=== PATIENT | female | born 1955 | race American Indian/Alaskan Native ===

== ENCOUNTER 2016-09-28 07:38 | Outpatient (CLI) | payer BC ==
--- NOTE | 2016-09-29 09:18 | Ultrasound Report ---
Left breast ultrasound and left mammogram: The patient is post mastectomy with implant. She presents with a history of a chronic thickening in the axilla but currently feeling new pain in this region. The initial exam was performed with ultrasound. Imaging over the area of concern in the one clock location in the far posterior lateral breast or axilla demonstrates a somewhat well-defined irregular shaped hypoechoic region measuring 3.3 x 1.8 cm. This is located just posterior to the pectoralis/axillary muscles. The patient has a pacemaker and this is posterior to that. Attempts to identify this area with mammography were not successful and the area was obscured by the pacemaker in the lateral projection and could not be positioned at far posteriorly in the CC view. The visualized breast and implant are unremarkable. Impressions: The hypoechoic area apparently corresponds to an area of palpable thickness that has been present for many years since surgery. What this represents is unclear and it could be fibrosis if the patient had an axillary dissection. I have no other explanation for the pain. Recommendation: Clinical followup. Consideration of a ultrasound guided biopsy. BI-RADS CATEGORY: 4 = Suspicious ACR BI-RADS MAMMOGRAPHIC CODES: 0 = Needs additional imaging evaluation; 1 = Negative; 2 = Benign; 3 = Probably benign; 4 = Suspicious; 5 = Malignant; 6 = Known biopsy-proven malignancy COMMENT: 1. Dense breast tissue, i.e., adenosis, fibrocystic changes, etc., may obscure an underlying neoplasm. 2. Approximately 10% of cancers are not detected with mammography. 3. A negative mammography report should not delay biopsy if a clinically suspicious mass is present.
== END 2016-09-28 07:39 | disposition home or self-care (01) ==
LOC: US 07:38
PROVIDERS: ATTEND Internal Medicine Hematology & Oncology
DX: C50.212 Malignant neoplasm of upper-inner quadrant of left female breast (principal); Z90.12 Acquired absence of left breast and nipple; Z98.82 Breast implant status; Z95.0 Presence of cardiac pacemaker
CPT/HCPCS: 76642; G0206

== ENCOUNTER 2017-04-21 07:37 | Outpatient (CLI) | payer BC ==
--- NOTE | 2017-04-21 14:39 | Nuclear Medicine Report ---
Hepatobiliary scan: Following injection of radionuclide imaging of the anterior liver is unremarkable. There is prompt activity in the bile ducts and filling of the small bowel. The gallbladder is not identified through the 2 hour images. There is no significant residual activity in the liver and the study is terminated. Impression: Nonvisualized gallbladder. Considerations would include cystic duct obstruction and nonfunctioning gallbladder.
== END 2017-04-21 07:38 | disposition home or self-care (01) ==
LOC: NM 07:37
PROVIDERS: ATTEND Internal Medicine Gastroenterology
DX: R11.2 Nausea with vomiting, unspecified (principal)
CPT/HCPCS: 78226; A9537

== ENCOUNTER 2017-06-01 12:09 | Day surgery (SDC) | payer BC ==
[~2017-06-01 12:09] MED LIST: ANCEF/STERILE WATER 2 GM/20 ML IV NR
[2017-06-01] MEDS ORDERED: VERSED IV NR (14:22)
[2017-06-01] MEDS ORDERED: LACTATED RINGERS 1,000 ML IV SCH (14:22)
[2017-06-01] MEDS ORDERED: PEPCID PO NR (14:22)
--- NOTE | 2017-06-01 14:28 | Anesthesia Consultation ---
Anesthesia Consult and Med Hx Date of service: 06/01/17 - Pulmonary Exam CTA: Yes - Cardiac Exam Cardiac Exam: RRR - Pre-Operative Health Status ASA Pre-Surgery Classification: ASA4 Proposed Anesthetic Plan: General - Pulmonary Hx Smoking: Yes (SMOKED FOR 16y, STOP MAR 2016) Hx Asthma: Yes Hx Sleep Apnea: Yes (cpap) - Cardiovascular System Hx Hypertension: Yes (1999) Hx Heart Attack/AMI: Yes (, dilated cardiomyopathy) Hx Pacemaker: Yes (DEFIBRILLATOR) - Central Nervous System Hx Psychiatric Problems: No - Hematic Hx Anemia: No Hx Sickle Cell Disease: No - Other Systems Hx Alcohol Use: Yes (OCCASIONAL) Hx Substance Use: No Hx Cancer: Yes (breast) - Additional Comments Anesthesia Medical History Comments: Dilated cardiomyopathy, Last EF was 50%, LBBB,AICD
[2017-06-01] MEDS ORDERED: MARCAINE 0.25% INFILTRATI ONE ×2 (14:29→14:42)
--- NOTE | 2017-06-01 14:29 | Anesthesia Day of Surgery ---
Anesthesia Day of Surgery - Day of Surgery Patient Examined: Yes Patient H&P Reviewed: Yes Patient is NPO: Yes Cardiac Clearance: Yes
[2017-06-01] MEDS ORDERED: SUBLIMAZE ONE (14:32)
[2017-06-01] MEDS ORDERED: PERCOCET 5/325 PO PRN (14:34)
[2017-06-01] MEDS ORDERED: ZOFRAN IV PRN (14:34)
[2017-06-01] MEDS ORDERED: DILAUDID IV PRN (14:34)
[2017-06-01] MEDS ORDERED: XYLOCAINE MPF 2% ONE (14:35)
[2017-06-01] MEDS ORDERED: DIPRIVAN 10 MG/ML IV ONE (14:35)
[2017-06-01] MEDS ORDERED: ZEMURON IV ONE (14:35)
[2017-06-01] MEDS ORDERED: NACL 0.9% IR ONE ×2 (14:42)
[2017-06-01] MEDS ORDERED: AMIDATE IV ONE (14:56)
[2017-06-01] MEDS ORDERED: ROBINUL ONE (15:23)
[2017-06-01] MEDS ORDERED: NEOSTIGMINE ONE (15:23)
[2017-06-01] MEDS ORDERED: DILAUDID ONE (15:30)
--- NOTE | 2017-06-01 15:40 | Post Operative Note ---
Date of procedure: 06/01/17 Pre-op diagnosis: chronic choleycystitis Post-op diagnosis: same Findings: see path Procedure: laparoscopic choleycystectomy Surgeon: MAINOR PALMER Top Cutter: ASHA THORNTON Estimated blood loss: minimal Pathology: list (gallbladder) Specimen disposition: to lab Condition: stable Disposition: PACU
--- NOTE | 2017-06-01 15:45 | Discharge Summary ---
Short Stay Discharge Plan Activity: no restrictions Diet: regular Wound: open to air, other (may shower in 2 days) Follow up with: CHAD LARIOS MD [Primary Care Provider] - 7 Days MAINOR PALMER MD [Staff Physician] - 10 Days Prescriptions: oxyCODONE /ACETAMINOPHEN [Percocet 5/325] 1 - 2 tab PO Q6HR PRN #40 tablet PRN Reason: Pain Promethazine [Phenergan TAB] 25 mg PO Q6HR PRN #10 tab PRN Reason: Nausea
--- NOTE | 2017-06-01 17:04 | Post Anesthesia Evaluation ---
- Post Anesthesia Evaluation Patient Participated: Yes Airway Patent: Yes Stable Respiratory Function: Yes Nausea/Vomiting: No Temp > 96.8F: Yes Pain Manageable: Yes Adequeate Hydration: Yes Anesthesia Complications: No
--- NOTE | 2017-06-01 17:16 | Operative Report ---
PREOPERATIVE DIAGNOSIS: Chronic cholecystitis. POSTOPERATIVE DIAGNOSIS: Chronic cholecystitis. PROCEDURE: Laparoscopic cholecystectomy. TYPE OF ANESTHESIA: General. SURGEON: Fariba Yanez M.D. SPINE SUPERVISOR: Kirby Peng. ESTIMATED BLOOD LOSS: Less than 50 mL. FINDINGS: The patient was noted to have an intrahepatic gallbladder. DRAINS: None. INDICATIONS: This is a 61-year-old woman with complaints of epigastric and right upper quadrant pain with nausea, occasional vomiting, especially after eating. She had an ultrasonogram that did show gallstones; however, HIDA scan showed nonvisualization of the gallbladder consistent with chronic cholecystitis. DESCRIPTION OF PROCEDURE: The patient was brought to the operating room, laid supine on the table. After adequate general endotracheal anesthesia was obtained, her abdomen was prepped and draped in the usual fashion. Initially, 0.25% Marcaine was then infiltrated in the superior aspect of the umbilicus, small incision was made. A Veress needle was inserted and abdominal cavity was insufflated to an adequate pressure. Next, three subcostal ports were placed under direct visualization, two lateral 5 mm ports and an epigastric 11 mm port was placed. Attention was turned to the gallbladder. It was noted to be somewhat intrahepatic. It was retracted cephalad. Dissection was begun at the neck and the cystic duct and artery were identified as they were going to the gallbladder as well as at the triangle of Calot with the visualization of the liver behind the structures. Once this was done, the clips were applied and the cystic duct with the closely adherent cystic artery were divided. Next, attention was turned to taking the gallbladder off the liver bed. This was done using the hook cautery. There was some spillage of bile. Once the gallbladder was freed completely, it was retrieved using an specimen retrieval bag through the 11 mm port site. Hemostasis was ascertained in the liver bed and the right upper quadrant was then thoroughly irrigated. The three subcostal ports were removed under direct visualization and then the last port was removed and as much CO2 as possible was evacuated. All the port sites were reapproximated using 4-0 Monocryl in subcuticular fashion and the wounds were dressed with skin glue. The patient tolerated the procedure. There were no immediate complications. All counts reported as correct. JOB# [id number] SS/NTS
[2017-06-01 17:47] VITALS: BP 138/63
== END 2017-06-01 17:49 | disposition home health service (06) ==
LOC: OR 12:09
PROVIDERS: ATTEND Surgery
DX: K81.1 Chronic cholecystitis (principal); Q44.1 Other congenital malformations of gallbladder; I10 Essential (primary) hypertension; I25.2 Old myocardial infarction; I42.0 Dilated cardiomyopathy; J45.909 Unspecified asthma, uncomplicated; G47.33 Obstructive sleep apnea (adult) (pediatric); G40.909 Epilepsy, unspecified, not intractable, without status epilepticus; Z85.3 Personal history of malignant neoplasm of breast; Z87.891 Personal history of nicotine dependence; Z99.89 Dependence on other enabling machines and devices; Z90.10 Acquired absence of unspecified breast and nipple; Z95.810 Presence of automatic (implantable) cardiac defibrillator
CPT/HCPCS: 47562; 88304; A4217; J0690; J1170; J2250; J2405; J2704; J2710; J3010; J7120

== ENCOUNTER 2017-06-18 09:17 | Outpatient (CLI) | payer BC ==
[2017-06-18 09:36] LABS: Hemoglobin 13.5 gm/dl (10.1-14.3); Mean Corpuscular HGB Conc 31 % (30-34); Mean Corpuscular Hemoglobin 27 pg (28-32); Mean Corpuscular Volume 87 fl (79-97); Platelet Count 152 K/mm3 (140-440); Red Blood Count 4.96 M/mm3 (3.65-5.03); Red Cell Distribution Width 14.6 % (13.2-15.2); White Blood Count 4.6 K/mm3 (4.5-11.0)
[2017-06-18 10:00] LABS: Alanine Aminotransferase 9 units/L (7-56); Albumin/Globulin Ratio 1.3 %; Alkaline Phosphatase 122 units/L (35-129); Anion Gap 20 mmol/L; BUN/Creatinine Ratio 12; Blood Urea Nitrogen 12 mg/dL (7-17); Calcium 9.2 mg/dL (8.4-10.2); Carbon Dioxide 24 mmol/L (22-30); Chloride 103.9 mmol/L (98-107); Cholesterol 177 mg/dL (50-199); Glucose 104 mg/dL (65-100); HDL Cholesterol 48 mg/dL (40-59); LDL Cholesterol,Direct 108 mg/dL (50-130); Sodium 144 mmol/L (137-145); Total Protein 7.1 g/dL (6.3-8.2); Triglycerides 105 mg/dL (2-149)
[2017-06-21 21:44] LABS: Vitamin D, 25-OH, Total 17 ng/mL (30-100)
== END 2017-06-18 09:18 | disposition home or self-care (01) ==
LOC: LAB 09:17
PROVIDERS: ATTEND Internal Medicine
DX: Z00.01 Encounter for general adult medical examination with abnormal findings (principal); E55.9 Vitamin D deficiency, unspecified; I11.0 Hypertensive heart disease with heart failure; I50.9 Heart failure, unspecified; Z79.899 Other long term (current) drug therapy
CPT/HCPCS: 36415; 80053; 80061; 82306; 83036; 84443; 85027

== ENCOUNTER 2017-07-30 22:48 | Emergency (ER) | payer BC ==
[2017-07-30] MEDS ORDERED: PROVENTIL IH ONE (22:53)
[2017-07-30] MEDS ORDERED: DELTASONE PO ONE (22:54)
--- NOTE | 2017-07-30 23:31 | Emergency Department Report ---
ED Asthma HPI - General Chief Complaint: Adult Asthma Stated Complaint: COUGH/CHRISTIANO Time Seen by Provider: 07/30/17 22:53 Source: patient Mode of arrival: Ambulatory Limitations: No Limitations - History of Present Illness Initial Comments: Patient reports that she is having wheezing and cough with congestion and runny nose and she is not feeling well. Denies any chest pain. No [id number] medication taken. Patient has asthma and she is on nebulizer and inhaler for asthma. Pain is 0-10. MD Complaint: "asthma attack", shortness of breath, wheezing Onset/Timin -: days(s) Asthma History: history of prior ED visit Severity: moderate, similar to prior Context: recent URI Associated Symptoms: dry cough. denies: fever, chest pain, hemoptysis, leg edema, syncope Treatments Prior to Arrival: inhaled bronchodilator - Related Data Current Asthma Therapy: inhaled bronchodilator, inhaled steroid Home Medications Medication Instructions Recorded Confirmed Last Taken Aspirin [Aspirin Enteric Coated] 81 mg PO DAILY 11/20/13 11/20/13 1 Week Ago ~05/25/17 Carvedilol [Coreg] 25 mg PO BID 11/20/13 11/20/13 06/01/17 14:36 Cyclobenzaprine HCl [Flexeril] 10 mg PO QHS 11/20/13 11/20/13 1 Month Ago ~05/01/17 Fluticasone/Salmeterol [Advair 1 puff IH BID 11/20/13 11/20/13 1 Week Ago Diskus 500-50 mcg] ~05/25/17 Ropinirole HCl [Requip] 2 mg PO PRN 05/31/17 05/31/17 Unknown Valsartan/Hydrochlorothiazide 1 tab PO DAILY 05/31/17 05/31/17 Unknown [Valsartan-Hctz 160-12.5 mg Tab] Previous Rx's Medication Instructions Recorded Last Taken Type ALBUTEROL Inhaler [ProAir HFA 2 puff IH QID PRN #1 inha 09/16/15 1 Week Ago Rx Inhaler] ~05/25/17 Promethazine [Phenergan TAB] 25 mg PO Q6HR PRN #10 tab 06/01/17 Unknown Rx oxyCODONE /ACETAMINOPHEN [Percocet 1 - 2 tab PO Q6HR PRN #40 tablet 06/01/17 Unknown Rx 5/325] Amoxicillin/K Clav Tab [Augmentin 1 tab PO Q12HR 10 Days #20 tab 07/31/17 Unknown Rx 875 mg] Cetirizine HCl [ZyrTEC] 10 mg PO QAM 14 Days #14 capsule 07/31/17 Unknown Rx Fluticasone [Flonase] 1 spray NS QDAY 14 Days #1 bottle 07/31/17 Unknown Rx guaiFENesin/CODEINE [Robitussin AC] 5 ml PO Q6H PRN 5 Days #100 ml 07/31/17 Unknown Rx Allergies Allergy/AdvReac Type Severity Reaction Status Date / Time dopamine [Dopamine] Allergy Unknown Verified 07/31/17 01:59 erythromycin base Allergy Anaphylaxis Verified 05/31/17 17:24 [Erythromycin Base] heparin Allergy extreme Verified 05/31/17 17:24 burning beyond side effect levofloxacin [From Levaquin] Allergy Angioedema Verified 05/31/17 17:24 montelukast sodium Allergy Itching Verified 05/31/17 17:24 [From Singulair] ED Review of Systems ROS: Stated complaint: COUGH/CHRISTIANO Other details as noted in HPI Comment: All other systems reviewed and negative Constitutional: no symptoms reported Eyes: denies: eye pain, eye discharge ENT: congestion. denies: ear pain, throat pain Respiratory: cough, shortness of breath, SOB with exertion, wheezing. denies: orthopnea, SOB at rest, stridor Cardiovascular: denies: chest pain, palpitations, dyspnea on exertion, orthopnea , edema, syncope, paroxysmal nocturnal dyspnea Gastrointestinal: denies: abdominal pain, nausea, vomiting, diarrhea, constipation, hematemesis, melena, hematochezia Musculoskeletal: denies: back pain, joint swelling, arthralgia, myalgia Skin: denies: rash Neurological: denies: headache ED Past Medical Hx - Past Medical History Previous Medical History?: Yes Hx Hypertension: Yes (1999) Hx Heart Attack/AMI: Yes (, dilated cardiomyopathy) Hx Congestive Heart Failure: Yes Hx Deep Vein Thrombosis: Yes Hx GERD: Yes Hx Sickle Cell Disease: No Hx Asthma: Yes Hx HIV: No Additional medical history: diverticulitis restless leg - Surgical History Past Surgical History?: Yes Hx Pacemaker: Yes (DEFIBRILLATOR) Hx Breast Surgery: Yes (RECONSTUCTION) Additional Surgical History: defibrillator - Family History Family history: hypertension - Social History Smoking Status: Never Smoker Substance Use Type: None - Medications Home Medications: Home Medications Medication Instructions Recorded Confirmed Last Taken Type Aspirin [Aspirin Enteric Coated] 81 mg PO DAILY 11/20/13 11/20/13 1 Week Ago History ~05/25/17 Carvedilol [Coreg] 25 mg PO BID 11/20/13 11/20/13 06/01/17 14:36 History Cyclobenzaprine HCl [Flexeril] 10 mg PO QHS 11/20/13 11/20/13 1 Month Ago History ~05/01/17 Fluticasone/Salmeterol [Advair 1 puff IH BID 11/20/13 11/20/13 1 Week Ago History Diskus 500-50 mcg] ~05/25/17 ALBUTEROL Inhaler [ProAir HFA 2 puff IH QID PRN #1 inha 09/16/15 1 Week Ago Rx Inhaler] ~05/25/17 Ropinirole HCl [Requip] 2 mg PO PRN 05/31/17 05/31/17 Unknown History Valsartan/Hydrochlorothiazide 1 tab PO DAILY 05/31/17 05/31/17 Unknown History [Valsartan-Hctz 160-12.5 mg Tab] Promethazine [Phenergan TAB] 25 mg PO Q6HR PRN #10 tab 06/01/17 Unknown Rx oxyCODONE /ACETAMINOPHEN [Percocet 1 - 2 tab PO Q6HR PRN #40 tablet 06/01/17 Unknown Rx 5/325] Amoxicillin/K Clav Tab [Augmentin 1 tab PO Q12HR 10 Days #20 tab 07/31/17 Unknown Rx 875 mg] Cetirizine HCl [ZyrTEC] 10 mg PO QAM 14 Days #14 capsule 07/31/17 Unknown Rx Fluticasone [Flonase] 1 spray NS QDAY 14 Days #1 bottle 07/31/17 Unknown Rx guaiFENesin/CODEINE [Robitussin AC] 5 ml PO Q6H PRN 5 Days #100 ml 07/31/17 Unknown Rx ED Physical Exam - General Limitations: No Limitations General appearance: alert, other (mild distress) - Head Head exam: Present: atraumatic, normocephalic, normal inspection - Eye Eye exam: Present: normal appearance, PERRL, EOMI Pupils: Present: normal accommodation - ENT ENT exam: Present: normal orophraynx, mucous membranes moist, normal external ear exam, other (lateral nasal mucosa congested with clear drainage. No frontomaxillary sinus tenderness). Absent: normal exam, TM's normal bilaterally (bilateral TM congested without erythema) - Neck Neck exam: Present: normal inspection, full ROM, other (no C-spine tenderness). Absent: tenderness, meningismus, lymphadenopathy, thyromegaly - Respiratory Respiratory exam: Present: respiratory distress, wheezes, accessory muscle use ( mild respiratory distress), other (dry cough). Absent: rales, rhonchi, stridor , chest wall tenderness, decreased breath sounds - Cardiovascular Cardiovascular Exam: Present: normal rhythm, tachycardia, normal heart sounds. Absent: systolic murmur, diastolic murmur - GI/Abdominal GI/Abdominal exam: Present: soft, normal bowel sounds. Absent: distended, tenderness, guarding, rebound, rigid, organomegaly, mass, bruit, pulsatile mass , hernia - Extremities Exam Extremities exam: Present: normal inspection, full ROM, normal capillary refill , other (no clubbing, cyanosis or edema. Positive pulses all extremities and no neurovascular compromise). Absent: tenderness, pedal edema, joint swelling, calf tenderness - Back Exam Back exam: Present: normal inspection, full ROM. Absent: tenderness, CVA tenderness (R), CVA tenderness (L), muscle spasm, paraspinal tenderness, vertebral tenderness, rash noted - Neurological Exam Neurological exam: Present: alert, oriented X3, normal gait, reflexes normal. Absent: motor sensory deficit - Psychiatric Psychiatric exam: Present: normal affect, normal mood - Skin Skin exam: Present: warm, dry, intact, normal color. Absent: rash ED Course Vital Signs 07/30/17 07/31/17 07/31/17 23:10 00:07 00:35 Temperature Pulse Rate 108 H Pulse Rate [ 98 H 89 Posterior Bilateral] Respiratory 24 Rate Respiratory 18 18 Rate [Posterior Bilateral] Blood Pressure 142/95 [Right] O2 Sat by Pulse 96 Oximetry 07/31/17 07/31/17 01:30 02:00 Temperature 97.7 F 98.2 F Pulse Rate 85 Pulse Rate [ Posterior Bilateral] Respiratory 16 Rate Respiratory Rate [Posterior Bilateral] Blood Pressure 135/62 [Right] O2 Sat by Pulse 100 Oximetry - Reevaluation(s) Reevaluation #1: 07/31/17 01:10 Patient is stable. Influenza a and B is negative. Chest x-ray done and pending. Patient on her second round of nebulizer treatment and to IV magnesium infusing. She received prednisone 60 mg by mouth. Patient says she feels better. She still has some expiratory and inspiratory wheezes in the upper [place]. Reevaluation #2: 07/31/17 02:21 Patient lung sounds clear up and reevaluation. Vital signs are better. She says she feels a lot better. ED Medical Decision Making - Lab Data Influenza A and B is negative - Radiology Data Radiology results: report reviewed Chest x-ray reveals no acute cardiopulmonary findings. - Medical Decision Making ED course: Patient status post asthma exacerbation. Treated in emergency room with albuterol 10 mg nebulizer, Atrovent 0.5 mg 2 doses. She received prednisone 60 mg by mouth in emergency room. Patient also received magnesium sulfate 2 g IV. Upon reevaluation, lungs sounds are clear, patient says she is feeling a lot better. She denies any further shortness of breath. I discussed the patient her diagnosis and treatment plan. Patient discharged home a prescription for azithromycin which she said works for her. I placed her on azithromycin because she has multiple comorbidities and she said usually when she has asthma A usually turns into an infection. She also has upper respiratory infection, asthma exacerbation which is better, cough. X-ray negative for any cardiopulmonary findings and influenza A and B-. This was relayed to patient. Patient discharged from the emergency room with prescription for azithromycin, Zyrtec, Flonase and guaifenesin with codeine cough medicine. I discussed the patient denies needs to follow up with her primary care on Wednesday and she needs to take her albuterol nebulizer treatment at home every 4-6 hours over the next 48 hours and then as needed. Critical care attestation.: If time is entered above; I have spent that time in minutes in the direct care of this critically ill patient, excluding procedure time. ED Disposition Clinical Impression: Upper respiratory infection with cough and congestion Acute asthma exacerbation Qualifiers: Asthma severity: moderate Asthma persistence: unspecified Qualified Code(s): J45.901 - Unspecified asthma with (acute) exacerbation Disposition: DC-01 TO HOME OR SELFCARE Is pt being admited?: No Does the pt Need Aspirin: No Condition: Stable Instructions: Asthma (ED), Upper Respiratory Infection (ED), Acute Cough (ED) Additional Instructions: Please increase your fluid intake Rest for 72 hours Take antibiotic as prescribed Do not drive or operate heavy machinery while taking cough medicine as this medication causes drowsiness Follow up with your primary care physician on Wednesday If his symptoms recurs, please return to the emergency room [facility] Prescriptions: Amoxicillin/K Clav Tab [Augmentin 875 mg] 1 tab PO Q12HR 10 Days #20 tab Cetirizine HCl [ZyrTEC] 10 mg PO QAM 14 Days #14 capsule Fluticasone [Flonase] 1 spray NS QDAY 14 Days #1 bottle guaiFENesin/CODEINE [Robitussin AC] 5 ml PO Q6H PRN 5 Days #100 ml PRN Reason: Cough Referrals: your ,primary care physician [Other] - 08/02/17 Forms: Work/School Release Form(ED)
[2017-07-30] MEDS ORDERED: ATROVENT IH ONE (23:33)
[2017-07-30] MEDS ORDERED: MAGNESIUM SULFATE 2GM/50ML 2 GM/50 ML BAG IV ONE (23:34)
[2017-07-31] MEDS: ATROVENT IH ONE ×2 (00:07→00:08)
--- NOTE | 2017-07-31 01:20 | XRay Report ---
FINAL REPORT EXAM: XR CHEST ROUTINE 2V HISTORY: wheezing, cough TECHNIQUE: PA and lateral views of the chest were submitted. There are no previous examinations available for comparison. FINDINGS: Heart size and mediastinum appear normal. The lungs are clear. Pleural fluid is not seen. There is a pacemaker device overlying the left chest wall with the leads in the right atrium and right ventricle. There is a Port-A-Cath catheter along the right chest wall with the limb in the superior vena cava. The skeletal structures do not show any acute changes. IMPRESSION: No active chest disease.
[2017-07-31 02:12] VITALS: BP 135/62
== END 2017-07-31 03:19 | disposition home or self-care (01) ==
LOC: ED 22:48
DX: J45.901 Unspecified asthma with (acute) exacerbation (principal); J06.9 Acute upper respiratory infection, unspecified; I10 Essential (primary) hypertension; I50.9 Heart failure, unspecified; I82.409 Acute embolism and thrombosis of unspecified deep veins of unspecified lower extremity; Z88.8 Allergy status to other drugs, medicaments and biological substances; Z79.82 Long term (current) use of aspirin
CPT/HCPCS: 71046; 87400; 94640; 96365; 99284; J3475; J7512

== ENCOUNTER 2017-10-24 23:29 | Emergency (ER) | payer BC ==
[~2017-10-24 23:29] MED LIST changes: -ANCEF/STERILE WATER 2 GM/20 ML IV NR; +DUONEB *Not for PRN Use IH ONE
--- NOTE | 2017-10-25 00:39 | Emergency Department Report ---
ED Asthma HPI - General Chief Complaint: Adult Asthma Stated Complaint: ASTHMA Time Seen by Provider: 10/24/17 23:47 Source: patient, family Mode of arrival: Ambulatory Limitations: No Limitations - History of Present Illness MD Complaint: "asthma attack" -: Sudden, This afternoon Asthma History: history of frequent attac (seasonal), followed by specialist Severity: similar to prior Context: allergen exposure Associated Symptoms: productive cough Treatments Prior to Arrival: inhaled bronchodilator - Related Data Current Asthma Therapy: inhaled bronchodilator Home Medications Medication Instructions Recorded Confirmed Last Taken Aspirin [Aspirin Enteric Coated] 81 mg PO DAILY 11/20/13 11/20/13 1 Week Ago ~05/25/17 Carvedilol [Coreg] 25 mg PO BID 11/20/13 11/20/13 06/01/17 14:36 Cyclobenzaprine HCl [Flexeril] 10 mg PO QHS 11/20/13 11/20/13 1 Month Ago ~05/01/17 Fluticasone/Salmeterol [Advair 1 puff IH BID 11/20/13 11/20/13 1 Week Ago Diskus 500-50 mcg] ~05/25/17 Ropinirole HCl [Requip] 2 mg PO PRN 05/31/17 05/31/17 Unknown Valsartan/Hydrochlorothiazide 1 tab PO DAILY 05/31/17 05/31/17 Unknown [Valsartan-Hctz 160-12.5 mg Tab] Previous Rx's Medication Instructions Recorded Last Taken Type ALBUTEROL Inhaler [ProAir HFA 2 puff IH QID PRN #1 inha 09/16/15 1 Week Ago Rx Inhaler] ~05/25/17 Promethazine [Phenergan TAB] 25 mg PO Q6HR PRN #10 tab 06/01/17 Unknown Rx oxyCODONE /ACETAMINOPHEN [Percocet 1 - 2 tab PO Q6HR PRN #40 tablet 06/01/17 Unknown Rx 5/325] Amoxicillin/K Clav Tab [Augmentin 1 tab PO Q12HR 10 Days #20 tab 07/31/17 Unknown Rx 875 mg] Cetirizine HCl [ZyrTEC] 10 mg PO QAM 14 Days #14 capsule 07/31/17 Unknown Rx Fluticasone [Flonase] 1 spray NS QDAY 14 Days #1 bottle 07/31/17 Unknown Rx guaiFENesin/CODEINE [Robitussin AC] 5 ml PO Q6H PRN 5 Days #100 ml 07/31/17 Unknown Rx Prednisone 50 mg PO QDAY #7 tablet 10/25/17 Unknown Rx Allergies Allergy/AdvReac Type Severity Reaction Status Date / Time dopamine [Dopamine] Allergy Unknown Verified 07/31/17 01:59 erythromycin base Allergy Anaphylaxis Verified 05/31/17 17:24 [Erythromycin Base] heparin Allergy extreme Verified 05/31/17 17:24 burning beyond side effect levofloxacin [From Levaquin] Allergy Angioedema Verified 05/31/17 17:24 montelukast sodium Allergy Itching Verified 05/31/17 17:24 [From Singulair] ED Review of Systems ROS: Stated complaint: ASTHMA Other details as noted in HPI Constitutional: denies: chills, fever Eyes: denies: eye pain, eye discharge, vision change ENT: denies: ear pain, throat pain Respiratory: see HPI, cough, shortness of breath, wheezing Cardiovascular: denies: chest pain, palpitations Endocrine: no symptoms reported Gastrointestinal: denies: abdominal pain, nausea, diarrhea Genitourinary: denies: urgency, dysuria, discharge Musculoskeletal: denies: back pain, joint swelling, arthralgia Skin: denies: rash, lesions Neurological: denies: headache, weakness, paresthesias Psychiatric: denies: anxiety, depression Hematological/Lymphatic: denies: easy bleeding, easy bruising ED Past Medical Hx - Past Medical History Previous Medical History?: Yes Hx Hypertension: Yes (1999) Hx Heart Attack/AMI: Yes (, dilated cardiomyopathy) Hx Congestive Heart Failure: Yes Hx Deep Vein Thrombosis: Yes Hx GERD: Yes Hx Sickle Cell Disease: No Hx Asthma: Yes Hx HIV: No Additional medical history: diverticulitis restless leg - Surgical History Past Surgical History?: Yes Hx Pacemaker: Yes (DEFIBRILLATOR) Hx Breast Surgery: Yes (RECONSTRUCTION) Additional Surgical History: defibrillator - Social History Smoking Status: Never Smoker Substance Use Type: None - Medications Home Medications: Home Medications Medication Instructions Recorded Confirmed Last Taken Type Aspirin [Aspirin Enteric Coated] 81 mg PO DAILY 11/20/13 11/20/13 1 Week Ago History ~05/25/17 Carvedilol [Coreg] 25 mg PO BID 11/20/13 11/20/13 06/01/17 14:36 History Cyclobenzaprine HCl [Flexeril] 10 mg PO QHS 11/20/13 11/20/13 1 Month Ago History ~05/01/17 Fluticasone/Salmeterol [Advair 1 puff IH BID 11/20/13 11/20/13 1 Week Ago History Diskus 500-50 mcg] ~05/25/17 ALBUTEROL Inhaler [ProAir HFA 2 puff IH QID PRN #1 inha 09/16/15 1 Week Ago Rx Inhaler] ~05/25/17 Ropinirole HCl [Requip] 2 mg PO PRN 05/31/17 05/31/17 Unknown History Valsartan/Hydrochlorothiazide 1 tab PO DAILY 05/31/17 05/31/17 Unknown History [Valsartan-Hctz 160-12.5 mg Tab] Promethazine [Phenergan TAB] 25 mg PO Q6HR PRN #10 tab 06/01/17 Unknown Rx oxyCODONE /ACETAMINOPHEN [Percocet 1 - 2 tab PO Q6HR PRN #40 tablet 06/01/17 Unknown Rx 5/325] Amoxicillin/K Clav Tab [Augmentin 1 tab PO Q12HR 10 Days #20 tab 07/31/17 Unknown Rx 875 mg] Cetirizine HCl [ZyrTEC] 10 mg PO QAM 14 Days #14 capsule 07/31/17 Unknown Rx Fluticasone [Flonase] 1 spray NS QDAY 14 Days #1 bottle 07/31/17 Unknown Rx guaiFENesin/CODEINE [Robitussin AC] 5 ml PO Q6H PRN 5 Days #100 ml 07/31/17 Unknown Rx Prednisone 50 mg PO QDAY #7 tablet 10/25/17 Unknown Rx ED Physical Exam - General Limitations: No Limitations General appearance: alert, in no apparent distress - Head Head exam: Present: atraumatic, normocephalic - Eye Eye exam: Present: normal appearance - ENT ENT exam: Present: mucous membranes moist - Neck Neck exam: Present: normal inspection - Respiratory Respiratory exam: Present: respiratory distress, wheezes, accessory muscle use, prolonged expiratory. Absent: normal lung sounds bilaterally - Cardiovascular Cardiovascular Exam: Present: regular rate, normal rhythm. Absent: systolic murmur, diastolic murmur, rubs, gallop - GI/Abdominal GI/Abdominal exam: Present: soft, normal bowel sounds - Extremities Exam Extremities exam: Present: normal inspection - Back Exam Back exam: Present: normal inspection - Neurological Exam Neurological exam: Present: alert, oriented X3 - Psychiatric Psychiatric exam: Present: normal affect, normal mood - Skin Skin exam: Present: warm, dry, intact, normal color. Absent: rash ED Course Vital Signs 10/24/17 23:36 Temperature 98.4 F Pulse Rate 102 H Respiratory 26 H Rate Blood Pressure 210/113 O2 Sat by Pulse 96 Oximetry - Reevaluation(s) Reevaluation #1: 10/25/17 00:51 Back to baseline after 1 breathing treatment and Solu-Medrol Critical care attestation.: If time is entered above; I have spent that time in minutes in the direct care of this critically ill patient, excluding procedure time. ED Disposition Clinical Impression: Acute asthma exacerbation Qualifiers: Asthma severity: moderate Asthma persistence: unspecified Qualified Code(s): J45.901 - Unspecified asthma with (acute) exacerbation Disposition: DC-01 TO HOME OR SELFCARE Is pt being admited?: No Does the pt Need Aspirin: No Condition: Stable Instructions: Asthma (ED) Prescriptions: Prednisone 50 mg PO QDAY #7 tablet Forms: Work/School Release Form(ED) Time of Disposition: 00:54
--- NOTE | 2017-10-25 00:53 | XRay Report ---
FINAL REPORT EXAM: XR CHEST 1V AP HISTORY: SHOB COMPARISON: July 30, 2017. FINDINGS: Frontal view(s) of the chest obtained. Stable mild cardiac enlargement. Right Port-A-Cath and left-sided cardiac defibrillator remain in place. Lungs are grossly clear. IMPRESSION: No grossly acute findings.
[2017-10-25 01:15] VITALS: BP 126/68
[2017-10-25] MEDS ORDERED: DUONEB *Not for PRN Use IH ONE (01:52)
[2017-10-25] MEDS ORDERED: PROVENTIL IH ONE (01:52)
== END 2017-10-25 01:16 | disposition home or self-care (01) ==
LOC: ED 23:29
DX: J45.901 Unspecified asthma with (acute) exacerbation (principal); I11.0 Hypertensive heart disease with heart failure; K21.9 Gastro-esophageal reflux disease without esophagitis; Z79.82 Long term (current) use of aspirin; Z88.1 Allergy status to other antibiotic agents; Z88.8 Allergy status to other drugs, medicaments and biological substances; Z86.718 Personal history of other venous thrombosis and embolism; Z95.0 Presence of cardiac pacemaker
CPT/HCPCS: 71045; 96374; 99283; J2930

== ENCOUNTER 2017-11-05 11:05 | Outpatient (CLI) | payer BC ==
[2017-11-05 11:32] LABS: Hematocrit 42.1 % (30.3-42.9); Hemoglobin 13.9 gm/dl (10.1-14.3); Mean Corpuscular HGB Conc 33 % (30-34); Mean Corpuscular Hemoglobin 28 pg (28-32); Mean Corpuscular Volume 85 fl (79-97); Platelet Count 130 K/mm3 (140-440); Red Blood Count 4.93 M/mm3 (3.65-5.03); Red Cell Distribution Width 14.9 % (13.2-15.2)
[2017-11-05 11:58] LABS: Albumin 3.6 g/dL (3.9-5)
== END 2017-11-05 11:06 | disposition home or self-care (01) ==
LOC: LAB 11:05
PROVIDERS: ATTEND Internal Medicine Hematology & Oncology
DX: C50.212 Malignant neoplasm of upper-inner quadrant of left female breast (principal); I10 Essential (primary) hypertension; R73.01 Impaired fasting glucose
CPT/HCPCS: 36415; 80053; 83036; 85027; 86300

== ENCOUNTER 2017-11-23 02:50 | Inpatient (IN) | payer BC ==
[~2017-11-23 02:50] MED LIST changes: +DELTASONE ONE
[2017-11-23] MEDS ORDERED: MAGNESIUM SULFATE 2GM/50ML 2 GM/50 ML BAG IV ONE ×2 (02:54→03:19)
[2017-11-23] MEDS ORDERED: DIPRIVAN 10 MG/ML 1,000 MG/100 ML BOTTLE IV ONE (03:13)
[2017-11-23] MEDS: DIPRIVAN 10 MG/ML 1,000 MG/100 ML BOTTLE IV SCH ×5 (03:15→23:05)
[2017-11-23] MEDS ORDERED: ATROVENT IH ONE ×2 (03:19)
[2017-11-23] MEDS ORDERED: PROVENTIL IH ONE ×2 (03:19)
[2017-11-23] MEDS ORDERED: QUELICIN IV ONE (03:21)
[2017-11-23] MEDS ORDERED: AMIDATE IV ONE (03:21)
[2017-11-23] MEDS ORDERED: VASELINE LIP THERAPY TP PRN (03:22)
[2017-11-23] MEDS ORDERED: ARTIFICIAL TEARS OPHTH OINT OU PRN (03:22)
[2017-11-23] MEDS ORDERED: DIPRIVAN 10 MG/ML IV ONE (03:23)
--- NOTE | 2017-11-23 03:42 | XRay Report ---
FINAL REPORT EXAM: XR CHEST 1V AP HISTORY: ETT placement TECHNIQUE: A portable supine view the chest was obtained and compared to the study of 10/24/2017. FINDINGS: The patient is intubated with the tip of the ET tube 3 cm above the jasvir. The heart size is normal. There is a Port-A-Cath catheter along the right chest wall with the limb in the mid superior vena cava. There is a pacemaker overlying the left chest wall with leads in the right atrium right ventricle. The heart size is normal. The lungs are clear. There is no evidence of congestion or effusion. The skeletal structures otherwise well maintained. IMPRESSION: Satisfactory intubation with the tip of the ET tube 3 cm above the jasvir. No active chest disease otherwise.
[2017-11-23] MEDS ORDERED: NACL 0.9% 500 ML IV SCH (04:00)
--- NOTE | 2017-11-23 04:16 | Emergency Department Report ---
ED Shortness of Breath HPI - General Chief Complaint: Dyspnea/Respdistress Stated Complaint: CHRISTIANO Time Seen by Provider: 11/23/17 03:18 Source: family, RN/MD Mode of arrival: Stretcher Limitations: Altered Mental Status - History of Present Illness Initial Comments: 62 year old female with past medical history asthma, CHF, DVT, GERD, diabetic neuropathy, hypertension, breast cancer, and defibrillator placement presents to the hospital with respiratory failure secondary to acute asthma exacerbation. Patient works here in the hospital ED registration. While working she developed shortness of breath and a cough with wheezing. As per staff patient rapidly decompensated and became unresponsive with audible wheezing and respiratory distress. Upon my arrival to the room patient was unresponsive with initial oxygen on albuterol treatment with oxygen supplementation in the 40s. Initial heart rate in the 40s to 50s. Patient required [id number] ventilation which improved oxygenation to the 90s while being prepped for intubation. Heart rate also improved/increase with improved oxygenation. No further history of present illness available at this time due to patient condition. - Related Data Home Medications Medication Instructions Recorded Confirmed Last Taken Aspirin [Aspirin Enteric Coated] 81 mg PO DAILY 11/20/13 11/20/13 1 Week Ago ~05/25/17 Carvedilol [Coreg] 25 mg PO BID 11/20/13 11/20/13 06/01/17 14:36 Cyclobenzaprine HCl [Flexeril] 10 mg PO QHS 11/20/13 11/20/13 1 Month Ago ~05/01/17 Fluticasone/Salmeterol [Advair 1 puff IH BID 11/20/13 11/20/13 1 Week Ago Diskus 500-50 mcg] ~05/25/17 Ropinirole HCl [Requip] 2 mg PO PRN 05/31/17 05/31/17 Unknown Valsartan/Hydrochlorothiazide 1 tab PO DAILY 05/31/17 05/31/17 Unknown [Valsartan-Hctz 160-12.5 mg Tab] Previous Rx's Medication Instructions Recorded Last Taken Type ALBUTEROL Inhaler [ProAir HFA 2 puff IH QID PRN #1 inha 09/16/15 1 Week Ago Rx Inhaler] ~05/25/17 Promethazine [Phenergan TAB] 25 mg PO Q6HR PRN #10 tab 06/01/17 Unknown Rx oxyCODONE /ACETAMINOPHEN [Percocet 1 - 2 tab PO Q6HR PRN #40 tablet 06/01/17 Unknown Rx 5/325] Amoxicillin/K Clav Tab [Augmentin 1 tab PO Q12HR 10 Days #20 tab 07/31/17 Unknown Rx 875 mg] Cetirizine HCl [ZyrTEC] 10 mg PO QAM 14 Days #14 capsule 07/31/17 Unknown Rx Fluticasone [Flonase] 1 spray NS QDAY 14 Days #1 bottle 07/31/17 Unknown Rx guaiFENesin/CODEINE [Robitussin AC] 5 ml PO Q6H PRN 5 Days #100 ml 07/31/17 Unknown Rx Prednisone 50 mg PO QDAY #7 tablet 10/25/17 Unknown Rx Allergies Allergy/AdvReac Type Severity Reaction Status Date / Time dopamine [Dopamine] Allergy Unknown Verified 07/31/17 01:59 erythromycin base Allergy Anaphylaxis Verified 05/31/17 17:24 [Erythromycin Base] heparin Allergy extreme Verified 05/31/17 17:24 burning beyond side effect levofloxacin [From Levaquin] Allergy Angioedema Verified 05/31/17 17:24 montelukast sodium Allergy Itching Verified 05/31/17 17:24 [From Singulair] ED Review of Systems ROS: Stated complaint: CHRISTIANO Other details as noted in HPI Comment: Unobtainable due to pts medical conditions ED Past Medical Hx - Past Medical History Previous Medical History?: Yes Hx Hypertension: Yes (1999) Hx Heart Attack/AMI: Yes (, dilated cardiomyopathy) Hx Congestive Heart Failure: Yes Hx Deep Vein Thrombosis: Yes Hx GERD: Yes Hx of Cancer: Yes (breast) Hx Sickle Cell Disease: No Hx Asthma: Yes Hx HIV: No Additional medical history: diverticulitis restless leg - Surgical History Past Surgical History?: Yes Hx Pacemaker: Yes (DEFIBRILLATOR) Hx Breast Surgery: Yes (RECONSTRUCTION) Additional Surgical History: defibrillator - Social History Smoking Status: Current Every Day Smoker - Medications Home Medications: Home Medications Medication Instructions Recorded Confirmed Last Taken Type Aspirin [Aspirin Enteric Coated] 81 mg PO DAILY 11/20/13 11/20/13 1 Week Ago History ~05/25/17 Carvedilol [Coreg] 25 mg PO BID 11/20/13 11/20/13 06/01/17 14:36 History Cyclobenzaprine HCl [Flexeril] 10 mg PO QHS 11/20/13 11/20/13 1 Month Ago History ~05/01/17 Fluticasone/Salmeterol [Advair 1 puff IH BID 11/20/13 11/20/13 1 Week Ago History Diskus 500-50 mcg] ~05/25/17 ALBUTEROL Inhaler [ProAir HFA 2 puff IH QID PRN #1 inha 09/16/15 1 Week Ago Rx Inhaler] ~05/25/17 Ropinirole HCl [Requip] 2 mg PO PRN 05/31/17 05/31/17 Unknown History Valsartan/Hydrochlorothiazide 1 tab PO DAILY 05/31/17 05/31/17 Unknown History [Valsartan-Hctz 160-12.5 mg Tab] Promethazine [Phenergan TAB] 25 mg PO Q6HR PRN #10 tab 06/01/17 Unknown Rx oxyCODONE /ACETAMINOPHEN [Percocet 1 - 2 tab PO Q6HR PRN #40 tablet 06/01/17 Unknown Rx 5/325] Amoxicillin/K Clav Tab [Augmentin 1 tab PO Q12HR 10 Days #20 tab 07/31/17 Unknown Rx 875 mg] Cetirizine HCl [ZyrTEC] 10 mg PO QAM 14 Days #14 capsule 07/31/17 Unknown Rx Fluticasone [Flonase] 1 spray NS QDAY 14 Days #1 bottle 07/31/17 Unknown Rx guaiFENesin/CODEINE [Robitussin AC] 5 ml PO Q6H PRN 5 Days #100 ml 07/31/17 Unknown Rx Prednisone 50 mg PO QDAY #7 tablet 10/25/17 Unknown Rx ED Physical Exam - General Limitations: Altered Mental Status - Other Other exam information: General: Positive distress, unresponsive Head exam: Atraumatic, normocephalic Eyes exam: Normal appearance ENT: Moist mucous membrane Neck exam: Normal inspection Respiratory exam: Audible bilateral wheezing with poor air movement and accessory muscle use Cardiovascular: Bradycardic Abdomen: Soft, nondistended Extremity: No deformity Back: Normal Inspection Neurologic: Patient unresponsive with respiratory distress and not following commands Skin: Warm ED Course Vital Signs 11/23/17 11/23/17 11/23/17 02:50 03:32 03:46 Temperature 97.5 F L Pulse Rate 95 H 96 H 86 Respiratory 14 19 20 Rate Blood Pressure 111/77 111/77 128/76 O2 Sat by Pulse 100 98 96 Oximetry 11/23/17 11/23/17 11/23/17 03:52 04:00 04:16 Temperature Pulse Rate 85 89 83 Respiratory 20 20 Rate Blood Pressure 131/85 131/85 132/84 O2 Sat by Pulse 100 97 100 Oximetry 11/23/17 11/23/17 04:30 04:46 Temperature Pulse Rate 81 81 Respiratory 20 20 Rate Blood Pressure 142/85 145/84 O2 Sat by Pulse 97 100 Oximetry - Intubation Time Out Performed: Yes Sedative: Etomidate Mg Given: 20 Paralytic: Succinylcholine Mg Given: 100 Laryngoscope: Gayla Size: 4 ET Tube Size: 7.5 Tube Secured Depth (cm): 20 Tube Secured Location: lips Tube Placement Confirmation: visualized tube passing t, equal breath sounds bilat, no breath sounds over epi, confirmation by capnometr Patient Tolerated Procedure: well Intubation Complications: none ED Medical Decision Making - Lab Data Result diagrams: 11/23/17 04:11 11/23/17 04:11 Lab Results 11/23/17 11/23/17 Range/Units 04:11 04:11 WBC 7.8 (4.5-11.0) K/mm3 RBC 4.96 (3.65-5.03) M/mm3 Hgb 14.0 (10.1-14.3) gm/dl Hct 42.8 (30.3-42.9) % MCV 86 (79-97) fl MCH 28 (28-32) pg MCHC 33 (30-34) % RDW 15.6 H (13.2-15.2) % Plt Count 164 (140-440) K/mm3 Lymph % (Auto) 26.1 (13.4-35.0) % Mcleod % (Auto) 6.4 (0.0-7.3) % Eos % (Auto) 3.7 (0.0-4.3) % Baso % (Auto) 0.8 (0.0-1.8) % Lymph # 2.0 (1.2-5.4) K/mm3 Mcleod # 0.5 (0.0-0.8) K/mm3 Eos # 0.3 (0.0-0.4) K/mm3 Baso # 0.1 (0.0-0.1) K/mm3 Seg Neutrophils % 63.0 (40.0-70.0) % Seg Neutrophils # 4.9 (1.8-7.7) K/mm3 Sodium 138 (137-145) mmol/L Potassium 4.9 (3.6-5.0) mmol/L Chloride 100.5 (98-107) mmol/L Carbon Dioxide 22 (22-30) mmol/L Anion Gap 20 mmol/L BUN 14 (7-17) mg/dL Creatinine 1.1 (0.7-1.2) mg/dL Estimated GFR > 60 ml/min BUN/Creatinine Ratio 13 % Glucose 170 H (65-100) mg/dL Calcium 8.9 (8.4-10.2) mg/dL Total Creatine Kinase 122 (30-135) units/L CK-MB (CK-2) 2.4 (0.0-4.0) ng/mL CK-MB (CK-2) Rel Index 1.9 (0-4) Troponin T < 0.010 (0.00-0.029) ng/mL - EKG Data -: EKG Interpreted by Me (atrial sensed ventricular paced rhythm.) EKG shows normal: axis (QRS axis 259), QRS complexes (QRS duration 135), ST-T waves (no ST elevation or T inversion) - EKG Data When compared to previous EKG there are: no significant change - Radiology Data Radiology results: report reviewed Chest x-ray: Satisfactory intubation with the tip of the ET tube 3 cm above the jasvir. No active acute disease otherwise - Medical Decision Making Patient presents with symptoms of acute asthma exacerbation resulting in respiratory failure requiring emergent intubation. After intubation and improve oxygenation patient was moving and required additional sedation. Currently on propofol drip. Labs unremarkable. Patient further treated with IV Solu-Medrol, albuterol, Atrovent, and IV magnesium. Hospitalist informed for admission - Differential Diagnosis asthma exacerbation, pneumothorax, OH, arrhythmia, PE Critical Care Time: Yes Critical care time in (mins) excluding proc time.: 35 Critical care attestation.: If time is entered above; I have spent that time in minutes in the direct care of this critically ill patient, excluding procedure time. ED Disposition Clinical Impression: Respiratory failure, Acute asthma exacerbation, Pacemaker Disposition: DC- OP ADMIT IP TO THIS HOSP Is pt being admited?: Yes Condition: Stable Time of Disposition: 04:30 (Dr Chang/hosp)
[2017-11-23 04:32] LABS: Basophils # (Auto) 0.1 K/mm3 (0.0-0.1); Basophils % (Auto) 0.8 % (0.0-1.8); Eosinophils # (Auto) 0.3 K/mm3 (0.0-0.4); Eosinophils % (Auto) 3.7 % (0.0-4.3); Hematocrit 42.8 % (30.3-42.9); Lymphocytes % (Auto) 26.1 % (13.4-35.0); Mean Corpuscular HGB Conc 33 % (30-34); Mean Corpuscular Hemoglobin 28 pg (28-32); Mean Corpuscular Volume 86 fl (79-97); Monocytes # (Auto) 0.5 K/mm3 (0.0-0.8); Monocytes % (Auto) 6.4 % (0.0-7.3); Platelet Count 164 K/mm3 (140-440); Red Blood Count 4.96 M/mm3 (3.65-5.03); Red Cell Distribution Width 15.6 % (13.2-15.2)
[2017-11-23 04:45] LABS: BUN/Creatinine Ratio 13; Blood Urea Nitrogen 14 mg/dL (7-17); Calcium 8.9 mg/dL (8.4-10.2); Hemolysis Index 30
[2017-11-23 04:47] LABS: Creatine Kinase MB 2.4 ng/mL (0.0-4.0)
[2017-11-23] MEDS ORDERED: ZOFRAN IV PRN (05:26)
[2017-11-23] MEDS ORDERED: SODIUM CHLORIDE FLUSH SYRINGE 10 ML IV PRN (05:26)
[2017-11-23] MEDS ORDERED: TYLENOL PR PRN (05:26)
[2017-11-23] MEDS ORDERED: TYLENOL PO PRN (05:26)
--- NOTE | 2017-11-23 06:11 | History and Physical Report ---
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 The patient was taken to her room, she was unresponsive and was subsequently intubated. A review of system is unobtainable PAST MEDICAL HISTORY:hypertension, breast cancer, DVT, hypertension, CHF PAST SURGICAL HISTORY: AICD, bilateral mastectomy, breast reconstruction SOCIAL HISTORY: She smokes, no alcohol, drugs FAMILY HISTORY: Hypertension Medications and Allergies Allergies Allergy/AdvReac Type Severity Reaction Status Date / Time dopamine [Dopamine] Allergy Unknown Verified 07/31/17 01:59 erythromycin base Allergy Anaphylaxis Verified 05/31/17 17:24 [Erythromycin Base] heparin Allergy extreme Verified 05/31/17 17:24 burning beyond side effect levofloxacin [From Levaquin] Allergy Angioedema Verified 05/31/17 17:24 montelukast sodium Allergy Itching Verified 05/31/17 17:24 [From Singulair] Home Medications Medication Instructions Recorded Confirmed Last Taken Type Aspirin [Aspirin Enteric Coated] 81 mg PO DAILY 11/20/13 11/20/13 1 Week Ago History ~05/25/17 Carvedilol [Coreg] 25 mg PO BID 11/20/13 11/20/13 06/01/17 14:36 History Cyclobenzaprine HCl [Flexeril] 10 mg PO QHS 11/20/13 11/20/13 1 Month Ago History ~05/01/17 Fluticasone/Salmeterol [Advair 1 puff IH BID 11/20/13 11/20/13 1 Week Ago History Diskus 500-50 mcg] ~05/25/17 ALBUTEROL Inhaler [ProAir HFA 2 puff IH QID PRN #1 inha 09/16/15 1 Week Ago Rx Inhaler] ~05/25/17 Ropinirole HCl [Requip] 2 mg PO PRN 05/31/17 05/31/17 Unknown History Valsartan/Hydrochlorothiazide 1 tab PO DAILY 05/31/17 05/31/17 Unknown History [Valsartan-Hctz 160-12.5 mg Tab] Promethazine [Phenergan TAB] 25 mg PO Q6HR PRN #10 tab 06/01/17 Unknown Rx oxyCODONE /ACETAMINOPHEN [Percocet 1 - 2 tab PO Q6HR PRN #40 tablet 06/01/17 Unknown Rx 5/325] Amoxicillin/K Clav Tab [Augmentin 1 tab PO Q12HR 10 Days #20 tab 07/31/17 Unknown Rx 875 mg] Cetirizine HCl [ZyrTEC] 10 mg PO QAM 14 Days #14 capsule 07/31/17 Unknown Rx Fluticasone [Flonase] 1 spray NS QDAY 14 Days #1 bottle 07/31/17 Unknown Rx guaiFENesin/CODEINE [Robitussin AC] 5 ml PO Q6H PRN 5 Days #100 ml 07/31/17 Unknown Rx Prednisone 50 mg PO QDAY #7 tablet 10/25/17 Unknown Rx Active Meds: Active Medications Acetaminophen (Tylenol) 650 mg PO Q4H PRN PRN Reason: Pain MILD(1-3)/Fever >100.5/ABRAHAM Acetaminophen (Tylenol) 650 mg NH Q4H PRN PRN Reason: Pain MILD(1-3)/Fever >100.5/ABRAHAM Albuterol/Ipratropium (Duoneb *Not For Prn Use*) 1 ampul IH Q6HRT [facility] Hydrophilic Ointment (Vaseline Lip Therapy) 1 applic TP Q2HR PRN PRN Reason: Dry Lips Propofol (Diprivan 10 Mg/Ml) 1,000 mg in 100 mls @ 2.585 mls/hr IV TITR [facility]I; Protocol Last Titration: 11/23/17 05:32 Dose: 30 mcg/kg/min, 15.513 mls/hr Methylprednisolone Sodium Succinate (Solu-Medrol) 125 mg IV Q6H [facility]I Multi-Ingred Cream/Lotion/Oil/Oint (Artificial Tears Ophth Oint) 1 applic OU Q4HR PRN PRN Reason: Dry Eye(s) Ondansetron HCl (Zofran) 4 mg IV Q8H PRN PRN Reason: Nausea And Vomiting Sodium Chloride (Nacl 0.9% 500 Ml) 1 ml IV DIRECT [facility]I Sodium Chloride (Sodium Chloride Flush Syringe 10 Ml) 10 ml IV BID [facility] Sodium Chloride (Sodium Chloride Flush Syringe 10 Ml) 10 ml IV PRN PRN PRN Reason: LINE FLUSH Exam - Physical Exam Narrative exam: Gen. appearance: Patient lying in bed, no apparent distress, intubated, sedated HEENT: Normocephalic, atraumatic, pupils equally round and reactive to light, unable to do extraocular movement, and no sclericterus,. No JVD or thyromegaly or nodule,neck supple, no carotid bruit ,mucous membranes moist, ET tube in place Heart: S1, S2, regular rate and rhythm Lungs: Clear to auscultation bilaterally, breathing comfortable Abdomen: Positive bowel sounds, soft, nondistended, no organomegaly Extremity: No edema, cyanosis, clubbing Skin: No rash, nodules, warm, dry Neuro: Sedated - Constitutional Vitals: Temp Pulse Resp BP Pulse Ox 97.5 F L 81 20 145/84 100 11/23/17 02:50 11/23/17 04:46 11/23/17 04:46 11/23/17 04:46 11/23/17 04:46 Results - Labs CBC & Chem 7: 11/23/17 04:11 11/23/17 04:11 Labs: Abnormal lab results 11/23/17 11/23/17 11/23/17 Range/Units 04:11 04:11 05:44 RDW 15.6 H (13.2-15.2) % POC ABG pH 7.347 L (7.35-7.45) POC ABG pCO2 52.6 H (35-45) POC ABG pO2 594 H (80-105) Glucose 170 H (65-100) mg/dL - Imaging and Cardiology EKG: image reviewed Chest x-ray: image reviewed Assessment and Plan Assessment Acute respiratory Failure Asthma Exacerbation hypertension breast cancer, History of DVT CHF Plan Admit to medicine Start high-dose steroids, nebulizer treatments Check cardiac enzymes, d-dimer, consult critical care DVT prophylaxis
--- NOTE | 2017-11-23 06:49 | Consultation ---
History of Present Illness Consult date: 11/23/17 Requesting physician: JULIETTE WINSTON Reason for consult: other (acute hypoxic respiratory failure, acute encephalopathy) History of present illness: History is obtained from the medical records. Patient is orally intubated and unable to give me a history 62 year old female with past medical history asthma, CHF, DVT, GERD, diabetic neuropathy, hypertension, breast cancer, and defibrillator placement presents to the hospital with respiratory failure secondary to acute asthma exacerbation. Patient works here in the hospital ED registration. While working she developed shortness of breath and a cough with wheezing. As per staff patient rapidly decompensated and became unresponsive with audible wheezing and respiratory distress. Upon my arrival to the room patient was unresponsive with initial oxygen on albuterol treatment with oxygen supplementation in the 40s. Initial heart rate in the 40s to 50s. Patient required [id number] ventilation which improved oxygenation to the 90s while being prepped for intubation. Heart rate also improved/increase with improved oxygenation. PAST MEDICAL HISTORY:hypertension, breast cancer, DVT, hypertension, CHF PAST SURGICAL HISTORY: AICD, bilateral mastectomy, breast reconstruction SOCIAL HISTORY: She smokes, no alcohol, drugs FAMILY HISTORY: Hypertension Medications and Allergies Allergies Allergy/AdvReac Type Severity Reaction Status Date / Time dopamine [Dopamine] Allergy Unknown Verified 07/31/17 01:59 erythromycin base Allergy Anaphylaxis Verified 05/31/17 17:24 [Erythromycin Base] heparin Allergy extreme Verified 05/31/17 17:24 burning beyond side effect levofloxacin [From Levaquin] Allergy Angioedema Verified 05/31/17 17:24 montelukast sodium Allergy Itching Verified 05/31/17 17:24 [From Singulair] Home Medications Medication Instructions Recorded Confirmed Last Taken Type Aspirin [Aspirin Enteric Coated] 81 mg PO DAILY 11/20/13 11/20/13 1 Week Ago History ~05/25/17 Carvedilol [Coreg] 25 mg PO BID 11/20/13 11/20/13 06/01/17 14:36 History Cyclobenzaprine HCl [Flexeril] 10 mg PO QHS 11/20/13 11/20/13 1 Month Ago History ~05/01/17 Fluticasone/Salmeterol [Advair 1 puff IH BID 11/20/13 11/20/13 1 Week Ago History Diskus 500-50 mcg] ~05/25/17 ALBUTEROL Inhaler [ProAir HFA 2 puff IH QID PRN #1 inha 09/16/15 1 Week Ago Rx Inhaler] ~05/25/17 Ropinirole HCl [Requip] 2 mg PO PRN 05/31/17 05/31/17 Unknown History Valsartan/Hydrochlorothiazide 1 tab PO DAILY 05/31/17 05/31/17 Unknown History [Valsartan-Hctz 160-12.5 mg Tab] Promethazine [Phenergan TAB] 25 mg PO Q6HR PRN #10 tab 06/01/17 Unknown Rx oxyCODONE /ACETAMINOPHEN [Percocet 1 - 2 tab PO Q6HR PRN #40 tablet 06/01/17 Unknown Rx 5/325] Amoxicillin/K Clav Tab [Augmentin 1 tab PO Q12HR 10 Days #20 tab 07/31/17 Unknown Rx 875 mg] Cetirizine HCl [ZyrTEC] 10 mg PO QAM 14 Days #14 capsule 07/31/17 Unknown Rx Fluticasone [Flonase] 1 spray NS QDAY 14 Days #1 bottle 07/31/17 Unknown Rx guaiFENesin/CODEINE [Robitussin AC] 5 ml PO Q6H PRN 5 Days #100 ml 07/31/17 Unknown Rx Prednisone 50 mg PO QDAY #7 tablet 10/25/17 Unknown Rx Active Meds: Active Medications Acetaminophen (Tylenol) 650 mg PO Q4H PRN PRN Reason: Pain MILD(1-3)/Fever >100.5/ABRAHAM Acetaminophen (Tylenol) 650 mg GA Q4H PRN PRN Reason: Pain MILD(1-3)/Fever >100.5/ABRAHAM Albuterol/Ipratropium (Duoneb *Not For Prn Use*) 1 ampul IH Q6HRT [facility] Aspirin (Halfprin Ec) 81 mg PO DAILY [facility] Hydrophilic Ointment (Vaseline Lip Therapy) 1 applic TP Q2HR PRN PRN Reason: Dry Lips Propofol (Diprivan 10 Mg/Ml) 1,000 mg in 100 mls @ 2.585 mls/hr IV TITR [facility]; Protocol Last Titration: 11/23/17 05:32 Dose: 30 mcg/kg/min, 15.513 mls/hr Methylprednisolone Sodium Succinate (Solu-Medrol) 125 mg IV Q6H [facility] Multi-Ingred Cream/Lotion/Oil/Oint (Artificial Tears Ophth Oint) 1 applic OU Q4HR PRN PRN Reason: Dry Eye(s) Ondansetron HCl (Zofran) 4 mg IV Q8H PRN PRN Reason: Nausea And Vomiting Sodium Chloride (Nacl 0.9% 500 Ml) 1 ml IV DIRECT [facility] Sodium Chloride (Sodium Chloride Flush Syringe 10 Ml) 10 ml IV BID [facility] Sodium Chloride (Sodium Chloride Flush Syringe 10 Ml) 10 ml IV PRN PRN PRN Reason: LINE FLUSH Physical Examination Vital signs: Vital Signs Temp Pulse Resp BP Pulse Ox 97.5 F L 95 H 14 111/77 100 11/23/17 02:50 11/23/17 02:50 11/23/17 02:50 11/23/17 02:50 11/23/17 02:50 VITAL SIGNS: Reviewed. GENERAL: The patient appeared well nourished and normally developed. Orally intubated to [facility]. No dys-synchrony, Obese Vital signs as documented. HEAD: No signs of head trauma. EYES: Pupils are equal. . EARS: Unable to examine the patient intubated. MOUTH: ET tube in place. NECK: No adenopathy, no JVD. CHEST: Chest with clear breath sounds bilaterally. No wheezes, rales, or rhonchi. CARDIAC: Regular rate and rhythm. S1 and S2, without murmurs, gallops, or rubs. VASCULAR: No Edema. Peripheral pulses normal and equal in all extremities. ABDOMEN: Soft, without detectable tenderness. No sign of distention. No rebound or guarding, and no masses palpated. Bowel Sounds normal. MUSCULOSKELETAL: Extremities without clubbing, cyanosis or edema. NEUROLOGIC EXAM: Sedated and on full ventilatory support PSYCHIATRIC: Sedated SKIN: No rash or lesions. Results - Laboratory Findings CBC and BMP: 11/24/17 05:03 11/24/17 05:03 ABG POC ABG pH 7.347 (7.35-7.45) L 11/23/17 05:44 POC ABG pCO2 52.6 (35-45) H 11/23/17 05:44 POC ABG pO2 594 (80-105) H 11/23/17 05:44 POC ABG HCO3 28.8 11/23/17 05:44 POC ABG Total CO2 30 11/23/17 05:44 POC ABG O2 Sat 100 11/23/17 05:44 PT/INR, D-dimer D-Dimer 3413.48 ng/mlDDU (0-234) H 11/23/17 05:41 Abnormal lab findings: Abnormal Labs 11/23/17 11/23/17 11/23/17 04:11 04:11 05:41 RDW 15.6 H D-Dimer 3413.48 H POC ABG pH POC ABG pCO2 POC ABG pO2 Glucose 170 H 11/23/17 05:44 RDW D-Dimer POC ABG pH 7.347 L POC ABG pCO2 52.6 H POC ABG pO2 594 H Glucose Assessment and Plan Acute hypercapnic respiratory failure requiring mechanical ventilation Asthma Exacerbation Hypertension Breast cancer S/P Double Mastectomy with reconstruction History of DVT, with elevated d-dimer, CTA negative h/o CHF per medical records Tongue Ring h/o Tobacco abuse disorder -VAP bundle addressed -Supplemental oxygen to keep O2 sats 88-90% -VTE prophylaxis -Stress ulcer prophylaxis -Steroids, start taper in the morning -Accuchecks with glycemic control -Bronchodilators -Nutrition to be addressed within the next 72hours -Daily SAT and SBT in the morning - Lower extremity dopplers -Santiago catheter in this critically ill patietn requiring strict intake and output monitoring. Plan to discontinue santiago within the next 24 hours if no longer clinically indicated. -Will initiate tube feeding if not extubated in the next 48 hours -Empiric antibiotics, will de-escalate in the next 48 hours if no clear source of infection -All critical care bundles addressed -Nicotine withdrawal precautions, smoking cessation counselling once extubated. Extensive discussions with daughter at bedside, all questions answered. The high probability of a clinically significant, sudden or life threatening deterioration of the [pulmonary] system(s) required my full and direct attention , intervention and personal management. The aggregate critical care time was [65 ] minutes. This time is in addition to time spent performing reported procedures but includes the following: [x] Data Review and interpretation [x] Patient assessment and monitoring of vital signs [x] Documentation [x] Medication orders and management
[2017-11-23] MEDS: DUONEB *Not for PRN Use IH SCH ×3 (08:08→19:59)
[2017-11-23 08:43] LABS: Creatine Kinase MB 2.6 ng/mL (0.0-4.0)
[2017-11-23] MEDS ORDERED: NACL 0.9% 500 ML 500 ML IV ONE (09:00)
--- NOTE | 2017-11-23 10:03 | Progress Note ---
Assessment and Plan Assessment and plan: History from the emergency room physician's documentation of critical care documentation. Due to patient's clinical condition of intubation. 62 year old female with past medical history asthma, CHF, DVT, GERD, diabetic neuropathy, hypertension, breast cancer status post bilateral mastectomy, and defibrillator placement presents to the hospital with respiratory failure secondary to acute asthma exacerbation. Patient works here in the hospital ED registration. While working she developed shortness of breath and a cough with wheezing. As per staff patient rapidly decompensated and became unresponsive with audible wheezing and respiratory distress. Daughter who is at the bedside on my initial evaluation reports the patient has not had any sign of respiratory distress in the past few days prior to this episode. According to the critical care physician "Upon my arrival to the room patient was unresponsive with initial oxygen on albuterol treatment with oxygen supplementation in the 40s. Initial heart rate in the 40s to 50s. Patient required [id number] ventilation which improved oxygenation to the 90s while being prepped for intubation. Heart rate also improved/increase with improved oxygenation." Acute hypercapnic respiratory failure requiring mechanical ventilation * Continue full ventilatory support. ABG intermittently. Critical care input noted. * CTA today to rule out pulmonary embolism considered elevated d-dimer * Solu-Medrol taper. Nebulized treatments. Asthma Exacerbation * Continue management as noted above. Peak flow meter, nebulizer treatment just prior to discharge and asthma education hypertension * PRN hydralazin breast cancer, * S/P Double Mastectomy History of DVT * Elevated D.dimer, Will check CT chest and also lower ext doppler CHF * No data available, Will discuss details with family. If difficult extubation, or any sign of volume overload, may need further evaluation. Tongue Ring * Staff aware, to monitor during oral care. May need removal if prolonged period of intubation due to risk of infection DVT/GI prophy FEN: Dietary consult Extensive discussion with daughter at bedside, all questions answered. The high probability of a clinically significant, sudden or life threatening deterioration of the [pulmonary] system(s) required my full and direct attention , intervention and personal management. The aggregate critical care time was [45 ] minutes. This time is in addition to time spent performing reported procedures but includes the following: [x] Data Review and interpretation [x] Patient assessment and monitoring of vital signs [x] Documentation [x] Medication orders and management History Interval history: Patient is seen today for: Respiratory failure Seen and examined at bedside; 24hour events reviewed; nursing staff ; no adverse overnight events reported to me; continues on full mechanical ventilation support, no fever but mildly elevated blood pressure noted. Hospitalist Physical - Physical exam Narrative exam: VITAL SIGNS: Reviewed. GENERAL: The patient appeared well nourished and normally developed. Otherwise on full ventilatory support. Vital signs as documented. HEAD: No signs of head trauma. EYES: Pupils are equal. . EARS: Unable to examine the patient intubated. MOUTH: ET tube in place. NECK: No adenopathy, no JVD. CHEST: Chest with clear breath sounds bilaterally. No wheezes, rales, or rhonchi. CARDIAC: Regular rate and rhythm. S1 and S2, without murmurs, gallops, or rubs. VASCULAR: No Edema. Peripheral pulses normal and equal in all extremities. ABDOMEN: Soft, without detectable tenderness. No sign of distention. No rebound or guarding, and no masses palpated. Bowel Sounds normal. MUSCULOSKELETAL: Extremities without clubbing, cyanosis or edema. NEUROLOGIC EXAM: Sedated and on full ventilatory support PSYCHIATRIC: Sedated SKIN: No rash or lesions. - Constitutional Vitals: Temp Pulse Resp BP Pulse Ox 97.8 F 71 20 195/97 100 11/23/17 08:00 11/23/17 08:25 11/23/17 08:25 11/23/17 08:02 11/23/17 08:02 Results - Labs CBC & Chem 7: 11/24/17 05:03 11/24/17 05:03 Labs: Laboratory Last Values WBC 7.8 K/mm3 (4.5-11.0) 11/23/17 04:11 RBC 4.96 M/mm3 (3.65-5.03) 11/23/17 04:11 Hgb 14.0 gm/dl (10.1-14.3) 11/23/17 04:11 Hct 42.8 % (30.3-42.9) 11/23/17 04:11 MCV 86 fl (79-97) 11/23/17 04:11 MCH 28 pg (28-32) 11/23/17 04:11 MCHC 33 % (30-34) 11/23/17 04:11 RDW 15.6 % (13.2-15.2) H 11/23/17 04:11 Plt Count 164 K/mm3 (140-440) 11/23/17 04:11 Lymph % (Auto) 26.1 % (13.4-35.0) 11/23/17 04:11 [place] % (Auto) 6.4 % (0.0-7.3) 11/23/17 04:11 Eos % (Auto) 3.7 % (0.0-4.3) 11/23/17 04:11 Baso % (Auto) 0.8 % (0.0-1.8) 11/23/17 04:11 Lymph # 2.0 K/mm3 (1.2-5.4) 11/23/17 04:11 [place] # 0.5 K/mm3 (0.0-0.8) 11/23/17 04:11 Eos # 0.3 K/mm3 (0.0-0.4) 11/23/17 04:11 Baso # 0.1 K/mm3 (0.0-0.1) 11/23/17 04:11 Seg Neutrophils % 63.0 % (40.0-70.0) 11/23/17 04:11 Seg Neutrophils # 4.9 K/mm3 (1.8-7.7) 11/23/17 04:11 D-Dimer 3413.48 ng/mlDDU (0-234) H 11/23/17 05:41 POC ABG pH 7.347 (7.35-7.45) L 11/23/17 05:44 POC ABG pCO2 52.6 (35-45) H 11/23/17 05:44 POC ABG pO2 594 (80-105) H 11/23/17 05:44 POC ABG HCO3 28.8 11/23/17 05:44 POC ABG Total CO2 30 11/23/17 05:44 POC ABG O2 Sat 100 11/23/17 05:44 POC ABG Base Excess 3 11/23/17 05:44 FiO2 100 % 11/23/17 05:44 Sodium 138 mmol/L (137-145) 11/23/17 04:11 Potassium 4.9 mmol/L (3.6-5.0) 11/23/17 04:11 Chloride 100.5 mmol/L (98-107) 11/23/17 04:11 Carbon Dioxide 22 mmol/L (22-30) 11/23/17 04:11 Anion Gap 20 mmol/L 11/23/17 04:11 BUN 14 mg/dL (7-17) 11/23/17 04:11 Creatinine 1.1 mg/dL (0.7-1.2) 11/23/17 04:11 Estimated GFR > 60 ml/min 11/23/17 04:11 BUN/Creatinine Ratio 13 % 11/23/17 04:11 Glucose 170 mg/dL (65-100) H 11/23/17 04:11 Calcium 8.9 mg/dL (8.4-10.2) 11/23/17 04:11 Total Creatine Kinase 123 units/L (30-135) 11/23/17 07:31 CK-MB (CK-2) 2.6 ng/mL (0.0-4.0) 11/23/17 07:31 CK-MB (CK-2) Rel Index 2.1 (0-4) 11/23/17 07:31 Troponin T 0.013 ng/mL (0.00-0.029) 11/23/17 07:31 - Imaging and Cardiology Chest x-ray: image reviewed (ET tube noted) CT scan - chest: pending
[2017-11-23] MEDS: SODIUM CHLORIDE FLUSH SYRINGE 10 ML IV SCH ×2 (10:58→21:03)
[2017-11-23] MEDS: HALFPRIN EC PO SCH ×2 (10:58→11:02)
[2017-11-23] MEDS: PEPCID IV SCH ×2 (10:59→21:02)
[2017-11-23] MEDS ORDERED: SODIUM BICARBONATE FEEDTUBE PRN (12:49)
[2017-11-23] MEDS ORDERED: PANCREAZE DR 10,500 UNIT FEEDTUBE PRN (12:49)
[2017-11-23] MEDS ORDERED: SIMPLE SYRUP FEEDTUBE PRN ×2 (12:49)
[2017-11-23 13:29] LABS: Creatine Kinase MB 2.5 ng/mL (0.0-4.0)
--- NOTE | 2017-11-23 14:12 | Cat Scan Report ---
CTA CHEST: HISTORY: chest pain, shortness of breath. COMPARISON: 01/23/16 CT chest with contrast. TECHNIQUE: Helical CT in 1.25mm intervals following IV contrast. Pulmonary embolus protocol. Sagittal and coronal reformatted images. Rotational MIP images. FINDINGS: Contrast bolus is satisfactory. No pulmonary embolus is identified. Thyroid gland: Normal. Tracheobronchial tree: Normal. Esophagus: Normal. Heart: Normal size. 3-lead pacemaker device is in position. Pericardium: Normal. Mediastinum: Normal. Lung [place]: Adequately aerated. No evidence for pneumonia or mass. Pleural Spaces: Normal. Musculoskeletal: Normal. IMPRESSION: No evidence for pulmonary embolus. Unremarkable CT chest with contrast.
--- NOTE | 2017-11-23 16:45 | XRay Report ---
FINAL REPORT EXAM: XR ABDOMEN 1V AP HISTORY: Check tube placement TECHNIQUE: Portable examination of the abdomen PRIORS: Portable chest 11/23/2017 FINDINGS: Pneumoperitoneum: None visible. Abnormal fluid levels: None visible. Visceromegaly: None visible. Mass: None visible. Abnormal calcification: None. Intestinal distention: None. Intestinal obstructive pattern: None. Stool volume: Normal. Upper abdominal surgical clips may reflect prior cholecystectomy. IMPRESSION: Nonspecific bowel gas pattern without intestinal distention in the visualized abdomen Distal tip of new gastric tube is present in the right upper quadrant the abdomen, in the expected region of the distal stomach
[2017-11-23] MEDS ORDERED: APRESOLINE IV PRN (17:39)
[2017-11-24] MEDS ORDERED: AMIDATE IV ONE (00:24)
[2017-11-24] MEDS: DUONEB *Not for PRN Use IH SCH ×4 (01:43→19:59)
--- NOTE | 2017-11-24 02:55 | XRay Report ---
FINAL REPORT EXAM: XR CHEST 1V AP HISTORY: follow up respiratory failure TECHNIQUE: A portable semi-upright view the chest was submitted. Comparison made to the study of 11/23/2017. FINDINGS: The tip of the ET tube is 2.5 cm above the jasvir. There is an NG tube coursing into the stomach. There is a Port-A-Cath catheter along the right chest wall with the limb in good position in the superior vena cava. There is a pacemaker overlying the left chest wall with the leads in the right ventricle. The heart size is normal the lungs are not congested. There are no localized infiltrates. The skeletal structures otherwise well maintained. IMPRESSION: No acute infiltrates or congestion. Satisfactory position of tubes and lines.
[2017-11-24 05:33] LABS: Basophils % (Auto) 0.4 % (0.0-1.8); Hematocrit 42.6 % (30.3-42.9); Lymphocytes # (Auto) 1.1 K/mm3 (1.2-5.4); Lymphocytes % (Auto) 10.4 % (13.4-35.0); Mean Corpuscular HGB Conc 33 % (30-34); Mean Corpuscular Hemoglobin 28 pg (28-32); Mean Corpuscular Volume 84 fl (79-97); Monocytes # (Auto) 0.5 K/mm3 (0.0-0.8); Monocytes % (Auto) 4.2 % (0.0-7.3); Platelet Count 166 K/mm3 (140-440); Red Blood Count 5.07 M/mm3 (3.65-5.03); Red Cell Distribution Width 14.8 % (13.2-15.2)
[2017-11-24 05:44] LABS: BUN/Creatinine Ratio 15; Blood Urea Nitrogen 17 mg/dL (7-17); Calcium 8.9 mg/dL (8.4-10.2); Hemolysis Index 4
[2017-11-24] MEDS: DIPRIVAN 10 MG/ML 1,000 MG/100 ML BOTTLE IV SCH (05:48)
[2017-11-24] MEDS ORDERED: SUBLIMAZE ONE (07:53)
--- NOTE | 2017-11-24 09:07 | Progress Note ---
Assessment and Plan Acute hypercapnic respiratory failure requiring mechanical ventilation Asthma Exacerbation Hypertension Breast cancer S/P Double Mastectomy with reconstruction History of DVT, with elevated d-dimer, CTA negative h/o CHF per medical records Tongue Ring h/o Tobacco abuse disorder -VAP bundle addressed Tolerating SBT, plan to get NIF, RSBI and if acceptable, will liberate from mechanical ventilatory support. Once liberated, bedside swallow evaluation, discontinue santiago catheter and OOB to chair. -Supplemental oxygen to keep O2 sats 88-90% -VTE prophylaxis -Stress ulcer prophylaxis -Steroids, start taper today -Accuchecks with glycemic control -Bronchodilators - Lower extremity dopplers-negative -Empiric antibiotics, will de-escalate in the next 24 hours if no clear source of infection -All critical care bundles addressed -Nicotine withdrawal precautions, smoking cessation counselling once extubated. Extensive discussions with daughter at bedside, all questions answered. The high probability of a clinically significant, sudden or life threatening deterioration of the [pulmonary] system(s) required my full and direct attention , intervention and personal management. The aggregate critical care time was [35 ] minutes. This time is in addition to time spent performing reported procedures but includes the following: [x] Data Review and interpretation [x] Patient assessment and monitoring of vital signs [x] Documentation [x] Medication orders and management Subjective Date of service: 11/24/17 Principal diagnosis: Acute hypoxemic rsepiratory failure on MVS, asthma with acute exacerbation Interval history: Seen and examined. Vitals, labs, medications, chart reviewed. Doing well. No acute overnight events documented. Discussed in the ICU-IDT rounds. Tolerating PSV trials. Awake and alert. Objective - Exam Narrative Exam: VITAL SIGNS: Reviewed. GENERAL: The patient appeared well nourished and normally developed. Vital signs as documented. Orally intubated. On PSV 10/5, with tidal volumes of 350 HEAD: No signs of head trauma. EYES: Pupils are equally reactive to light, EOMI. MOUTH: ET tube in place. NECK: No adenopathy, no JVD. CHEST: Chest with clear breath sounds bilaterally. No wheezes, rales, or rhonchi. CARDIAC: Regular rate and rhythm. S1 and S2, without murmurs, gallops, or rubs. VASCULAR: No Edema. Peripheral pulses normal and equal in all extremities. ABDOMEN: Soft, without detectable tenderness. No sign of distention. No rebound or guarding, and no masses palpated. Bowel Sounds normal. MUSCULOSKELETAL: Extremities without clubbing, cyanosis or edema. NEUROLOGIC EXAM: Awake, alert, obeying commands, Non-focal SKIN: No rash or lesions. Vital Signs - 12hr 11/23/17 11/23/17 11/23/17 21:11 21:21 21:30 Temperature Pulse Rate 87 92 H 93 H Pulse Rate [ Anterior Bilateral Throughout] Pulse Rate [ From Monitor] Respiratory 20 20 19 Rate Respiratory Rate [Anterior Bilateral Throughout] Blood Pressure 140/79 140/79 147/84 O2 Sat by Pulse 97 98 98 Oximetry 11/23/17 11/23/17 11/23/17 21:41 21:51 22:00 Temperature Pulse Rate 95 H 88 86 Pulse Rate [ Anterior Bilateral Throughout] Pulse Rate [ From Monitor] Respiratory 12 20 20 Rate Respiratory Rate [Anterior Bilateral Throughout] Blood Pressure 147/84 147/84 155/89 O2 Sat by Pulse 98 98 98 Oximetry 11/23/17 11/23/17 11/23/17 22:11 22:21 22:30 Temperature Pulse Rate 86 86 85 Pulse Rate [ Anterior Bilateral Throughout] Pulse Rate [ From Monitor] Respiratory 20 20 20 Rate Respiratory Rate [Anterior Bilateral Throughout] Blood Pressure 155/89 155/89 140/78 O2 Sat by Pulse 98 98 98 Oximetry 11/23/17 11/23/17 11/23/17 22:41 22:51 23:00 Temperature Pulse Rate 86 86 83 Pulse Rate [ Anterior Bilateral Throughout] Pulse Rate [ From Monitor] Respiratory 20 20 20 Rate Respiratory Rate [Anterior Bilateral Throughout] Blood Pressure 140/78 140/78 162/89 O2 Sat by Pulse 98 98 98 Oximetry 11/23/17 11/23/17 11/23/17 23:11 23:21 23:31 Temperature Pulse Rate 94 H 92 H 90 Pulse Rate [ Anterior Bilateral Throughout] Pulse Rate [ From Monitor] Respiratory 20 20 20 Rate Respiratory Rate [Anterior Bilateral Throughout] Blood Pressure 154/87 154/87 123/76 O2 Sat by Pulse 98 98 98 Oximetry 11/23/17 11/23/17 11/23/17 23:41 23:51 23:52 Temperature Pulse Rate 89 87 88 Pulse Rate [ Anterior Bilateral Throughout] Pulse Rate [ From Monitor] Respiratory 20 20 Rate Respiratory Rate [Anterior Bilateral Throughout] Blood Pressure 123/76 123/76 123/76 O2 Sat by Pulse 98 98 98 Oximetry 11/23/17 11/24/17 11/24/17 23:59 00:00 00:09 Temperature 99.8 F H Pulse Rate 89 91 H Pulse Rate [ Anterior Bilateral Throughout] Pulse Rate [ 95 H From Monitor] Respiratory 20 20 Rate Respiratory Rate [Anterior Bilateral Throughout] Blood Pressure 111/74 111/74 O2 Sat by Pulse 98 98 Oximetry 11/24/17 11/24/17 11/24/17 00:11 00:21 00:30 Temperature Pulse Rate 91 H 90 89 Pulse Rate [ Anterior Bilateral Throughout] Pulse Rate [ From Monitor] Respiratory 20 20 20 Rate Respiratory Rate [Anterior Bilateral Throughout] Blood Pressure 111/74 111/74 114/68 O2 Sat by Pulse 98 98 98 Oximetry 11/24/17 11/24/17 11/24/17 00:41 00:51 01:00 Temperature Pulse Rate 89 88 90 Pulse Rate [ Anterior Bilateral Throughout] Pulse Rate [ From Monitor] Respiratory 20 20 20 Rate Respiratory Rate [Anterior Bilateral Throughout] Blood Pressure 114/68 114/68 139/83 O2 Sat by Pulse 98 98 99 Oximetry 11/24/17 11/24/17 11/24/17 01:11 01:21 01:30 Temperature Pulse Rate 91 H 91 H 89 Pulse Rate [ Anterior Bilateral Throughout] Pulse Rate [ From Monitor] Respiratory 20 20 20 Rate Respiratory Rate [Anterior Bilateral Throughout] Blood Pressure 139/83 139/83 115/74 O2 Sat by Pulse 99 99 99 Oximetry 11/24/17 11/24/17 11/24/17 01:41 01:43 01:51 Temperature Pulse Rate 90 91 H Pulse Rate [ 90 Anterior Bilateral Throughout] Pulse Rate [ From Monitor] Respiratory 20 20 Rate Respiratory 20 Rate [Anterior Bilateral Throughout] Blood Pressure 115/74 115/74 O2 Sat by Pulse 99 99 Oximetry 11/24/17 11/24/17 11/24/17 01:58 02:00 02:11 Temperature Pulse Rate 98 H 97 H Pulse Rate [ 92 H Anterior Bilateral Throughout] Pulse Rate [ From Monitor] Respiratory 11 L 16 Rate Respiratory 20 Rate [Anterior Bilateral Throughout] Blood Pressure 181/96 139/83 O2 Sat by Pulse 98 98 Oximetry 11/24/17 11/24/17 11/24/17 02:21 02:30 02:41 Temperature Pulse Rate 118 H 102 H 97 H Pulse Rate [ Anterior Bilateral Throughout] Pulse Rate [ From Monitor] Respiratory 13 20 20 Rate Respiratory Rate [Anterior Bilateral Throughout] Blood Pressure 139/83 133/83 133/83 O2 Sat by Pulse 98 97 98 Oximetry 11/24/17 11/24/17 11/24/17 02:51 03:00 03:11 Temperature Pulse Rate 96 H 95 H 94 H Pulse Rate [ Anterior Bilateral Throughout] Pulse Rate [ From Monitor] Respiratory 19 20 20 Rate Respiratory Rate [Anterior Bilateral Throughout] Blood Pressure 133/83 129/71 129/71 O2 Sat by Pulse 98 98 98 Oximetry 11/24/17 11/24/17 11/24/17 03:21 03:30 03:41 Temperature Pulse Rate 95 H 95 H 95 H Pulse Rate [ Anterior Bilateral Throughout] Pulse Rate [ From Monitor] Respiratory 20 20 20 Rate Respiratory Rate [Anterior Bilateral Throughout] Blood Pressure 129/71 133/73 133/73 O2 Sat by Pulse 98 98 98 Oximetry 11/24/17 11/24/17 11/24/17 03:51 04:00 04:01 Temperature 99.6 F Pulse Rate 94 H 101 H 99 H Pulse Rate [ Anterior Bilateral Throughout] Pulse Rate [ 95 H From Monitor] Respiratory 20 19 Rate Respiratory Rate [Anterior Bilateral Throughout] Blood Pressure 133/73 133/71 133/73 O2 Sat by Pulse 98 98 98 Oximetry 11/24/17 11/24/17 11/24/17 04:11 04:21 04:30 Temperature Pulse Rate 101 H 98 H 96 H Pulse Rate [ Anterior Bilateral Throughout] Pulse Rate [ From Monitor] Respiratory 20 20 20 Rate Respiratory Rate [Anterior Bilateral Throughout] Blood Pressure 133/71 133/71 126/71 O2 Sat by Pulse 96 96 96 Oximetry 11/24/17 11/24/17 11/24/17 04:41 04:51 05:01 Temperature Pulse Rate 96 H 96 H 100 H Pulse Rate [ Anterior Bilateral Throughout] Pulse Rate [ From Monitor] Respiratory 20 20 17 Rate Respiratory Rate [Anterior Bilateral Throughout] Blood Pressure 126/71 126/71 142/85 O2 Sat by Pulse 96 96 97 Oximetry 11/24/17 11/24/17 11/24/17 05:11 05:21 05:30 Temperature Pulse Rate 99 H 98 H 93 H Pulse Rate [ Anterior Bilateral Throughout] Pulse Rate [ From Monitor] Respiratory 16 20 20 Rate Respiratory Rate [Anterior Bilateral Throughout] Blood Pressure 126/71 126/71 133/77 O2 Sat by Pulse 97 97 97 Oximetry 11/24/17 11/24/17 11/24/17 05:41 05:51 06:00 Temperature Pulse Rate 93 H 94 H 93 H Pulse Rate [ Anterior Bilateral Throughout] Pulse Rate [ From Monitor] Respiratory 20 20 20 Rate Respiratory Rate [Anterior Bilateral Throughout] Blood Pressure 142/85 142/85 126/72 O2 Sat by Pulse 97 97 97 Oximetry 11/24/17 11/24/17 11/24/17 06:11 06:21 06:30 Temperature Pulse Rate 91 H 90 89 Pulse Rate [ Anterior Bilateral Throughout] Pulse Rate [ From Monitor] Respiratory 20 20 20 Rate Respiratory Rate [Anterior Bilateral Throughout] Blood Pressure 133/77 133/77 138/79 O2 Sat by Pulse 97 97 96 Oximetry 11/24/17 11/24/17 11/24/17 06:41 06:51 07:00 Temperature Pulse Rate 89 90 90 Pulse Rate [ Anterior Bilateral Throughout] Pulse Rate [ From Monitor] Respiratory 20 20 20 Rate Respiratory Rate [Anterior Bilateral Throughout] Blood Pressure 138/79 138/79 128/74 O2 Sat by Pulse 97 97 97 Oximetry 11/24/17 11/24/17 11/24/17 07:11 07:21 07:31 Temperature Pulse Rate 93 H 89 99 H Pulse Rate [ Anterior Bilateral Throughout] Pulse Rate [ From Monitor] Respiratory 11 L 17 14 Rate Respiratory Rate [Anterior Bilateral Throughout] Blood Pressure 128/74 128/74 176/96 O2 Sat by Pulse 93 95 96 Oximetry 11/24/17 11/24/17 11/24/17 07:37 07:41 07:51 Temperature Pulse Rate 99 H 99 H 106 H Pulse Rate [ 96 H Anterior Bilateral Throughout] Pulse Rate [ From Monitor] Respiratory 17 16 Rate Respiratory 9 L Rate [Anterior Bilateral Throughout] Blood Pressure 175/95 175/95 175/95 O2 Sat by Pulse 96 96 98 Oximetry 11/24/17 11/24/17 08:00 08:11 Temperature Pulse Rate 98 H 101 H Pulse Rate [ Anterior Bilateral Throughout] Pulse Rate [ 88 From Monitor] Respiratory 13 17 Rate Respiratory Rate [Anterior Bilateral Throughout] Blood Pressure 155/84 155/84 O2 Sat by Pulse 96 96 Oximetry CBC and BMP: 11/24/17 05:03 11/24/17 05:03 ABG, PT/INR, D-dimer: ABG POC ABG pH 7.554 (7.35-7.45) H 11/24/17 04:07 POC ABG pCO2 27.1 (35-45) L 11/24/17 04:07 POC ABG pO2 207 (80-105) H 11/24/17 04:07 POC ABG HCO3 24.0 11/24/17 04:07 POC ABG Total CO2 25 11/24/17 04:07 POC ABG O2 Sat 100 11/24/17 04:07 PT/INR, D-dimer D-Dimer 3413.48 ng/mlDDU (0-234) H 11/23/17 05:41 Abnormal lab findings: Abnormal Labs 11/23/17 11/23/17 11/23/17 04:11 04:11 05:41 RBC RDW 15.6 H Lymph % (Auto) Lymph # Seg Neutrophils % Seg Neutrophils # D-Dimer 3413.48 H POC ABG pH POC ABG pCO2 POC ABG pO2 Carbon Dioxide Glucose 170 H POC Glucose 11/23/17 11/24/17 11/24/17 05:44 04:07 05:03 RBC 5.07 H RDW Lymph % (Auto) 10.4 L Lymph # 1.1 L Seg Neutrophils % 85.0 H Seg Neutrophils # 9.4 H D-Dimer POC ABG pH 7.347 L 7.554 H POC ABG pCO2 52.6 H 27.1 L POC ABG pO2 594 H 207 H Carbon Dioxide Glucose POC Glucose 11/24/17 11/24/17 05:03 08:21 RBC RDW Lymph % (Auto) Lymph # Seg Neutrophils % Seg Neutrophils # D-Dimer POC ABG pH POC ABG pCO2 POC ABG pO2 Carbon Dioxide 20 L Glucose POC Glucose 150 H
[2017-11-24] MEDS ORDERED: SUBLIMAZE IV ONE (10:00)
[2017-11-24] MEDS: HALFPRIN EC PO SCH (11:23)
[2017-11-24] MEDS: SODIUM CHLORIDE FLUSH SYRINGE 10 ML IV SCH ×2 (11:23→21:41)
[2017-11-24] MEDS: PEPCID IV SCH ×2 (11:23→21:41)
--- NOTE | 2017-11-24 14:22 | Progress Note ---
Assessment and Plan Assessment and plan: History from the emergency room physician's documentation of critical care documentation. Due to patient's clinical condition of intubation. 62 year old female with past medical history asthma, CHF, DVT, GERD, diabetic neuropathy, hypertension, breast cancer status post bilateral mastectomy, and defibrillator placement presents to the hospital with respiratory failure secondary to acute asthma exacerbation. Patient works here in the hospital ED registration. While working she developed shortness of breath and a cough with wheezing. As per staff patient rapidly decompensated and became unresponsive with audible wheezing and respiratory distress. Daughter who is at the bedside on my initial evaluation reports the patient has not had any sign of respiratory distress in the past few days prior to this episode. According to the critical care physician "Upon my arrival to the room patient was unresponsive with initial oxygen on albuterol treatment with oxygen supplementation in the 40s. Initial heart rate in the 40s to 50s. Patient required [id number] ventilation which improved oxygenation to the 90s while being prepped for intubation. Heart rate also improved/increase with improved oxygenation." Acute hypercapnic respiratory failure requiring mechanical ventilation * Continue full ventilatory support. ABG intermittently. Critical care input noted * Retrospect extubation today. * CTA today to rule out pulmonary embolism considered elevated d-dimer * Solu-Medrol taper. Nebulized treatments. Asthma Exacerbation * Continue management as noted above. Peak flow meter, nebulizer treatment just prior to discharge and asthma education hypertension * PRN hydralazin breast cancer, * S/P Double Mastectomy History of DVT * Elevated D.dimer, Will check CT chest and also lower ext doppler CHF * No data available, Will discuss details with family. If difficult extubation, or any sign of volume overload, may need further evaluation. Tongue Ring * Staff aware, to monitor during oral care. May need removal if prolonged period of intubation due to risk of infection DVT/GI prophy FEN: Dietary consult Extensive discussion with daughter at bedside, all questions answered. The high probability of a clinically significant, sudden or life threatening deterioration of the [pulmonary] system(s) required my full and direct attention , intervention and personal management. The aggregate critical care time was [45 ] minutes. This time is in addition to time spent performing reported procedures but includes the following: [x] Data Review and interpretation [x] Patient assessment and monitoring of vital signs [x] Documentation [x] Medication orders and management History Interval history: Patient is seen today for: Respiratory failure Seen and examined at bedside; 24hour events reviewed; nursing staff ; no adverse overnight events reported to me; continues on full mechanical ventilation support, but on pressure support no fever. Number of sedation will to get the ET tube out Hospitalist Physical - Physical exam Narrative exam: VITAL SIGNS: Reviewed. GENERAL: The patient appeared well nourished and normally developed. Otherwise on full ventilatory support. Vital signs as documented. HEAD: No signs of head trauma. EYES: Pupils are equal. . EARS: Unable to examine the patient intubated. MOUTH: ET tube in place. NECK: No adenopathy, no JVD. CHEST: Chest with clear breath sounds bilaterally. No wheezes, rales, or rhonchi. CARDIAC: Regular rate and rhythm. S1 and S2, without murmurs, gallops, or rubs. VASCULAR: No Edema. Peripheral pulses normal and equal in all extremities. ABDOMEN: Soft, without detectable tenderness. No sign of distention. No rebound or guarding, and no masses palpated. Bowel Sounds normal. MUSCULOSKELETAL: Extremities without clubbing, cyanosis or edema. NEUROLOGIC EXAM: Awake alert oriented 3 most all extremities PSYCHIATRIC: Normal mood and affect SKIN: No rash or lesions. - Constitutional Vitals: Temp Pulse Resp BP Pulse Ox 99.3 F 101 H 17 155/84 96 11/24/17 08:00 11/24/17 08:11 11/24/17 08:11 11/24/17 08:11 11/24/17 08:11 Results - Labs CBC & Chem 7: 11/24/17 05:03 11/24/17 05:03 Labs: Laboratory Last Values WBC 11.0 K/mm3 (4.5-11.0) 11/24/17 05:03 RBC 5.07 M/mm3 (3.65-5.03) H 11/24/17 05:03 Hgb 14.0 gm/dl (10.1-14.3) 11/24/17 05:03 Hct 42.6 % (30.3-42.9) 11/24/17 05:03 MCV 84 fl (79-97) 11/24/17 05:03 MCH 28 pg (28-32) 11/24/17 05:03 MCHC 33 % (30-34) 11/24/17 05:03 RDW 14.8 % (13.2-15.2) 11/24/17 05:03 Plt Count 166 K/mm3 (140-440) 11/24/17 05:03 Lymph % (Auto) 10.4 % (13.4-35.0) L 11/24/17 05:03 [place] % (Auto) 4.2 % (0.0-7.3) 11/24/17 05:03 Eos % (Auto) 0.0 % (0.0-4.3) 11/24/17 05:03 Baso % (Auto) 0.4 % (0.0-1.8) 11/24/17 05:03 Lymph # 1.1 K/mm3 (1.2-5.4) L 11/24/17 05:03 [place] # 0.5 K/mm3 (0.0-0.8) 11/24/17 05:03 Eos # 0.0 K/mm3 (0.0-0.4) 11/24/17 05:03 Baso # 0.0 K/mm3 (0.0-0.1) 11/24/17 05:03 Seg Neutrophils % 85.0 % (40.0-70.0) H 11/24/17 05:03 Seg Neutrophils # 9.4 K/mm3 (1.8-7.7) H 11/24/17 05:03 D-Dimer 3413.48 ng/mlDDU (0-234) H 11/23/17 05:41 POC ABG pH 7.554 (7.35-7.45) H 11/24/17 04:07 POC ABG pCO2 27.1 (35-45) L 11/24/17 04:07 POC ABG pO2 207 (80-105) H 11/24/17 04:07 POC ABG HCO3 24.0 11/24/17 04:07 POC ABG Total CO2 25 11/24/17 04:07 POC ABG O2 Sat 100 11/24/17 04:07 POC ABG Base Excess 2 11/24/17 04:07 FiO2 50 % 11/24/17 04:07 Sodium 140 mmol/L (137-145) 11/24/17 05:03 Potassium 3.7 mmol/L (3.6-5.0) D 11/24/17 05:03 Chloride 101.8 mmol/L (98-107) 11/24/17 05:03 Carbon Dioxide 20 mmol/L (22-30) L 11/24/17 05:03 Anion Gap 22 mmol/L 11/24/17 05:03 BUN 17 mg/dL (7-17) 11/24/17 05:03 Creatinine 1.1 mg/dL (0.7-1.2) 11/24/17 05:03 Estimated GFR > 60 ml/min 11/24/17 05:03 BUN/Creatinine Ratio 15 % 11/24/17 05:03 Glucose 151 mg/dL (65-100) H 11/24/17 05:03 POC Glucose 150 (70-105) H 11/24/17 08:21 Calcium 8.9 mg/dL (8.4-10.2) 11/24/17 05:03 Total Creatine Kinase 110 units/L (30-135) 11/23/17 12:32 CK-MB (CK-2) 2.5 ng/mL (0.0-4.0) 11/23/17 12:32 CK-MB (CK-2) Rel Index 2.2 (0-4) 11/23/17 12:32 Troponin T < 0.010 ng/mL (0.00-0.029) 11/23/17 12:32
--- NOTE | 2017-11-24 15:27 | Vascular Lab Report ---
LOWER EXTREMITY VENOUS DUPLEX: REASON FOR EXAM: Deep venous thrombosis. COMMENTS ON THE RIGHT: All veins visualized are freely compressible without evidence of internal echogenicity. Flow is spontaneous and phasic throughout. COMMENTS ON THE LEFT: All veins visualized are freely compressible without evidence of internal echogenicity. Flow is spontaneous and phasic throughout. IMPRESSION: No evidence of acute or chronic deep venous thrombosis in either lower extremity.
[2017-11-24] MEDS ORDERED: IMODIUM PO PRN (23:22)
[2017-11-24] MEDS: PERCOCET 5/325 PO PRN (23:45)
[2017-11-25] MEDS: DUONEB *Not for PRN Use IH SCH ×4 (03:14→21:25)
[2017-11-25] MEDS: LOVENOX SUB-Q SCH (09:20)
[2017-11-25] MEDS: HALFPRIN EC PO SCH (09:20)
[2017-11-25] MEDS: PEPCID IV SCH (09:20)
[2017-11-25] MEDS: SODIUM CHLORIDE FLUSH SYRINGE 10 ML IV SCH ×2 (09:21→22:46)
[2017-11-25] MEDS: DELTASONE PO SCH (12:58)
--- NOTE | 2017-11-25 16:51 | Progress Note ---
Assessment and Plan Assessment and plan: History from the emergency room physician's documentation of critical care documentation. Due to patient's clinical condition of intubation. 62 year old female with past medical history asthma, CHF, DVT, GERD, diabetic neuropathy, hypertension, breast cancer status post bilateral mastectomy, and defibrillator placement presents to the hospital with respiratory failure secondary to acute asthma exacerbation. Patient works here in the hospital ED registration. While working she developed shortness of breath and a cough with wheezing. As per staff patient rapidly decompensated and became unresponsive with audible wheezing and respiratory distress. Daughter who is at the bedside on my initial evaluation reports the patient has not had any sign of respiratory distress in the past few days prior to this episode. According to the critical care physician "Upon my arrival to the room patient was unresponsive with initial oxygen on albuterol treatment with oxygen supplementation in the 40s. Initial heart rate in the 40s to 50s. Patient required [id number] ventilation which improved oxygenation to the 90s while being prepped for intubation. Heart rate also improved/increase with improved oxygenation." Acute hypercapnic respiratory failure requiring mechanical ventilation * CTA today to rule out pulmonary embolism considered elevated d-dimer * Solu-Medrol taper. Change to PO intake. Nebulized treatments. Asthma Exacerbation * Continue management as noted above. Peak flow meter, nebulizer treatment just prior to discharge and asthma education hypertension * PRN hydralazin breast cancer, * S/P Double Mastectomy History of DVT * Elevated D.dimer, Will check CT chest and also lower ext doppler CHF * No data available, Tobacco dependance * 15 Mins Counselling PROVIDED DVT/GI prophy FEN: Dietary consult Plan of care discuss with patient and family History Interval history: Patient is seen today for: Respiratory failure Seen and examined at bedside; 24hour events reviewed; nursing staff ; no adverse overnight events reported to me; Improving but with shortness of breath still. counselling on tobacco use provided Hospitalist Physical - Physical exam Narrative exam: VITAL SIGNS: Reviewed. GENERAL: The patient appeared well nourished and normally developed. Otherwise on full ventilatory support. Vital signs as documented. HEAD: No signs of head trauma. EYES: Pupils are equal. . EARS: intact MOUTH: no abnormality noted, tongue piercing in tact NECK: No adenopathy, no JVD. CHEST: Chest with diminished breath sounds bilaterally. No wheezes, rales, or rhonchi. CARDIAC: Regular rate and rhythm. S1 and S2, without murmurs, gallops, or rubs. VASCULAR: No Edema. Peripheral pulses normal and equal in all extremities. ABDOMEN: Soft, without detectable tenderness. No sign of distention. No rebound or guarding, and no masses palpated. Bowel Sounds normal. MUSCULOSKELETAL: Extremities without clubbing, cyanosis or edema. NEUROLOGIC EXAM: Awake alert oriented 3 most all extremities PSYCHIATRIC: Normal mood and affect SKIN: No rash or lesions. - Constitutional Vitals: Temp Pulse Resp BP Pulse Ox 97.3 F L 71 20 141/64 97 11/25/17 11:22 11/25/17 15:01 11/25/17 15:01 11/25/17 11:22 11/25/17 11:22 Results - Labs CBC & Chem 7: 11/24/17 05:03 11/24/17 05:03 Labs: Laboratory Last Values WBC 11.0 K/mm3 (4.5-11.0) 11/24/17 05:03 RBC 5.07 M/mm3 (3.65-5.03) H 11/24/17 05:03 Hgb 14.0 gm/dl (10.1-14.3) 11/24/17 05:03 Hct 42.6 % (30.3-42.9) 11/24/17 05:03 MCV 84 fl (79-97) 11/24/17 05:03 MCH 28 pg (28-32) 11/24/17 05:03 MCHC 33 % (30-34) 11/24/17 05:03 RDW 14.8 % (13.2-15.2) 11/24/17 05:03 Plt Count 166 K/mm3 (140-440) 11/24/17 05:03 Lymph % (Auto) 10.4 % (13.4-35.0) L 11/24/17 05:03 [place] % (Auto) 4.2 % (0.0-7.3) 11/24/17 05:03 Eos % (Auto) 0.0 % (0.0-4.3) 11/24/17 05:03 Baso % (Auto) 0.4 % (0.0-1.8) 11/24/17 05:03 Lymph # 1.1 K/mm3 (1.2-5.4) L 11/24/17 05:03 [place] # 0.5 K/mm3 (0.0-0.8) 11/24/17 05:03 Eos # 0.0 K/mm3 (0.0-0.4) 11/24/17 05:03 Baso # 0.0 K/mm3 (0.0-0.1) 11/24/17 05:03 Seg Neutrophils % 85.0 % (40.0-70.0) H 11/24/17 05:03 Seg Neutrophils # 9.4 K/mm3 (1.8-7.7) H 11/24/17 05:03 D-Dimer 3413.48 ng/mlDDU (0-234) H 11/23/17 05:41 POC ABG pH 7.554 (7.35-7.45) H 11/24/17 04:07 POC ABG pCO2 27.1 (35-45) L 11/24/17 04:07 POC ABG pO2 207 (80-105) H 11/24/17 04:07 POC ABG HCO3 24.0 11/24/17 04:07 POC ABG Total CO2 25 11/24/17 04:07 POC ABG O2 Sat 100 11/24/17 04:07 POC ABG Base Excess 2 11/24/17 04:07 FiO2 50 % 11/24/17 04:07 Sodium 140 mmol/L (137-145) 11/24/17 05:03 Potassium 3.7 mmol/L (3.6-5.0) D 11/24/17 05:03 Chloride 101.8 mmol/L (98-107) 11/24/17 05:03 Carbon Dioxide 20 mmol/L (22-30) L 11/24/17 05:03 Anion Gap 22 mmol/L 11/24/17 05:03 BUN 17 mg/dL (7-17) 11/24/17 05:03 Creatinine 1.1 mg/dL (0.7-1.2) 11/24/17 05:03 Estimated GFR > 60 ml/min 11/24/17 05:03 BUN/Creatinine Ratio 15 % 11/24/17 05:03 Glucose 151 mg/dL (65-100) H 11/24/17 05:03 POC Glucose 153 (70-105) H 11/24/17 21:57 Calcium 8.9 mg/dL (8.4-10.2) 11/24/17 05:03 Total Creatine Kinase 110 units/L (30-135) 11/23/17 12:32 CK-MB (CK-2) 2.5 ng/mL (0.0-4.0) 11/23/17 12:32 CK-MB (CK-2) Rel Index 2.2 (0-4) 11/23/17 12:32 Troponin T < 0.010 ng/mL (0.00-0.029) 11/23/17 12:32 - Imaging and Cardiology Chest x-ray: image reviewed (no acute pathology)
--- NOTE | 2017-11-25 18:56 | Progress Note ---
Assessment and Plan Patient alert, awake and resting on nasal canula 2 litres. O2 saturation 97%. Says breathing better. Still has mild wheezing. - Patient Problems (1) Acute asthma exacerbation Current Visit: Yes Status: Acute Plan to address problem: Patient has acute attack of asthma and went into respiratory failure, patient intubated and placed on mechanical ventilation and extubated. O2 2 litres via nasal canula. Albuterol/atrovent aerosol treatments q 6 hours. Continue Prednisone. Continue S/C Lovenox. Continue Famotadine. ABGs on room air. (2) Respiratory failure Current Visit: Yes Status: Acute Plan to address problem: Patient has acute attack of asthma and went into respiratory failure, patient intubated and placed on mechanical ventilation and successfully extubated. (3) Acute bronchitis Current Visit: No Status: Acute Qualifiers: Bronchitis organism: unspecified organism Qualified Code(s): J20.9 - Acute bronchitis, unspecified Plan to address problem: Patient says cough is getting better. Still recommend PO Zithromax. (4) Pacemaker Current Visit: Yes Status: Acute Plan to address problem: Management as per primary care and cardiology. Subjective Date of service: 11/25/17 Principal diagnosis: Acute hypoxemic rsepiratory failure on MVS, asthma with acute exacerbation Interval history: Patient alert, awake and resting on nasal canula 2 litres. O2 saturation 97%. Says breathing better. Still has mild wheezing. Objective Vital Signs - 12hr 11/25/17 11/25/17 11/25/17 07:43 08:45 08:55 Temperature 98.2 F Pulse Rate 73 Pulse Rate [ 87 88 Anterior Bilateral Throughout] Respiratory 20 Rate Respiratory 21 20 Rate [Anterior Bilateral Throughout] Blood Pressure 136/62 O2 Sat by Pulse 95 Oximetry 11/25/17 11/25/17 11/25/17 09:52 11:22 14:50 Temperature 97.3 F L Pulse Rate 71 77 Pulse Rate [ 69 Anterior Bilateral Throughout] Respiratory 20 Rate Respiratory 19 Rate [Anterior Bilateral Throughout] Blood Pressure 141/64 O2 Sat by Pulse 97 Oximetry 11/25/17 11/25/17 15:01 16:39 Temperature 98.4 F Pulse Rate 69 Pulse Rate [ 71 Anterior Bilateral Throughout] Respiratory 20 Rate Respiratory 20 Rate [Anterior Bilateral Throughout] Blood Pressure 143/54 O2 Sat by Pulse 100 Oximetry Constitutional: no acute distress, alert Eyes: non-icteric ENT: oropharynx moist Neck: supple, no lymphadenopathy Ascultation: Bilateral: wheezes Cardiovascular: regular rate and rhythm Gastrointestinal: normoactive bowel sounds, soft, non-tender Integumentary: normal Extremities: no cyanosis, no edema Neurologic: normal mental status, non-focal exam, pupils equal and round, CN II- XII normal Psychiatric: mood appropriate CBC and BMP: 11/24/17 05:03 11/24/17 05:03 ABG, PT/INR, D-dimer: ABG POC ABG pH 7.554 (7.35-7.45) H 11/24/17 04:07 POC ABG pCO2 27.1 (35-45) L 11/24/17 04:07 POC ABG pO2 207 (80-105) H 11/24/17 04:07 POC ABG HCO3 24.0 11/24/17 04:07 POC ABG Total CO2 25 11/24/17 04:07 POC ABG O2 Sat 100 11/24/17 04:07 PT/INR, D-dimer D-Dimer 3413.48 ng/mlDDU (0-234) H 11/23/17 05:41 Abnormal lab findings: Abnormal Labs 11/23/17 11/23/17 11/23/17 04:11 04:11 05:41 RBC RDW 15.6 H Lymph % (Auto) Lymph # Seg Neutrophils % Seg Neutrophils # D-Dimer 3413.48 H POC ABG pH POC ABG pCO2 POC ABG pO2 Carbon Dioxide Glucose 170 H POC Glucose 11/23/17 11/24/17 11/24/17 05:44 04:07 05:03 RBC 5.07 H RDW Lymph % (Auto) 10.4 L Lymph # 1.1 L Seg Neutrophils % 85.0 H Seg Neutrophils # 9.4 H D-Dimer POC ABG pH 7.347 L 7.554 H POC ABG pCO2 52.6 H 27.1 L POC ABG pO2 594 H 207 H Carbon Dioxide Glucose POC Glucose 11/24/17 11/24/17 11/24/17 05:03 08:21 17:24 RBC RDW Lymph % (Auto) Lymph # Seg Neutrophils % Seg Neutrophils # D-Dimer POC ABG pH POC ABG pCO2 POC ABG pO2 Carbon Dioxide 20 L Glucose 151 H POC Glucose 150 H 144 H 11/24/17 21:57 RBC RDW Lymph % (Auto) Lymph # Seg Neutrophils % Seg Neutrophils # D-Dimer POC ABG pH POC ABG pCO2 POC ABG pO2 Carbon Dioxide Glucose POC Glucose 153 H Chest x-ray: report reviewed (No acute infiltrates.Infusa port and Pacemaker present.), image reviewed CT scan - chest: report reviewed (No pulmonary embolism.), image reviewed Prior PFT's, U/S of legs: report reviewed (Venous doppler studies of legs reported no DVT or SVT.)
[2017-11-25] MEDS: PEPCID PO SCH (22:47)
[2017-11-25] MEDS: PERCOCET 5/325 PO PRN (22:50)
[2017-11-25] MEDS ORDERED: PROVENTIL IH PRN (23:53)
[2017-11-26 05:17] VITALS: BP 114/94
[2017-11-26] MEDS: LOVENOX SUB-Q SCH (09:02)
[2017-11-26] MEDS: HALFPRIN EC PO SCH (09:02)
[2017-11-26] MEDS: PEPCID PO SCH (09:02)
[2017-11-26] MEDS: DELTASONE PO SCH (09:02)
[2017-11-26] MEDS: DUONEB *Not for PRN Use IH SCH ×2 (09:03→14:37)
[2017-11-26] MEDS: SODIUM CHLORIDE FLUSH SYRINGE 10 ML IV SCH (09:19)
--- NOTE | 2017-11-26 09:48 | Progress Note ---
Assessment and Plan - Patient Problems (1) Acute asthma exacerbation Status: Acute Plan to address problem: . (2) Respiratory failure Status: Acute (3) Acute bronchitis Status: Acute Qualifiers: Bronchitis organism: unspecified organism Qualified Code(s): J20.9 - Acute bronchitis, unspecified (4) Pacemaker Status: Acute Subjective Date of service: 11/26/17 Principal diagnosis: Acute hypoxemic rsepiratory failure on MVS, asthma with acute exacerbation Interval history: Patient discharged before I see her today. Objective Vital Signs - 12hr 11/25/17 11/25/17 11/26/17 22:00 23:50 01:19 Temperature 97.3 F L Pulse Rate 87 Pulse Rate [ Anterior Bilateral Throughout] Pulse Rate [ 75 Right Radial] Respiratory 18 18 20 Rate Respiratory Rate [Anterior Bilateral Throughout] Blood Pressure 156/84 [Right] O2 Sat by Pulse 97 Oximetry 11/26/17 11/26/17 11/26/17 05:16 09:03 09:04 Temperature 97.9 F Pulse Rate 67 Pulse Rate [ 84 Anterior Bilateral Throughout] Pulse Rate [ Right Radial] Respiratory 18 Rate Respiratory 20 Rate [Anterior Bilateral Throughout] Blood Pressure 114/94 [Right] O2 Sat by Pulse 99 98 Oximetry 11/26/17 09:14 Temperature Pulse Rate Pulse Rate [ 92 H Anterior Bilateral Throughout] Pulse Rate [ Right Radial] Respiratory Rate Respiratory 20 Rate [Anterior Bilateral Throughout] Blood Pressure [Right] O2 Sat by Pulse Oximetry CBC and BMP: 11/24/17 05:03 11/24/17 05:03 ABG, PT/INR, D-dimer: ABG POC ABG pH 7.554 (7.35-7.45) H 11/24/17 04:07 POC ABG pCO2 27.1 (35-45) L 11/24/17 04:07 POC ABG pO2 207 (80-105) H 11/24/17 04:07 POC ABG HCO3 24.0 11/24/17 04:07 POC ABG Total CO2 25 11/24/17 04:07 POC ABG O2 Sat 100 11/24/17 04:07 PT/INR, D-dimer D-Dimer 3413.48 ng/mlDDU (0-234) H 11/23/17 05:41 Abnormal lab findings: Abnormal Labs 11/23/17 11/23/17 11/23/17 04:11 04:11 05:41 RBC RDW 15.6 H Lymph % (Auto) Lymph # Seg Neutrophils % Seg Neutrophils # D-Dimer 3413.48 H POC ABG pH POC ABG pCO2 POC ABG pO2 Carbon Dioxide Glucose 170 H POC Glucose 11/23/17 11/24/17 11/24/17 05:44 04:07 05:03 RBC 5.07 H RDW Lymph % (Auto) 10.4 L Lymph # 1.1 L Seg Neutrophils % 85.0 H Seg Neutrophils # 9.4 H D-Dimer POC ABG pH 7.347 L 7.554 H POC ABG pCO2 52.6 H 27.1 L POC ABG pO2 594 H 207 H Carbon Dioxide Glucose POC Glucose 11/24/17 11/24/17 11/24/17 05:03 08:21 17:24 RBC RDW Lymph % (Auto) Lymph # Seg Neutrophils % Seg Neutrophils # D-Dimer POC ABG pH POC ABG pCO2 POC ABG pO2 Carbon Dioxide 20 L Glucose 151 H POC Glucose 150 H 144 H 11/24/17 21:57 RBC RDW Lymph % (Auto) Lymph # Seg Neutrophils % Seg Neutrophils # D-Dimer POC ABG pH POC ABG pCO2 POC ABG pO2 Carbon Dioxide Glucose POC Glucose 153 H
[2017-11-26] MEDS ORDERED: VITAMIN B-12 IM ONE (10:00)
--- NOTE | 2017-11-26 11:17 | XRay Report ---
Chest 2 views: Compared to 11/24/17. History: Bronchial asthma. Findings: Normal cardiomediastinal silhouette. Trachea is midline. Stable support system. No consolidation, pneumothorax or pleural effusion. Impression: No definite acute cardiopulmonary findings.
--- NOTE | 2017-11-26 14:08 | Discharge Summary ---
Providers - Providers Date of Admission: 11/23/17 05:26 Attending physician: ROJELIO EBLL MD 11/23/17 03:22 Consult to Dietitian/Nutrition [CONS] Routine Physician Instructions: Reason For Exam: Reason for Consult: Write/Manage Tube Feeding 11/23/17 05:26 Consult to Physician [CONS] Routine Comment: Consulting Provider: ANA PAVON Physician Instructions: Reason For Exam: cc Primary care physician: [employer] Hospitalization Reason for admission: acute respiratory failure Condition: Stable Hospital course: 62 year old female with past medical history asthma, CHF, DVT, GERD, diabetic neuropathy, hypertension, breast cancer status post bilateral mastectomy, and defibrillator placement presents to the hospital with respiratory failure secondary to acute asthma exacerbation. Patient works here in the hospital ED registration. While working she developed shortness of breath and a cough with wheezing. As per staff patient rapidly decompensated and became unresponsive with audible wheezing and respiratory distress. Daughter who is at the bedside on my initial evaluation reports the patient has not had any sign of respiratory distress in the past few days prior to this episode. According to the critical care physician "Upon my arrival to the room patient was unresponsive with initial oxygen on albuterol treatment with oxygen supplementation in the 40s. Initial heart rate in the 40s to 50s. Patient required [id number]-naal ventilation which improved oxygenation to the 90s while being prepped for intubation. Heart rate also improved/increase with improved oxygenation." She'll subsequently extubated imaging studies did not confirm any pulmonary embolism. With respect to the patient extensively about tobacco cessation she verbalized understanding and also family did. Pulse ox on room air rest was 98% with heart rate of 90. The patient is of steroids was prescribed to follow-up with pulmonary physician outpatient patient verbalized understanding weight loss was also recommended. Discharge diagnosis Acute hypercapnic respiratory failure requiring mechanical ventilation Asthma Exacerbation hypertension breast cancer, Secondary apartment up with a history of DVT CHF Tobacco dependance Morbid obesity Disposition: TO HOME OR SELFCARE Time spent for discharge: 35 mins Core Measure Documentation - Palliative Care Palliative Care/ Comfort Measures: Not Applicable - Core Measures Any of the following diagnoses?: none - VTE Discharge Requirements Deep Vein Thrombosis/Pulmonary Embolism Present on Admission: No Exam - Physical Exam Narrative exam: VITAL SIGNS: Reviewed. GENERAL: The patient appeared well nourished and normally developed. Otherwise on full ventilatory support. Vital signs as documented. HEAD: No signs of head trauma. EYES: Pupils are equal. . EARS: intact MOUTH: no abnormality noted, tongue piercing in tact NECK: No adenopathy, no JVD. CHEST: Chest with diminished breath sounds bilaterally. No wheezes, rales, or rhonchi. CARDIAC: Regular rate and rhythm. S1 and S2, without murmurs, gallops, or rubs. VASCULAR: No Edema. Peripheral pulses normal and equal in all extremities. ABDOMEN: Soft, without detectable tenderness. No sign of distention. No rebound or guarding, and no masses palpated. Bowel Sounds normal. MUSCULOSKELETAL: Extremities without clubbing, cyanosis or edema. NEUROLOGIC EXAM: Awake alert oriented 3 most all extremities PSYCHIATRIC: Normal mood and affect SKIN: No rash or lesions. - Constitutional Vitals: Temp Pulse Resp BP Pulse Ox 97.9 F 92 H 20 114/94 98 11/26/17 05:16 11/26/17 09:14 11/26/17 09:14 11/26/17 05:16 11/26/17 09:04 Plan Activity: advance as tolerated, fall precautions Diet: low fat Special Instructions: smoking cessation Follow up with: PRIMARY CARE, [Primary Care Provider] - 7 Days Prescriptions: Fluticasone/Salmeterol [Advair Diskus 500-50 mcg] 1 puff IH BID #1 blst.w.dev Prednisone [predniSONE 10 mg (6-Day Pack, 21 Tabs)] 10 mg PO .TAPER #1 tab.ds.pk
== END 2017-11-26 15:45 | disposition home or self-care (01) | DRG 208 ==
LOC: ED 02:50 → CC1 05:26 → EEVIPCON 05:26 → CC1 06:19 → 4A 11-24 16:00
PROVIDERS: ADMIT Internal Medicine; ATTEND Internal Medicine
PROC: 5A1935Z Respiratory Ventilation, Less than 24 Consecutive Hours (ICD-10-PCS; principal; 2017-11-23)
PROC: 0BH17EZ Insertion of Endotracheal Airway into Trachea, Via Natural or Artificial Opening (ICD-10-PCS; 2017-11-23)
PROC: 4A033R1 Measurement of Arterial Saturation, Peripheral, Percutaneous Approach (ICD-10-PCS; 2017-11-24)
DX: J96.02 Acute respiratory failure with hypercapnia (principal); J45.901 Unspecified asthma with (acute) exacerbation; I42.0 Dilated cardiomyopathy; I11.0 Hypertensive heart disease with heart failure; I50.9 Heart failure, unspecified; K21.9 Gastro-esophageal reflux disease without esophagitis; G25.81 Restless legs syndrome; J20.9 Acute bronchitis, unspecified; E66.01 Morbid (severe) obesity due to excess calories; F17.210 Nicotine dependence, cigarettes, uncomplicated; E11.40 Type 2 diabetes mellitus with diabetic neuropathy, unspecified; J96.01 Acute respiratory failure with hypoxia; Z90.13 Acquired absence of bilateral breasts and nipples; Z82.49 Family history of ischemic heart disease and other diseases of the circulatory system; Z86.718 Personal history of other venous thrombosis and embolism; Z95.810 Presence of automatic (implantable) cardiac defibrillator; Z85.3 Personal history of malignant neoplasm of breast; Z79.82 Long term (current) use of aspirin; Z79.899 Other long term (current) drug therapy; Z88.1 Allergy status to other antibiotic agents; Z88.8 Allergy status to other drugs, medicaments and biological substances; I25.2 Old myocardial infarction; Z71.6 Tobacco abuse counseling; Z68.37 Body mass index [BMI] 37.0-37.9, adult
CPT/HCPCS: 36415; 36600; 71045; 71046; 71275; 74018; 80048; 82550; 82553; 82803; 82962; 84484; 85025; 85379; 87070; 87205; 93005; 93010; 93970; 94002; 94003; 94640; 94760; 96374; 99291; J0360; J1650; J2704; J2920; J2930; J3010; J3420; J3475; J7040; J7512; Q9967

== ENCOUNTER → 2018-02-23 | Outpatient (CLI) | payer BC | END | disposition home or self-care (01) | LOC: ECHO 07:45 | PROVIDERS: ATTEND Internal Medicine Cardiovascular Disease | DX: E78.5 Hyperlipidemia, unspecified (principal); I42.9 Cardiomyopathy, unspecified; I34.0 Nonrheumatic mitral (valve) insufficiency; I07.1 Rheumatic tricuspid insufficiency; I27.20 Pulmonary hypertension, unspecified; I51.7 Cardiomegaly; I10 Essential (primary) hypertension; J45.909 Unspecified asthma, uncomplicated; K21.9 Gastro-esophageal reflux disease without esophagitis; Z88.8 Allergy status to other drugs, medicaments and biological substances; Z88.1 Allergy status to other antibiotic agents; Z88.2 Allergy status to sulfonamides; Z87.891 Personal history of nicotine dependence; Z90.12 Acquired absence of left breast and nipple | CPT/HCPCS: 93306 ==

== ENCOUNTER 2018-07-20 19:13 | Emergency (ER) | payer BC ==
[2018-07-20 20:15] LABS: Basophils % (Auto) 0.5 % (0.0-1.8); Eosinophils # (Auto) 0.1 K/mm3 (0.0-0.4); Eosinophils % (Auto) 2.6 % (0.0-4.3); Hematocrit 43.3 % (30.3-42.9); Hemoglobin 14.1 gm/dl (10.1-14.3); Lymphocytes # (Auto) 0.6 K/mm3 (1.2-5.4); Lymphocytes % (Auto) 10.9 % (13.4-35.0); Mean Corpuscular HGB Conc 33 % (30-34); Mean Corpuscular Volume 87 fl (79-97); Monocytes # (Auto) 0.3 K/mm3 (0.0-0.8); Monocytes % (Auto) 6.4 % (0.0-7.3); Platelet Count 152 K/mm3 (140-440); Red Blood Count 4.98 M/mm3 (3.65-5.03); Red Cell Distribution Width 15.1 % (13.2-15.2)
[2018-07-20] MEDS ORDERED: ZOFRAN IV ONE (20:38)
[2018-07-20] MEDS ORDERED: NACL 0.9% 1000 ML 1,000 ML IV ONE (20:38)
[2018-07-20] MEDS ORDERED: MORPHINE IV ONE (20:38)
--- NOTE | 2018-07-20 20:39 | Emergency Department Report ---
ED General Adult HPI - General Chief complaint: Abdominal Pain Stated complaint: NAUSEA,VOMITING,ABD PAIN Time Seen by Provider: 07/20/18 20:25 Source: patient, RN notes reviewed, old records reviewed Mode of arrival: Ambulatory Limitations: No Limitations - History of Present Illness Initial comments: Primary care doctor: Dr Le Past medical history: Upper extremity DVT, breast cancer, not currently on anticoagulation, history of cholecystectomy, history of asthma, history of GERD, diabetic neuropathy, history of breast cancer This is a 63-year-old female, unknown to this provider previously in the clinical fashion, presenting to the ER with a complaint of epigastric and upper quadrant abdominal pain, accompanied by nausea, vomiting and diarrhea. Symptoms started at 3 to 4:00 this afternoon. They're constant. It did not radiate anywhere. Nausea, vomiting increase with attempting to eat or drink, decreased with rest. Pain increases with palpation, decreases with rest. Pain is described as aching, cramping, burning in nature. The patient believes that she took azithromycin within the past month, denies urinary tract symptoms, denies severe headache, neck pain, chest pain, shortness of breath. Of note, the patient was seen to be in her usual state of health in this emergency room last night by myself, as she works in the clerical staff, and appeared to be in no acute distress yesterday. -: Gradual Location: abdomen Radiation: non-radiation Quality: aching Consistency: other Improves with: other Worsens with: other Associated Symptoms: loss of appetite, malaise, nausea/vomiting, weakness. denies: confusion, chest pain, cough, diaphoresis, fever/chills, headaches, rash, seizure, shortness of breath, syncope - Related Data Home Medications Medication Instructions Recorded Confirmed Last Taken Aspirin [Aspirin Enteric Coated] 81 mg PO DAILY 11/20/13 11/25/17 1 Week Ago ~05/25/17 Carvedilol [Coreg] 25 mg PO BID 11/20/13 11/25/17 06/01/17 14:36 Cyclobenzaprine HCl [Flexeril] 10 mg PO QHS 11/20/13 11/25/17 1 Month Ago ~05/01/17 Ropinirole HCl [Requip] 2 mg PO PRN 05/31/17 11/25/17 Unknown Valsartan/Hydrochlorothiazide 1 tab PO DAILY 05/31/17 11/25/17 Unknown [Valsartan-Hctz 160-12.5 mg Tab] Previous Rx's Medication Instructions Recorded Last Taken Type ALBUTEROL Inhaler (OR & NICU) 2 puff IH QID PRN #1 inha 09/16/15 1 Week Ago Rx [ProAir HFA Inhaler] ~05/25/17 Cetirizine HCl [ZyrTEC] 10 mg PO QAM 14 Days #14 capsule 07/31/17 Unknown Rx Fluticasone/Salmeterol [Advair 1 puff IH BID #1 blst.w.dev 11/26/17 Unknown Rx Diskus 500-50 mcg] Prednisone [predniSONE 10 mg 10 mg PO .TAPER #1 tab.ds.pk 11/26/17 Unknown Rx (6-Day Pack, 21 Tabs)] Acetaminophen [Tylenol Arthritis] 650 mg PO Q6HR PRN #30 tablet.er 07/20/18 Unknown Rx Famotidine [Pepcid] 20 mg PO BID #10 tablet 07/20/18 Unknown Rx Ondansetron [Zofran Odt] 4 mg PO Q8HR PRN #20 tab.rapdis 07/20/18 Unknown Rx Allergies Allergy/AdvReac Type Severity Reaction Status Date / Time dopamine [Dopamine] Allergy Unknown Verified 07/31/17 01:59 erythromycin base Allergy Anaphylaxis Verified 05/31/17 17:24 [Erythromycin Base] heparin Allergy extreme Verified 05/31/17 17:24 burning beyond side effect levofloxacin [From Levaquin] Allergy Angioedema Verified 05/31/17 17:24 montelukast sodium Allergy Itching Verified 05/31/17 17:24 [From Singulair] ED Review of Systems ROS: Stated complaint: NAUSEA,VOMITING,ABD PAIN Other details as noted in HPI Constitutional: denies: fever Eyes: denies: eye discharge ENT: denies: epistaxis Respiratory: denies: cough Cardiovascular: denies: chest pain Gastrointestinal: abdominal pain, nausea, vomiting, diarrhea Genitourinary: denies: dysuria Musculoskeletal: denies: myalgia Skin: denies: lesions Neurological: weakness Psychiatric: anxiety ED Past Medical Hx - Past Medical History Previous Medical History?: Yes Hx Hypertension: Yes (1999) Hx Heart Attack/AMI: Yes (, dilated cardiomyopathy) Hx Congestive Heart Failure: Yes Hx Diabetes: Yes Hx Deep Vein Thrombosis: Yes Hx GERD: Yes Hx Sickle Cell Disease: No Hx Asthma: Yes Hx HIV: No Additional medical history: diverticulitis restless leg - Surgical History Past Surgical History?: Yes Hx Pacemaker: Yes (DEFIBRILLATOR) Hx Breast Surgery: Yes (RECONSTRUCTION) Additional Surgical History: defibrillator - Social History Smoking Status: Current Every Day Smoker - Medications Home Medications: Home Medications Medication Instructions Recorded Confirmed Last Taken Type Aspirin [Aspirin Enteric Coated] 81 mg PO DAILY 11/20/13 11/25/17 1 Week Ago History ~05/25/17 Carvedilol [Coreg] 25 mg PO BID 11/20/13 11/25/17 06/01/17 14:36 History Cyclobenzaprine HCl [Flexeril] 10 mg PO QHS 11/20/13 11/25/17 1 Month Ago History ~05/01/17 ALBUTEROL Inhaler (OR & NICU) 2 puff IH QID PRN #1 inha 09/16/15 11/25/17 1 Week Ago Rx [ProAir HFA Inhaler] ~05/25/17 Ropinirole HCl [Requip] 2 mg PO PRN 05/31/17 11/25/17 Unknown History Valsartan/Hydrochlorothiazide 1 tab PO DAILY 05/31/17 11/25/17 Unknown History [Valsartan-Hctz 160-12.5 mg Tab] Cetirizine HCl [ZyrTEC] 10 mg PO QAM 14 Days #14 capsule 07/31/17 11/25/17 Unknown Rx Fluticasone/Salmeterol [Advair 1 puff IH BID #1 blst.w.dev 11/26/17 Unknown Rx Diskus 500-50 mcg] Prednisone [predniSONE 10 mg 10 mg PO .TAPER #1 tab.ds.pk 11/26/17 Unknown Rx (6-Day Pack, 21 Tabs)] Acetaminophen [Tylenol Arthritis] 650 mg PO Q6HR PRN #30 tablet.er 07/20/18 Unknown Rx Famotidine [Pepcid] 20 mg PO BID #10 tablet 07/20/18 Unknown Rx Ondansetron [Zofran Odt] 4 mg PO Q8HR PRN #20 tab.rapdis 07/20/18 Unknown Rx ED Physical Exam - General Limitations: No Limitations General appearance: alert, in no apparent distress - Head Head exam: Present: atraumatic, normocephalic - Eye Eye exam: Present: normal appearance, EOMI. Absent: nystagmus - ENT ENT exam: Present: normal exam, normal orophraynx, mucous membranes moist, normal external ear exam - Neck Neck exam: Present: normal inspection, full ROM. Absent: tenderness, meningismus - Respiratory Respiratory exam: Present: normal lung sounds bilaterally. Absent: respiratory distress - Cardiovascular Cardiovascular Exam: Present: regular rate, normal rhythm, normal heart sounds. Absent: bradycardia, tachycardia, irregular rhythm, systolic murmur, diastolic murmur, rubs, gallop - GI/Abdominal GI/Abdominal exam: Present: soft, tenderness. Absent: distended, guarding, rebound, rigid, pulsatile mass - Extremities Exam Extremities exam: Present: normal inspection, full ROM, pedal edema, other (2+ pulses noted in the bilateral upper, lower extremities. Compartments soft. No long bony tenderness. The pelvis is stable.). Absent: calf tenderness - Back Exam Back exam: Present: normal inspection, full ROM. Absent: tenderness, CVA tenderness (R), paraspinal tenderness, vertebral tenderness - Neurological Exam Neurological exam: Present: alert, oriented X3, other (Extraocular movements intact. Tongue midline. No facial droop. Facial sensation intact to light touch in the V1, V2, V3 distribution bilaterally. 5 and 5 strength in 4 extremities.. Sensation is intact to light touch in 4 extremities.). Absent: motor sensory deficit - Psychiatric Psychiatric exam: Present: anxious - Skin Skin exam: Present: warm, dry, intact, normal color. Absent: rash ED Course Vital Signs 07/20/18 19:22 Temperature 98.2 F Pulse Rate 96 H Respiratory 18 Rate Blood Pressure 178/78 O2 Sat by Pulse 95 Oximetry - Reevaluation(s) Reevaluation #1: 07/20/18 21:33 Differential diagnosis, including but not limited to: GERD, gastritis, hiatal hernia, pancreatitis, enteritis, colitis, pancreatitis, Assessment and plan: 63-year-old female with upper abdominal pain, history of nausea, vomiting, diarrhea. Patient afebrile with reassuring vital signs, initially appeared uncomfortable, with the exception of elevated blood pressure. CT scan of the abdomen and pelvis is performed, screening laboratory studies pending, EKG appears to be morphologically unchanged from prior, we will reassess after initial data points. Reevaluation #2: 07/20/18 23:49 CT scan of the abdomen and pelvis is negative for acute disease. Patient reassessed multiple times after initial interventions, and reports dramatic improvement in her symptoms. Her abdomen is soft and benign, currently with no rebound, guarding or peritoneal signs, she is able to tolerate liquid feeds. There is no additional vomiting. Blood pressure in the 160s, heart rate in the 70s, and upon final reassessment, the patient is taking a nap, and reports readiness for discharge. She reports that she is reliable to follow-up with her outpatient primary care doctor. ED Medical Decision Making - Lab Data Result diagrams: 07/20/18 20:02 07/20/18 20:02 Vital Signs 07/20/18 19:22 Temperature 98.2 F Pulse Rate 96 H Respiratory 18 Rate Blood Pressure 178/78 O2 Sat by Pulse 95 Oximetry Lab Results 07/20/18 07/20/18 Range/Units 20:02 20:02 WBC 5.4 (4.5-11.0) K/mm3 RBC 4.98 (3.65-5.03) M/mm3 Hgb 14.1 (10.1-14.3) gm/dl Hct 43.3 H (30.3-42.9) % MCV 87 (79-97) fl MCH 28 (28-32) pg MCHC 33 (30-34) % RDW 15.1 (13.2-15.2) % Plt Count 152 (140-440) K/mm3 Lymph % (Auto) 10.9 L (13.4-35.0) % Sherman % (Auto) 6.4 (0.0-7.3) % Eos % (Auto) 2.6 (0.0-4.3) % Baso % (Auto) 0.5 (0.0-1.8) % Lymph # 0.6 L (1.2-5.4) K/mm3 Sherman # 0.3 (0.0-0.8) K/mm3 Eos # 0.1 (0.0-0.4) K/mm3 Baso # 0.0 (0.0-0.1) K/mm3 Seg Neutrophils % 79.6 H (40.0-70.0) % Seg Neutrophils # 4.3 (1.8-7.7) K/mm3 Sodium 142 (137-145) mmol/L Potassium 4.5 (3.6-5.0) mmol/L Chloride 103.9 (98-107) mmol/L Carbon Dioxide 28 (22-30) mmol/L Anion Gap 15 mmol/L BUN 13 (7-17) mg/dL Creatinine 1.0 (0.7-1.2) mg/dL Estimated GFR > 60 ml/min BUN/Creatinine Ratio 13 % Glucose 107 H (65-100) mg/dL Calcium 9.1 (8.4-10.2) mg/dL Total Bilirubin 1.10 (0.1-1.2) mg/dL AST 22 (5-40) units/L ALT 18 (7-56) units/L Alkaline Phosphatase 110 (35-129) units/L Total Protein 7.0 (6.3-8.2) g/dL Albumin 4.0 (3.9-5) g/dL Albumin/Globulin Ratio 1.3 % - EKG Data -: EKG Interpreted by Or - EKG Data 07/20/18 21:34 This is an atrial paced rhythm, good capture, extreme rightward axis deviation, prolonged intervals, motion artifact, not consistent with ST elevation myocardial infarction, appears unchanged from prior. - Radiology Data Radiology results: pending, report reviewed, image reviewed cc: CONCHIS OH MD FINAL REPORT PROCEDURE: CT abdomen and pelvis with contrast. TECHNIQUE: Computerized axial tomography of the abdomen and pelvis was performed after the IV injection of iodinated nonionic contrast. HISTORY: Abdominal pain, nausea, vomiting and diarrhea. COMPARISON: No prior studies are available for comparison. FINDINGS: The lung bases are clear. There are no pleural effusions. The heart size is normal. There are bilateral breast prostheses. The liver, pancreas and spleen appear normal. Cholecystectomy clips are present. There is no biliary dilatation. The adrenal glands are not enlarged. Both kidneys appear normal in size and configuration. The abdominal aorta has a normal caliber. There is no retroperitoneal adenopathy. The unopacified gastrointestinal tract is unremarkable. There are small diverticula in the descending colon and sigmoid colon. There are no signs of acute diverticulitis. A normal appendix is visible. The bladder, uterus and adnexal regions appear normal. The regional skeleton appears intact. There is probably a cavernous hemangioma present in the T11 vertebral body. IMPRESSION: Moderate colonic diverticulosis. Previous cholecystectomy. No evidence of acute disease in the abdomen or pelvis. Transcribed By: MRM Dictated By: CONCHIS RODRIGES MD Electronically Authenticated By: CONCHIS RODRIGES MD Signed Date/Time: 07/20/18 6149 Critical care attestation.: If time is entered above; I have spent that time in minutes in the direct care of this critically ill patient, excluding procedure time. ED Disposition Clinical Impression: History of nausea and vomiting, Abdominal pain Disposition: - TO HOME OR SELFCARE Is pt being admited?: No Does the pt Need Aspirin: No Condition: Stable Instructions: Abdominal Pain (ED) Additional Instructions: Drink fluids as tolerated, advance diet as tolerated, avoid consumption of Motrin, ibuprofen, Naprosyn, heavy, spicy foods. Do not take metformin, if patient takes his medication, for the next 2 days. Wash hands thoroughly before and after handling food, before and after using the restroom, and follow up with her primary care doctor or return to the emergency room for repeat evaluation in the next 3-5 days. Please return to the ER right away with lethargy, irritability, projectile vomiting, change in mental status, confusion, inability to speak, inability to breathe, recurrent symptoms, worsening symptoms, new symptoms. Referrals: CHAD LARIOS MD [Staff Physician] - 3-5 Days
[2018-07-20 20:43] LABS: Alanine Aminotransferase 18 units/L (7-56); BUN/Creatinine Ratio 13; Blood Urea Nitrogen 13 mg/dL (7-17); Calcium 9.1 mg/dL (8.4-10.2); Hemolysis Index 8
--- NOTE | 2018-07-20 21:57 | Cat Scan Report ---
FINAL REPORT PROCEDURE: CT abdomen and pelvis with contrast. TECHNIQUE: Computerized axial tomography of the abdomen and pelvis was performed after the IV inject ion of iodinated nonionic contrast. HISTORY: Abdominal pain, nausea, vomiting and diarrhea. COMPARISON: No prior studies are available for comparison. FINDINGS: The lung bases are clear. There are no pleural effusions. The heart size is normal. There are bilater al breast prostheses. The liver, pancreas and spleen appear normal. Cholecystectomy clips are present . There is no biliary dilatation. The adrenal glands are not enlarged. Both kidneys appear normal in size and configuration. The abdominal aorta has a normal caliber. There is no retroperitoneal adenopa thy. The unopacified gastrointestinal tract is unremarkable. There are small diverticula in the desce nding colon and sigmoid colon. There are no signs of acute diverticulitis. A normal appendix is visib le. The bladder, uterus and adnexal regions appear normal. The regional skeleton appears intact. Ther e is probably a cavernous hemangioma present in the T11 vertebral body. IMPRESSION: Moderate colonic diverticulosis. Previous cholecystectomy. No evidence of acute disease in the abdome n or pelvis.
[2018-07-20 23:11] LABS: Bilirubin,Urine NEG (Negative); Blood,Urine NEG (Negative); Color,Urine Yellow (Yellow); Mucus,Urine FEW /HPF; Protein,Urine <15 mg/dL mg/dL (Negative); Urobilinogen,Urine < 2.0 mg/dL (<2.0)
[2018-07-21] VITALS: BP 169/67
== END 2018-07-21 00:09 | disposition home or self-care (01) ==
LOC: ED 19:13
DX: R10.13 Epigastric pain (principal); R19.7 Diarrhea, unspecified; R11.2 Nausea with vomiting, unspecified; I11.0 Hypertensive heart disease with heart failure; I50.9 Heart failure, unspecified; K21.9 Gastro-esophageal reflux disease without esophagitis; J45.909 Unspecified asthma, uncomplicated; E11.9 Type 2 diabetes mellitus without complications; F17.200 Nicotine dependence, unspecified, uncomplicated; I25.2 Old myocardial infarction; Z79.899 Other long term (current) drug therapy; Z95.818 Presence of other cardiac implants and grafts; Z88.1 Allergy status to other antibiotic agents; Z88.8 Allergy status to other drugs, medicaments and biological substances; Z88.6 Allergy status to analgesic agent
CPT/HCPCS: 36415; 74177; 80053; 81001; 83690; 85025; 93005; 93010; 96361; 96374; 96375; 99284; J2270; J2405; J7030; Q9967

== ENCOUNTER 2018-10-07 19:26 | Emergency (ER) | payer BC ==
[2018-10-07 20:04] LABS: Basophils % (Auto) 0.8 % (0.0-1.8); Eosinophils # (Auto) 0.1 K/mm3 (0.0-0.4); Eosinophils % (Auto) 1.1 % (0.0-4.3); Hematocrit 40.4 % (30.3-42.9); Hemoglobin 13.3 gm/dl (10.1-14.3); Lymphocytes # (Auto) 1.3 K/mm3 (1.2-5.4); Lymphocytes % (Auto) 22.7 % (13.4-35.0); Mean Corpuscular HGB Conc 33 % (30-34); Mean Corpuscular Hemoglobin 29 pg (28-32); Mean Corpuscular Volume 87 fl (79-97); Monocytes # (Auto) 0.5 K/mm3 (0.0-0.8); Monocytes % (Auto) 7.9 % (0.0-7.3); Platelet Count 141 K/mm3 (140-440); Red Blood Count 4.64 M/mm3 (3.65-5.03)
[2018-10-07 20:19] LABS: BUN/Creatinine Ratio 18; Blood Urea Nitrogen 20 mg/dL (7-17); Calcium 9.6 mg/dL (8.4-10.2); Hemolysis Index 8
[2018-10-07 21:46] LABS: Bacteria,Urine 1+ /HPF (Negative); Bilirubin,Urine NEG (Negative); Blood,Urine MOD (Negative); Color,Urine Yellow (Yellow); Mucus,Urine 1+ /HPF; Protein,Urine <15 mg/dL mg/dL (Negative); Urobilinogen,Urine < 2.0 mg/dL (<2.0)
--- NOTE | 2018-10-07 22:58 | Emergency Department Report ---
ED Abdominal Pain HPI - General Chief Complaint: Abdominal Pain Stated Complaint: RT FLANK PAIN Time Seen by Provider: 10/07/18 20:24 Source: patient Mode of arrival: Ambulatory Limitations: No Limitations - History of Present Illness Initial Comments: 63-year-old -[place] female comes to the emergency room stating she has abdominal pain that started about 4:30 PM. Patient admits to nausea no vomiting she does admit to reflux clear fluid that has a taste like metal. Patient denies any vaginal discharge vaginal bleeding no hematuria. Patient doesn't material urgency but no dysuria. Patient does have a significant past medical history of asthma and congestive heart failure diabetes GERD she had a acute AR in with dilated cardiomyopathy. She does have a defibrillator pacemaker. MD Complaint: abdominal pain Location: RLQ, R flank Radiation: RLQ Migration to: no migration Severity scale (0 -10): 10 Quality: stabbing, sharp Consistency: constant Improves With: nothing Worsens With: nothing Associated Symptoms: nausea - Related Data Home Medications Medication Instructions Recorded Confirmed Last Taken Aspirin [Aspirin Enteric Coated] 81 mg PO DAILY 11/20/13 11/25/17 1 Week Ago ~05/25/17 Carvedilol [Coreg] 25 mg PO BID 11/20/13 11/25/17 06/01/17 14:36 Cyclobenzaprine HCl [Flexeril] 10 mg PO QHS 11/20/13 11/25/17 1 Month Ago ~05/01/17 Ropinirole HCl [Requip] 2 mg PO PRN 05/31/17 11/25/17 Unknown Valsartan/Hydrochlorothiazide 1 tab PO DAILY 05/31/17 11/25/17 Unknown [Valsartan-Hctz 160-12.5 mg Tab] Previous Rx's Medication Instructions Recorded Last Taken Type ALBUTEROL Inhaler (OR & NICU) 2 puff IH QID PRN #1 inha 09/16/15 1 Week Ago Rx [ProAir HFA Inhaler] ~05/25/17 Cetirizine HCl [ZyrTEC] 10 mg PO QAM 14 Days #14 capsule 07/31/17 Unknown Rx Fluticasone/Salmeterol [Advair 1 puff IH BID #1 blst.w.dev 11/26/17 Unknown Rx Diskus 500-50 mcg] Prednisone [predniSONE 10 mg 10 mg PO .TAPER #1 tab.ds.pk 11/26/17 Unknown Rx (6-Day Pack, 21 Tabs)] Acetaminophen [Tylenol Arthritis] 650 mg PO Q6HR PRN #30 tablet.er 07/20/18 Unknown Rx Famotidine [Pepcid] 20 mg PO BID #10 tablet 07/20/18 Unknown Rx Ondansetron [Zofran Odt] 4 mg PO Q8HR PRN #20 tab.rapdis 07/20/18 Unknown Rx Ibuprofen [Motrin 600 MG tab] 600 mg PO Q8H PRN #15 tablet 10/08/18 Unknown Rx Tamsulosin HCl [Flomax] 0.4 mg PO QDAY #5 cap.er.24h 10/08/18 Unknown Rx oxyCODONE /ACETAMINOPHEN [Percocet 1 tab PO Q4HR #12 tab 10/08/18 Unknown Rx 5/325] Allergies Allergy/AdvReac Type Severity Reaction Status Date / Time dopamine [Dopamine] Allergy Unknown Verified 07/31/17 01:59 erythromycin base Allergy Anaphylaxis Verified 05/31/17 17:24 [Erythromycin Base] heparin Allergy extreme Verified 05/31/17 17:24 burning beyond side effect levofloxacin [From Levaquin] Allergy Angioedema Verified 05/31/17 17:24 montelukast sodium Allergy Itching Verified 05/31/17 17:24 [From Singulair] ED Review of Systems ROS: Stated complaint: RT FLANK PAIN Other details as noted in HPI Comment: All other systems reviewed and negative Constitutional: denies: chills, fever Eyes: denies: eye pain, eye discharge, vision change ENT: denies: ear pain, throat pain Respiratory: denies: cough, shortness of breath, wheezing Cardiovascular: denies: chest pain, palpitations Gastrointestinal: abdominal pain, nausea Musculoskeletal: back pain ED Past Medical Hx - Past Medical History Hx Hypertension: Yes (1999) Hx Heart Attack/AMI: Yes (, dilated cardiomyopathy) Hx Congestive Heart Failure: Yes Hx Diabetes: Yes Hx Deep Vein Thrombosis: Yes Hx GERD: Yes Hx Sickle Cell Disease: No Hx Asthma: Yes Hx HIV: No Additional medical history: diverticulitis restless leg - Surgical History Hx Pacemaker: Yes (DEFIBRILLATOR) Hx Cholecystectomy: Yes Hx Breast Surgery: Yes (RECONSTRUCTION) Additional Surgical History: defibrillator - Social History Smoking Status: Current Every Day Smoker Substance Use Type: None - Medications Home Medications: Home Medications Medication Instructions Recorded Confirmed Last Taken Type Aspirin [Aspirin Enteric Coated] 81 mg PO DAILY 11/20/13 11/25/17 1 Week Ago History ~05/25/17 Carvedilol [Coreg] 25 mg PO BID 11/20/13 11/25/17 06/01/17 14:36 History Cyclobenzaprine HCl [Flexeril] 10 mg PO QHS 11/20/13 11/25/17 1 Month Ago History ~05/01/17 ALBUTEROL Inhaler (OR & NICU) 2 puff IH QID PRN #1 inha 09/16/15 11/25/17 1 Week Ago Rx [ProAir HFA Inhaler] ~05/25/17 Ropinirole HCl [Requip] 2 mg PO PRN 05/31/17 11/25/17 Unknown History Valsartan/Hydrochlorothiazide 1 tab PO DAILY 05/31/17 11/25/17 Unknown History [Valsartan-Hctz 160-12.5 mg Tab] Cetirizine HCl [ZyrTEC] 10 mg PO QAM 14 Days #14 capsule 07/31/17 11/25/17 Unknown Rx Fluticasone/Salmeterol [Advair 1 puff IH BID #1 blst.w.dev 11/26/17 Unknown Rx Diskus 500-50 mcg] Prednisone [predniSONE 10 mg 10 mg PO .TAPER #1 tab.ds.pk 11/26/17 Unknown Rx (6-Day Pack, 21 Tabs)] Acetaminophen [Tylenol Arthritis] 650 mg PO Q6HR PRN #30 tablet.er 07/20/18 Unknown Rx Famotidine [Pepcid] 20 mg PO BID #10 tablet 07/20/18 Unknown Rx Ondansetron [Zofran Odt] 4 mg PO Q8HR PRN #20 tab.rapdis 07/20/18 Unknown Rx Ibuprofen [Motrin 600 MG tab] 600 mg PO Q8H PRN #15 tablet 10/08/18 Unknown Rx Tamsulosin HCl [Flomax] 0.4 mg PO QDAY #5 cap.er.24h 10/08/18 Unknown Rx oxyCODONE /ACETAMINOPHEN [Percocet 1 tab PO Q4HR #12 tab 10/08/18 Unknown Rx 5/325] ED Physical Exam - General Limitations: No Limitations General appearance: alert, in no apparent distress - Head Head exam: Present: atraumatic, normocephalic - Eye Eye exam: Present: EOMI - ENT ENT exam: Present: mucous membranes moist - Neck Neck exam: Present: normal inspection - Respiratory Respiratory exam: Present: normal lung sounds bilaterally. Absent: respiratory distress - Cardiovascular Cardiovascular Exam: Present: regular rate, normal rhythm. Absent: systolic murmur, diastolic murmur, rubs, gallop - GI/Abdominal GI/Abdominal exam: Present: soft, tenderness (lower quadrant), normal bowel sounds. Absent: distended - Neurological Exam Neurological exam: Present: alert, oriented X3 - Psychiatric Psychiatric exam: Present: normal affect, normal mood - Skin Skin exam: Present: warm, dry, intact, normal color. Absent: rash ED Course Vital Signs 10/07/18 19:42 Temperature 98 F Pulse Rate 98 H Respiratory 20 Rate Blood Pressure 203/97 O2 Sat by Pulse 97 Oximetry ED Medical Decision Making - Lab Data Result diagrams: 10/07/18 19:55 10/07/18 19:55 - Radiology Data Radiology results: report reviewed Patient: CHAS BUTLER MR#: [id number] : 1955 Acct:[id number] Age/Sex: 63 / F ADM Date: 10/07/18 Loc: ED Attending Dr: Ordering Physician: ELLIOT BEARDEN Date of Service: 10/07/18 Procedure(s): CT abdomen pelvis w con Accession Number(s): [id number] cc: ELLIOT BEARDEN PROCEDURE: CT ABDOMEN PELVIS W CON TECHNIQUE: Axial images were performed from the lung bases to the pubic symphysis. Multiplanar reformats were performed on the acquisition scanner. HISTORY: right lower quadrant abdominal pain COMPARISONS: 01/23/2016 FINDINGS: Bilateral breast implants. Pacer/AICD. Clear lung bases. Mildly diffusely fatty infiltrated liver. Normal enhancement appearance of the liver, spleen, atrophic pancreas, bilateral adrenal glands and left kidney. Right kidney enhances but shows slight loss of the corticomedullary differentiation with mild right hydroureteronephrosis. There is periureteral mild edema with ureteral mucosal hyperenhancement proximal to a 5 mm proximal ureteral stone. Distal right ureter is difficult to trace but is not significantly dilated. Normal appendix right lower quadrant. Stomach is decompressed. Mild antral wall thickening may be artifactual. Surgically absent gallbladder. Normal enhancement of the mesenteric vessels. Nonobstructive small bowel pattern. Mild diffuse fecal retention. Left colon and rectosigmoid diverticulosis. No CT evidence of diverticulitis. Normal anteverted uterus. T11 and T7 vertebral body hemangiomata without compression fracture. Periumbilical hernia contains fat, nonobstructed. No free fluid or free air. Delayed images show delayed contrast excretion from the right kidney. Lower lumbar facet osteoarthritis. IMPRESSION: Mild right hydroureteronephrosis and delayed contrast excretion due to proximal 5 mm ureteral stone. No forniceal rupture. Normal appendix. Rectosigmoid and descending colon diverticulosis without diverticulitis. Fatty liver. . This document is electronically signed by Aide Newman MD., October 07 2018 10:58:08 PM ET Transcribed By: MP Dictated By: AIDE NEWMAN Electronically Authenticated By: AIDE NEWMAN Signed Date/Time: 10/07/182299 DD/ 07 TD/TT: 10/07/182207 - Medical Decision Making Patient has been evaluated by this provider in fast track. Normal saline 500 mg, Rocephin 1 g IV, Toradol 15 mg IV Zofran [address] shows been right hydronephrosis Critical care attestation.: If time is entered above; I have spent that time in minutes in the direct care of this critically ill patient, excluding procedure time. ED Disposition Clinical Impression: Kidney stone on right side, Hydronephrosis, Elevated BUN Disposition: DC-01 TO HOME OR SELFCARE Is pt being admited?: No Does the pt Need Aspirin: No Condition: Stable Instructions: Abdominal Pain (ED) Additional Instructions: Please complete medications as prescribed. Pain medication as needed. Follow up with the urologist I have listed one below for your convenience Prescriptions: Tamsulosin HCl [Flomax] 0.4 mg PO QDAY #5 cap.er.24h Ibuprofen [Motrin 600 MG tab] 600 mg PO Q8H PRN #15 tablet PRN Reason: Pain oxyCODONE /ACETAMINOPHEN [Percocet 5/325] 1 tab PO Q4HR #12 tab Referrals: CHAD LARIOS MD [Primary Care Provider] - 3-5 Days DARCIE FARAH MD [Staff Physician] - 3-5 Days Forms: Work/School Release Form(ED)
[2018-10-07] MEDS ORDERED: ZOFRAN IV ONE (23:01)
[2018-10-07] MEDS ORDERED: MORPHINE IV ONE (23:01)
[2018-10-07] MEDS ORDERED: ROCEPHIN/NS 1 GM/50 ML 1 GM/50 ML BAG IV ONE (23:06)
[2018-10-07] MEDS ORDERED: NACL 0.9% 500 ML IV ONE (23:08)
[2018-10-07] MEDS ORDERED: TORADOL IV ONE (23:08)
[2018-10-07] MEDS ORDERED: ROCEPHIN IM ONE (23:15)
[2018-10-08 01:17] VITALS: BP 115/73
== END 2018-10-08 01:22 | disposition home or self-care (01) ==
LOC: ED 19:26
DX: N20.0 Calculus of kidney (principal); N13.30 Unspecified hydronephrosis; R79.89 Other specified abnormal findings of blood chemistry; I11.0 Hypertensive heart disease with heart failure; I50.9 Heart failure, unspecified; I25.2 Old myocardial infarction; E11.9 Type 2 diabetes mellitus without complications; K21.9 Gastro-esophageal reflux disease without esophagitis; F17.200 Nicotine dependence, unspecified, uncomplicated; Z90.49 Acquired absence of other specified parts of digestive tract; Z88.8 Allergy status to other drugs, medicaments and biological substances; Z88.1 Allergy status to other antibiotic agents
CPT/HCPCS: 36415; 74177; 80048; 81001; 85025; 96365; 96375; 99284; J0696; J1885; J2270; J2405; J7040; Q9967

== ENCOUNTER 2018-10-24 04:50 | Inpatient (IN) | payer BC ==
[2018-10-24] MEDS ORDERED: PROVENTIL IH ONE ×2 (05:03→12:26)
[2018-10-24] MEDS ORDERED: ATROVENT IH ONE (05:03)
[2018-10-24] MEDS ORDERED: SOLU-Medrol ONE ×2 (05:04→12:04)
[2018-10-24] MEDS ORDERED: MAGNESIUM SULFATE 2GM/50ML 2 GM/50 ML BAG IV ONE ×2 (05:04→05:19)
[2018-10-24] MEDS ORDERED: SOLU-Medrol IV ONE (05:20)
[2018-10-24 05:38] LABS: Basophils % (Auto) 0.4 % (0.0-1.8); Eosinophils # (Auto) 0.3 K/mm3 (0.0-0.4); Eosinophils % (Auto) 5.4 % (0.0-4.3); Hematocrit 40.6 % (30.3-42.9); Hemoglobin 13.1 gm/dl (10.1-14.3); Lymphocytes # (Auto) 2.1 K/mm3 (1.2-5.4); Lymphocytes % (Auto) 33.1 % (13.4-35.0); Mean Corpuscular HGB Conc 32 % (30-34); Mean Corpuscular Volume 88 fl (79-97); Monocytes # (Auto) 0.5 K/mm3 (0.0-0.8); Monocytes % (Auto) 8.2 % (0.0-7.3); Platelet Count 138 K/mm3 (140-440); Red Blood Count 4.61 M/mm3 (3.65-5.03); Red Cell Distribution Width 15.5 % (13.2-15.2)
--- NOTE | 2018-10-24 05:49 | XRay Report ---
PROCEDURE: XR CHEST 1V AP TECHNIQUE: A portable upright view of the chest was obtained. HISTORY: Dyspnea COMPARISONS: 11/26/2017 FINDINGS: The heart size and vascularity appear normal. There are no acute infiltrates or effusions. There is s table chronic airspace disease in the middle third of the left lung. There is a Port-A-Cath catheter along the right chest wall with the limb in the SVC. There is a pacemaker overlying the left chest wa ll with the leads in the right atrium and right ankle. The skeletal structures do not show any acute changes. IMPRESSION: No acute cardiopulmonary process. Stable nonspecific airspace disease in the middle third of the left lung unchanged from the previous study.. This document is electronically signed by Morales Arrieta MD., October 24 2018 05:48:06 AM ET
[2018-10-24 05:55] LABS: BUN/Creatinine Ratio 17; Blood Urea Nitrogen 17 mg/dL (7-17); Calcium 9.2 mg/dL (8.4-10.2); Hemolysis Index 6
--- NOTE | 2018-10-24 06:25 | Emergency Department Report ---
HPI - General Chief Complaint: Dyspnea/Respdistress Time Seen by Provider: 10/24/18 05:11 - HPI HPI: 63 -year-old -[place] Female, who is an employee here, presents to the emergency department with a complaint of shortness of breath, wheezing, coughing since yesterday. She has been using her nebulizer and inhaler at home multiple times without any relief. The patient has a history of asthma, CHF, right upper extremity DVT, diabetes, GERD, coronary artery disease with previous IA, dilated cardiomyopathy, hypertension and a pacemaker defibrillator in place. She is not oxygen dependent at home. The last time the patient was here for similar symptoms she required intubation. Her tobacco cloth reclaimer is Dr. Karimi. No recent travel or sick contacts at home. ED Past Medical Hx - Past Medical History Previous Medical History?: Yes Hx Hypertension: Yes (1999) Hx Heart Attack/AMI: Yes (, dilated cardiomyopathy) Hx Congestive Heart Failure: Yes Hx Diabetes: Yes Hx Deep Vein Thrombosis: Yes Hx GERD: Yes Hx Sickle Cell Disease: No Hx Asthma: Yes Hx HIV: No Additional medical history: diverticulitis restless leg - Surgical History Past Surgical History?: Yes Hx Pacemaker: Yes (DEFIBRILLATOR) Hx Cholecystectomy: Yes Hx Breast Surgery: Yes (RECONSTRUCTION) Additional Surgical History: defibrillator - Social History Smoking Status: Unknown if ever smoked Substance Use Type: None - Medications Home Medications: Home Medications Medication Instructions Recorded Confirmed Last Taken Type Aspirin [Aspirin Enteric Coated] 81 mg PO DAILY 11/20/13 10/24/18 10/23/18 History Carvedilol [Coreg] 25 mg PO BID 11/20/13 10/24/18 10/23/18 History Ropinirole HCl [Requip] 2 mg PO HS 05/31/17 10/24/18 Unknown History Alendronate Sodium 35 mg PO QWEEK 10/24/18 10/24/18 Unknown History Calcium Carbonate/Vitamin D3 1 each PO DAILY 10/24/18 10/24/18 10/23/18 History [Os-Kane 500+D3 Caplet] Furosemide [Lasix TAB] 40 mg PO QDAY 10/24/18 10/24/18 10/23/18 History Hydrocortisone 2.5% [Proctosol-Hc] 1 applic TP BID 10/24/18 10/24/18 Unknown History Potassium Chloride [Klor-Con] 20 meq PO QDAY 10/24/18 10/24/18 10/23/18 History Umeclidinium Brm/Vilanterol Tr 1 each IH QDAY 10/24/18 10/24/18 10/23/18 History [Anoro Ellipta 62.5-25 Mcg INH] Valsartan/Hydrochlorothiazide 1 tab PO QDAY 10/24/18 10/24/18 10/23/18 History [Diovan Hct 320-25 mg] ED Review of Systems ROS: Stated complaint: CHRISTIANO Other details as noted in HPI Comment: All other systems reviewed and negative Constitutional: diaphoresis. denies: chills, fever Eyes: denies: eye pain, vision change ENT: denies: ear pain, throat pain Respiratory: cough, shortness of breath, wheezing Cardiovascular: denies: chest pain, edema Gastrointestinal: denies: nausea, vomiting Genitourinary: denies: dysuria, discharge Musculoskeletal: denies: back pain, arthralgia Skin: denies: rash, lesions Neurological: denies: headache, weakness Physical Exam - Physical Exam Vital Signs: Vital Signs 10/24/18 10/24/18 10/24/18 00:56 01:00 01:16 Pulse Rate 121 H 121 H 118 H Pulse Rate [ Anterior Bilateral Throughout] Respiratory 16 39 H 19 Rate Respiratory Rate [Anterior Bilateral Throughout] Blood Pressure 138/81 131/73 Blood Pressure [Left] O2 Sat by Pulse 95 91 94 Oximetry 10/24/18 10/24/18 10/24/18 01:30 01:46 02:00 Pulse Rate 117 H 114 H 115 H Pulse Rate [ Anterior Bilateral Throughout] Respiratory 20 21 25 H Rate Respiratory Rate [Anterior Bilateral Throughout] Blood Pressure 138/80 129/77 123/71 Blood Pressure [Left] O2 Sat by Pulse 93 92 94 Oximetry 10/24/18 10/24/18 10/24/18 02:16 02:30 02:46 Pulse Rate 109 H 106 H 103 H Pulse Rate [ Anterior Bilateral Throughout] Respiratory 30 H 28 H 18 Rate Respiratory Rate [Anterior Bilateral Throughout] Blood Pressure 126/66 123/66 124/66 Blood Pressure [Left] O2 Sat by Pulse 88 98 98 Oximetry 10/24/18 10/24/18 10/24/18 03:00 03:16 03:30 Pulse Rate 104 H 105 H 106 H Pulse Rate [ Anterior Bilateral Throughout] Respiratory 27 H 29 H 21 Rate Respiratory Rate [Anterior Bilateral Throughout] Blood Pressure 120/68 128/74 139/81 Blood Pressure [Left] O2 Sat by Pulse 99 99 99 Oximetry 10/24/18 10/24/18 10/24/18 03:46 04:00 04:54 Pulse Rate 109 H 104 H Pulse Rate [ Anterior Bilateral Throughout] Respiratory 30 H 30 H Rate Respiratory Rate [Anterior Bilateral Throughout] Blood Pressure 125/71 145/76 145/76 Blood Pressure [Left] O2 Sat by Pulse 99 99 100 Oximetry 10/24/18 10/24/18 10/24/18 05:00 05:06 05:11 Pulse Rate 116 H 96 H Pulse Rate [ 116 H Anterior Bilateral Throughout] Respiratory 24 39 H Rate Respiratory 24 Rate [Anterior Bilateral Throughout] Blood Pressure 211/106 211/106 Blood Pressure 167/73 [Left] O2 Sat by Pulse 100 100 99 Oximetry 10/24/18 06:08 Pulse Rate Pulse Rate [ 96 H Anterior Bilateral Throughout] Respiratory Rate Respiratory 21 Rate [Anterior Bilateral Throughout] Blood Pressure Blood Pressure [Left] O2 Sat by Pulse Oximetry Physical Exam: GENERAL: The patient is well-developed well-nourished. HEENT: Normocephalic. Atraumatic. Patient has moist mucous membranes. EYES: Extraocular motions are intact. Pupils are equal and reactive to light bilaterally. NECK: Supple. Trachea is midline. CHEST/LUNGS: Moderate severe wheezing throughout the chest. There is tachypnea and accessory muscle use. There is conversational dyspnea. There is respiratory distress noted. HEART/CARDIOVASCULAR: Regular. There is mild to moderate tachycardia. There is no obvious murmur. ABDOMEN: Abdomen is soft, nontender. Patient has normal bowel sounds. There is no abdominal distention. SKIN: Patient is diaphoretic. NEURO: The patient is awake, alert, and oriented. The patient is cooperative. The patient has no focal neurologic deficits. MUSCULOSKELETAL: There is no tenderness or deformity. There is no evidence of acute injury. ED Course Vital Signs 10/24/18 10/24/18 10/24/18 00:56 01:00 01:16 Pulse Rate 121 H 121 H 118 H Pulse Rate [ Anterior Bilateral Throughout] Respiratory 16 39 H 19 Rate Respiratory Rate [Anterior Bilateral Throughout] Blood Pressure 138/81 131/73 Blood Pressure [Left] O2 Sat by Pulse 95 91 94 Oximetry 10/24/18 10/24/18 10/24/18 01:30 01:46 02:00 Pulse Rate 117 H 114 H 115 H Pulse Rate [ Anterior Bilateral Throughout] Respiratory 20 21 25 H Rate Respiratory Rate [Anterior Bilateral Throughout] Blood Pressure 138/80 129/77 123/71 Blood Pressure [Left] O2 Sat by Pulse 93 92 94 Oximetry 10/24/18 10/24/18 10/24/18 02:16 02:30 02:46 Pulse Rate 109 H 106 H 103 H Pulse Rate [ Anterior Bilateral Throughout] Respiratory 30 H 28 H 18 Rate Respiratory Rate [Anterior Bilateral Throughout] Blood Pressure 126/66 123/66 124/66 Blood Pressure [Left] O2 Sat by Pulse 88 98 98 Oximetry 10/24/18 10/24/18 10/24/18 03:00 03:16 03:30 Pulse Rate 104 H 105 H 106 H Pulse Rate [ Anterior Bilateral Throughout] Respiratory 27 H 29 H 21 Rate Respiratory Rate [Anterior Bilateral Throughout] Blood Pressure 120/68 128/74 139/81 Blood Pressure [Left] O2 Sat by Pulse 99 99 99 Oximetry 10/24/18 10/24/18 10/24/18 03:46 04:00 04:54 Pulse Rate 109 H 104 H Pulse Rate [ Anterior Bilateral Throughout] Respiratory 30 H 30 H Rate Respiratory Rate [Anterior Bilateral Throughout] Blood Pressure 125/71 145/76 145/76 Blood Pressure [Left] O2 Sat by Pulse 99 99 100 Oximetry 10/24/18 10/24/18 10/24/18 05:00 05:06 05:11 Pulse Rate 116 H 96 H Pulse Rate [ 116 H Anterior Bilateral Throughout] Respiratory 24 39 H Rate Respiratory 24 Rate [Anterior Bilateral Throughout] Blood Pressure 211/106 211/106 Blood Pressure 167/73 [Left] O2 Sat by Pulse 100 100 99 Oximetry 10/24/18 06:08 Pulse Rate Pulse Rate [ 96 H Anterior Bilateral Throughout] Respiratory Rate Respiratory 21 Rate [Anterior Bilateral Throughout] Blood Pressure Blood Pressure [Left] O2 Sat by Pulse Oximetry - ABG Interpretation Ph: [phone] PCO2: 40 PO2: 98 Bicarbonate: 22 Interpretation: normal ED Medical Decision Making - Lab Data Result diagrams: 10/24/18 05:17 10/24/18 05:17 - EKG Data -: EKG Interpreted by Mn - EKG Data When compared to previous EKG there are: no significant change Interpretation: unchanged when compared t (07/20/18), other (atrial sensed ventricular paced rhythm, rate of 92, left axis deviation) - Radiology Data Radiology results: report reviewed, image reviewed interpreted by me: Chest x-ray does not show any pneumothorax, pleural effusion, pneumonia or obvious focal consolidation. PROCEDURE: CT ANGIO CHEST TECHNIQUE: CT angiography of the chest was performed. IV contrast was administ ered. Axial images and coronal and sagittal reformatted images were obtained. Fan MIP reformatted i mages were obtained. HISTORY: SOB, elevated dimer COMPARISON: None FINDINGS: There are no abnormal pulmonary arterial filling defects seen to indicate acute pulmonary emboli. There is no pleural effusion seen. There is no pneumothorax seen. The lungs are clear. There is no aortic dissection seen. There is no abnormal mediastinal or hilar mass seen. IMPRESSION: There is no aortic dissection or pulmonary embolism seen. There is no acute abnormality identified. This document is electronically signed by Ludmila Bogres MD., October 24 2018 11:37:26 AM ET Transcribed By: BENJAMIN Dictated By: LUDMILA BORGES MD Electronically Authenticated By: LUDMILA BORGES MD Signed Date/Time: 10/24/18 1140 - Medical Decision Making This asthmatic patient presents with shortness of breath, wheezing and some respiratory distress. She was immediately placed on the BiPAP and given a continuous breathing treatment. She was given Solu-Medrol, magnesium. EKG did not show any signs of ST elevation IA. Chest x-ray did not show any focal consolidation, pneumothorax, pneumonia, pleural effusions, or any other acute process. Labs were grossly unremarkable except for an elevated and equivocal d- dimer. CT angiography of the chest was done that did not show any dissection, pulmonary embolism, or any other acute process. Once on the BiPAP, the patient had decreased work of breathing and became more stable but didn't appear to require the BiPAP upon admission. She was accepted for admission by the hospitalist service. - Differential Diagnosis asthma, bronchitis, pneumonia, PE Critical Care Time: Yes Critical care time in (mins) excluding proc time.: 35 Critical care attestation.: If time is entered above; I have spent that time in minutes in the direct care of this critically ill patient, excluding procedure time. Critical care time w as spent on this patient during her initial evaluation, multiple re-evaluations, ordering and interpretation of labs and imaging. Critical Care Time: 35 minutes ED Disposition Clinical Impression: Acute asthma exacerbation Qualifiers: Asthma severity: unspecified severity Asthma persistence: unspecified Qualified Code(s): J45.901 - Unspecified asthma with (acute) exacerbation Respiratory failure Qualifiers: Chronicity: acute Respiratory failure complication: unspecified whether with hypoxia or hypercapnia Qualified Code(s): J96.00 - Acute respiratory failure, unspecified whether with hypoxia or hypercapnia Hypertension Qualifiers: Hypertension type: essential hypertension Qualified Code(s): I10 - Essential (primary) hypertension Disposition: DC-09 OP ADMIT IP TO THIS HOSP Is pt being admited?: Yes Condition: Serious
[2018-10-24] MEDS ORDERED: SODIUM CHLORIDE FLUSH SYRINGE 10 ML IV PRN (08:16)
--- NOTE | 2018-10-24 08:34 | History and Physical Report ---
History of Present Illness Date of examination: 10/24/18 Date of admission: 10/24/18 06:25 Chief complaint: SOB History of present illness: Patient is a 63-year-old female with a past medical history of hypertension, congestive heart failure, coronary artery disease with previous DC, diabetes asthma. Patient presents with a 4 day history of shortness of breath and wheezing that has progressively become worse and has been refractory to home nebulizer treatments. Patient denies any fever denies any productive cough. Only occasional dry cough. No obvious trigger besides pollen. Patient states she feels somewhat more relieved at this time. We'll fever or chills no nausea vomiting no chest pain no orthopnea no PND. Patient does complain of bilateral lower extremity edema and feels a little puffy. Denies any abdominal pain. Patient does have minimal flank pain states she has a stone on the right side. She also gives a history of being intubated before. Past History Past Medical History: acute DC, diabetes, hypertension. denies: hypothyroidism, liver disease, pulmonary embolism, renal failure, seizures, stroke Past Surgical History: Other (breast) Social history: , lives with family, smoking, full code. denies: alcohol abuse, prescription drug abuse Family history: no significant family history Medications and Allergies Allergies Allergy/AdvReac Type Severity Reaction Status Date / Time dopamine [Dopamine] Allergy Unknown Verified 07/31/17 01:59 erythromycin base Allergy Anaphylaxis Verified 05/31/17 17:24 [Erythromycin Base] heparin Allergy extreme Verified 05/31/17 17:24 burning beyond side effect levofloxacin [From Levaquin] Allergy Angioedema Verified 05/31/17 17:24 montelukast sodium Allergy Itching Verified 05/31/17 17:24 [From Singulair] Home Medications Medication Instructions Recorded Confirmed Last Taken Type Aspirin [Aspirin Enteric Coated] 81 mg PO DAILY 11/20/13 11/25/17 1 Week Ago History ~05/25/17 Carvedilol [Coreg] 25 mg PO BID 11/20/13 11/25/17 06/01/17 14:36 History Cyclobenzaprine HCl [Flexeril] 10 mg PO QHS 11/20/13 11/25/17 1 Month Ago History ~05/01/17 ALBUTEROL Inhaler (OR & NICU) 2 puff IH QID PRN #1 inha 09/16/15 11/25/17 1 Week Ago Rx [ProAir HFA Inhaler] ~05/25/17 Ropinirole HCl [Requip] 2 mg PO PRN 05/31/17 11/25/17 Unknown History Valsartan/Hydrochlorothiazide 1 tab PO DAILY 05/31/17 11/25/17 Unknown History [Valsartan-Hctz 160-12.5 mg Tab] Cetirizine HCl [ZyrTEC] 10 mg PO QAM 14 Days #14 capsule 07/31/17 11/25/17 Unknown Rx Fluticasone/Salmeterol [Advair 1 puff IH BID #1 blst.w.dev 11/26/17 Unknown Rx Diskus 500-50 mcg] Prednisone [predniSONE 10 mg 10 mg PO .TAPER #1 tab.ds.pk 11/26/17 Unknown Rx (6-Day Pack, 21 Tabs)] Acetaminophen [Tylenol Arthritis] 650 mg PO Q6HR PRN #30 tablet.er 07/20/18 Unknown Rx Famotidine [Pepcid] 20 mg PO BID #10 tablet 07/20/18 Unknown Rx Ondansetron [Zofran Odt] 4 mg PO Q8HR PRN #20 tab.rapdis 07/20/18 Unknown Rx Ibuprofen [Motrin 600 MG tab] 600 mg PO Q8H PRN #15 tablet 10/08/18 Unknown Rx Tamsulosin HCl [Flomax] 0.4 mg PO QDAY #5 cap.er.24h 10/08/18 Unknown Rx oxyCODONE /ACETAMINOPHEN [Percocet 1 tab PO Q4HR #12 tab 10/08/18 Unknown Rx 5/325] Active Meds: Active Medications Acetaminophen (Tylenol) 650 mg PO Q4H PRN PRN Reason: Pain MILD(1-3)/Fever >100.5/ABRAHAM Albuterol/Ipratropium (Duoneb *Not For Prn Use*) 1 ampul IH Q6HRT [facility] Aspirin (Halfprin Ec) 81 mg PO DAILY [facility] Carvedilol (Coreg) 25 mg PO BID [facility] Cyclobenzaprine HCl (Flexeril) 10 mg PO QHS [facility] Enoxaparin Sodium (Lovenox) 30 mg SUB-Q QDAY [facility] Famotidine (Pepcid) 20 mg IV BID [facility] Furosemide (Lasix) 20 mg IV QDAY [facility] Azithromycin 500 mg/ Sodium (Chloride) 250 mls @ 250 mls/hr IV Q24HR [facility] Methylprednisolone Sodium Succinate (Solu-Medrol) 40 mg IV Q6HR [facility] Miscellaneous Medication (Cetirizine Hcl [Zyrtec]) 10 mg PO QAM [facility] Miscellaneous Medication (Valsartan/Hydrochlorothiazide [Valsartan-Hctz 160-12.5 Mg Tab]) 1 tab PO DAILY [facility] Ondansetron HCl (Zofran) 4 mg IV Q8H PRN PRN Reason: Nausea And Vomiting Oxycodone/Acetaminophen (Percocet 5/325) 1 tab PO Q6H PRN PRN Reason: Pain, Moderate (4-6) Oxycodone/Acetaminophen (Percocet 5/325) 1 tab PO Q4HR [facility] Potassium Chloride (K-Dur) 10 meq PO QDAY [facility] Sodium Chloride (Sodium Chloride Flush Syringe 10 Ml) 10 ml IV BID [facility] Sodium Chloride (Sodium Chloride Flush Syringe 10 Ml) 10 ml IV PRN PRN PRN Reason: LINE FLUSH Tamsulosin HCl (Flomax) 0.4 mg PO QDAY [facility] Review of Systems Constitutional: malaise, no weight loss, no weight gain, no fever, no chills, no sweats, no night sweats, no anorexia, no fatigue, no weakness, no lethargy, no chronic headaches, no poor appetite, no daytime sleepiness, no chronic pain Ears, nose, mouth and throat: nasal congestion, no ear pain, no ear discharge, no decreased hearing, no nose pain, no nasal discharge, no sinus pressure, no sinus pain, no bleeding gums, no dental pain, no mouth pain, no dysphagia, no swelling in mouth, no swelling in throat, no post-nasal drip, no vertigo, no pain front of neck Breasts: deferred Cardiovascular: leg edema, no chest pain, no orthopnea, no palpitations, no rapid/irregular heart beat, no edema, no syncope, no dyspnea on exertion, no paroxysmal nocturnal dyspnea, no claudication, no high blood pressure, no decreased exercise tolerance Respiratory: cough, shortness of breath, wheezing, no cough with sputum, no excessive sputum, no hemoptysis, no congestion, no pleurisy, no pain, no pain on inspiration, no snoring, no sleep apnea, no respiratory infections, no home oxygen Gastrointestinal: no abdominal pain, no nausea, no constipation, no hematochezia, no loss of appetite, no heartburn, no jaundice, no dyspepsia/bloating, no lactose intolerance Genitourinary Female: no dysmenorrhea, no pelvic pain, no dysuria, no urinary frequency, no urge incontinence Musculoskeletal: low back pain, no neck stiffness, no neck pain, no shooting arm pain, no arm numbness/tingling, no shooting leg pain, no leg numbness/tingling, no muscle cramps, no myalgias, no atrophy, no frequent falls, no fractures, no loss of height, no prior amputations, no arthritis Integumentary: no unusual bruising Neurological: no head injury, no paralysis, no parathesias, no numbness, no tingling, no syncope, no migraines, no convulsions, no change in speech, no balance difficulties, no motor disturbance, no loss of vision, no burning pain Psychiatric: no memory loss, no sleep disturbances, no hypersomnia, no hallucinations, no depression, no sadness/tearfullness, no mood swings Endocrine: no cold intolerance, no heat intolerance, no excessive thirst, no polydipsia, no polyuria, no nocturia, no excessive sweating, no weight change, no increase in ring/shoe/hat size, no proptosis, no high blood sugars, no low blood sugars, no recent glucocorticoid use, no fatigue Hematologic/Lymphatic: no easy bruising, no easy bleeding, no lymphedema Allergic/Immunologic: no allergic rhinitis, no wheezing, no persistent infec tions, no gluten intolerance Exam - Constitutional Vitals: Temp Pulse Resp BP Pulse Ox 89 18 161/82 100 10/24/18 08:16 10/24/18 08:16 10/24/18 08:16 10/24/18 08:16 General appearance: Present: no acute distress, well-nourished - EENT Eyes: Present: PERRL ENT: hearing intact, clear oral mucosa - Neck Neck: Present: supple, normal ROM - Respiratory Respiratory effort: normal Respiratory: bilateral: wheezing (wheezing) - Cardiovascular Heart Sounds: Present: S1 & S2. Absent: rub, click - Extremities Extremities: pulses symmetrical, No edema Extremity abnormal: other (plus 3 pitting edema) Peripheral Pulses: within normal limits - Abdominal General gastrointestinal: Present: soft, non-tender, non-distended, normal bowel sounds Female genitourinary: Present: normal - Integumentary Integumentary: Present: clear, warm, dry - Musculoskeletal Musculoskeletal: gait normal, strength equal bilaterally - Psychiatric Psychiatric: appropriate mood/affect, intact judgment & insight - Neurologic Neurologic: CNII-XII intact, moves all extremities Results - Labs CBC & Chem 7: 10/24/18 05:17 10/24/18 05:17 Labs: Laboratory Last Values WBC 6.3 K/mm3 (4.5-11.0) 10/24/18 05:17 RBC 4.61 M/mm3 (3.65-5.03) 10/24/18 05:17 Hgb 13.1 gm/dl (10.1-14.3) 10/24/18 05:17 Hct 40.6 % (30.3-42.9) 10/24/18 05:17 MCV 88 fl (79-97) 10/24/18 05:17 MCH 28 pg (28-32) 10/24/18 05:17 MCHC 32 % (30-34) 10/24/18 05:17 RDW 15.5 % (13.2-15.2) H 10/24/18 05:17 Plt Count 138 K/mm3 (140-440) L 10/24/18 05:17 Lymph % (Auto) 33.1 % (13.4-35.0) 10/24/18 05:17 Kleberg % (Auto) 8.2 % (0.0-7.3) H 10/24/18 05:17 Eos % (Auto) 5.4 % (0.0-4.3) H 10/24/18 05:17 Baso % (Auto) 0.4 % (0.0-1.8) 10/24/18 05:17 Lymph # 2.1 K/mm3 (1.2-5.4) 10/24/18 05:17 Kleberg # 0.5 K/mm3 (0.0-0.8) 10/24/18 05:17 Eos # 0.3 K/mm3 (0.0-0.4) 10/24/18 05:17 Baso # 0.0 K/mm3 (0.0-0.1) 10/24/18 05:17 Seg Neutrophils % 52.9 % (40.0-70.0) 10/24/18 05:17 Seg Neutrophils # 3.3 K/mm3 (1.8-7.7) 10/24/18 05:17 D-Dimer 1094.56 ng/mlDDU (0-234) H 10/24/18 05:17 POC ABG pH 7.359 (7.35-7.45) 10/24/18 05:49 POC ABG pCO2 40.0 (35-45) 10/24/18 05:49 POC ABG pO2 98 (80-105) 10/24/18 05:49 POC ABG HCO3 22.6 (22-26 mml/L) 10/24/18 05:49 POC ABG Total CO2 24 (23-27mmol/L) 10/24/18 05:49 POC ABG O2 Sat 97 10/24/18 05:49 POC ABG Base Excess -3 ((-2) - (+3)mmol/L) 10/24/18 05:49 FiO2 30 % 10/24/18 05:49 Sodium 144 mmol/L (137-145) 10/24/18 05:17 Potassium 4.5 mmol/L (3.6-5.0) 10/24/18 05:17 Chloride 107.2 mmol/L (98-107) H 10/24/18 05:17 Carbon Dioxide 24 mmol/L (22-30) 10/24/18 05:17 Anion Gap 17 mmol/L 10/24/18 05:17 BUN 17 mg/dL (7-17) 10/24/18 05:17 Creatinine 1.0 mg/dL (0.7-1.2) 10/24/18 05:17 Estimated GFR > 60 ml/min 10/24/18 05:17 BUN/Creatinine Ratio 17 % 10/24/18 05:17 Glucose 122 mg/dL (65-100) H 10/24/18 05:17 Calcium 9.2 mg/dL (8.4-10.2) 10/24/18 05:17 Troponin T < 0.010 ng/mL (0.00-0.029) 04/15/19 05:17 NT-Pro-B Natriuret Pep 99.22 pg/mL (0-900) 10/24/18 05:17 - Imaging and Cardiology Chest x-ray: image reviewed CT scan - chest: report reviewed Assessment and Plan Advance Directives: Yes VTE prophylaxis?: Chemical Plan of care discussed with patient/family: Yes - Patient Problems (1) Acute asthma exacerbation Current Visit: Yes Status: Acute Qualifiers: Asthma severity: unspecified severity Asthma persistence: unspecified Qualified Code(s): J45.901 - Unspecified asthma with (acute) exacerbation Plan to address problem: Acute asthma exacerbation most likely trigger seasonal pollen. No evidence of infection at this particular time. No thick productive cough no fever. Patient has generalized malaise expiratory and inspiratory wheezing. We'll admit him. Antibiotic, Solu-Medrol, oxygen asthma education. Compliance education smoking cessation and education. Should be able to turnaround in 1-2 days. (2) Hypertension Current Visit: Yes Status: Acute Qualifiers: Hypertension type: essential hypertension Qualified Code(s): I10 - Essential (primary) hypertension Plan to address problem: At present there but suboptimal control. Will continue present antihypertensives including Coreg and ARB (3) Respiratory failure Current Visit: Yes Status: Acute Qualifiers: Chronicity: acute Respiratory failure complication: unspecified whether with hypoxia or hypercapnia Qualified Code(s): J96.00 - Acute respiratory failure, unspecified whether with hypoxia or hypercapnia Plan to address problem: Acute respiratory failure secondary to asthma exacerbation. We'll observe closely secondary to history of intubation. Treat underlying etiology now.
[2018-10-24] MEDS ORDERED: TYLENOL PO PRN (09:30)
[2018-10-24] MEDS ORDERED: ZOFRAN IV PRN (09:30)
[2018-10-24] MEDS ORDERED: LASIX IV SCH (10:00)
[2018-10-24] MEDS ORDERED: LOVENOX SUB-Q SCH (10:00)
[2018-10-24] MEDS ORDERED: NON-FORMULARY (Valsartan/Hydrochlorothiazide [Valsartan-Hctz 160-12.5 Mg Tab] 1 TAB) PO SCH (10:00)
[2018-10-24] MEDS ORDERED: ZITHROMAX 500 MG in NACL 0.9% 250ML 250 ML IV SCH (10:00)
[2018-10-24] MEDS ORDERED: NON-FORMULARY (Cetirizine Hcl [Zyrtec] 10 MG) PO SCH (10:00)
[2018-10-24] MEDS: SODIUM CHLORIDE FLUSH SYRINGE 10 ML IV SCH ×2 (10:05→21:12)
[2018-10-24] MEDS ORDERED: COREG ONE (10:19)
[2018-10-24] MEDS: COREG PO SCH ×2 (10:21→21:12)
[2018-10-24] MEDS ORDERED: LASIX ONE (10:32)
[2018-10-24] MEDS ORDERED: K-DUR PO ONE (10:32)
[2018-10-24] MEDS: K-DUR PO SCH (10:36)
[2018-10-24] MEDS: DUONEB *Not for PRN Use IH SCH ×3 (10:54→19:12)
[2018-10-24] MEDS ORDERED: PROVENTIL IH PRN (11:15)
[2018-10-24] MEDS: HALFPRIN EC PO SCH (11:22)
[2018-10-24] MEDS: ROCEPHIN/NS 1 GM/50 ML 1 GM/50 ML BAG IV SCH (11:22)
[2018-10-24] MEDS ORDERED: PERCOCET 5/325 PO PRN (11:30)
--- NOTE | 2018-10-24 11:40 | Cat Scan Report ---
PROCEDURE: CT ANGIO CHEST TECHNIQUE: CT angiography of the chest was performed. IV contrast was administered. Axial images and coronal and sagittal reformatted images were obtained. Fan MIP reformatted images were obtained. HISTORY: SOB, elevated dimer COMPARISON: None FINDINGS: There are no abnormal pulmonary arterial filling defects seen to indicate acute pulmonary emboli. There is no pleural effusion seen. There is no pneumothorax seen. The lungs are clear. There is no aortic dissection seen. There is no abnormal mediastinal or hilar mass seen. IMPRESSION: There is no aortic dissection or pulmonary embolism seen. There is no acute abnormality identified. This document is electronically signed by Ludmila Downs MD., October 24 2018 11:37:26 AM ET
[2018-10-24] MEDS ORDERED: HCTZ PO SCH (12:00)
[2018-10-24] MEDS: PEPCID IV SCH ×2 (12:00→21:12)
[2018-10-24] MEDS ORDERED: DIOVAN ONE (12:05)
[2018-10-24] MEDS: DIOVAN PO SCH (12:05)
[2018-10-24] MEDS ORDERED: HCTZ ONE (12:05)
[2018-10-24] MEDS: SOLU-Medrol IV SCH ×3 (12:05→23:45)
[2018-10-24] MEDS: FLOMAX PO SCH (12:20)
[2018-10-24] MEDS: CLARITIN PO SCH (12:20)
[2018-10-24] MEDS ORDERED: DUONEB *Not for PRN Use IH ONE ×2 (12:36→14:00)
[2018-10-24] MEDS ORDERED: PROVENTIL IH STA (12:36)
[2018-10-24] MEDS: PERCOCET 5/325 PO SCH ×2 (18:09→21:13)
[2018-10-24] MEDS: FLEXERIL PO SCH (21:13)
[2018-10-25] MEDS: DUONEB *Not for PRN Use IH SCH ×4 (01:51→20:31)
[2018-10-25] MEDS: PERCOCET 5/325 PO SCH ×5 (02:31→22:00)
[2018-10-25] MEDS: SOLU-Medrol IV SCH ×3 (05:59→22:50)
[2018-10-25] MEDS ORDERED: D50W (25GM) Syringe IV PRN (09:32)
[2018-10-25] MEDS: DIOVAN PO SCH (10:06)
[2018-10-25] MEDS: CLARITIN PO SCH (10:06)
[2018-10-25] MEDS: FLOMAX PO SCH (10:06)
[2018-10-25] MEDS: HALFPRIN EC PO SCH (10:07)
[2018-10-25] MEDS: LOVENOX SUB-Q SCH (10:09)
[2018-10-25] MEDS: PEPCID IV SCH (10:09)
[2018-10-25] MEDS: SODIUM CHLORIDE FLUSH SYRINGE 10 ML IV SCH ×2 (10:10→22:52)
[2018-10-25] MEDS: K-DUR PO SCH (10:11)
[2018-10-25] MEDS: ROCEPHIN/NS 1 GM/50 ML 1 GM/50 ML BAG IV SCH (11:16)
[2018-10-25] MEDS: LASIX PO SCH (11:16)
[2018-10-25] MEDS ORDERED: HumaLOG SUB-Q SCH (11:30)
--- NOTE | 2018-10-25 14:52 | Progress Note ---
Assessment and Plan Assessment and plan: Acute asthma/possible COPD exacerbation, improving -Continue IV steroid, neb tx and antibiotic Acute hypoxemic respiratory failure -Likely secondary to above -Improved, continue oxygen supplementation as needed and neb tx Hypertension -Controlled on current antihypertensives -Coreg dose reduced due to bradycardia Hyperglycemia -Pt stated that she's being followed by her primary care physician and that she does not have diabetes. Chronic systolic HF -EF unknown -s/p AICD placement CAD -Stable Morbid obesity with BMI of 41.6 -Lifestyle modification recommended Disp: Plan was to discharge patient today however, after she ambulated, she became severely short of breath with associated wheezing. We'll monitor her for another 24 hours and plan for discharge tomorrow if clinically stable History Interval history: She reports feeling better today. Her shortness of breath has improved. Hospitalist Physical - Constitutional Vitals: Temp Pulse Resp BP Pulse Ox 98.1 F 85 20 146/62 93 10/25/18 11:16 10/25/18 13:12 10/25/18 13:12 10/25/18 11:16 10/25/18 11:16 General appearance: Present: no acute distress, obese - EENT Eyes: Present: PERRL, EOM intact ENT: hearing intact, clear oral mucosa - Neck Neck: Present: supple - Respiratory Respiratory effort: normal Respiratory: bilateral: CTA - Cardiovascular Rhythm: regular Heart Sounds: Present: S1 & S2 - Extremities Extremities: No edema - Abdominal General gastrointestinal: soft, non-tender, non-distended, normal bowel sounds - Integumentary Integumentary: Present: clear, warm, dry - Neurologic Neurologic: CNII-XII intact Results - Labs CBC & Chem 7: 10/24/18 05:17 10/24/18 05:17 Labs: Laboratory Last Values WBC 6.3 K/mm3 (4.5-11.0) 10/24/18 05:17 RBC 4.61 M/mm3 (3.65-5.03) 10/24/18 05:17 Hgb 13.1 gm/dl (10.1-14.3) 10/24/18 05:17 Hct 40.6 % (30.3-42.9) 10/24/18 05:17 MCV 88 fl (79-97) 10/24/18 05:17 MCH 28 pg (28-32) 10/24/18 05:17 MCHC 32 % (30-34) 10/24/18 05:17 RDW 15.5 % (13.2-15.2) H 10/24/18 05:17 Plt Count 138 K/mm3 (140-440) L 10/24/18 05:17 Lymph % (Auto) 33.1 % (13.4-35.0) 10/24/18 05:17 [place] % (Auto) 8.2 % (0.0-7.3) H 10/24/18 05:17 Eos % (Auto) 5.4 % (0.0-4.3) H 10/24/18 05:17 Baso % (Auto) 0.4 % (0.0-1.8) 10/24/18 05:17 Lymph # 2.1 K/mm3 (1.2-5.4) 10/24/18 05:17 [place] # 0.5 K/mm3 (0.0-0.8) 10/24/18 05:17 Eos # 0.3 K/mm3 (0.0-0.4) 10/24/18 05:17 Baso # 0.0 K/mm3 (0.0-0.1) 10/24/18 05:17 Seg Neutrophils % 52.9 % (40.0-70.0) 10/24/18 05:17 Seg Neutrophils # 3.3 K/mm3 (1.8-7.7) 10/24/18 05:17 D-Dimer 1094.56 ng/mlDDU (0-234) H 10/24/18 05:17 POC ABG pH 7.359 (7.35-7.45) 10/24/18 05:49 POC ABG pCO2 40.0 (35-45) 10/24/18 05:49 POC ABG pO2 98 (80-105) 10/24/18 05:49 POC ABG HCO3 22.6 (22-26 mml/L) 10/24/18 05:49 POC ABG Total CO2 24 (23-27mmol/L) 10/24/18 05:49 POC ABG O2 Sat 97 10/24/18 05:49 POC ABG Base Excess -3 ((-2) - (+3)mmol/L) 10/24/18 05:49 FiO2 30 % 04/15/19 05:49 Sodium 144 mmol/L (137-145) 10/24/18 05:17 Potassium 4.5 mmol/L (3.6-5.0) 10/24/18 05:17 Chloride 107.2 mmol/L (98-107) H 10/24/18 05:17 Carbon Dioxide 24 mmol/L (22-30) 10/24/18 05:17 Anion Gap 17 mmol/L 10/24/18 05:17 BUN 17 mg/dL (7-17) 10/24/18 05:17 Creatinine 1.0 mg/dL (0.7-1.2) 10/24/18 05:17 Estimated GFR > 60 ml/min 10/24/18 05:17 BUN/Creatinine Ratio 17 % 10/24/18 05:17 Glucose 122 mg/dL (65-100) H 10/24/18 05:17 Calcium 9.2 mg/dL (8.4-10.2) 10/24/18 05:17 Troponin T < 0.010 ng/mL (0.00-0.029) 10/24/18 05:17 NT-Pro-B Natriuret Pep 99.22 pg/mL (0-900) 10/24/18 05:17 Active Medications - Current Medications Current Medications: Generic Name Dose Route Start Last Admin Trade Name Freq PRN Reason Stop Dose Admin Acetaminophen 650 mg 10/24/18 09:30 Tylenol PO Q4H PRN Pain MILD(1-3)/Fever >100.5/ABRAHAM Albuterol 2.5 mg 10/24/18 11:15 Proventil IH Q3HRT PRN Shortness Of Breath Albuterol/Ipratropium 1 ampul 10/24/18 08:30 10/25/18 13:02 Duoneb *Not For Prn Use* IH 1 ampul Q6HRT CAMI Administration Aspirin 81 mg 10/24/18 10:00 10/25/18 10:07 Halfprin Ec PO 81 mg DAILY CAMI Administration Carvedilol 12.5 mg 10/25/18 22:00 Coreg PO BID CAMI Cyclobenzaprine HCl 10 mg 10/24/18 22:00 10/24/18 21:13 Flexeril PO 10 mg QHS CAMI Administration Enoxaparin Sodium 40 mg 10/25/18 10:00 10/25/18 10:09 Lovenox SUB-Q 40 mg QDAY@1000 CAMI Administration Furosemide 40 mg 10/25/18 11:00 10/25/18 11:16 Lasix PO 40 mg QDAY CAMI Administration Loratadine 10 mg 10/24/18 12:00 10/25/18 10:06 Claritin PO 10 mg DAILY CAMI Administration Methylprednisolone Sodium Succinate 40 mg 10/25/18 14:00 Solu-Medrol IV Q8HR CAMI Ondansetron HCl 4 mg 10/24/18 09:30 Zofran IV Q8H PRN Nausea And Vomiting Oxycodone/Acetaminophen 1 tab 10/24/18 11:30 Percocet 5/325 PO Q6H PRN Pain, Moderate (4-6) Oxycodone/Acetaminophen 1 tab 10/24/18 14:00 10/25/18 10:10 Percocet 5/325 PO 1 tab Q4HR CAMI Administration Pantoprazole Sodium 40 mg 10/26/18 10:00 Protonix PO QDAY CAMI Potassium Chloride 10 meq 10/24/18 10:00 10/25/18 10:11 K-Dur PO 10 meq QDAY CAMI Administration Sodium Chloride 10 ml 10/24/18 10:00 10/25/18 10:10 Sodium Chloride Flush Syringe 10 Ml IV 10 ml BID CAMI Administration Sodium Chloride 10 ml 10/24/18 08:16 Sodium Chloride Flush Syringe 10 Ml IV PRN PRN LINE FLUSH Tamsulosin HCl 0.4 mg 10/24/18 12:00 10/25/18 10:06 Flomax PO 0.4 mg QDAY CAMI Administration Valsartan 160 mg 10/24/18 12:00 10/25/18 10:06 Diovan PO 160 mg QDAY CAMI Administration Nutrition/Malnutrition Assess - Dietary Evaluation Nutrition/Malnutrition Findings: Nutrition Notes Start: 10/25/18 10:58 Freq: Status: Active Protocol: Document 10/25/18 10:58 TW (Rec: 10/25/18 11:05 TW [id number]) Co-Sign 10/25/18 10:58 LP Nutrition Notes Need for Assessment generated from: support clerk,MST Initial or Follow up Brief Note Current Diagnosis Coronary Artery Disease, Diabetes,Hypertension,Heart Failure,Respiratory Failure Current Diet Cardiac Labs/Tests reviewed Pertinent Medications reviewed Height 5 ft 1 in Weight 99.8 kg [place] Body Weight (kg) 47.72 BMI 41.5 Intake Prior to Admission Good Weight Status Morbidly Obese Subjective/Other Information RN screen for Jacek score/ MST risk. Per ADL, Jacek score=21. Pt reports having good appetite and eating 100% of meals. Noted breakfast tray with 100% consumed at bedside . Pt denies unintentional wt loss, N/V/D, and chewing/ swallowing difficulty. Pt reports allergy to tomatoes and does not eat pork. No noted physical signs of wasting. Percent of energy/protein needs met: 100%/100% Burn Absent Trauma Absent GI Symptoms None Food Allergy Yes Current % PO Good (75-100%) Minimum of two criteria No #1 Nutrition Diagnosis No nutrition diagnosis at this time Is patient on ventilator? No Is Patient Ambulatory and/or Out of Bed Yes REE-([facility]-ambulatory/OOB) [ 1930.994 NUTR.[id number]] Kcal/Kg value to use for calculation 15 Approximate Energy Requirements Using 1497 kcal/Kg Calculation Used for Recommendations Kcal/kg Additional Notes AdjBW: 73.8k pro: 59-74g/day (0.8-1g/kg AdjBW) fluid: 1mL/kcal or per MD Nutrition Intervention Change Diet Order: Continue Cardiac Revisit per MD consult or patient Sign Off request:
[2018-10-25] MEDS ORDERED: LANTUS SUB-Q SCH (22:00)
[2018-10-25] MEDS: COREG PO SCH (22:51)
[2018-10-25] MEDS: FLEXERIL PO SCH (22:51)
[2018-10-25] MEDS: VIBRAMYCIN PO SCH (22:52)
[2018-10-26] MEDS: DUONEB *Not for PRN Use IH SCH ×3 (02:09→15:00)
[2018-10-26] MEDS: PERCOCET 5/325 PO SCH ×3 (04:58→05:38)
[2018-10-26] MEDS: SOLU-Medrol IV SCH ×2 (05:39→15:26)
[2018-10-26 05:54] LABS: BUN/Creatinine Ratio 26; Blood Urea Nitrogen 26 mg/dL (7-17); Calcium 8.7 mg/dL (8.4-10.2); Hemolysis Index 3
[2018-10-26] MEDS ORDERED: PROTONIX PO SCH (10:00)
[2018-10-26] MEDS: LOVENOX SUB-Q SCH (10:23)
[2018-10-26] MEDS: FLOMAX PO SCH (10:24)
[2018-10-26] MEDS: K-DUR PO SCH (10:24)
[2018-10-26] MEDS: CLARITIN PO SCH (10:24)
[2018-10-26] MEDS: DIOVAN PO SCH (10:25)
[2018-10-26] MEDS: SODIUM CHLORIDE FLUSH SYRINGE 10 ML IV SCH (10:25)
[2018-10-26] MEDS: LASIX PO SCH (10:25)
[2018-10-26] MEDS: VIBRAMYCIN PO SCH (10:25)
[2018-10-26] MEDS: HALFPRIN EC PO SCH (10:25)
[2018-10-26] MEDS ORDERED: COREG PO SCH (12:00)
[2018-10-26] MEDS ORDERED: HCTZ PO SCH (12:00)
--- NOTE | 2018-10-26 13:57 | Consultation ---
History of Present Illness Consult date: 10/26/18 Reason for consult: dyspnea, COPD History of present illness: pulmonary and critical care consultation. dr. manuel thank you for asking us to participate in the care of this patient. Patient is a 63-year-old female with a past medical history of hypertension, congestive heart failure, coronary artery disease with previous [place], diabetes asthma. Patient presents with a 4 day history of shortness of breath and wheezing that has progressively become worse and has been refractory to home nebulizer treatments. Patient denies any fever denies any productive cough. Only occasional dry cough. No obvious trigger besides pollen. Patient states she feels somewhat more relieved at this time. Denies fever or chills, no nausea vomiting, no chest pain no orthopnea no PND. Patient does complain of bilateral lower extremity edema and feels a little puffy. Denies any abdominal pain. Patient does have minimal flank pain states she has a stone on the right side. She also gives a history of being intubated before. Patient alert and awake, breathing better. Patient is on room air. O2 saturation 95%. Patient has a history of smoking and has been counselled to stop smoking. Patient denies alcohol or drug abuse. Patient allergic to dopamin, erthromycin base, heparin, levofloxacin, montelukast sodium. CXR on 10/24/18: IMPRESSION: No acute cardiopulmonary process. Stable nonspecific airspace disease in the middle third of the left lung unchanged from the previous study.. CT chest on 10/24/18: IMPRESSION: There is no aortic dissection or pulmonary embolism seen. There is no acute abnormality identified. Past History Past Medical History: acute [place], diabetes, hypertension. denies: hypothyroidism, liver disease, pulmonary embolism, renal failure, seizures, stroke Past Surgical History: Other (breast) Social history: , lives with family, smoking, full code. denies: alcohol abuse, prescription drug abuse Family history: no significant family history Medications and Allergies Allergies Allergy/AdvReac Type Severity Reaction Status Date / Time dopamine [Dopamine] Allergy Unknown Verified 07/31/17 01:59 erythromycin base Allergy Anaphylaxis Verified 05/31/17 17:24 [Erythromycin Base] heparin Allergy extreme Verified 05/31/17 17:24 burning beyond side effect levofloxacin [From Levaquin] Allergy Angioedema Verified 05/31/17 17:24 montelukast sodium Allergy Itching Verified 05/31/17 17:24 [From [facility]] Home Medications Medication Instructions Recorded Confirmed Last Taken Type Aspirin [Aspirin Enteric Coated] 81 mg PO DAILY 11/20/13 10/24/18 10/23/18 History Ropinirole HCl [Requip] 2 mg PO HS 05/31/17 10/24/18 Unknown History Alendronate Sodium 35 mg PO QWEEK 10/24/18 10/24/18 Unknown History Calcium Carbonate/Vitamin D3 1 each PO DAILY 10/24/18 10/24/18 10/23/18 History [[place] 500-Vit D3 200 Caplet] Furosemide [Lasix TAB] 40 mg PO QDAY 10/24/18 10/24/18 10/23/18 History Hydrocortisone 2.5% [Proctosol-Hc] 1 applic TP BID 10/24/18 10/24/18 Unknown History Potassium Chloride 20 meq PO QDAY 10/24/18 10/24/18 10/23/18 History Umeclidinium Brm/Vilanterol Tr 1 each IH QDAY 10/24/18 10/24/18 10/23/18 History [Anoro Ellipta 62.5-25 Mcg INH] Valsartan/Hydrochlorothiazide 1 tab PO QDAY 10/24/18 10/24/18 10/23/18 History [Diovan Hct 320-25 mg] Carvedilol [Coreg] 12.5 mg PO BID #30 tablet 10/26/18 Unknown Rx amLODIPine [Norvasc] 10 mg PO DAILY #30 tab 10/26/18 Unknown Rx predniSONE [Deltasone] 20 mg PO BID #10 tablet 10/26/18 Unknown Rx Active Meds: Active Medications Acetaminophen (Tylenol) 650 mg PO Q4H PRN PRN Reason: Pain MILD(1-3)/Fever >100.5/ABRAHAM Albuterol (Proventil) 2.5 mg IH Q3HRT PRN PRN Reason: Shortness Of Breath Albuterol/Ipratropium (Duoneb *Not For Prn Use*) 1 ampul IH Q6HRT COUNTS INCLUDE 234 BEDS AT THE [facility] Last Admin: 10/26/18 09:01 Dose: 1 ampul Documented by: Aspirin (Halfprin Ec) 81 mg PO DAILY COUNTS INCLUDE 234 BEDS AT THE [facility] Last Admin: 10/26/18 10:25 Dose: 81 mg Documented by: Carvedilol (Coreg) 25 mg PO BID COUNTS INCLUDE 234 BEDS AT THE [facility] Cyclobenzaprine HCl (Flexeril) 10 mg PO QHS COUNTS INCLUDE 234 BEDS AT THE [facility] Last Admin: 10/25/18 22:51 Dose: 10 mg Documented by: Doxycycline Hyclate (Vibramycin) 100 mg PO BID COUNTS INCLUDE 234 BEDS AT THE [facility] Last Admin: 10/26/18 10:25 Dose: 100 mg Documented by: Enoxaparin Sodium (Lovenox) 40 mg SUB-Q QDAY@1000 COUNTS INCLUDE 234 BEDS AT THE [facility] Last Admin: 10/26/18 10:23 Dose: 40 mg Documented by: Furosemide (Lasix) 40 mg PO QDAY COUNTS INCLUDE 234 BEDS AT THE [facility] Last Admin: 10/26/18 10:25 Dose: 40 mg Documented by: Hydrochlorothiazide (Hctz) 25 mg PO QDAY COUNTS INCLUDE 234 BEDS AT THE [facility] Loratadine (Claritin) 10 mg PO DAILY COUNTS INCLUDE 234 BEDS AT THE [facility] Last Admin: 10/26/18 10:24 Dose: 10 mg Documented by: Methylprednisolone Sodium Succinate (Solu-Medrol) 40 mg IV Q8HR COUNTS INCLUDE 234 BEDS AT THE [facility] Last Admin: 10/26/18 05:39 Dose: 40 mg Documented by: Ondansetron HCl (Zofran) 4 mg IV Q8H PRN PRN Reason: Nausea And Vomiting Oxycodone/Acetaminophen (Percocet 5/325) 1 tab PO Q6H PRN PRN Reason: Pain, Moderate (4-6) Pantoprazole Sodium (Protonix) 40 mg PO QDAY COUNTS INCLUDE 234 BEDS AT [facility] Last Admin: 10/26/18 10:24 Dose: 40 mg Documented by: Potassium Chloride (K-Dur) 10 meq PO QDAY COUNTS INCLUDE 234 BEDS AT THE [facility] Last Admin: 10/26/18 10:24 Dose: 10 meq Documented by: Sodium Chloride (Sodium Chloride Flush Syringe 10 Ml) 10 ml IV BID COUNTS INCLUDE 234 BEDS AT THE [facility] Last Admin: 10/26/18 10:25 Dose: 10 ml Documented by: Sodium Chloride (Sodium Chloride Flush Syringe 10 Ml) 10 ml IV PRN PRN PRN Reason: LINE FLUSH Tamsulosin HCl (Flomax) 0.4 mg PO QDAY COUNTS INCLUDE 234 BEDS AT THE [facility] Last Admin: 10/26/18 10:24 Dose: 0.4 mg Documented by: Valsartan (Diovan) 160 mg PO QDAY COUNTS INCLUDE 234 BEDS AT [facility] Last Admin: 10/26/18 10:25 Dose: 160 mg Documented by: Review of Systems All systems: negative Physical Examination Vital signs: Vital Signs Pulse Resp Pulse Ox 121 H 16 95 10/24/18 00:56 10/24/18 00:56 10/24/18 00:56 General appearance: no acute distress, alert Eyes: non-icteric ENT: oropharynx moist Neck: supple, no JVD Ascultation: Bilateral: other (prolonged expiratory phase) Cardiovascular: regular rate and rhythm Gastrointestinal: normoactive bowel sounds, soft, non-tender Integumentary: normal Extremities: no cyanosis, no edema Musculoskeletal: no deformities Gait: normal gait normal mental status, non-focal exam, pupils equal and round, CN II-XII normal mood appropriate Results - Laboratory Findings CBC and BMP: 10/24/18 05:17 10/26/18 04:47 ABG POC ABG pH 7.359 (7.35-7.45) 10/24/18 05:49 POC ABG pCO2 40.0 (35-45) 10/24/18 05:49 POC ABG pO2 98 (80-105) 10/24/18 05:49 POC ABG HCO3 22.6 (22-26 mml/L) 10/24/18 05:49 POC ABG Total CO2 24 (23-27mmol/L) 10/24/18 05:49 POC ABG O2 Sat 97 10/24/18 05:49 PT/INR, D-dimer D-Dimer 1094.56 ng/mlDDU (0-234) H 10/24/18 05:17 Abnormal lab findings: Abnormal Labs 10/24/18 10/24/18 10/24/18 05:17 05:17 05:17 RDW 15.5 H Plt Count 138 L [place] % (Auto) 8.2 H Eos % (Auto) 5.4 H D-Dimer 1094.56 H Chloride 107.2 H BUN Glucose 122 H 10/26/18 04:47 RDW Plt Count [place] % (Auto) Eos % (Auto) D-Dimer Chloride BUN 26 H Glucose 136 H - Diagnostic Findings Chest x-ray: report reviewed (No acute cardiopulmonary disease.Reported stable Left mid lung air space disease.), image reviewed CT scan - chest: report reviewed (Reported No PE.), image reviewed Assessment and Plan Patient is a 63-year-old female with a past medical history of hypertension, congestive heart failure, coronary artery disease with previous [place], diabetes asthma. Patient presents with a 4 day history of shortness of breath and wheezing that has progressively become worse and has been refractory to home nebulizer treatments. Patient denies any fever denies any productive cough. Only occasional dry cough. No obvious trigger besides pollen. Patient states she feels somewhat more relieved at this time. Denies fever or chills, no nausea vomiting, no chest pain no orthopnea no PND. Patient does complain of bilateral lower extremity edema and feels a little puffy. Denies any abdominal pain. Patient does have minimal flank pain states she has a stone on the right side. She also gives a history of being intubated before. Patient alert and awake, breathing better. Patient is on room air. O2 saturation 95%. Patient has a history of smoking and has been counselled to stop smoking. Patient denies alcohol or drug abuse. Patient allergic to dopamin, erthromycin base, heparin, levofloxacin, montelukast sodium. CXR on 10/24/18: IMPRESSION: No acute cardiopulmonary process. Stable nonspecific airspace disease in the middle third of the left lung unchanged from the previous study.. CT chest on 10/24/18: IMPRESSION: There is no aortic dissection or pulmonary embolism seen. There is no acute abnormality identified. - Patient Problems (1) Hypertension Current Visit: Yes Status: Acute Qualifiers: Hypertension type: essential hypertension Qualified Code(s): I10 - Essential (primary) hypertension Plan to address problem: Per primary care (2) Respiratory failure Current Visit: Yes Status: Acute Qualifiers: Chronicity: acute Respiratory failure complication: unspecified whether with hypoxia or hypercapnia Qualified Code(s): J96.00 - Acute respiratory failure, unspecified whether with hypoxia or hypercapnia Plan to address problem: O2 2L per nasal cannula. Albuterol/Atrovent aerosol treatment q6hrs Continue IV solumedrol Continue S/C lovenox Continue Protonix Patient currently on doxycycline (3) Acute bronchitis Current Visit: No Status: Acute Qualifiers: Bronchitis organism: unspecified organism Qualified Code(s): J20.9 - Acute bronchitis, unspecified Plan to address problem: Patient currently on doxycycline (4) Pacemaker Current Visit: No Status: Acute Plan to address problem: management as per cardiology (5) COPD (chronic obstructive pulmonary disease) Current Visit: Yes Status: Acute Plan to address problem: O2 2L per nasal cannula. 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
[2018-10-26 14:23] VITALS: BP 187/78
--- NOTE | 2018-10-26 14:43 | Discharge Summary ---
Providers - Providers Date of Admission: 10/24/18 06:25 Date of discharge: 10/26/18 Attending physician: MADHU MARTIN 10/24/18 08:16 Consult to Physician [CONS] Routine Comment: Consulting Provider: ANUJA FRANCOIS Physician Instructions: Reason For Exam: copd Primary care physician: CHAD LARIOS Hospitalization Reason for admission: Acute asthma/possible COPD exacerbation, hypoxia Condition: Stable Pertinent studies: Chest CTA Procedures: None Hospital course: Final discharge diagnosis: -Acute asthma/possible COPD exacerbation, improved -Acute hypoxemic respiratory failure -Hypertension -Hyperglycemia, probably steroid induced -Chronic systolic HF s/p AICD placement -CAD -Morbid obesity with BMI of 41.6 Hospital course: In the ED, patient was placed on BiPAP. Thereafter, she was continued on IV steroid, antibiotic and nebulizer breathing treatments. Subsequently, her respiratory status improved and she was transitioned to [place]. For her other comorbidities, she was continued on her home medications. Thereafter, she improved clinically and she was then deemed stable for discharge Disposition: DC-01 TO HOME OR SELFCARE Time spent for discharge: 35 minutes Core Measure Documentation - Palliative Care Palliative Care/ Comfort Measures: Not Applicable - Core Measures Any of the following diagnoses?: none Exam - Constitutional Vitals: Temp Pulse Resp BP Pulse Ox 98.2 F 65 16 187/78 95 10/26/18 13:57 10/26/18 13:57 10/26/18 13:57 10/26/18 13:57 10/26/18 13:57 General appearance: Present: no acute distress, obese - EENT Eyes: Present: PERRL, EOM intact ENT: hearing intact, clear oral mucosa - Neck Neck: Present: supple, normal ROM - Respiratory Respiratory effort: normal Respiratory: bilateral: CTA - Cardiovascular Rhythm: regular Heart Sounds: Present: S1 & S2. Absent: rub, click - Extremities Extremities: No edema Peripheral Pulses: within normal limits - Abdominal General gastrointestinal: Present: soft, non-tender, non-distended, normal bowel sounds Female genitourinary: Present: deferred - Integumentary Integumentary: Present: clear, warm, dry - Musculoskeletal Musculoskeletal: gait normal, strength equal bilaterally - Psychiatric Psychiatric: appropriate mood/affect, intact judgment & insight - Neurologic Neurologic: CNII-XII intact, moves all extremities Plan [facility] MD RADHA [Referring] - 3-5 Days Prescriptions: Carvedilol [Coreg] 12.5 mg PO BID #30 tablet predniSONE [Deltasone] 20 mg PO BID #10 tablet amLODIPine [Norvasc] 10 mg PO DAILY #30 tab
[2018-10-26] MEDS: COREG PO SCH (15:27)
== END 2018-10-26 19:00 | disposition home or self-care (01) | DRG 189 ==
LOC: ED 04:50 → 4A 06:25
PROVIDERS: ADMIT Internal Medicine; ATTEND Internal Medicine
PROC: 4A033R1 Measurement of Arterial Saturation, Peripheral, Percutaneous Approach (ICD-10-PCS; principal; 2018-10-24)
PROC: 5A09357 Assistance with Respiratory Ventilation, Less than 24 Consecutive Hours, Continuous Positive Airway Pressure (ICD-10-PCS; 2018-10-24)
DX: J96.01 Acute respiratory failure with hypoxia (principal); J45.901 Unspecified asthma with (acute) exacerbation; J44.0 Chronic obstructive pulmonary disease with (acute) lower respiratory infection; I50.22 Chronic systolic (congestive) heart failure; Z68.41 Body mass index [BMI] 40.0-44.9, adult; I42.0 Dilated cardiomyopathy; I11.0 Hypertensive heart disease with heart failure; I25.10 Atherosclerotic heart disease of native coronary artery without angina pectoris; J20.9 Acute bronchitis, unspecified; K21.9 Gastro-esophageal reflux disease without esophagitis; E66.01 Morbid (severe) obesity due to excess calories; E11.65 Type 2 diabetes mellitus with hyperglycemia; I25.2 Old myocardial infarction; Z88.1 Allergy status to other antibiotic agents; Z79.82 Long term (current) use of aspirin; Z79.899 Other long term (current) drug therapy; Z95.810 Presence of automatic (implantable) cardiac defibrillator; Z90.49 Acquired absence of other specified parts of digestive tract
CPT/HCPCS: 36415; 71045; 71275; 80048; 82803; 83880; 84484; 85025; 85379; 93005; 93010; 94640; 94760; 96374; 99291; 99406; G0378; J0696; J1650; J1940; J2920; J2930; J3475; Q9967

== ENCOUNTER 2018-11-21 22:48 | Emergency (ER) | payer BC ==
[2018-11-21] MEDS ORDERED: SOLU-Medrol IV ONE (22:55)
[2018-11-21] MEDS ORDERED: ATROVENT IH ONE ×2 (22:55→22:58)
[2018-11-21] MEDS ORDERED: MAGNESIUM SULFATE 2GM/50ML 2 GM/50 ML BAG IV ONE (22:55)
[2018-11-21] MEDS ORDERED: PROVENTIL IH ONE ×2 (22:55→22:58)
--- NOTE | 2018-11-22 00:14 | Emergency Department Report ---
ED Shortness of Breath HPI - General Chief Complaint: Dyspnea/Respdistress Stated Complaint: CHRISTIANO Time Seen by Provider: 11/21/18 22:54 Source: patient, old records reviewed Mode of arrival: Ambulatory Limitations: No Limitations - History of Present Illness Initial Comments: 63-year-old female with a past medical history of asthma with previous intubati ons, breast cancer, CHF, DVT, GERD, NC, hypertension, and AICD placement presents to the hospital with complaints of shortness of breath and wheezing worsening tonight despite inhaler use. Patient is an employee here and became more short of breath at work tonight. She has been experiencing intermittent wheezing and shortness of breath episode since discharged from the hospital after 2 day admission on 10/26/2018. At that time patient was admitted for asthma exacerbation with hypoxia and respiratory failure requiring BiPAP support. She had a CTA chest 10/24 that was neg for Pulm Embolism. Patient complains of intermittent nonproductive cough but denies fever. No pain reported. [employer], Dr. Smith - Related Data Home Medications Medication Instructions Recorded Confirmed Last Taken Aspirin [Aspirin Enteric Coated] 81 mg PO DAILY 11/20/13 11/30/18 10/23/18 Ropinirole HCl [Requip] 2 mg PO HS 05/31/17 11/30/18 Unknown Alendronate Sodium 35 mg PO QWEEK 10/24/18 11/30/18 Unknown Calcium Carbonate/Vitamin D3 1 each PO DAILY 10/24/18 11/30/18 10/23/18 [Os-Kaen 500-Vit D3 200 Caplet] Furosemide [Lasix TAB] 40 mg PO QDAY 10/24/18 11/30/18 10/23/18 Potassium Chloride 20 meq PO QDAY 10/24/18 11/30/18 10/23/18 Umeclidinium Brm/Vilanterol Tr 1 each IH QDAY 10/24/18 11/30/18 10/23/18 [Anoro Ellipta 62.5-25 Mcg INH] Valsartan/Hydrochlorothiazide 1 tab PO QDAY 10/24/18 11/30/18 10/23/18 [Diovan Hct 320-25 mg] Previous Rx's Medication Instructions Recorded Last Taken Type Carvedilol [Coreg] 12.5 mg PO BID #30 tablet 10/26/18 Unknown Rx predniSONE [Deltasone] 20 mg PO BID #10 tablet 10/26/18 Unknown Rx Budesonide/Formoterol Fumarate 2 gm IH BID #1 hfa.aer.ad 11/22/18 Unknown Rx [Symbicort 160-4.5 Mcg Inhaler] Allergies Allergy/AdvReac Type Severity Reaction Status Date / Time erythromycin base Allergy Anaphylaxis Verified 05/31/17 17:24 [Erythromycin Base] heparin Allergy extreme Verified 05/31/17 17:24 burning beyond side effect levofloxacin [From Levaquin] Allergy Swelling Verified 11/30/18 15:20 montelukast sodium Allergy Itching Verified 05/31/17 17:24 [From Singulair] ED Review of Systems ROS: Stated complaint: CHRISTIANO Other details as noted in HPI Comment: All other systems reviewed and negative ED Past Medical Hx - Past Medical History Previous Medical History?: Yes Hx Hypertension: Yes (1999) Hx Heart Attack/AMI: Yes (, dilated cardiomyopathy) Hx Congestive Heart Failure: Yes Hx Diabetes: Yes Hx Deep Vein Thrombosis: Yes Hx GERD: Yes Hx of Cancer: Yes (breast ca) Hx Sickle Cell Disease: No Hx Seizures: Yes (as a baby) Hx Asthma: Yes Hx HIV: No Additional medical history: diverticulitis restless leg - Surgical History Past Surgical History?: Yes Hx Pacemaker: Yes (DEFIBRILLATOR) Hx Internal Defibrillator: Yes Hx Cholecystectomy: Yes Hx Breast Surgery: Yes (RECONSTRUCTION and mastectomy) Additional Surgical History: defibrillator. blood clot removal - Social History Smoking Status: Never Smoker - Medications Home Medications: Home Medications Medication Instructions Recorded Confirmed Last Taken Type Aspirin [Aspirin Enteric Coated] 81 mg PO DAILY 11/20/13 11/30/18 10/23/18 History Ropinirole HCl [Requip] 2 mg PO HS 05/31/17 11/30/18 Unknown History Alendronate Sodium 35 mg PO QWEEK 10/24/18 11/30/18 Unknown History Calcium Carbonate/Vitamin D3 1 each PO DAILY 10/24/18 11/30/18 10/23/18 History [Os-Kane 500-Vit D3 200 Caplet] Furosemide [Lasix TAB] 40 mg PO QDAY 10/24/18 11/30/18 10/23/18 History Potassium Chloride 20 meq PO QDAY 10/24/18 11/30/18 10/23/18 History Umeclidinium Brm/Vilanterol Tr 1 each IH QDAY 10/24/18 11/30/18 10/23/18 History [Anoro Ellipta 62.5-25 Mcg INH] Valsartan/Hydrochlorothiazide 1 tab PO QDAY 10/24/18 11/30/18 10/23/18 History [Diovan Hct 320-25 mg] Carvedilol [Coreg] 12.5 mg PO BID #30 tablet 10/26/18 11/30/18 Unknown Rx predniSONE [Deltasone] 20 mg PO BID #10 tablet 10/26/18 11/30/18 Unknown Rx Budesonide/Formoterol Fumarate 2 gm IH BID #1 hfa.aer.ad 11/22/18 11/30/18 Unknown Rx [Symbicort 160-4.5 Mcg Inhaler] ED Physical Exam - General Limitations: No Limitations - Other Other exam information: General: No limitations, patient is alert in no acute distress Head exam: Atraumatic, normocephalic Eyes exam: Normal appearance ENT: Moist mucous membrane Neck exam: Normal inspection, full range of motion, no meningismus nontender Respiratory exam: Bilateral wheezing without accessory muscle use Cardiovascular: Normal rate and rhythm Abdomen: Soft, nondistended, and nontender, with normal bowel sounds, no rebound, or guarding Extremity: Full range of motion normal inspection no deformity, mild edema without calf tenderness Back: Normal Inspection, full range of motion, no tenderness Neurologic: Alert, oriented x3, cranial nerves intact, no motor or sensory deficit Psychiatric: normal affect, normal mood Skin: Warm, dry, intact ED Course Vital Signs 11/21/18 11/21/18 11/21/18 22:51 23:12 23:13 Temperature 97.4 F L 98.3 F Pulse Rate 80 71 Pulse Rate [ 110 H Anterior] Respiratory 20 16 Rate Respiratory 25 H Rate [Anterior] Blood Pressure 142/80 Blood Pressure 137/61 [Left] O2 Sat by Pulse 96 100 Oximetry 11/21/18 11/22/18 11/22/18 23:55 01:05 01:19 Temperature Pulse Rate 68 Pulse Rate [ 110 H 105 H Anterior] Respiratory 16 Rate Respiratory 26 H 22 Rate [Anterior] Blood Pressure Blood Pressure 125/71 [Left] O2 Sat by Pulse 98 Oximetry 11/22/18 06:32 Temperature Pulse Rate 70 Pulse Rate [ Anterior] Respiratory 16 Rate Respiratory Rate [Anterior] Blood Pressure Blood Pressure 118/78 [Left] O2 Sat by Pulse 98 Oximetry - Reevaluation(s) Reevaluation #1: 11/22/18 00:49 pt feeling better after albuterol 10mg, atrovent 1 mg, mag 2 g and solumedrol. O2 sat 93% while sleeping and incr to 96% while awake. mild wheezing persists. 11/22/18 00:59 pt ambulated in the ed and and return of significant wheezing. Pt does not desire admission at this time. Repeat Albuterol 10 mg ordered. Pt will be reassessed. Reevaluation #2: 11/22/18 01:55 pt wheeze free after second round of continuous nebs pt will be obs and walk test pending pt s/o to DR Agosto prepped for d/c with scripts if pt has recurrent bronchospasm that she would need labs, x-ray, and admission. pt informed and understands plan ED Medical Decision Making - Medical Decision Making asthma exacerbation improved in ed pt ran out of symbicort today, requesting a refill will be d/c'ed with steroid taper she plans to go back to work tonight and will return if symptoms worsen. IF bronchospasm reoccurs she will be admitted - Differential Diagnosis asthma, chf, pneumonia, bronchitis Critical Care Time: No Critical care attestation.: If time is entered above; I have spent that time in minutes in the direct care of this critically ill patient, excluding procedure time. ED Disposition Clinical Impression: Acute asthma exacerbation Disposition: TO HOME OR SELFCARE Is pt being admited?: No Condition: Stable Instructions: Asthma (ED) Additional Instructions: Take the medication as prescribed. Follow up with your doctor or the clinic/doctor provided. Return if symptoms worsen as indicated by your discharge instructions Prescriptions: Budesonide/Formoterol Fumarate [Symbicort 160-4.5 Mcg Inhaler] 2 gm IH BID #1 hfa.aer.ad Referrals: PRIMARY CARE, [Primary Care Provider] - 3-5 Days ANUJA FRANCOIS MD [Staff Physician] - 3-5 Days Forms: Work/School Release Form(ED) Time of Disposition: 02:00 (s/o Dr agosto)
[2018-11-22] MEDS ORDERED: PROVENTIL IH ONE ×2 (00:58→01:01)
[2018-11-22] MEDS ORDERED: ATROVENT IH ONE (01:01)
[2018-11-22 06:33] VITALS: BP 118/78
== END 2018-11-22 06:37 | disposition home or self-care (01) ==
LOC: ED 22:48
DX: J45.901 Unspecified asthma with (acute) exacerbation (principal); I11.0 Hypertensive heart disease with heart failure; I50.9 Heart failure, unspecified; I25.2 Old myocardial infarction; E11.9 Type 2 diabetes mellitus without complications; K21.9 Gastro-esophageal reflux disease without esophagitis; Z86.718 Personal history of other venous thrombosis and embolism; Z90.49 Acquired absence of other specified parts of digestive tract; Z98.890 Other specified postprocedural states; Z95.0 Presence of cardiac pacemaker; Z88.1 Allergy status to other antibiotic agents; Z91.041 Radiographic dye allergy status; Z88.8 Allergy status to other drugs, medicaments and biological substances
CPT/HCPCS: 94640; 94644; 96365; 96375; 99283; J2930; J3475

== ENCOUNTER 2018-12-07 11:01 | Day surgery (SDC) | payer BC ==
[~2018-12-07 11:01] MED LIST changes: +ANCEF/STERILE WATER 2 GM/20 ML IV NR; -DELTASONE ONE; -DUONEB *Not for PRN Use IH ONE
[2018-12-07] MEDS ORDERED: LACTATED RINGERS 1,000 ML ONE (12:34)
[2018-12-07 13:02] LABS: Basophils % (Auto) 0.2 % (0.0-1.8); Eosinophils # (Auto) 0.1 K/mm3 (0.0-0.4); Eosinophils % (Auto) 1.2 % (0.0-4.3); Hematocrit 38.9 % (30.3-42.9); Lymphocytes # (Auto) 2.3 K/mm3 (1.2-5.4); Lymphocytes % (Auto) 35.1 % (13.4-35.0); Mean Corpuscular HGB Conc 33 % (30-34); Mean Corpuscular Volume 88 fl (79-97); Monocytes # (Auto) 0.6 K/mm3 (0.0-0.8); Monocytes % (Auto) 8.4 % (0.0-7.3); Platelet Count 150 K/mm3 (140-440); Red Blood Count 4.42 M/mm3 (3.65-5.03); Red Cell Distribution Width 15.6 % (13.2-15.2)
--- NOTE | 2018-12-07 13:03 | Anesthesia Consultation ---
Anesthesia Consult and Med Hx Date of service: 12/07/18 - Airway Anesthetic Teeth Evaluation: Dentures (upper) ROM Head & Neck: Adequate Mental/Hyoid Distance: Adequate Mallampati Class: Class II Intubation Access Assessment: Probably Good - Pulmonary Exam CTA: Yes - Cardiac Exam Cardiac Exam: RRR - Pre-Operative Health Status ASA Pre-Surgery Classification: ASA3 Proposed Anesthetic Plan: General - Pulmonary Hx Smoking: Yes (1 PACK PER WEEK) Hx Asthma: Yes (inhaled steroids) Hx Respiratory Symptoms: Yes (recent URI treated with abx. Now resolved.) COPD: Yes (will use home inhalers in preop) Hx Sleep Apnea: Yes (noncompliant with CPAP) - Cardiovascular System Hx Hypertension: Yes Hx Coronary Artery Disease: Yes Hx Heart Attack/AMI: Yes () Hx Cardia Arrhythmia: No Hx Pacemaker: Yes (last interrogated 1 month ago, per patient) Hx Internal Defibrillator: Yes (placed 2/2 cardiomyopathy wtih low EF in 2008; EF improved) - Central Nervous System CVA: No Hx Psychiatric Problems: No - Gastrointestinal Hx Gastroesophageal Reflux Disease: No - Endocrine Hx Renal Disease: No Hx Liver Disease: No Hx Insulin Dependent Diabetes: No Hx Non-Insulin Dependent Diabetes: No Hx Thyroid Disease: No - Hematic Hx Anemia: Yes - Other Systems Hx Alcohol Use: Yes (OCCASIONAL) Hx Substance Use: No Hx Cancer: Yes (breast 2008) Hx Obesity: Yes - Additional Comments Anesthesia Medical History Comments: No hx anesthetic complications. Medical and pulmonary clearance on chart. Most recent TTE 2018 shows EF 40-45%. Mild obstructive disease on recent PFTs. Will give home dose coreg and inhalers in preop.
[2018-12-07] MEDS ORDERED: SUBLIMAZE IV PRN (13:04)
--- NOTE | 2018-12-07 13:04 | Anesthesia Day of Surgery ---
Anesthesia Day of Surgery - Day of Surgery Patient Examined: Yes Patient H&P Reviewed: Yes Patient is NPO: Yes Beta Blockers: Yes (will give home coreg in preop) Cardiac Clearance: Yes Pulmonary Clearance: Yes
[2018-12-07 13:14] LABS: BUN/Creatinine Ratio 19; Blood Urea Nitrogen 21 mg/dL (7-17); Hemolysis Index 9
[2018-12-07] MEDS ORDERED: SUBLIMAZE ONE (13:25)
[2018-12-07] MEDS ORDERED: DIPRIVAN 10 MG/ML IV ONE (13:25)
[2018-12-07] MEDS ORDERED: LACTATED RINGERS 1,000 ML IV SCH (14:00)
[2018-12-07] MEDS ORDERED: WATER FOR IRRIG STERILE IR ONE ×2 (14:25)
--- NOTE | 2018-12-07 14:39 | Short Stay Summary ---
Short Stay Documentation Date of service: 12/07/18 - History H&P: obtained from office - Allergies and Medications Current Medications: Allergies erythromycin base [Erythromycin Base] Allergy (Verified 05/31/17 17:24) Anaphylaxis heparin Allergy (Verified 05/31/17 17:24) extreme burning beyond side effect levofloxacin [From Levaquin] Allergy (Verified 11/30/18 15:20) Swelling montelukast sodium [From Singulair] Allergy (Verified 05/31/17 17:24) Itching Home Medications Medication Instructions Recorded Confirmed Last Taken Type Aspirin [Aspirin Enteric Coated] 81 mg PO DAILY 11/20/13 12/07/18 11/30/18 09:00 History Ropinirole HCl [Requip] 2 mg PO HS 05/31/17 11/30/18 12/06/18 13:00 History Alendronate Sodium 35 mg PO QWEEK 10/24/18 12/07/18 12/06/18 18:00 History Calcium Carbonate/Vitamin D3 1 each PO DAILY 10/24/18 11/30/18 12/06/18 13:00 History [Os-Kane 500-Vit D3 200 Caplet] Furosemide [Lasix TAB] 40 mg PO QDAY 10/24/18 11/30/18 12/06/18 13:00 History Potassium Chloride 20 meq PO QDAY 10/24/18 11/30/18 12/06/18 13:00 History Umeclidinium Brm/Vilanterol Tr 1 each IH QDAY 10/24/18 11/30/18 12/06/18 13:00 History [Anoro Ellipta 62.5-25 Mcg INH] Valsartan/Hydrochlorothiazide 1 tab PO QDAY 10/24/18 11/30/18 12/06/18 13:00 History [Diovan Hct 320-25 mg] Carvedilol [Coreg] 12.5 mg PO BID #30 tablet 10/26/18 11/30/18 12/06/18 13:00 Rx predniSONE [Deltasone] 20 mg PO BID #10 tablet 10/26/18 11/30/18 12/06/18 13:00 Rx Budesonide/Formoterol Fumarate 2 gm IH BID #1 hfa.aer.ad 11/22/18 11/30/18 12/06/18 13:00 Rx [Symbicort 160-4.5 Mcg Inhaler] Active Medications Cefazolin Sodium (Ancef/Sterile Water 2 Gm/20 Ml) 2 gm IV PREOP NR Stop: 12/07/18 23:02 Fentanyl (Sublimaze) 50 mcg IV Q5MIN PRN PRN Reason: Pain , Severe (7-10) Lactated Ringer's (Lactated Ringers) 1,000 mls @ 42 mls/hr IV DIRECT CAMI Last Admin: 12/07/18 12:45 Dose: 42 mls/hr Documented by: - Brief post op/procedure progress note Date of procedure: 12/07/18 Pre-op diagnosis: rt ureteral stone Post-op diagnosis: other (passed stone, ureteral stricture - mild) Procedure: cysto, rpg, rt ureteroscopy, stent with external string (6x22cm) Anesthesia: AYAAN Surgeon: DARCIE FARAH Estimated blood loss: none Condition: stable - Hospital course Hospital course: macrobid, ultram, norco on chart - Disposition Condition at discharge: Stable Disposition: DC-01 TO HOME OR SELFCARE Short Stay Discharge Plan Follow up with: CHAD LARIOS MD [Primary Care Provider] - 7 Days
--- NOTE | 2018-12-07 14:53 | Post Anesthesia Evaluation ---
- Post Anesthesia Evaluation Patient Participated: Yes Airway Patent: Yes Stable Respiratory Function: Yes Nausea/Vomiting: No Temp > 96.8F: Yes Pain Manageable: Yes Adequeate Hydration: Yes Anesthesia Complications: No Block Receding Appropriately: Not Applicable Patient on Ventilator: No
--- NOTE | 2018-12-07 15:38 | Fluoroscopy Report ---
FLUOROSCOPY RETROGRADE UROGRAPHY: HISTORY: Right ureteral stone. FINDINGS: Fluoroscopy was provided by radiology during retrograde urography by the urologist. 8 fluoroscopic images were captured. The images demonstrate placement of a right ureteral stent with good drainage of the right collecting system the final image. The left retrograde pyelogram is unremarkable. Please correlate with the procedural report if needed. IMPRESSION: Right ureteral stent placement.
[2018-12-07 17:15] VITALS: BP 130/58
--- NOTE | 2018-12-07 19:00 | Operative Report ---
PREOPERATIVE DIAGNOSIS: Right ureteral stone. POSTOPERATIVE DIAGNOSES: Right ureteral stone, passed stone, mild ureteral stricture. PROCEDURE: Cystoscopy, bilateral retrograde pyelograms, right ureteroscopy, double-J stent (6-[place] 22 cm with an external string). SURGEON: Redd Whitley MD ANESTHESIA: General. ESTIMATED BLOOD LOSS: Minimal. FLUIDS: Crystalloid. COMPLICATIONS: No complications. INDICATIONS: This patient is a 63-year-old female presented to the office with flank pain. CT of abdomen and pelvis revealed a 5 mm right ureteral stone. Discussed options. The patient agreed to proceed with surgical intervention. She was cleared medically by Dr. Pierce Marina. Her daughter was present in the preop area. DESCRIPTION OF PROCEDURE: The patient was taken to the operative suite, placed in a supine position. After adequate general anesthesia, placed in a dorsal lithotomy position, prepped and draped in a sterile fashion. Pancystourethroscopy was performed with 22-[place] Storz cystoscope. No bladder pathology. No tumors or stones were noted. Both ureteral orifices in normal position. Bilateral retrograde pyelograms were obtained with an 8-[place] Kashif catheter and 8 mL of contrast. No filling defects or obstruction on the right or left; however, the patient continued to have right-sided pain prompting further evaluation. Two 0.035 Glidewires were placed. Rigid ureteroscopy up to the renal pelvis could be appreciated. Mid ureter there was some mild stenosis and edema; however, no stone could be appreciated. A 6-[place] 22 cm double-J stent with external string was placed under fluoroscopic guidance. The patient tolerated the procedure well. She was extubated and taken to recovery room. She will go home on [email or web address] and [employer]. JOB# [id number] [facility]
== END 2018-12-07 16:20 | disposition home or self-care (01) ==
LOC: OR 11:01
PROVIDERS: ATTEND Urology
DX: N13.5 Crossing vessel and stricture of ureter without hydronephrosis (principal); N20.1 Calculus of ureter; J44.9 Chronic obstructive pulmonary disease, unspecified; G40.909 Epilepsy, unspecified, not intractable, without status epilepticus; I11.0 Hypertensive heart disease with heart failure; I50.9 Heart failure, unspecified; I25.10 Atherosclerotic heart disease of native coronary artery without angina pectoris; G47.30 Sleep apnea, unspecified; E66.9 Obesity, unspecified; K21.9 Gastro-esophageal reflux disease without esophagitis; F17.210 Nicotine dependence, cigarettes, uncomplicated; Z85.3 Personal history of malignant neoplasm of breast; Z90.13 Acquired absence of bilateral breasts and nipples; Z79.899 Other long term (current) drug therapy; Z79.82 Long term (current) use of aspirin; Z95.0 Presence of cardiac pacemaker; Z86.718 Personal history of other venous thrombosis and embolism; Z90.49 Acquired absence of other specified parts of digestive tract; Z68.41 Body mass index [BMI] 40.0-44.9, adult; Z87.442 Personal history of urinary calculi; Z87.440 Personal history of urinary (tract) infections; Z98.890 Other specified postprocedural states; Z88.8 Allergy status to other drugs, medicaments and biological substances; Z86.2 Personal history of diseases of the blood and blood-forming organs and certain disorders involving the immune mechanism
CPT/HCPCS: 36415; 52332; 52351; 74420; 80048; 85025; A4217; C1758; C1769; C2617; J0690; J2704; J3010; J7120; Q9967

== ENCOUNTER 2019-02-01 13:11 | Day surgery (SDC) | payer BC ==
[2019-02-01 13:57] LABS: Hematocrit 43.3 % (30.3-42.9); Mean Corpuscular HGB Conc 32 % (30-34); Mean Corpuscular Volume 88 fl (79-97); Platelet Count 141 K/mm3 (140-440); Red Blood Count 4.93 M/mm3 (3.65-5.03); Red Cell Distribution Width 14.5 % (13.2-15.2)
[2019-02-01 13:58] LABS: Basophils % (Auto) 0.2 % (0.0-1.8); Eosinophils # (Auto) 0.3 K/mm3 (0.0-0.4); Eosinophils % (Auto) 5.4 % (0.0-4.3); INR 0.95 (0.87-1.13); Lymphocytes # (Auto) 2.2 K/mm3 (1.2-5.4); Lymphocytes % (Auto) 39.9 % (13.4-35.0); Monocytes # (Auto) 0.5 K/mm3 (0.0-0.8); Monocytes % (Auto) 9.6 % (0.0-7.3)
[2019-02-01 13:59] LABS: Partial Thromboplastin Time 24.3 Sec. (24.2-36.6)
[2019-02-01] MEDS ORDERED: HEPARIN/NS 5000 UNIT/500ML(CATH LAB) 0 ML IR ONE (14:08)
--- NOTE | 2019-02-01 14:23 | Anesthesia Day of Surgery ---
Anesthesia Day of Surgery - Day of Surgery Patient Examined: Yes Patient H&P Reviewed: Yes Patient is NPO: Yes
--- NOTE | 2019-02-01 14:23 | Anesthesia Consultation ---
Anesthesia Consult and Med Hx Date of service: 02/01/19 - Airway Anesthetic Teeth Evaluation: Dentures ROM Head & Neck: Adequate Mental/Hyoid Distance: Adequate Mallampati Class: Class II Intubation Access Assessment: Good - Pulmonary Exam CTA: Yes - Cardiac Exam Cardiac Exam: RRR - Pre-Operative Health Status ASA Pre-Surgery Classification: ASA3 Proposed Anesthetic Plan: MAC - Pulmonary Hx Smoking: Yes (1 PACK PER WEEK) Hx Asthma: Yes (inhaled steroids) Hx Respiratory Symptoms: Yes (recent URI treated with abx. Now resolved.) SOB: Yes (WAS IN ER 11/21/18 WITH ASTHMA) COPD: Yes (will use home inhalers in preop) Hx Sleep Apnea: Yes (noncompliant with CPAP) - Cardiovascular System Hx Hypertension: Yes Hx Coronary Artery Disease: Yes Hx Heart Attack/AMI: Yes () Hx Cardia Arrhythmia: No Hx Pacemaker: Yes (last interrogated 1 month ago, per patient) Hx Internal Defibrillator: Yes (placed 2/2 cardiomyopathy wtih low EF in 2008; EF improved) - Central Nervous System Hx Seizures: Yes ( CHILD ONLY) CVA: No Hx Psychiatric Problems: No - Gastrointestinal Hx Gastroesophageal Reflux Disease: No - Endocrine Hx Renal Disease: No Hx Liver Disease: No Hx Insulin Dependent Diabetes: No Hx Non-Insulin Dependent Diabetes: No Hx Thyroid Disease: No - Hematic Hx Anemia: Yes Hx Sickle Cell Disease: No - Other Systems Hx Alcohol Use: Yes (OCCASIONAL) Hx Substance Use: No Hx Cancer: Yes (breast 2008) Hx Obesity: Yes
[2019-02-01 14:46] LABS: BUN/Creatinine Ratio 14; Blood Urea Nitrogen 15 mg/dL (7-17); Calcium 9.6 mg/dL (8.4-10.2); Hemolysis Index 19
[2019-02-01] MEDS ORDERED: NACL 0.9% 0 ML ONE (14:48)
[2019-02-01] MEDS ORDERED: ANGIOMAX IV ONE (14:48)
[2019-02-01] MEDS ORDERED: NACL 0.9% 500 ML 0 ML ONE (14:48)
[2019-02-01] MEDS ORDERED: NACL 0.9% 250ML 250 ML ONE (15:14)
--- NOTE | 2019-02-01 15:22 | Short Stay Summary ---
Short Stay Documentation Date of service: 02/01/19 Narrative H&P: Patient has right chest port. Here for removal for non-function. Previous evaluation demonstrated the catheter is adjacent to the pacemaker leads - History Principal diagnosis: Non-functioning chest port H&P: obtained from office - Allergies and Medications Current Medications: Allergies erythromycin base [Erythromycin Base] Allergy (Verified 05/31/17 17:24) Anaphylaxis heparin Allergy (Verified 05/31/17 17:24) extreme burning beyond side effect levofloxacin [From Levaquin] Allergy (Verified 11/30/18 15:20) Swelling montelukast sodium [From Singulair] Allergy (Verified 05/31/17 17:24) Itching Home Medications Medication Instructions Recorded Confirmed Last Taken Type Aspirin [Aspirin Enteric Coated] 81 mg PO DAILY 11/20/13 02/01/19 01/30/19 History Ropinirole HCl [Requip] 2 mg PO HS 05/31/17 02/01/19 01/30/19 History Alendronate Sodium 35 mg PO QWEEK 10/24/18 02/01/19 01/30/19 History Calcium Carbonate/Vitamin D3 1 each PO DAILY 10/24/18 02/01/19 01/30/19 History [Os-Kane 500-Vit D3 200 Caplet] Furosemide [Lasix TAB] 40 mg PO QDAY 10/24/18 02/01/19 01/31/19 History Potassium Chloride 20 meq PO QDAY 10/24/18 02/01/19 01/30/19 History Umeclidinium Brm/Vilanterol Tr 1 each IH QDAY 10/24/18 02/01/19 01/30/19 History [Anoro Ellipta 62.5-25 Mcg INH] Valsartan/Hydrochlorothiazide 1 tab PO QDAY 10/24/18 02/01/19 01/30/19 History [Diovan Hct 320-25 mg] Carvedilol [Coreg] 12.5 mg PO BID #30 tablet 10/26/18 02/01/19 01/30/19 Rx Budesonide/Formoterol Fumarate 2 gm IH BID #1 hfa.aer.ad 11/22/18 02/01/19 01/30/19 Rx [Symbicort 160-4.5 Mcg Inhaler] Pantoprazole [Protonix] 40 mg PO QDAY 02/01/19 02/01/19 01/30/19 History - Physical exam General appearance: no acute distress HEENT: PERRLA Lungs: Clear to auscultation Breasts: deferred Heart: Regular rate Gastrointestinal: normal Female Genitourinary: deferred Rectal Exam: deferred Extremities: no ischemia, Full ROM Neurological: Normal gait, Normal speech - Brief post op/procedure progress note Date of procedure: 02/01/19 Pre-op diagnosis: Non-functioning right chest port Post-op diagnosis: same Procedure: Right chest port removal Anesthesia: regional Findings: Successful removal without complications Surgeon: TEOFILO VINCENT Estimated blood loss: minimal Pathology: none Specimen disposition: discarded Condition: stable - Disposition Condition at discharge: Good Disposition: DC-01 TO HOME OR SELFCARE Short Stay Discharge Plan Follow up with: CHAD LARIOS MD [Primary Care Provider] - 7 Days
[2019-02-01] MEDS ORDERED: NACL 0.9% 500 ML IR ONE (15:30)
[2019-02-01] MEDS: XYLOCAINE 2% INFILTRATI ONE ×2 (15:36→15:38)
[2019-02-01] MEDS: VERSED ONE ×2 (15:37→15:38)
[2019-02-01] MEDS: SUBLIMAZE ONE ×2 (15:37→15:38)
[2019-02-01 16:10] VITALS: BP 150/79
--- NOTE | 2019-02-07 10:20 | Operative Report ---
Operative Report Operative Report: Procedure: Right chest port removal Indication: Non-functioning port Physician: Ankit Anesthesia: Moderate IV sedation [employer]: Following informed and written consent, the patient was placed on the angiographic table and the right chest was prepped and draped in the usual sterile fashion an lidocaine was used for local anesthetic. An incision was made along the previous placement and with careful blunt and sharp dissection the port septum was freed and then the catheter and port were removed together while using fluroscopic guidance. The incision site was then closed using a 5-0 vicryl interrupted and running sutures. Dermabond was used across the incision site and a sterile dressing applied. The patient was discharged following adequate recoery time without complications. Findings: Successful removal without complications of intact catheter and port.
== END 2019-02-01 17:09 | disposition home or self-care (01) ==
LOC: CATHLABREC 13:11
PROVIDERS: ATTEND Radiology Vascular & Interventional Radiology
DX: C50.212 Malignant neoplasm of upper-inner quadrant of left female breast (principal); D51.8 Other vitamin B12 deficiency anemias; J38.3 Other diseases of vocal cords; G40.909 Epilepsy, unspecified, not intractable, without status epilepticus; J44.9 Chronic obstructive pulmonary disease, unspecified; I11.0 Hypertensive heart disease with heart failure; I50.9 Heart failure, unspecified; G47.30 Sleep apnea, unspecified; F17.210 Nicotine dependence, cigarettes, uncomplicated; E66.9 Obesity, unspecified; T82.898A Other specified complication of vascular prosthetic devices, implants and grafts, initial encounter; Z90.49 Acquired absence of other specified parts of digestive tract; Z68.39 Body mass index [BMI] 39.0-39.9, adult; Z90.13 Acquired absence of bilateral breasts and nipples; Z87.440 Personal history of urinary (tract) infections; Z87.442 Personal history of urinary calculi; Z72.89 Other problems related to lifestyle; Z95.0 Presence of cardiac pacemaker; Z98.890 Other specified postprocedural states; Z79.899 Other long term (current) drug therapy; Z79.82 Long term (current) use of aspirin; Z88.8 Allergy status to other drugs, medicaments and biological substances; Y83.8 Other surgical procedures as the cause of abnormal reaction of the patient, or of later complication, without mention of misadventure at the time of the procedure; Y92.89 Other specified places as the place of occurrence of the external cause
CPT/HCPCS: 36415; 36590; 80048; 85025; 85610; 85730; 99156; J2250; J3010; J7050; J0583; J1644; J7040

== ENCOUNTER 2019-07-05 03:02 | Inpatient (IN) | payer BC ==
[2019-07-05] MEDS ORDERED: methylPREDNISolone Sod Succinate 125 MG/2 ML INJ IV ONE (03:21)
[2019-07-05] MEDS ORDERED: ALBUTEROL 2.5 MG/3 ML NEBU IH ONE ×2 (03:21→03:23)
[2019-07-05] MEDS ORDERED: IPRATROPIUM 0.02% NEBU 2.5 ML IH ONE ×2 (03:21→03:24)
[2019-07-05 04:03] LABS: Basophils # (Auto) 0.1 K/mm3 (0.0-0.1); Basophils % (Auto) 1.1 % (0.0-1.8); Eosinophils # (Auto) 0.2 K/mm3 (0.0-0.4); Eosinophils % (Auto) 3.7 % (0.0-4.3); Hematocrit 41.2 % (30.3-42.9); Hemoglobin 13.4 gm/dl (10.1-14.3); Lymphocytes # (Auto) 1.7 K/mm3 (1.2-5.4); Lymphocytes % (Auto) 25.8 % (13.4-35.0); Mean Corpuscular HGB Conc 32 % (30-34); Mean Corpuscular Volume 87 fl (79-97); Monocytes # (Auto) 0.7 K/mm3 (0.0-0.8); Monocytes % (Auto) 11.4 % (0.0-7.3); Platelet Count 104 K/mm3 (140-440); Red Blood Count 4.75 M/mm3 (3.65-5.03); Red Cell Distribution Width 15.3 % (13.2-15.2)
[2019-07-05 04:13] LABS: INR 1.08 (0.87-1.13); Partial Thromboplastin Time 29.5 Sec. (24.2-36.6)
--- NOTE | 2019-07-05 04:21 | XRay Report ---
CHEST 2 VIEWS INDICATION: MAIN: respiratory distress..pt sd SOB w/HX of asthma tdy..JTs. COMPARISON: 10/14/2018 FINDINGS: Support devices: Pacing device located left hemithorax electrode tips right atrium and right ventricl e Heart: Within normal limits. Lungs: No acute air space or interstitial disease. Pleura: No significant pleural effusion. No pneumothorax. Additional findings: None. IMPRESSION: 1. No acute findings. Signer Name: Elmo Bal MD Signed: 07/05/2019 4:16 AM Workstation Name: [email or web address]
[2019-07-05 04:26] LABS: Calcium 9.5 mg/dL (8.4-10.2)
--- NOTE | 2019-07-05 05:31 | Emergency Department Report ---
ED General Adult HPI - General Chief complaint: Dyspnea/Respdistress Stated complaint: SOB,WHEEZING Time Seen by Provider: 07/05/19 03:19 Source: patient Mode of arrival: Ambulatory Limitations: No Limitations - History of Present Illness Initial comments: Patient is a 63-year-old [place] female with a past history of COPD as well as a remote history of DVT and breast cancer who is here with a complaint of shortness of breath. Patient has a history of hypertension and congestive heart failure and status post AICD placement Patient has had cough and wheezing for the past 3 days. Patient is not oxygen dependent. Patient is been taking neb treatments without relief. Patient denies fevers chills. Cough is dry. Patient has discomfort in the chest with coughing. Patient states she has had some discomfort in the left lower extremity behind the left knee for the past 3 days as well. Patient does have some worry about DVT and pulmonary embolus. - Related Data Home Medications Medication Instructions Recorded Confirmed Last Taken Aspirin [Aspirin Enteric Coated] 81 mg PO DAILY 11/20/13 07/05/19 01/30/19 Ropinirole HCl [Requip] 2 mg PO HS 05/31/17 07/05/19 01/30/19 Alendronate Sodium 35 mg PO QWEEK 10/24/18 07/05/19 01/30/19 Calcium Carbonate/Vitamin D3 1 each PO DAILY 10/24/18 07/05/19 01/30/19 [Os-[place]ane 500-Vit D3 200 Caplet] Furosemide [Lasix TAB] 40 mg PO QDAY 10/24/18 07/05/19 01/31/19 Potassium Chloride 20 meq PO QDAY 10/24/18 07/05/19 01/30/19 Umeclidinium Brm/Vilanterol Tr 1 each IH QDAY 10/24/18 07/05/19 01/30/19 [Anoro Ellipta 62.5-25 Mcg INH] Valsartan/Hydrochlorothiazide 1 tab PO QDAY 10/24/18 07/05/19 01/30/19 [Diovan Hct 320-25 mg] Pantoprazole [Protonix] 40 mg PO QDAY 02/01/19 07/05/19 01/30/19 Aspirin BABY CHEW TAB 81 mg PO QDAY 07/05/19 07/05/19 Unknown AtorvaSTATin [Lipitor] 10 mg PO QHS 07/05/19 07/05/19 Unknown Isosorbide Dinitrate [Isordil 20 mg PO TID 07/05/19 07/05/19 Unknown Titradose] Melatonin 3 mg PO 07/05/19 Unknown carvediloL [Coreg] 6.25 mg PO BID 07/05/19 Unknown hydrALAZINE [Apresoline] 12.5 mg PO TID 07/05/19 07/05/19 Unknown Previous Rx's Medication Instructions Recorded Last Taken Type Budesonide/Formoterol Fumarate 2 gm IH BID #1 hfa.aer.ad 11/22/18 01/30/19 Rx [Symbicort 160-4.5 Mcg Inhaler] Allergies Allergy/AdvReac Type Severity Reaction Status Date / Time erythromycin base Allergy Anaphylaxis Verified 05/31/17 17:24 [Erythromycin Base] heparin Allergy extreme Verified 05/31/17 17:24 burning beyond side effect levofloxacin [From Levaquin] Allergy Swelling Verified 11/30/18 15:20 montelukast sodium Allergy Itching Verified 05/31/17 17:24 [From Singulair] ED Review of Systems ROS: Stated complaint: SOB,WHEEZING Other details as noted in HPI Comment: All other systems reviewed and negative ED Past Medical Hx - Past Medical History Previous Medical History?: Yes Hx Hypertension: Yes Hx Heart Attack/AMI: Yes () Hx Congestive Heart Failure: Yes (5 YRS AGO) Hx Diabetes: No Hx Deep Vein Thrombosis: Yes Hx GERD: Yes Hx Liver Disease: No Hx Renal Disease: No Hx Sickle Cell Disease: No Hx Seizures: Yes ( CHILD ONLY) Hx Kidney Stones: Yes Hx Asthma: Yes (inhaled steroids) Hx COPD: Yes (will use home inhalers in preop) Hx HIV: No Additional medical history: diverticulitis restless leg - Surgical History Past Surgical History?: Yes Hx Coronary Stent: No Hx Pacemaker: Yes (last interrogated 1 month ago, per patient) Hx Internal Defibrillator: Yes (placed 2/2 cardiomyopathy wtih low EF in 2008; EF improved) Hx Cholecystectomy: Yes Hx Breast Surgery: Yes (SARAI BREAST RECONSTRUCTION) Additional Surgical History: defibrillator. blood clot removal - Social History Smoking Status: Current Every Day Smoker Substance Use Type: None - Medications Home Medications: Home Medications Medication Instructions Recorded Confirmed Last Taken Type Aspirin [Aspirin Enteric Coated] 81 mg PO DAILY 11/20/13 07/05/19 01/30/19 History Ropinirole HCl [Requip] 2 mg PO HS 05/31/17 07/05/19 01/30/19 History Alendronate Sodium 35 mg PO QWEEK 10/24/18 07/05/19 01/30/19 History Calcium Carbonate/Vitamin D3 1 each PO DAILY 10/24/18 07/05/19 01/30/19 History [Os-Kane 500-Vit D3 200 Caplet] Furosemide [Lasix TAB] 40 mg PO QDAY 10/24/18 07/05/19 01/31/19 History Potassium Chloride 20 meq PO QDAY 10/24/18 07/05/19 01/30/19 History Umeclidinium Brm/Vilanterol Tr 1 each IH QDAY 10/24/18 07/05/19 01/30/19 History [Anoro Ellipta 62.5-25 Mcg INH] Valsartan/Hydrochlorothiazide 1 tab PO QDAY 10/24/18 07/05/19 01/30/19 History [Diovan Hct 320-25 mg] Budesonide/Formoterol Fumarate 2 gm IH BID #1 hfa.aer.ad 11/22/18 07/05/19 01/30/19 Rx [Symbicort 160-4.5 Mcg Inhaler] Pantoprazole [Protonix] 40 mg PO QDAY 02/01/19 07/05/19 01/30/19 History Aspirin BABY CHEW TAB 81 mg PO QDAY 07/05/19 07/05/19 Unknown History AtorvaSTATin [Lipitor] 10 mg PO QHS 07/05/19 07/05/19 Unknown History Isosorbide Dinitrate [Isordil 20 mg PO TID 07/05/19 07/05/19 Unknown History Titradose] Melatonin 3 mg PO 07/05/19 Unknown History carvediloL [Coreg] 6.25 mg PO BID 07/05/19 Unknown History hydrALAZINE [Apresoline] 12.5 mg PO TID 07/05/19 07/05/19 Unknown History ED Physical Exam - General Limitations: No Limitations General appearance: alert, in no apparent distress - Head Head exam: Present: atraumatic, normocephalic - Eye Eye exam: Present: normal appearance, PERRL, EOMI - ENT ENT exam: Present: mucous membranes moist - Neck Neck exam: Present: normal inspection - Respiratory Respiratory exam: Present: respiratory distress, wheezes, rhonchi, decreased breath sounds. Absent: normal lung sounds bilaterally - Cardiovascular Cardiovascular Exam: Present: normal rhythm, tachycardia. Absent: systolic murmur, diastolic murmur, rubs, gallop - GI/Abdominal GI/Abdominal exam: Present: soft, normal bowel sounds. Absent: distended, tenderness, guarding, rebound, rigid - Extremities Exam Extremities exam: Present: normal inspection - Back Exam Back exam: Present: normal inspection - Neurological Exam Neurological exam: Present: alert, oriented X3 - Psychiatric Psychiatric exam: Present: normal affect, normal mood - Skin Skin exam: Present: warm, dry, intact, normal color. Absent: rash ED Course Vital Signs 07/05/19 07/05/19 07/05/19 03:05 03:10 03:29 Temperature 97.3 F L Pulse Rate 119 H Pulse Rate [ 105 H Bilateral Throughout] Respiratory 22 Rate Respiratory 24 Rate [Bilateral Throughout] Blood Pressure 171/94 O2 Sat by Pulse 96 Oximetry ED Medical Decision Making - Lab Data Result diagrams: 07/05/19 03:37 07/05/19 03:37 Lab Results 07/05/19 07/05/19 07/05/19 Range/Units 03:37 03:37 03:37 WBC 6.5 (4.5-11.0) K/mm3 RBC 4.75 (3.65-5.03) M/mm3 Hgb 13.4 (10.1-14.3) gm/dl Hct 41.2 (30.3-42.9) % MCV 87 (79-97) fl MCH 28 (28-32) pg MCHC 32 (30-34) % RDW 15.3 H (13.2-15.2) % Plt Count 104 L (140-440) K/mm3 Lymph % (Auto) 25.8 (13.4-35.0) % [place] % (Auto) 11.4 H (0.0-7.3) % Eos % (Auto) 3.7 (0.0-4.3) % Baso % (Auto) 1.1 (0.0-1.8) % Lymph # 1.7 (1.2-5.4) K/mm3 [place] # 0.7 (0.0-0.8) K/mm3 Eos # 0.2 (0.0-0.4) K/mm3 Baso # 0.1 (0.0-0.1) K/mm3 Seg Neutrophils % 58.0 (40.0-70.0) % Seg Neutrophils # 3.8 (1.8-7.7) K/mm3 PT 14.1 (12.2-14.9) Sec. INR 1.08 (0.87-1.13) APTT 29.5 (24.2-36.6) Sec. D-Dimer > 17391 H (0-234) ng/mlDDU Sodium 141 (137-145) mmol/L Potassium 3.9 (3.6-5.0) mmol/L Chloride 103.6 (98-107) mmol/L Carbon Dioxide 23 (22-30) mmol/L Anion Gap 18 mmol/L BUN 14 (7-17) mg/dL Creatinine 1.3 H (0.7-1.2) mg/dL Estimated GFR 50 ml/min BUN/Creatinine Ratio 11 % Glucose 123 H (65-100) mg/dL Calcium 9.5 (8.4-10.2) mg/dL Troponin T 0.012 (0.00-0.029) ng/mL NT-Pro-B Natriuret Pep 1846 H (0-900) pg/mL - Radiology Data CHEST 2 VIEWS INDICATION: MAIN: respiratory distress..pt sd SOB w/HX of asthma tdy..JTs. COMPARISON: 10/14/2018 FINDINGS: Support devices: Pacing device located left hemithorax electrode tips right atrium and right ventricle Heart: Within normal limits. Lungs: No acute air space or interstitial disease. Pleura: No significant pleural effusion. No pneumothorax. Additional findings: None. IMPRESSION: 1. No acute findings. Signer Name: Elmo Bal MD Signed: 07/05/2019 4:16 AM Workstation Name: [id number] Critical care attestation.: If time is entered above; I have spent that time in minutes in the direct care of this critically ill patient, excluding procedure time. ED Disposition Condition: Stable
[2019-07-05] MEDS ORDERED: HEPARIN 10,000 UNITS/10 ML VIAL IV ONE (06:31)
--- NOTE | 2019-07-05 06:57 | Cat Scan Report ---
CTA CHEST WITH IV CONTRAST INDICATION / CLINICAL INFORMATION: dyspnea, elevated ddimer. TECHNIQUE: Axial CT images were obtained through the chest after injection of 60 cc Omnipaque 350 mg percent IV contrast. 3 plane MIP and/or 3D reconstructions were produced. All CT scans at this location are perf ormed using CT dose reduction for ALARA by means of automated exposure control. COMPARISON: None available. FINDINGS: Electrodes from patient's pacing device obscures fine detail PULMONARY ARTERIES: Multiple pulmonary emboli present with a "saddle" component extending across the origins of the right and left pulmonary measuring 0.5 cm in diameter. THORACIC AORTA: No significant abnormality. HEART: Slight increase in the RV-LV data ratio measuring 1.2 CORONARY ARTERIES: No significant calcification. PLEURA: No pleural effusion. No pneumothorax.. LYMPH NODES: No significant adenopathy. LUNGS: No acute air space or interstitial disease. ADDITIONAL FINDINGS: None. UPPER ABDOMEN: No acute findings. SKELETAL STRUCTURES: No significant osseous abnormality. IMPRESSION: 1. Pulmonary embolic disease as noted 2. Slight increase right ventricle-left ventricle ratio as noted consistent with mild right heart str ain CRITICAL RESULT: Time of Discovery: 0517 hours Time of Communication: 0530 hours Licensed Practitioner Receiving Report: Dr Shah was notified of these findings personally by Dr. Suresh sanders. Read Back Performed: Yes. Signer Name: Elmo Bal MD Signed: 07/05/2019 6:52 AM Workstation Name: [id number]
[2019-07-05] MEDS ORDERED: HEPARIN/ 0.45% NACL DRIP 25,000 UNIT/500 ML BAG IV SCH (07:00)
--- NOTE | 2019-07-05 07:08 | Vascular Lab Report ---
DUPLEX DOPPLER LOWER EXTREMITY VEINS, LEFT INDICATION: pain behind knee x3d elevated ddimer. TECHNIQUE: Duplex doppler imaging was performed through the veins of the left lower extremity using venous compr ession and other maneuvers. COMPARISON: None available. FINDINGS: Common Femoral vein: Negative. Superficial Femoral vein: Echogenic material is present in the deep venous system predominantly in th e superficial femoral vein extending into the popliteal vein. Popliteal vein: Echogenic material is present with lack of compressibility. Calf veins: Negative. Additional findings: None. IMPRESSION: 1. Extensive deep venous thrombosis left lower extremity Dr Shah was is aware of the above findings. Signer Name: Elmo Bal MD Signed: 07/05/2019 7:04 AM Workstation Name: [id number]
--- NOTE | 2019-07-05 08:21 | Emergency Department Report ---
Blank Doc - Documentation Documentation: This is a 63-year-old female that was seen last night by Dr. Soto. She descr ibes to me URI symptoms for the last 3 days. She denies chest pain. She's had posterior leg pain particularly behind her knee. At the time of my encounter her pulse oximetry is 96% on 2 L. Her work of breathing is adequate. The patient just come back from CTA. I was called by the radiologist showing thereafter to inform me that the test was positive. The patient has "large clot burden". Radiologist stated that most of the clot is distal. I looked at the scan. Does appear that she does have some large vessel clot to me. Her BNP is elevated. Her troponin is negative. I was present during the ultrasound. The patient had no peripheral compressible clot to the mid thigh. Spoke to Dr. Rock shortly thereafter. He stated that vascular would calm see and evaluate the patient. He was consulted. I seen the patient a couple of times since. She remains clinically stable. She has mild tachycardia but pulse oximetry is in the mid 90s. Her work of breathing is essentially normal. Diagnostic impression Bilateral pulmonary embolism DVT left leg Plan Patient has been heparinized. I spoke with Dr. Amaya. The patient will be admitted to Dr. Bloom to the IMCU.
--- NOTE | 2019-07-05 12:02 | History and Physical Report ---
History of Present Illness Date of examination: 07/05/19 Date of admission: 07/05/19 08:26 Chief complaint: SOB History of present illness: Patient is a 63-year-old Filipino female with a past history of COPD, a remote history of DVT and breast cancer s/p b/l mastectomy follows up with Dr. Camarena, congestive heart failure and status post AICD placement who is here with a complaint of shortness of breath with cough and wheezing for the past 3 days. Patient is not oxygen dependent. Patient is been taking neb treatments without relief. Patient denies fevers chills. Patient states she has had some discomfort in the left lower extremity behind the left knee for the past 3 days as well. in the ER CT scan demonstrates significant pulmonary embolism load with saddle pulmonary embolism and bilateral main pulmonary emboli. LE doppler also showed extensive DVT on left leg, she has placed on heparin drip, consulted vascular in the ER. She is being admitted for further evaluation and management. - Past Medical History COPD, not on home oxygen, history of prior DVT, history of breast cancer on remission, history of CHF status post ICD placement, morbid obesity Diverticulitis, restless leg syndrome. - Surgical History Hx Internal Defibrillator: Yes (placed 2/2 cardiomyopathy wtih low EF in 2008; EF improved) Hx Cholecystectomy: Yes Hx Breast Surgery: Yes (SARAI BREAST RECONSTRUCTION) Additional Surgical History: defibrillator. blood clot removal - Social History Smoking Status: Current Every Day Smoker Substance Use Type: None Family history - Significant for cancer in mother's sister and aunt Review of System: Constitutional: no fever, no chills, no weight loss Ears, eyes, nose, mouth and throat: no nasal congestion, no nasal discharge, no sinus pressure, no vision change, no red eye. Neck: No neck pain or rigidity. Cardiovascular: No chest pain, no orthopnea, no palpitations, + left leg swelling Respiratory: + shortness of breath, + cough, + congestion, + wheezing Gastrointestinal: no abdominal pain, no nausea, no vomiting Genitourinary : no dysuria, no hematuria Musculoskeletal: no joint swelling or muscle ache Integumentary: no rash, no pruritis Neurological: no parathesias, no numbness, no tingling Endocrine: no cold or heat intolerance, no polyuria or polydipsia Hematologic/Lymphatic: no easy bruising, no easy bleeding, no gland swelling Allergic/Immunologic: no urticaria, no angioedema. Medications and Allergies Allergies Allergy/AdvReac Type Severity Reaction Status Date / Time erythromycin base Allergy Anaphylaxis Verified 05/31/17 17:24 [Erythromycin Base] levofloxacin [From Levaquin] Allergy Swelling Verified 11/30/18 15:20 montelukast sodium Allergy Itching Verified 05/31/17 17:24 [From Singulair] Home Medications Medication Instructions Recorded Confirmed Last Taken Type Aspirin [Aspirin Enteric Coated] 81 mg PO DAILY 11/20/13 07/05/19 01/30/19 History Ropinirole HCl [Requip] 2 mg PO HS 05/31/17 07/05/19 01/30/19 History Alendronate Sodium 35 mg PO QWEEK 10/24/18 07/05/19 01/30/19 History Calcium Carbonate/Vitamin D3 1 each PO DAILY 10/24/18 07/05/19 01/30/19 History [Os-Kane 500-Vit D3 200 Caplet] Furosemide [Lasix TAB] 40 mg PO QDAY 10/24/18 07/05/19 01/31/19 History Potassium Chloride 20 meq PO QDAY 10/24/18 07/05/19 01/30/19 History Umeclidinium Brm/Vilanterol Tr 1 each IH QDAY 10/24/18 07/05/19 01/30/19 History [Anoro Ellipta 62.5-25 Mcg INH] Valsartan/Hydrochlorothiazide 1 tab PO QDAY 10/24/18 07/05/19 01/30/19 History [Diovan Hct 320-25 mg] Budesonide/Formoterol Fumarate 2 gm IH BID #1 hfa.aer.ad 11/22/18 07/05/19 01/30/19 Rx [Symbicort 160-4.5 Mcg Inhaler] Pantoprazole [Protonix] 40 mg PO QDAY 02/01/19 07/05/19 01/30/19 History Aspirin BABY CHEW TAB 81 mg PO QDAY 07/05/19 07/05/19 Unknown History AtorvaSTATin [Lipitor] 10 mg PO QHS 07/05/19 07/05/19 Unknown History Isosorbide Dinitrate [Isordil 20 mg PO TID 07/05/19 07/05/19 Unknown History Titradose] carvediloL [Coreg] 25 mg PO BID 07/05/19 07/06/19 Unknown History hydrALAZINE [Apresoline] 12.5 mg PO TID 07/05/19 07/05/19 Unknown History Ropinirole HCl [Requip] 2 mg PO ONCE 07/06/19 07/06/19 Unknown History Active Meds: Active Medications Heparin Sodium/Sodium Chloride (Heparin/ 0.45% Nacl-25,000 Unit/500 Ml) 25,000 unit in 500 mls @ 30 mls/hr IV TITR CAMI; Protocol Last Admin: 07/05/19 07:33 Dose: 1,500 units/hr, 30 mls/hr Documented by: Exam - Physical Exam Narrative exam: GENERAL: well-developed morbidly obese -Filipino female lying on bed appeared to be in no discomfort. HEENT: Normocephalic. Atraumatic. No conjunctival congestion or icterus. Patient has moist mucous membranes. NECK: Supple. Trachea midline. CHEST/LUNGS: Positive rails auscultated bilaterally, breathing nonlabored. + wheezes, no crackles HEART/CARDIOVASCULAR: Regular in rate and rhythm. S1 and S2 positive. ABDOMEN: Abdomen is soft, nontender. Patient has normal bowel sounds. SKIN: There is no rash. Warm and dry. NEURO: No focal motor deficit. Follows command. MUSCULOSKELETAL: No joint effusion or tenderness. EXTRIMITY: no cyanosis or clubbing. + Left leg calf tenderness PSYCH: Cooperative. - Constitutional Vitals: Temp Pulse Resp BP Pulse Ox 97.9 F 92 H 18 141/92 98 07/05/19 08:00 07/05/19 10:00 07/05/19 10:00 07/05/19 10:00 07/05/19 10:00 Results - Labs CBC & Chem 7: 07/07/19 05:37 07/07/19 05:37 Labs: Abnormal lab results 07/05/19 07/05/19 07/05/19 Range/Units 03:37 03:37 03:37 RDW 15.3 H (13.2-15.2) % Plt Count 104 L (140-440) K/mm3 [place] % (Auto) 11.4 H (0.0-7.3) % D-Dimer > 71981 H (0-234) ng/mlDDU Creatinine 1.3 H (0.7-1.2) mg/dL Glucose 123 H (65-100) mg/dL NT-Pro-B Natriuret Pep 1846 H (0-900) pg/mL - Imaging and Cardiology CT scan - chest: report reviewed Assessment and Plan Bilateral pulmonary embolism DVT left leg - cont heparin drip, vascular consulted, will follow recommendation History of CHF status post ICD - Appears compensated - resume home meds History of breast cancer status post bilateral mastectomy - Has outpatient follow-up with Dr. Camarena Morbid obesity, weight reduction diet when clinically more stable DVT prophylaxis, on heparin drip CXR: 1. No acute findings. CTA chest; 1. Pulmonary embolic disease as noted 2. Slight increase right ventricle-left ventricle ratio as noted consistent with mild right heart strain
[2019-07-05] MEDS ORDERED: MORPHINE 2 MG/1 ML INJ IV PRN (12:43)
[2019-07-05] MEDS ORDERED: HYDROmorphone 1 MG/1 ML INJ IV PRN (12:43)
[2019-07-05] MEDS ORDERED: SODIUM CHLORIDE 0.9% 1000 ML 1,000 ML EKOSCLUMEN SCH ×2 (12:45)
[2019-07-05] MEDS ORDERED: SODIUM CHLORIDE 0.9% 1000 ML 1,000 ML IV SCH (12:45)
[2019-07-05] MEDS ORDERED: SODIUM CHLORIDE 0.9% 1000 ML 1,000 ML SHEATH SCH ×2 (12:45)
[2019-07-05] MEDS ORDERED: ONDANSETRON 4 MG/2 ML INJ IV PRN (13:00)
[2019-07-05] MEDS ORDERED: ALTEPLASE 10 MG in SODIUM CHLORIDE 0.9% 250ML 250 ML EKOSDLUMEN SCH (13:00)
[2019-07-05] MEDS ORDERED: HEPARIN/ 0.45% NACL DRIP 25,000 UNIT/500 ML BAG SHEATH SCH ×2 (13:00)
[2019-07-05] MEDS ORDERED: ALTEPLASE 10 MG in SODIUM CHLORIDE 0.9% 250ML 250 ML IV SCH (13:00)
[2019-07-05] MEDS ORDERED: HEPARIN/ 0.45% NACL DRIP 0 UNIT/0 ML BAG ONE (13:35)
[2019-07-05] MEDS ORDERED: SODIUM CHLORIDE 0.9% 1000 ML 2,000 ML ONE (13:36)
[2019-07-05] MEDS ORDERED: SODIUM CHLORIDE 0.9% 500 ML 0 ML ONE (13:40)
[2019-07-05] MEDS ORDERED: SODIUM CHLORIDE 0.9% 500 ML 500 ML ONE (13:40)
[2019-07-05] MEDS ORDERED: BIVALIRUDIN 250 MG INJ IV ONE (13:42)
[2019-07-05] MEDS ORDERED: WATER FOR INJ Sterile (PF) 10 ML ONE (13:42)
--- NOTE | 2019-07-05 13:47 | Consultation ---
History of Present Illness - Reason for Consult Consult date: 07/05/19 PE - History of Present Illness 63-year-old [place] female with a past history of COPD as well as a remote history of DVT and breast cancer who is here with a complaint of shortness of breath. Patient has a history of hypertension and congestive heart failure and status post AICD placement Patient has had cough and wheezing for the past 3 days. Patient is not oxygen dependent. Patient is been taking neb treatments w ithout relief. Patient denies fevers chills. Cough is dry. Patient has discomfort in the chest with coughing. Patient states she has had some discomfort in the left lower extremity behind the left knee for the past 3 days as well. Patient does have some worry about DVT and pulmonary embolus. Patient reports that she has severe shortness of breath. She has increased work of breathing. She is on supplementary oxygen and cannot walk more than a few steps before she becomes severely hypoxic. CT scan demonstrates significant pulmonary embolism load with saddle pulmonary embolism and bilateral main pulmonary emboli. She has right-sided heart strain on CT. Her BNP is elevated. She has severe COPD/asthma at baseline. She did have a prior GI bleed, but this was 2 years ago and no etiology was found other than diverticulosis. - Past Medical History Previous Medical History?: Yes Hx Hypertension: Yes Hx Heart Attack/AMI: Yes () Hx Congestive Heart Failure: Yes (5 YRS AGO) Hx Diabetes: No Hx Deep Vein Thrombosis: Yes Hx GERD: Yes Hx Liver Disease: No Hx Renal Disease: No Hx Sickle Cell Disease: No Hx Seizures: Yes ( CHILD ONLY) Hx Kidney Stones: Yes Hx Asthma: Yes (inhaled steroids) Hx COPD: Yes (will use home inhalers in preop) Hx HIV: No Additional medical history: diverticulitis restless leg - Surgical History Past Surgical History?: Yes Hx Coronary Stent: No Hx Pacemaker: Yes (last interrogated 1 month ago, per patient) Hx Internal Defibrillator: Yes (placed 2/2 cardiomyopathy wt low EF in 2008; EF improved) Hx Cholecystectomy: Yes Hx Breast Surgery: Yes ([facility] BREAST RECONSTRUCTION) Additional Surgical History: defibrillator. blood clot removal - Social History Smoking Status: Current Every Day Smoker Substance Use Type: None Medications and Allergies Allergies Allergy/AdvReac Type Severity Reaction Status Date / Time erythromycin base Allergy Anaphylaxis Verified 05/31/17 17:24 [Erythromycin Base] levofloxacin [From [facility]] Allergy Swelling Verified 11/30/18 15:20 montelukast sodium Allergy Itching Verified 05/31/17 17:24 [From [facility]] Home Medications Medication Instructions Recorded Confirmed Last Taken Type Aspirin [Aspirin Enteric Coated] 81 mg PO DAILY 11/20/13 07/05/19 01/30/19 History Ropinirole HCl [Requip] 2 mg PO HS 05/31/17 07/05/19 01/30/19 History Alendronate Sodium 35 mg PO QWEEK 10/24/18 07/05/19 01/30/19 History Calcium Carbonate/Vitamin D3 1 each PO DAILY 10/24/18 07/05/19 01/30/19 History [Os-Kane 500-Vit D3 200 Caplet] Furosemide [Lasix TAB] 40 mg PO QDAY 10/24/18 07/05/19 01/31/19 History Potassium Chloride 20 meq PO QDAY 10/24/18 07/05/19 01/30/19 History Umeclidinium Brm/Vilanterol Tr 1 each IH QDAY 10/24/18 07/05/19 01/30/19 History [Anoro Ellipta 62.5-25 Mcg INH] Valsartan/Hydrochlorothiazide 1 tab PO QDAY 10/24/18 07/05/19 01/30/19 History [Diovan Hct 320-25 mg] Budesonide/Formoterol Fumarate 2 gm IH BID #1 hfa.aer.ad 11/22/18 07/05/19 01/30/19 Rx [Symbicort 160-4.5 Mcg Inhaler] Pantoprazole [Protonix] 40 mg PO QDAY 02/01/19 07/05/19 01/30/19 History Aspirin BABY CHEW TAB 81 mg PO QDAY 07/05/19 07/05/19 Unknown History AtorvaSTATin [Lipitor] 10 mg PO QHS 07/05/19 07/05/19 Unknown History Isosorbide Dinitrate [Isordil 20 mg PO TID 07/05/19 07/05/19 Unknown History Titradose] Melatonin 3 mg PO 07/05/19 Unknown History carvediloL [Coreg] 6.25 mg PO BID 07/05/19 Unknown History hydrALAZINE [Apresoline] 12.5 mg PO TID 07/05/19 07/05/19 Unknown History Active Meds: Active Medications Acetaminophen/Hydrocodone Bitart ([place]br[place] 5/325) 2 each PO Q6H PRN PRN Reason: Pain, Moderate (4-6) Aspirin (Halfprin Ec) 81 mg PO DAILY [facility] Atorvastatin Calcium (Atorvastatin) 10 mg PO QHS [facility] Calcium/Vitamin D (Oysco D 500 Mg-200 Unit) 1 each PO DAILY [facility] Hydromorphone HCl (Dilaudid) 0.5 mg IV Q3H PRN PRN Reason: Pain , Severe (7-10) Sodium Chloride (Nacl 0.9% 1000 Ml) 1,000 mls @ 30 mls/hr IV DIRECT [facility]I Alteplase, Recombinant 10 mg/ (Sodium Chloride) 250 mls @ 10 mls/hr EKOSDLUMEN DIRECT [facility]I Alteplase, Recombinant 10 mg/ (Sodium Chloride) 250 mls @ 10 mls/hr IV DIRECT [facility]I Sodium Chloride (Nacl 0.9% 1000 Ml) 1,000 mls @ 30 mls/hr SHEATH DIRECT [facility]I Sodium Chloride (Nacl 0.9% 1000 Ml) 1,000 mls @ 35 mls/hr EKOSCLUMEN DIRECT [facility]I Sodium Chloride (Nacl 0.9% 1000 Ml) 1,000 mls @ 30 mls/hr SHEATH DIRECT [facility]I Sodium Chloride (Nacl 0.9% 1000 Ml) 1,000 mls @ 35 mls/hr EKOSCLUMEN DIRECT [facility] Heparin Sodium/Sodium Chloride (Heparin/ 0.45% Nacl-25,000 Unit/500 Ml) 25,000 unit in 500 mls @ 10 mls/hr SHEATH DIRECT [facility]I; Protocol Heparin Sodium/Sodium Chloride (Heparin/ 0.45% Nacl-25,000 Unit/500 Ml) 25,000 unit in 500 mls @ 10 mls/hr SHEATH DIRECT [facility]; Protocol Isosorbide Dinitrate (Isordil Titradose) 20 mg PO TID [facility] Miscellaneous Medication (Alendronate Sodium [Alendronate Sodium]) 35 mg PO QWEEK [facility] Miscellaneous Medication (Budesonide/Formoterol Fumarate [Symbicort 160-4.5 Mcg Inhaler]) 2 gm IH BID [facility]I Morphine Sulfate (Morphine) 2 mg IV Q4H PRN PRN Reason: Pain, Moderate (4-6) Ondansetron HCl (Zofran) 4 mg IV Q4H PRN PRN Reason: Nausea Pantoprazole Sodium (Protonix) 40 mg PO QDAY [facility] Ropinirole HCl (Requip) 2 mg PO QHS [facility] Review of Systems All systems: negative (see HPI) Exam - Constitutional Vitals: Temp Pulse Resp BP Pulse Ox 98.4 F 92 H 18 141/92 98 07/05/19 12:00 07/05/19 10:00 07/05/19 10:00 07/05/19 10:00 07/05/19 10:00 General appearance: Present: mild distress (respiratory distress) - EENT Eyes: Present: EOM intact ENT: hearing intact - Respiratory Respiratory effort: labored - Extremities Extremities: normal temperature, normal color, abnormal (left leg pain) - Psychiatric Psychiatric: appropriate mood/affect, cooperative Results - Labs CBC & Chem 7: 07/05/19 03:37 07/05/19 03:37 Labs: Abnormal lab results 07/05/19 07/05/19 07/05/19 Range/Units 03:37 03:37 03:37 RDW 15.3 H (13.2-15.2) % Plt Count 104 L (140-440) K/mm3 [facility] % (Auto) 11.4 H (0.0-7.3) % D-Dimer > 95845 H (0-234) ng/mlDDU Creatinine 1.3 H (0.7-1.2) mg/dL Glucose 123 H (65-100) mg/dL NT-Pro-B Natriuret Pep 1846 H (0-900) pg/mL - Imaging and Cardiology Venous US: report reviewed, image reviewed Assessment and Plan 63-year-old female with history of smoking who has COPD/asthma which is quite severe with cardiac issues who presents with significant thromboembolic burden with right heart strain, and elevated biomarkers on supplementary oxygen who has minimal ability to ambulate. Patient has significant distress, has elevated biomarkers, large thrombotic clot burden, and is on supplementary oxygen. She is stratified as intermediate-high risk for submassive pulmonary embolism. Due to AICD, I would prefer to avoid mechanical thrombectomy as this would require a large bore sheath to be passed around her AICD and the right heart would have to first be navigated with a pigtail catheter which could entangle an AICD lead. There is a history of GI bleed, but this was 2 years ago, and she has not had an episode since then. We discussed risks, benefits, and alternatives of thrombolytic therapy. Patient agrees with catheter directed thrombolysis. Plan to remove catheters tomorrow morning.
[2019-07-05] MEDS ORDERED: HEPARIN/NS 5000 UNIT/500ML 1,000 ML IR ONE (14:17)
[2019-07-05] MEDS ORDERED: ceFAZolin/Water 2 GM/20 ML 2 GM/20 ML SYRINGE IV ONE (14:17)
[2019-07-05] MEDS ORDERED: LIDOCAINE (2%) 20 MG/1 ML VIAL 20 ML MDV INFILTRATI ONE (14:17)
[2019-07-05] MEDS ORDERED: HEPARIN/ 0.45% NACL DRIP 25,000 UNIT/500 ML BAG ONE (14:17)
[2019-07-05] MEDS: fentaNYL 100 MCG/2 ML INJ ONE (14:31)
[2019-07-05] MEDS: MIDAZOLAM 2 MG/2 ML INJ ONE (14:31)
[2019-07-05] MEDS: HEPARIN 10,000 UNITS/10 ML VIAL ONE ×3 (14:40→14:56)
[2019-07-05] MEDS: ALTEPLASE 2 MG INJ ONE ×2 (14:47→14:56)
[2019-07-05 15:17] LABS: INR 1.06 (0.87-1.13)
[2019-07-05 15:39] LABS: Partial Thromboplastin Time 72.3 Sec. (24.2-36.6)
--- NOTE | 2019-07-05 16:09 | Operative Report ---
Operative Report Operative Report: EXAM: 1. Ultrasound guided access of the right common femoral vein 2. Ultrasound guided access of the right common femoral vein 3. Selection of the right atrium, right ventricle, main pulmonary artery, left main pulmonary artery, and left lobar pulmonary artery 4. Selection and angiography of a segmental branch of the left lower lobar pulmonary artery 5. Fluoroscopic guided placement of a 106 cm x 12 cm infusion length EKOS thrombolytic catheter in the left lower lobar segmental pulmonary artery 6. Selection of the right atrium, right ventricle, main pulmonary artery, and right main pulmonary artery 7. Selection and angiography of a segmental branch of the right lower lobar pulmonary artery 8. Fluoroscopic guided placement of a 106 cm x 12 cm infusion length EKOS thrombolytic catheter in the right lower lobar segmental pulmonary artery DATE: 07/05/19 OPTICAL DISPENSER: REEMA LESTER MD INDICATION: Submassive pulmonary embolism with right heart strain on CT with shortness of breath and BNP elevation. MEDICATIONS: Continuous cardiopulmonary monitoring was performed during this procedure. Please see nursing report for full details. DEVICES: 12 cm x 106 cm EKOS catheter placement in the left lower lobe segmental pulmonary artery 12 cm x 106 cm EKOS catheter placement in the right lower lobe segmental pulmonary artery CONTRAST: Please see nursing report. PROCEDURE: The risks, benefits, and alternatives were discussed; written informed consent was obtained. The patient was prepped and draped in a sterile fashion and both groins were prepped and draped in a sterile fashion. The right common femoral vein was patent on ultrasound evaluation. The right common femoral vein was assessed under ultrasound guidance, and a 21- gauge micropuncture needle was advanced into the right common femoral vein. 0.018 inch wire was advanced into the needle and into the inferior vena cava. Needle was exchanged for micropuncture transitional dilator. The right common femoral vein was assessed again under ultrasound guidance, and a 21-gauge micropuncture needle was advanced into the right common femoral vein. 0.018 inch wire was advanced into the needle and into the inferior vena cava. Needle was exchanged for micropuncture transitional dilator. Both access sites were then exchanged for 6 Turkish sheaths after 0.035 wire were passed into the inferior vena cava. Through the first right-sided sheath, a JR4 catheter was advanced over the Bentson wire and was used to successfully cannulated the right atrium. Then the catheter was used to select the right ventricle. Catheter was then used to select the main pulmonary artery. The catheter was then used to select the left main pulmonary artery and the left lower lobe lobar pulmonary artery. The catheter was then used to select the left lower lobe segmental and subsegmental branches. Digital angiography was performed confirming placement in a segmental branch of the left lower lobar pulmonary artery. There was thrombus in the branches. Palma wire was advanced into the vessel and catheter was exchanged for a 6 Turkish EKOS thrombolytic catheter. Wire was then exchanged for the EKOS wire. Contrast was injected to the thrombolytic catheter confirming placement in a segmental branch of the left lower lobe pulmonary artery. Thrombolytic catheter was flushed with saline. EKOS catheter was primed with 3 mg of TPA. This sheath was flushed and then primed with 1500 units of heparin. Through the second right-sided sheath, a JR4 catheter was advanced over the Bentson wire and was used to successfully cannulated the right atrium. Then the catheter was used to select the right ventricle. Catheter was then used to select the main pulmonary artery. The catheter was then used to select the right main pulmonary artery. The catheter was then used to select the right lower lobe lobar branch and then a segmental and subsegmental branches. Digital angiography was performed confirming placement in a segmental branch of the right lower lobar pulmonary artery which had some thrombus within it. Palma wire was advanced into the vessel and catheter was exchanged for a 6 Turkish EKOS thrombolytic catheter. Wire was then exchanged for the EKOS wire. Contrast was injected to the thrombolytic catheter confirming placement in a segmental branch of the right lower lobe pulmonary artery. Thrombolytic catheter was flushed with saline. EKOS catheter was primed with 3 mg of TPA. This sheath was flushed and then primed with 1500 units of heparin. EKOS catheters were secured in 2-0 Ethilon sutures were used to secure this sheath. Steri-Strips were used to connect the catheters with the sheaths. The EKOS catheters were secured in a sterile fashion with multiple Tegaderms and 4 x 4's. Pressure dressing applied. FINDINGS: 1. Please see procedure note above IMPRESSION: Successful pulmonary angiograms and pulmonary artery selections for thrombolytic therapy. Successful placement of EKOS catheters in the right lower lobe segmental/subsegmental pulmonary artery and left lower lobe segmental/subsegmental pulmonary artery.
[2019-07-05] MEDS ORDERED: hydrALAZINE 20 MG/1 ML INJ IV ONE (17:51)
[2019-07-05] MEDS: LIDOCAINE 1%/EPINEPHRINE 1:100,000 VIAL (20 ML) INFILTRATI ONE (18:10)
[2019-07-05] MEDS: ISOSORBIDE DINITRATE 20 MG TAB PO SCH ×2 (18:10→22:12)
[2019-07-05] MEDS ORDERED: hydrALAZINE 20 MG/1 ML INJ IV PRN (18:28)
[2019-07-05] MEDS: PANTOPRAZOLE 40 MG TAB PO SCH (19:24)
[2019-07-05] MEDS: ARFORMOTEROL 15 MCG/2 ML NEBU IH SCH (19:40)
[2019-07-05] MEDS: BUDESONIDE 0.5 MG/2 ML NEBU IH SCH (19:40)
[2019-07-05 20:16] LABS: Basophils % (Auto) 0.6 % (0.0-1.8); Hematocrit 40.3 % (30.3-42.9); Hemoglobin 13.2 gm/dl (10.1-14.3); Lymphocytes % (Auto) 14.6 % (13.4-35.0); Mean Corpuscular HGB Conc 33 % (30-34); Mean Corpuscular Volume 86 fl (79-97); Monocytes # (Auto) 0.4 K/mm3 (0.0-0.8); Monocytes % (Auto) 6.2 % (0.0-7.3); Platelet Count 100 K/mm3 (140-440); Red Cell Distribution Width 15.1 % (13.2-15.2)
[2019-07-05 20:32] LABS: BUN/Creatinine Ratio 16; Blood Urea Nitrogen 13 mg/dL (7-17); Calcium 9.4 mg/dL (8.4-10.2); Hemolysis Index 3
[2019-07-05] MEDS ORDERED: [UNRECOGNIZED DRUG - OTHER] IH SCH (22:00)
[2019-07-05] MEDS ORDERED: ROPINIROLE HCL 2 MG PO SCH (22:00)
[2019-07-05] MEDS ORDERED: FORMOTEROL FUMARATE IH SCH (22:00)
[2019-07-05] MEDS ORDERED: BUDESONIDE IH SCH (22:00)
[2019-07-05] MEDS: HYDROcodone/ACETAMINOPHEN 5-325 MG TAB PO PRN (22:13)
[2019-07-05] MEDS: rOPINIRole 1 MG TAB PO SCH (22:13)
[2019-07-06 00:12] LABS: Basophils % (Auto) 0.6 % (0.0-1.8); Eosinophils % (Auto) 0.1 % (0.0-4.3); Hematocrit 37.9 % (30.3-42.9); Hemoglobin 12.5 gm/dl (10.1-14.3); Lymphocytes # (Auto) 1.2 K/mm3 (1.2-5.4); Lymphocytes % (Auto) 16.4 % (13.4-35.0); Mean Corpuscular HGB Conc 33 % (30-34); Mean Corpuscular Volume 86 fl (79-97); Monocytes # (Auto) 0.7 K/mm3 (0.0-0.8); Monocytes % (Auto) 9.7 % (0.0-7.3); Platelet Count 100 K/mm3 (140-440); Red Cell Distribution Width 15.2 % (13.2-15.2)
[2019-07-06 06:38] LABS: Basophils # (Auto) 0.1 K/mm3 (0.0-0.1); Basophils % (Auto) 0.7 % (0.0-1.8); Eosinophils % (Auto) 0.5 % (0.0-4.3); Hematocrit 35.7 % (30.3-42.9); Hemoglobin 11.7 gm/dl (10.1-14.3); Lymphocytes # (Auto) 1.9 K/mm3 (1.2-5.4); Lymphocytes % (Auto) 26.3 % (13.4-35.0); Mean Corpuscular HGB Conc 33 % (30-34); Mean Corpuscular Volume 86 fl (79-97); Monocytes # (Auto) 0.7 K/mm3 (0.0-0.8); Monocytes % (Auto) 9.3 % (0.0-7.3); Red Blood Count 4.16 M/mm3 (3.65-5.03)
[2019-07-06 06:39] LABS: Platelet Count 99 K/mm3 (140-440)
[2019-07-06 06:48] LABS: BUN/Creatinine Ratio 19; Blood Urea Nitrogen 15 mg/dL (7-17); Calcium 8.7 mg/dL (8.4-10.2); Hemolysis Index 5
[2019-07-06] MEDS: BUDESONIDE 0.5 MG/2 ML NEBU IH SCH ×2 (07:16→20:09)
[2019-07-06] MEDS: ARFORMOTEROL 15 MCG/2 ML NEBU IH SCH ×2 (07:16→20:09)
[2019-07-06] MEDS ORDERED: MIDAZOLAM 2 MG/2 ML INJ ONE (08:05)
[2019-07-06] MEDS ORDERED: fentaNYL 100 MCG/2 ML INJ ONE (08:06)
[2019-07-06] MEDS ORDERED: HEPARIN/NS 5000 UNIT/500ML 500 ML IR ONE (08:06)
[2019-07-06] MEDS ORDERED: LIDOCAINE 1%/EPINEPHRINE 1:100,000 VIAL (20 ML) INFILTRATI ONE (08:06)
[2019-07-06] MEDS ORDERED: SODIUM CHLORIDE 0.9% 500 ML 500 ML ONE (08:34)
[2019-07-06] MEDS: MIDAZOLAM 2 MG/2 ML INJ ONE (08:55)
[2019-07-06] MEDS: fentaNYL 100 MCG/2 ML INJ ONE (08:55)
[2019-07-06] MEDS: LIDOCAINE 1%/EPINEPHRINE 1:100,000 VIAL (20 ML) INFILTRATI ONE (08:56)
[2019-07-06] MEDS: ISOSORBIDE DINITRATE 20 MG TAB PO SCH ×3 (08:57→23:03)
--- NOTE | 2019-07-06 09:06 | Progress Note ---
Assessment and Plan Patient status post placement of thrombolytics catheter now breathing comfortably without complaints of chest pain. The patient will be brought to the [facility] for removal of the thrombolytics catheters and evaluation of the pulmonary arteries. Patient will ultimately need to be placed on at least 6 months of anticoagulation. Would recommend Eliquis. Subjective Date of service: 07/06/19 Principal diagnosis: sub-massive pulmonary embolism Interval history: Patient resting comfortably at time of examination. Oxygen by nasal cannula. She satting 98%. No complaints of chest pain or shortness of breath. Objective - Constitutional Vitals: Vital Signs - 12hr 07/05/19 07/05/19 07/05/19 21:30 22:00 22:12 Temperature Pulse Rate 93 H 93 H 87 Pulse Rate [ Bilateral Throughout] Pulse Rate [ From Monitor] Respiratory 19 17 Rate Respiratory Rate [Bilateral Throughout] Blood Pressure 142/72 161/79 161/79 O2 Sat by Pulse 98 99 Oximetry 07/05/19 07/05/19 07/05/19 22:30 23:01 23:20 Temperature 98.3 F Pulse Rate 89 93 H Pulse Rate [ Bilateral Throughout] Pulse Rate [ From Monitor] Respiratory 16 13 Rate Respiratory Rate [Bilateral Throughout] Blood Pressure 146/73 138/79 O2 Sat by Pulse 99 100 Oximetry 07/05/19 07/06/19 07/06/19 23:30 00:00 00:30 Temperature Pulse Rate 88 89 88 Pulse Rate [ Bilateral Throughout] Pulse Rate [ 89 From Monitor] Respiratory 14 13 15 Rate Respiratory Rate [Bilateral Throughout] Blood Pressure 130/77 133/74 138/78 O2 Sat by Pulse 99 99 99 Oximetry 07/06/19 07/06/19 07/06/19 01:00 01:30 02:00 Temperature Pulse Rate 86 86 85 Pulse Rate [ Bilateral Throughout] Pulse Rate [ From Monitor] Respiratory 14 15 14 Rate Respiratory Rate [Bilateral Throughout] Blood Pressure 148/84 138/85 140/79 O2 Sat by Pulse 99 99 99 Oximetry 07/06/19 07/06/19 07/06/19 02:30 03:00 03:30 Temperature Pulse Rate 82 88 80 Pulse Rate [ Bilateral Throughout] Pulse Rate [ From Monitor] Respiratory 14 13 15 Rate Respiratory Rate [Bilateral Throughout] Blood Pressure 143/80 128/80 146/76 O2 Sat by Pulse 99 99 98 Oximetry 07/06/19 07/06/1919 04:00 04:30 05:00 Temperature 97.6 F Pulse Rate 79 79 69 Pulse Rate [ Bilateral Throughout] Pulse Rate [ 79 From Monitor] Respiratory 13 14 13 Rate Respiratory Rate [Bilateral Throughout] Blood Pressure 139/78 150/79 142/76 O2 Sat by Pulse 100 99 97 Oximetry 07/06/19 07/06/19 07/06/19 05:30 06:00 06:30 Temperature Pulse Rate 66 65 65 Pulse Rate [ Bilateral Throughout] Pulse Rate [ From Monitor] Respiratory 13 15 14 Rate Respiratory Rate [Bilateral Throughout] Blood Pressure 136/72 135/74 135/73 O2 Sat by Pulse 98 98 98 Oximetry 07/06/19 07/06/19 07/06/19 07:00 07:16 07:30 Temperature Pulse Rate 88 72 Pulse Rate [ 96 H Bilateral Throughout] Pulse Rate [ From Monitor] Respiratory 17 16 Rate Respiratory 14 Rate [Bilateral Throughout] Blood Pressure 144/78 141/74 O2 Sat by Pulse 97 98 Oximetry 07/06/19 07/06/19 07/06/19 08:00 08:01 08:22 Temperature 97.1 F L Pulse Rate 70 Pulse Rate [ Bilateral Throughout] Pulse Rate [ 70 From Monitor] Respiratory 14 14 Rate Respiratory Rate [Bilateral Throughout] Blood Pressure 135/66 O2 Sat by Pulse 98 98 98 Oximetry General appearance: Present: no acute distress - EENT Eyes: EOM intact ENT: hearing intact - Neck Neck: supple, normal ROM - Respiratory Respiratory effort: normal - Breasts Breasts: deferred Extremities: no ischemia Extremity abnormal: other (sheath insertion site without hematoma) - Gastrointestinal General gastrointestinal: Present: deferred Rectal Exam: deferred - Genitourinary Female genitourinary: deferred - Psychiatric Psychiatric: appropriate mood/affect, cooperative - Labs CBC & Chem 7: 07/06/19 06:20 07/06/19 06:20 Labs: Abnormal lab results 07/05/19 07/05/19 07/05/19 Range/Units 14:50 19:31 19:31 Plt Count (140-440) K/mm3 [place] % (Auto) (0.0-7.3) % Lymph # (1.2-5.4) K/mm3 Seg Neutrophils % (40.0-70.0) % APTT 72.3 H* (24.2-36.6) Sec. Fibrinogen 523 H 492 H (211-480) mg/dl Heparin Anti-Xa Level 0.87 H (0.3-0.7) U.I./ml Chloride (98-107) mmol/L Carbon Dioxide 21 L (22-30) mmol/L Glucose 125 H (65-100) mg/dL 07/05/19 07/05/19 07/05/19 Range/Units 19:40 23:25 23:25 Plt Count 100 L 100 L (140-440) K/mm3 [place] % (Auto) 9.7 H (0.0-7.3) % Lymph # 1.0 L (1.2-5.4) K/mm3 Seg Neutrophils % 78.6 H 73.2 H (40.0-70.0) % APTT (24.2-36.6) Sec. Fibrinogen (211-480) mg/dl Heparin Anti-Xa Level 0.29 L (0.3-0.7) U.I./ml Chloride (98-107) mmol/L Carbon Dioxide (22-30) mmol/L Glucose (65-100) mg/dL 07/06/19 07/06/19 07/06/19 Range/Units 06:20 06:20 06:20 Plt Count 99 L (140-440) K/mm3 [place] % (Auto) 9.3 H (0.0-7.3) % Lymph # (1.2-5.4) K/mm3 Seg Neutrophils % (40.0-70.0) % APTT (24.2-36.6) Sec. Fibrinogen (211-480) mg/dl Heparin Anti-Xa Level 0.11 L (0.3-0.7) U.I./ml Chloride 108.8 H (98-107) mmol/L Carbon Dioxide (22-30) mmol/L Glucose 111 H (65-100) mg/dL Medications & Allergies - Medications Allergies/Adverse Reactions: Allergies erythromycin base [Erythromycin Base] Allergy (Verified 05/31/17 17:24) Anaphylaxis levofloxacin [From Levaquin] Allergy (Verified 11/30/18 15:20) Swelling montelukast sodium [From Singulair] Allergy (Verified 05/31/17 17:24) Itching Home Medications: Home Medications Medication Instructions Recorded Confirmed Last Taken Type Aspirin [Aspirin Enteric Coated] 81 mg PO DAILY 11/20/13 07/05/19 01/30/19 History Ropinirole HCl [Requip] 2 mg PO HS 05/31/17 07/05/19 01/30/19 History Alendronate Sodium 35 mg PO QWEEK 10/24/18 07/05/19 01/30/19 History Calcium Carbonate/Vitamin D3 1 each PO DAILY 10/24/18 07/05/19 01/30/19 History [Os-Kane 500-Vit D3 200 Caplet] Furosemide [Lasix TAB] 40 mg PO QDAY 10/24/18 07/05/19 01/31/19 History Potassium Chloride 20 meq PO QDAY 10/24/18 07/05/19 01/30/19 History Umeclidinium Brm/Vilanterol Tr 1 each IH QDAY 10/24/18 07/05/19 01/30/19 History [Anoro Ellipta 62.5-25 Mcg INH] Valsartan/Hydrochlorothiazide 1 tab PO QDAY 10/24/18 07/05/19 01/30/19 History [Diovan Hct 320-25 mg] Budesonide/Formoterol Fumarate 2 gm IH BID #1 hfa.aer.ad 11/22/18 07/05/19 01/30/19 Rx [Symbicort 160-4.5 Mcg Inhaler] Pantoprazole [Protonix] 40 mg PO QDAY 02/01/19 07/05/19 01/30/19 History Aspirin BABY CHEW TAB 81 mg PO QDAY 07/05/19 07/05/19 Unknown History AtorvaSTATin [Lipitor] 10 mg PO QHS 07/05/19 07/05/19 Unknown History Isosorbide Dinitrate [Isordil 20 mg PO TID 07/05/19 07/05/19 Unknown History Titradose] Melatonin 3 mg PO 07/05/19 Unknown History carvediloL [Coreg] 6.25 mg PO BID 07/05/19 Unknown History hydrALAZINE [Apresoline] 12.5 mg PO TID 07/05/19 07/05/19 Unknown History Active Medications: Generic Name Dose Route Start Last Admin Trade Name Freq PRN Reason Stop Dose Admin Acetaminophen/Hydrocodone Bitart 2 each 07/05/19 12:43 07/05/19 22:13 [place] 5/325 PO 2 each Q6H PRN Administration Pain, Moderate (4-6) Alendronate Sodium 70 mg 07/12/19 06:00 Fosamax PO We [facility] Arformoterol Tartrate 15 mcg 07/05/19 20:00 07/06/19 07:16 Zain Jones IH 15 mcg Q12HRT [facility] Administration Aspirin 81 mg 07/06/19 10:00 Halfprin Ec PO DAILY [facility] Atorvastatin Calcium 10 mg 07/05/19 22:00 07/05/19 22:13 Atorvastatin PO 10 mg QHS [facility] Administration Budesonide 0.5 mg 07/05/19 20:00 07/06/19 07:16 Pulmicort IH 0.5 mg Q12HRT [facility] Administration Calcium/Vitamin D 1 each 07/06/19 10:00 Oysco D 500 Mg-200 Unit PO DAILY [facility] Hydralazine HCl 5 mg 07/05/19 18:28 Apresoline IV Q30MIN PRN Hypertension Hydromorphone HCl 0.5 mg 07/05/19 12:43 Dilaudid IV Q3H PRN Pain , Severe (7-10) Sodium Chloride 1,000 mls @ 30 mls/hr 07/05/19 12:45 Nacl 0.9% 1000 Ml IV DIRECT [facility] Alteplase, Recombinant 10 mg/ 250 mls @ 10 mls/hr 07/05/19 13:00 Sodium Chloride EKOSDLUMEN DIRECT [facility] Alteplase, Recombinant 10 mg/ 250 mls @ 10 mls/hr 07/05/19 13:00 Sodium Chloride IV DIRECT [facility] Sodium Chloride 1,000 mls @ 30 mls/hr 07/05/19 12:45 Nacl 0.9% 1000 Ml SHEATH DIRECT [facility] Sodium Chloride 1,000 mls @ 35 mls/hr 07/05/19 12:45 Nacl 0.9% 1000 Ml EKOSCLUMEN DIRECT [facility] Sodium Chloride 1,000 mls @ 30 mls/hr 07/05/19 12:45 Nacl 0.9% 1000 Ml SHEATH DIRECT [facility] Sodium Chloride 1,000 mls @ 35 mls/hr 07/05/19 12:45 Nacl 0.9% 1000 Ml EKOSCLUMEN DIRECT [facility] Heparin Sodium/Sodium Chloride 25,000 unit in 500 mls @ 5 mls/hr 07/05/19 13:00 Heparin/ 0.45% Nacl-25,000 Unit/500 Ml SHEATH DIRECT [facility] Protocol 250 UNITS/HR Heparin Sodium/Sodium Chloride 25,000 unit in 500 mls @ 5 mls/hr 07/05/19 13:00 Heparin/ 0.45% Nacl-25,000 Unit/500 Ml SHEATH DIRECT [facility] Protocol 250 UNITS/HR Isosorbide Dinitrate 20 mg 07/05/19 14:00 07/06/19 08:57 Isordil Titradose PO Not Given TID [facility] Morphine Sulfate 2 mg 07/05/19 12:43 Morphine IV Q4H PRN Pain, Moderate (4-6) Ondansetron HCl 4 mg 07/05/19 13:00 Zofran IV Q4H PRN Nausea Pantoprazole Sodium 40 mg 07/05/19 13:00 07/05/19 19:24 Protonix PO Not Given QDAY [facility]1983 Ropinirole HCl 2 mg 07/05/19 22:00 07/05/19 22:13 Requip PO 2 mg QHS [facility]1983 Administration
--- NOTE | 2019-07-06 09:11 | Operative Report ---
Operative Report Operative Report: Exam: Pulmonary angiography, thrombolytics catheter removal Clinical indication: Patient with a history of pulmonary embolism status post placement of thrombolytics catheter. Date: 07/06/2019 Procedure: Following an explanation of the risks, benefits and alternatives; written informed consent was obtained. The patient was brought to the angiographic suite and placed in supine position on the examination table. Initial fluoroscopic images were obtained which demonstrated appropriate placement of the previously placed thrombolytics catheters. The patient's right groin and catheters and sheaths were prepped and draped in the usual sterile nelson. 1% lidocaine was used for anesthesia at the sheath insertion sites. Left: The sutures were cut to release the thrombolytic catheter. The infusion wire was removed. Contrast was injected through the trouble of catheter which demonstrated opacification of the central and segmental branches. No large pulmonary embolus is identified. The thrombolytic catheter was removed. Right: The sutures were cut to release the thrombolytic catheter. The infusion wire was removed. Contrast was injected through the trouble of catheter which demonstrated opacification of the central and segmental branches. No large pulmonary embolus is identified. The thrombolytic catheter was removed. The patient tolerated the procedure well. There were no immediate post procedure complications. Conscious sedation was performed under the guidance of radiologic nursing. Continuous cardiopulmonary monitoring utilized. Impression: 1) Bilateral pulmonary angiography demonstrating no large central or segmental embolus. 2) Removal of bilateral pulmonary thrombolytics catheters.
--- NOTE | 2019-07-06 09:31 | Consultation ---
History of Present Illness Consult date: 07/06/19 Requesting physician: KASEY GABRIEL Reason for consult: pulmonary embolism (s/p EKOS) History of present illness: Patient is a 63-year-old Citizen Of [place] female with a past history of COPD as well as a remote history of DVT and breast cancer who is here with a complaint of shortness of breath. Patient has a history of hypertension and congestive heart failure and status post AICD placement Patient has had cough and wheezing for the past 3 days. Patient is not oxygen dependent. Patient is been taking neb treatments without relief. Patient denies fevers chills. Cough is dry. Patient has discomfort in the chest with coughing. Patient reports that she has severe shortness of breath. She has increased work of breathing. She is on supplementary oxygen and cannot walk more than a few steps before she becomes severely hypoxic. CT scan demonstrates significant pulmonary embolism load with saddle pulmonary embolism and bilateral main pulmonary emboli. She has right-sided heart strain on CT. Her BNP is elevated. She has severe COPD/asthma at baseline. She did have a prior GI bleed, but this was 2 years ago and no etiology was found other than diverticulosis- she is s/p EKOS and is admitted to the ICU I have been consulted for critical care management Patient seen and examined. Vitals, labs,medications, chart and imaging reviewed. s/p Pulmonary angiography, thrombolytics catheter removal On supplemental oxygen at 2L/min, has some shortness of breath, but no chest pain. Complains of thirst. - Past Medical History Previous Medical History?: Yes Hx Hypertension: Yes Hx Heart Attack/AMI: Yes () Hx Congestive Heart Failure: Yes (5 YRS AGO) Hx Diabetes: No Hx Deep Vein Thrombosis: Yes Hx GERD: Yes Hx Liver Disease: No Hx Renal Disease: No Hx Sickle Cell Disease: No Hx Seizures: Yes ( CHILD ONLY) Hx Kidney Stones: Yes Hx Asthma: Yes (inhaled steroids) Hx COPD: Yes (will use home inhalers in preop) Hx HIV: No Additional medical history: diverticulitis restless leg - Surgical History Past Surgical History?: Yes Hx Coronary Stent: No Hx Pacemaker: Yes (last interrogated 1 month ago, per patient) Hx Internal Defibrillator: Yes (placed 2/2 cardiomyopathy wtih low EF in 2008; EF improved) Hx Cholecystectomy: Yes Hx Breast Surgery: Yes ([facility] BREAST RECONSTRUCTION) Additional Surgical History: defibrillator. blood clot removal - Social History Smoking Status: Current Every Day Smoker Substance Use Type: None Medications and Allergies Allergies Allergy/AdvReac Type Severity Reaction Status Date / Time erythromycin base Allergy Anaphylaxis Verified 05/31/17 17:24 [Erythromycin Base] levofloxacin [From Levaquin] Allergy Swelling Verified 11/30/18 15:20 montelukast sodium Allergy Itching Verified 05/31/17 17:24 [From Singulair] Home Medications Medication Instructions Recorded Confirmed Last Taken Type Aspirin [Aspirin Enteric Coated] 81 mg PO DAILY 11/20/13 07/05/19 01/30/19 History Ropinirole HCl [Requip] 2 mg PO HS 05/31/17 07/05/19 01/30/19 History Alendronate Sodium 35 mg PO QWEEK 10/24/18 07/05/19 01/30/19 History Calcium Carbonate/Vitamin D3 1 each PO DAILY 10/24/18 07/05/19 01/30/19 History [Os-Kane 500-Vit D3 200 Caplet] Valsartan/Hydrochlorothiazide 1 tab PO QDAY 10/24/18 07/05/19 01/30/19 History [Diovan Hct 320-25 mg] Budesonide/Formoterol Fumarate 2 gm IH BID #1 hfa.aer.ad 11/22/18 07/05/1901/10 Rx [Symbicort 160-4.5 Mcg Inhaler] Pantoprazole [Protonix TAB] 40 mg PO QDAY 02/01/19 07/05/19 01/30/19 History Aspirin BABY CHEW TAB 81 mg PO QDAY 07/05/19 07/05/19 Unknown History AtorvaSTATin 10 mg PO QHS 07/05/19 07/05/19 Unknown History Isosorbide Dinitrate [Isordil 20 mg PO TID 07/05/19 07/05/19 Unknown History Titradose] Apixaban [Eliquis] 5 mg PO Q12HR #60 tablet 07/07/19 Unknown Rx Active Meds: Active Medications Acetaminophen/Hydrocodone Bitart ([place] 5/325) 2 each PO Q6H PRN PRN Reason: Pain, Moderate (4-6) Last Admin: 07/05/19 22:13 Dose: 2 each Documented by: Alendronate Sodium (Fosamax) 70 mg PO We [facility] Apixaban (Eliquis) 10 mg PO Q12HR [facility]; Protocol Stop: 07/12/19 22:01 Apixaban (Eliquis) 5 mg PO Q12HR [facility]; Protocol Arformoterol Tartrate (Brovana Nebu) 15 mcg IH Q12HRT [facility] Last Admin: 07/06/19 07:16 Dose: 15 mcg Documented by: Aspirin (Halfprin Ec) 81 mg PO DAILY [facility] Atorvastatin Calcium (Atorvastatin) 10 mg PO QHS [facility] Last Admin: 07/05/19 22:13 Dose: 10 mg Documented by: Budesonide (Pulmicort) 0.5 mg IH Q12HRT [facility] Last Admin: 07/06/19 07:16 Dose: 0.5 mg Documented by: Calcium/Vitamin D (Oysco D 500 Mg-200 Unit) 1 each PO DAILY [facility] Hydralazine HCl (Apresoline) 5 mg IV Q30MIN PRN PRN Reason: Hypertension Hydromorphone HCl (Dilaudid) 0.5 mg IV Q3H PRN PRN Reason: Pain , Severe (7-10) Sodium Chloride (Nacl 0.9% 1000 Ml) 1,000 mls @ 30 mls/hr IV DIRECT [facility] Stop: 07/06/19 12:44 Alteplase, Recombinant 10 mg/ (Sodium Chloride) 250 mls @ 10 mls/hr EKOSDLUMEN DIRECT [facility] Stop: 07/06/19 12:59 Alteplase, Recombinant 10 mg/ (Sodium Chloride) 250 mls @ 10 mls/hr IV DIREC T [facility] Stop: 07/06/19 12:59 Sodium Chloride (Nacl 0.9% 1000 Ml) 1,000 mls @ 30 mls/hr SHEATH DIRECT [facility] Stop: 07/06/19 12:44 Sodium Chloride (Nacl 0.9% 1000 Ml) 1,000 mls @ 35 mls/hr EKOSCLUMEN DIRECT [facility] Stop: 07/06/19 12:44 Sodium Chloride (Nacl 0.9% 1000 Ml) 1,000 mls @ 30 mls/hr SHEATH DIRECT [facility] Stop: 07/06/19 12:44 Sodium Chloride (Nacl 0.9% 1000 Ml) 1,000 mls @ 35 mls/hr EKOSCLUMEN DIRECT [facility] Stop: 07/06/19 12:44 Heparin Sodium/Sodium Chloride (Heparin/ 0.45% Nacl-25,000 Unit/500 Ml) 25,000 unit in 500 mls @ 5 mls/hr SHEATH DIRECT [facility]; Protocol Stop: 07/06/19 12:59 Heparin Sodium/Sodium Chloride (Heparin/ 0.45% Nacl-25,000 Unit/500 Ml) 25,000 unit in 500 mls @ 5 mls/hr SHEATH DIRECT [facility]; Protocol Stop: 07/06/19 12:59 Isosorbide Dinitrate (Isordil Titradose) 20 mg PO TID [facility] Last Admin: 07/06/19 08:57 Dose: Not Given Documented by: Morphine Sulfate (Morphine) 2 mg IV Q4H PRN PRN Reason: Pain, Moderate (4-6) Ondansetron HCl (Zofran) 4 mg IV Q4H PRN PRN Reason: Nausea Pantoprazole Sodium (Protonix) 40 mg PO QDAY [facility] Last Admin: 07/05/19 19:24 Dose: Not Given Documented by: Ropinirole HCl (Requip) 2 mg PO QHS [facility] Last Admin: 07/05/19 22:13 Dose: 2 mg Documented by: Physical Examination Vital signs: Vital Signs Temp Pulse BP Pulse Ox 97.3 F L 119 H 171/94 96 07/05/19 03:05 07/05/19 03:05 07/05/19 03:05 07/05/19 03:05 Vitals reviewed. GENERAL: well-developed morbidly obese -Citizen Of [place] female lying on bed appeared to be in no discomfort. HEENT: Normocephalic. Atraumatic. No conjunctival congestion or icterus. Patient has moist mucous membranes. NECK: Supple. Trachea midline. CHEST/LUNGS: BS auscultated bilaterally, breathing nonlabored. + few wheezes, no crackles HEART/CARDIOVASCULAR: Regular in rate and rhythm. S1 and S2 positive. ABDOMEN: Abdomen is soft, nontender. Patient has normal bowel sounds. SKIN: There is no rash. Warm and dry. NEURO: No focal motor deficit. Follows command. MUSCULOSKELETAL: No joint effusion or tenderness. EXTRIMITY: no cyanosis or clubbing. + Left leg calf tenderness PSYCH: Cooperative. Results - Laboratory Findings CBC and BMP: 07/07/19 05:37 07/07/19 05:37 PT/INR, D-dimer PT 13.9 Sec. (12.2-14.9) 07/05/19 14:50 INR 1.06 (0.87-1.13) 07/05/19 14:50 D-Dimer > 93727 ng/mlDDU (0-234) H 07/05/19 03:37 Abnormal lab findings: Abnormal Labs 07/05/19 07/05/19 07/05/19 03:37 03:37 03:37 RDW 15.3 H Plt Count 104 L [place] % (Auto) 11.4 H Lymph # Seg Neutrophils % APTT Fibrinogen D-Dimer > 81798 H Heparin Anti-Xa Level Chloride Carbon Dioxide Creatinine 1.3 H Glucose 123 H NT-Pro-B Natriuret Pep 1846 H 07/05/19 07/05/19 07/05/19 14:50 19:31 19:31 RDW Plt Count [place] % (Auto) Lymph # Seg Neutrophils % APTT 72.3 H* Fibrinogen 523 H 492 H D-Dimer Heparin Anti-Xa Level 0.87 H Chloride Carbon Dioxide 21 L Creatinine Glucose 125 H NT-Pro-B Natriuret Pep 07/05/19 07/05/19 07/05/19 19:40 23:25 23:25 RDW Plt Count 100 L 100 L [place] % (Auto) 9.7 H Lymph # 1.0 L Seg Neutrophils % 78.6 H 73.2 H APTT Fibrinogen D-Dimer Heparin Anti-Xa Level 0.29 L Chloride Carbon Dioxide Creatinine Glucose NT-Pro-B Natriuret Pep 07/06/19 07/06/19 07/06/19 06:20 06:20 06:20 RDW Plt Count 99 L [place] % (Auto) 9.3 H Lymph # Seg Neutrophils % APTT Fibrinogen D-Dimer Heparin Anti-Xa Level 0.11 L Chloride 108.8 H Carbon Dioxide Creatinine Glucose 111 H NT-Pro-B Natriuret Pep - Diagnostic Findings Chest x-ray: image reviewed (No acute pulmaonry infiltrates) CT scan - chest: image reviewed (Saddle emboli with multiple bilateral pulmanry emboli) Assessment and Plan Bilateral pulmonary embolism DVT left leg Tobacco use disorder History of CHF status post ICD History of breast cancer status post bilateral mastectomy Morbid obesity, -Anticoagulation -Wean supplemental oxygen for O2 sast>90% -Smoking cessation counselling -Chronic home medications -Weight loss and life style modifications as outpatient -Lifelong anticoagulation, out patient follow up with Hematology -Will need follow up echocardiogram to re-evaluate for pulmonary HTN -OK to transfer out of ICU later today. -Monitor groin for hematoma or bleeding
[2019-07-06] MEDS: APIXABAN 5 MG TAB PO SCH ×2 (10:09→22:38)
[2019-07-06] MEDS: PANTOPRAZOLE 40 MG TAB PO SCH (10:10)
[2019-07-06] MEDS: ASPIRIN EC 81 MG TAB PO SCH (10:10)
[2019-07-06] MEDS: CALCIUM CARBONATE/VITAMIN D3 500 MG-200 UNIT TAB PO SCH (10:36)
--- NOTE | 2019-07-06 15:54 | Progress Note ---
Assessment and Plan Bilateral pulmonary embolism DVT left leg - s/p heparin drip, vascular consulted, - Status post EKOS with TPA yesterday, taken to label coder again today to remove catheter - placed on eliquis History of CHF status post ICD - Appears compensated - resume home meds History of breast cancer status post bilateral mastectomy - Has outpatient follow-up with Dr. Camarena Morbid obesity, weight reduction diet when clinically more stable DVT prophylaxis, on heparin drip Radiological data: CXR: 1. No acute findings. CTA chest; 1. Pulmonary embolic disease as noted 2. Slight increase right ventricle-left ventricle ratio as noted consistent with mild right heart strain Disposition: transfer to [facility] [place] today, possible d.c tomorrow Subjective Date of service: 07/06/19 Principal diagnosis: sub-massive pulmonary embolism Interval history: Patient seen and examined. Medical records and medication list reviewed. No acute event overnight noted by the RN. Patient denies any chest pain or difficulty breathing. Patient is tolerating diet. Status post EKOS with TPA yesterday, taken to label coder again today to remove catheter Discussed plan of care at bedside with patient. Objective - Exam Narrative Exam: GENERAL: well-developed morbidly obese -[place] female lying on bed appeared to be in no discomfort. HEENT: Normocephalic. Atraumatic. No conjunctival congestion or icterus. Patient has moist mucous membranes. NECK: Supple. Trachea midline. CHEST/LUNGS: BS auscultated bilaterally, breathing nonlabored. + few wheezes, no crackles HEART/CARDIOVASCULAR: Regular in rate and rhythm. S1 and S2 positive. ABDOMEN: Abdomen is soft, nontender. Patient has normal bowel sounds. SKIN: There is no rash. Warm and dry. NEURO: No focal motor deficit. Follows command. MUSCULOSKELETAL: No joint effusion or tenderness. EXTRIMITY: no cyanosis or clubbing. + Left leg calf tenderness PSYCH: Cooperative. - Constitutional Vitals: Vital Signs - 12hr 07/06/19 07/06/19 07/06/19 04:00 04:30 05:00 Temperature 97.6 F Pulse Rate 79 79 69 Pulse Rate [ Bilateral Throughout] Pulse Rate [ 79 From Monitor] Respiratory 13 14 13 Rate Respiratory Rate [Bilateral Throughout] Blood Pressure 139/78 150/79 142/76 O2 Sat by Pulse 100 99 97 Oximetry 07/06/19 07/06/19 07/06/19 05:30 06:00 06:30 Temperature Pulse Rate 66 65 65 Pulse Rate [ Bilateral Throughout] Pulse Rate [ From Monitor] Respiratory 13 15 14 Rate Respiratory Rate [Bilateral Throughout] Blood Pressure 136/72 135/74 135/73 O2 Sat by Pulse 98 98 98 Oximetry 07/06/19 07/06/19 07/06/19 07:00 07:16 07:30 Temperature Pulse Rate 88 72 Pulse Rate [ 96 H Bilateral Throughout] Pulse Rate [ From Monitor] Respiratory 17 16 Rate Respiratory 14 Rate [Bilateral Throughout] Blood Pressure 144/78 141/74 O2 Sat by Pulse 97 98 Oximetry 07/06/19 07/06/19 07/06/19 07:50 08:00 08:01 Temperature 97.1 F L Pulse Rate 81 70 Pulse Rate [ Bilateral Throughout] Pulse Rate [ 70 From Monitor] Respiratory 14 14 Rate Respiratory Rate [Bilateral Throughout] Blood Pressure 135/66 O2 Sat by Pulse 98 98 Oximetry 07/06/19 07/06/19 07/06/19 08:22 09:41 10:00 Temperature Pulse Rate 83 64 Pulse Rate [ Bilateral Throughout] Pulse Rate [ From Monitor] Respiratory 16 13 Rate Respiratory Rate [Bilateral Throughout] Blood Pressure 141/68 O2 Sat by Pulse 98 96 98 Oximetry 07/06/19 07/06/19 07/06/19 10:30 11:00 11:30 Temperature Pulse Rate 62 85 66 Pulse Rate [ Bilateral Throughout] Pulse Rate [ From Monitor] Respiratory 16 16 15 Rate Respiratory Rate [Bilateral Throughout] Blood Pressure 143/74 143/82 138/70 O2 Sat by Pulse 98 96 98 Oximetry 07/06/19 07/06/19 07/06/19 12:00 12:30 12:35 Temperature 98.7 F Pulse Rate 64 81 77 Pulse Rate [ Bilateral Throughout] Pulse Rate [ 64 From Monitor] Respiratory 24 16 Rate Respiratory Rate [Bilateral Throughout] Blood Pressure 141/71 137/70 O2 Sat by Pulse 97 97 Oximetry 07/06/19 07/06/19 07/06/19 13:00 13:30 13:53 Temperature Pulse Rate 69 67 82 Pulse Rate [ Bilateral Throughout] Pulse Rate [ From Monitor] Respiratory 17 17 Rate Respiratory Rate [Bilateral Throughout] Blood Pressure 146/68 147/72 147/72 O2 Sat by Pulse 96 98 Oximetry 07/06/19 07/06/19 14:00 14:31 Temperature 98.7 F Pulse Rate 80 Pulse Rate [ Bilateral Throughout] Pulse Rate [ From Monitor] Respiratory 20 Rate Respiratory Rate [Bilateral Throughout] Blood Pressure 145/71 O2 Sat by Pulse 98 Oximetry - Labs CBC & Chem 7: 07/07/19 05:37 07/07/19 05:37 Labs: Abnormal lab results 07/05/19 07/05/19 07/05/19 Range/Units 19:31 19:31 19:40 Plt Count 100 L (140-440) K/mm3 Major % (Auto) (0.0-7.3) % Lymph # 1.0 L (1.2-5.4) K/mm3 Seg Neutrophils % 78.6 H (40.0-70.0) % Fibrinogen 492 H (211-480) mg/dl Heparin Anti-Xa Level 0.87 H (0.3-0.7) U.I./ml Chloride (98-107) mmol/L Carbon Dioxide 21 L (22-30) mmol/L Glucose 125 H (65-100) mg/dL 07/05/19 07/05/19 07/06/19 Range/Units 23:25 23:25 06:20 Plt Count 100 L (140-440) K/mm3 Major % (Auto) 9.7 H (0.0-7.3) % Lymph # (1.2-5.4) K/mm3 Seg Neutrophils % 73.2 H (40.0-70.0) % Fibrinogen (211-480) mg/dl Heparin Anti-Xa Level 0.29 L (0.3-0.7) U.I./ml Chloride 108.8 H (98-107) mmol/L Carbon Dioxide (22-30) mmol/L Glucose 111 H (65-100) mg/dL 07/06/19 07/06/19 Range/Units 06:20 06:20 Plt Count 99 L (140-440) K/mm3 Major % (Auto) 9.3 H (0.0-7.3) % Lymph # (1.2-5.4) K/mm3 Seg Neutrophils % (40.0-70.0) % Fibrinogen (211-480) mg/dl Heparin Anti-Xa Level 0.11 L (0.3-0.7) U.I./ml Chloride (98-107) mmol/L Carbon Dioxide (22-30) mmol/L Glucose (65-100) mg/dL
[2019-07-06] MEDS: HYDROcodone/ACETAMINOPHEN 5-325 MG TAB PO PRN (18:38)
[2019-07-06] MEDS: rOPINIRole 1 MG TAB PO SCH (22:38)
[2019-07-07 06:14] LABS: Hematocrit 34.7 % (30.3-42.9); Hemoglobin 11.3 gm/dl (10.1-14.3)
[2019-07-07 06:42] LABS: BUN/Creatinine Ratio 18; Blood Urea Nitrogen 16 mg/dL (7-17); Calcium 8.7 mg/dL (8.4-10.2); Hemolysis Index 13
[2019-07-07] MEDS: BUDESONIDE 0.5 MG/2 ML NEBU IH SCH (08:24)
[2019-07-07] MEDS: ARFORMOTEROL 15 MCG/2 ML NEBU IH SCH (08:24)
--- NOTE | 2019-07-07 09:07 | Progress Note ---
Subjective Date of service: 07/07/19 Principal diagnosis: sub-massive pulmonary embolism Interval history: patient doing well pressure dressing removed right groin access site soft patient breathing improved continue OAC for 6 months Objective - Constitutional Vitals: Vital Signs - 12hr 07/06/19 07/07/19 23:03 05:01 Temperature 98.0 F Pulse Rate 78 70 Respiratory 20 Rate Blood Pressure 123/69 133/61 O2 Sat by Pulse 99 Oximetry - Labs CBC & Chem 7: 07/07/19 05:37 07/07/19 05:37 Labs: Abnormal lab results 07/07/19 07/07/19 Range/Units 05:37 05:37 Plt Count 101 L (140-440) K/mm3 Carbon Dioxide 20 L (22-30) mmol/L Glucose 103 H (65-100) mg/dL Medications & Allergies - Medications Allergies/Adverse Reactions: Allergies erythromycin base [Erythromycin Base] Allergy (Verified 05/31/17 17:24) Anaphylaxis levofloxacin [From Levaquin] Allergy (Verified 11/30/18 15:20) Swelling montelukast sodium [From Singulair] Allergy (Verified 05/31/17 17:24) Itching Home Medications: Home Medications Medication Instructions Recorded Confirmed Last Taken Type Aspirin [Aspirin Enteric Coated] 81 mg PO DAILY 11/20/13 07/05/19 01/30/19 History Ropinirole HCl [Requip] 2 mg PO HS 05/31/17 07/05/19 01/30/19 History Alendronate Sodium 35 mg PO QWEEK 10/24/18 07/05/19 01/30/19 History Calcium Carbonate/Vitamin D3 1 each PO DAILY 10/24/18 07/05/19 01/30/19 History [Os-[place] 500-Vit D3 200 Caplet] Furosemide [Lasix TAB] 40 mg PO QDAY 10/24/18 07/05/19 01/31/19 History Potassium Chloride 20 meq PO QDAY 10/24/18 07/05/19 01/30/19 History Umeclidinium Brm/Vilanterol Tr 1 each IH QDAY 10/24/18 07/05/19 01/30/19 History [Anoro Ellipta 62.5-25 Mcg INH] Valsartan/Hydrochlorothiazide 1 tab PO QDAY 10/24/18 07/05/19 01/30/19 History [Diovan Hct 320-25 mg] Budesonide/Formoterol Fumarate 2 gm IH BID #1 hfa.aer.ad 11/22/18 07/05/19 01/30/19 Rx [Symbicort 160-4.5 Mcg Inhaler] Pantoprazole [Protonix] 40 mg PO QDAY 02/01/19 07/05/19 01/30/19 History Aspirin BABY CHEW TAB 81 mg PO QDAY 07/05/19 07/05/19 Unknown History AtorvaSTATin [Lipitor] 10 mg PO QHS 07/05/19 07/05/19 Unknown History Isosorbide Dinitrate [Isordil 20 mg PO TID 07/05/19 07/05/19 Unknown History Titradose] carvediloL [Coreg] 25 mg PO BID 07/05/19 07/06/19 Unknown History hydrALAZINE [Apresoline] 12.5 mg PO TID 07/05/19 07/05/19 Unknown History Ropinirole HCl [Requip] 2 mg PO ONCE 07/06/19 07/06/19 Unknown History Active Medications: Generic Name Dose Route Start Last Admin Trade Name Freq PRN Reason Stop Dose Admin Acetaminophen/Hydrocodone Bitart 2 each 07/05/19 12:43 07/06/19 18:38 Mallie 5/325 PO 2 each Q6H PRN Administration Pain, Moderate (4-6) Alendronate Sodium 70 mg 07/12/19 06:00 Fosamax PO We [facility]I Apixaban 10 mg 07/06/19 10:00 07/06/19 22:38 Eliquis PO 07/12/19 22:01 10 mg Q12HR [facility] Administration Protocol Apixaban 5 mg 07/13/19 10:00 Eliquis PO Q12HR [facility] Protocol Arformoterol Tartrate 15 mcg 07/05/19 20:00 07/07/19 08:24 Brovana Nebu IH 15 mcg Q12HRT [facility] Administration Aspirin 81 mg 07/06/19 10:00 07/06/19 10:10 Halfprin Ec PO 81 mg DAILY [facility] Administration Atorvastatin Calcium 10 mg 07/05/19 22:00 07/06/19 22:38 Atorvastatin PO 10 mg QHS [facility] Administration Budesonide 0.5 mg 07/05/19 20:00 07/07/19 08:24 Pulmicort IH 0.5 mg Q12HRT [facility] Administration Calcium/Vitamin D 1 each 07/06/19 10:00 07/06/19 10:36 Oysco D 500 Mg-200 Unit PO 1 each DAILY [facility] Administration Hydralazine HCl 5 mg 07/05/19 18:28 Apresoline IV Q30MIN PRN Hypertension Hydromorphone HCl 0.5 mg 07/05/19 12:43 Dilaudid IV Q3H PRN Pain , Severe (7-10) Isosorbide Dinitrate 20 mg 07/05/19 14:00 07/06/19 23:03 Isordil Titradose PO 20 mg TID [facility] Administration Morphine Sulfate 2 mg 07/05/19 12:43 Morphine IV Q4H PRN Pain, Moderate (4-6) Ondansetron HCl 4 mg 07/05/19 13:00 Zofran IV Q4H PRN Nausea Pantoprazole Sodium 40 mg 07/05/19 13:00 07/06/19 10:10 Protonix PO 40 mg QDAY [facility] Administration Ropinirole HCl 2 mg 07/05/19 22:00 07/06/19 22:38 Requip PO 2 mg QHS [facility] Administration
[2019-07-07] MEDS: APIXABAN 5 MG TAB PO SCH (09:31)
[2019-07-07] MEDS: CALCIUM CARBONATE/VITAMIN D3 500 MG-200 UNIT TAB PO SCH (09:31)
[2019-07-07] MEDS: PANTOPRAZOLE 40 MG TAB PO SCH (09:32)
[2019-07-07] MEDS: ASPIRIN EC 81 MG TAB PO SCH (09:32)
--- NOTE | 2019-07-07 10:03 | Progress Note ---
Assessment and Plan Bilateral pulmonary embolism DVT left leg Tobacco use disorder History of CHF status post ICD History of breast cancer status post bilateral mastectomy Morbid obesity, -Continue nticoagulation -Wean supplemental oxygen for O2 sast>90% -Ambulate and increase activity -Chronic home medications -Weight loss and life style modifications as outpatient -Lifelong anticoagulation, out patient follow up with Hematology -Will need follow up echocardiogram to re-evaluate for pulmonary HTN -Discharge planning Subjective Date of service: 07/07/19 Principal diagnosis: sub-massive pulmonary embolism Interval history: Follow up for sub-massive PE s/p EKOS Seen and examined. Vitals, labs. medications, chart reviewed. Has ambulated in her room, appetite is good. She denies any chest pain, no shortness of breath, no nausea or vomiting. right groin no bleeding or hematoma. Objective - Exam Narrative Exam: GENERAL: well-developed morbidly obese -[place]ov[place] female lying on bed a ppeared to be in no discomfort. HEENT: Normocephalic. Atraumatic. No conjunctival congestion or icterus. Patient has moist mucous membranes. NECK: Supple. Trachea midline. CHEST/LUNGS: BS auscultated bilaterally, breathing nonl abored. no wheezes, no crackles HEART/CARDIOVASCULAR: Regular in rate and rhythm. S1 and S2 positive. ABDOMEN: Abdomen is soft, non tender. Patient has normal bowel sounds. SKIN: There is no rash. Warm and dry. NEURO: No focal motor deficit. Follows command. MUSCULOSKELETAL: No joint effusion or tenderness. EXTRIMITY: no cyanosis or clubbing. + Left leg calf tenderness Right groin, no hematoma or bleeding PSYCH: Cooperative. Vital Signs - 12hr 07/06/19 07/07/19 23:03 05:01 Temperature 98.0 F Pulse Rate 78 70 Respiratory 20 Rate Blood Pressure 123/69 133/61 O2 Sat by Pulse 99 Oximetry CBC and BMP: 07/07/19 05:37 07/07/19 05:37 ABG, PT/INR, D-dimer: PT/INR, D-dimer PT 13.9 Sec. (12.2-14.9) 07/05/19 14:50 INR 1.06 (0.87-1.13) 07/05/19 14:50 D-Dimer > 13563 ng/mlDDU (0-234) H 07/05/19 03:37 Abnormal lab findings: Abnormal Labs 07/05/19 07/05/19 07/05/19 03:37 03:37 03:37 RDW 15.3 H Plt Count 104 L [place] % (Auto) 11.4 H Lymph # Seg Neutrophils % APTT Fibrinogen D-Dimer > 06467 H Heparin Anti-Xa Level Chloride Carbon Dioxide Creatinine 1.3 H Glucose 123 H NT-Pro-B Natriuret Pep 1846 H 07/05/19 07/05/19 07/05/19 14:50 19:31 19:31 RDW Plt Count [place] % (Auto) Lymph # Seg Neutrophils % APTT 72.3 H* Fibrinogen 523 H 492 H D-Dimer Heparin Anti-Xa Level 0.87 H Chloride Carbon Dioxide 21 L Creatinine Glucose 125 H NT-Pro-B Natriuret Pep 07/05/19 07/05/19 07/05/19 19:40 23:25 23:25 RDW Plt Count 100 L 100 L [place] % (Auto) 9.7 H Lymph # 1.0 L Seg Neutrophils % 78.6 H 73.2 H APTT Fibrinogen D-Dimer Heparin Anti-Xa Level 0.29 L Chloride Carbon Dioxide Creatinine Glucose NT-Pro-B Natriuret Pep 07/06/19 07/06/19 07/06/19 06:20 06:20 06:20 RDW Plt Count 99 L [place] % (Auto) 9.3 H Lymph # Seg Neutrophils % APTT Fibrinogen D-Dimer Heparin Anti-Xa Level 0.11 L Chloride 108.8 H Carbon Dioxide Creatinine Glucose 111 H NT-Pro-B Natriuret Pep 07/07/19 07/07/19 05:37 05:37 RDW Plt Count 101 L [place] % (Auto) Lymph # Seg Neutrophils % APTT Fibrinogen D-Dimer Heparin Anti-Xa Level Chloride Carbon Dioxide 20 L Creatinine Glucose 103 H NT-Pro-B Natriuret Pep
[2019-07-07] MEDS: ISOSORBIDE DINITRATE 20 MG TAB PO SCH ×2 (10:19→14:46)
--- NOTE | 2019-07-07 12:43 | Discharge Summary ---
Providers - Providers Date of Admission: 07/05/19 08:26 Date of discharge: 07/07/19 Attending physician: KASEY GABRIEL 07/05/19 06:48 Consult to Physician [CONS] Stat Comment: Doctor Pranav notified per ER provider Consulting Provider: REEMA LESTER Physician Instructions: PE/VTE Reason For Exam: PE/VTE 07/06/19 09:28 Consult to Physician [CONS] Urgent Comment: Consulting Provider: ABI JAFFE Physician Instructions: Reason For Exam: Critical care management Primary care physician: SHOE REPAIRER APPRENTICE Hospitalization Condition: Stable Hospital course: Patient is a 63-year-old [place] female with a past history of COPD, a remote history of DVT and breast cancer s/p b/l mastectomy follows up with Dr. Camarena, congestive heart failure and status post AICD placement who is here with a complaint of shortness of breath with cough and wheezing for the past 3 days. Patient is not oxygen dependent. Patient is been taking neb treatments without relief. Patient denies fevers chills. Patient states she has had some discomfort in the left lower extremity behind the left knee for the past 3 days as well. in the ER CT scan demonstrates significant pulmonary embolism load with saddle pulmonary embolism and bilateral main pulmonary emboli. LE doppler also showed extensive DVT on left leg, she has placed on heparin drip, consulted vascular in the ER. She is being admitted for further evaluation and management. Radiological data: CXR: 1. No acute findings. CTA chest; 1. Pulmonary embolic disease as noted 2. Slight increase right ventricle-left ventricle ratio as noted consistent with mild right heart strain Discharge diagnosis: Bilateral pulmonary embolism DVT left leg - s/p heparin drip, vascular consulted, - Status post EKOS with TPA on 07/05/19 - placed on eliquis now, tolerated well History of CHF status post ICD - Appears compensated - resumed home meds History of breast cancer status post bilateral mastectomy - Has outpatient follow-up with Dr. Camarena Morbid obesity, weight reduction diet when clinically more stable DVT prophylaxis, on heparin drip Disposition: TO HOME OR SELFCARE Time spent for discharge: 34 minutes Core Measure Documentation - Palliative Care Palliative Care/ Comfort Measures: Not Applicable - Core Measures Any of the following diagnoses?: history only Exam - Physical Exam Narrative exam: GENERAL: well-developed morbidly obese -Australian female lying on bed appeared to be in no discomfort. HEENT: Normocephalic. Atraumatic. No conjunctival congestion or icterus. Patient has moist mucous membranes. NECK: Supple. Trachea midline. CHEST/LUNGS: BS auscultated bilaterally, breathing nonlabored. no wheezes, no crackles HEART/CARDIOVASCULAR: Regular in rate and rhythm. S1 and S2 positive. ABDOMEN: Abdomen is soft, nontender. Patient has normal bowel sounds. SKIN: There is no rash. Warm and dry. NEURO: No focal motor deficit. Follows command. MUSCULOSKELETAL: No joint effusion or tenderness. EXTRIMITY: no cyanosis or clubbing. + Left leg calf tenderness PSYCH: Cooperative. - Constitutional Vitals: Temp Pulse Resp BP Pulse Ox 98.0 F 78 20 133/61 99 07/07/19 05:01 07/07/19 10:19 07/07/19 05:01 07/07/19 05:01 07/07/19 05:01 Plan Activity: advance as tolerated Weight Bearing Status: Weight Bear as Tolerated Diet: low fat, low salt Special Instructions: smoking cessation Follow up with: PRIMARY MD OCTAVIA [Primary Care Provider] - 7 Days BISHNU ORR MD [Staff Physician] - 7 Days Prescriptions: Apixaban [Eliquis] 5 mg PO Q12HR #60 tablet
[2019-07-07 18:37] VITALS: BP 120/54
[2019-07-12] MEDS ORDERED: ALENDRONATE SODIUM 70 MG TAB PO SCH (06:00)
[2019-07-12] MEDS ORDERED: ALENDRONATE SODIUM 35 MG PO SCH (10:00)
[2019-07-13] MEDS ORDERED: APIXABAN 5 MG TAB PO SCH (10:00)
== END 2019-07-07 19:19 | disposition home or self-care (01) | DRG 299 ==
LOC: ED 03:02 → IMCU 08:26 → CC1 15:24 → 3A 07-06 19:36
PROVIDERS: ADMIT Internal Medicine; ATTEND Internal Medicine
PROC: 3E06317 Introduction of Other Thrombolytic into Central Artery, Percutaneous Approach (ICD-10-PCS; principal; 2019-07-05)
PROC: 3E06317 Introduction of Other Thrombolytic into Central Artery, Percutaneous Approach (ICD-10-PCS; 2019-07-05)
PROC: B54BZZA Ultrasonography of Right Lower Extremity Veins, Guidance (ICD-10-PCS; 2019-07-05)
PROC: B31T1ZZ Fluoroscopy of Left Pulmonary Artery using Low Osmolar Contrast (ICD-10-PCS; 2019-07-05)
PROC: B31S1ZZ Fluoroscopy of Right Pulmonary Artery using Low Osmolar Contrast (ICD-10-PCS; 2019-07-05)
PROC: B31T1ZZ Fluoroscopy of Left Pulmonary Artery using Low Osmolar Contrast (ICD-10-PCS; 2019-07-06)
PROC: B31S1ZZ Fluoroscopy of Right Pulmonary Artery using Low Osmolar Contrast (ICD-10-PCS; 2019-07-06)
PROC: 03PYX3Z Removal of Infusion Device from Upper Artery, External Approach (ICD-10-PCS; 2019-07-06)
PROC: 03PYX3Z Removal of Infusion Device from Upper Artery, External Approach (ICD-10-PCS; 2019-07-06)
DX: I82.402 Acute embolism and thrombosis of unspecified deep veins of left lower extremity (principal); I26.99 Other pulmonary embolism without acute cor pulmonale; I42.9 Cardiomyopathy, unspecified; I11.0 Hypertensive heart disease with heart failure; I50.9 Heart failure, unspecified; K21.9 Gastro-esophageal reflux disease without esophagitis; J44.9 Chronic obstructive pulmonary disease, unspecified; F17.200 Nicotine dependence, unspecified, uncomplicated; E66.01 Morbid (severe) obesity due to excess calories; Z88.1 Allergy status to other antibiotic agents; I25.2 Old myocardial infarction; Z95.1 Presence of aortocoronary bypass graft; Z87.442 Personal history of urinary calculi; Z90.49 Acquired absence of other specified parts of digestive tract; Z79.82 Long term (current) use of aspirin; Z79.899 Other long term (current) drug therapy; Z90.13 Acquired absence of bilateral breasts and nipples
CPT/HCPCS: 36415; 37212; 37214; 71046; 71275; 75743; 76937; 80048; 83880; 84484; 85014; 85018; 85025; 85049; 85379; 85384; 85520; 85610; 85730; 86850; 86900; 86901; 93005; 93010; 93306; 94640; 94644; 94760; G0378; A9270-GY; C1757; C1769; C1894; J0360; J0583; J0690; J1644; J2250; J2930; J2997; J3010; J7030; J7040; J7050; Q9967

== ENCOUNTER 2020-11-04 19:06 | Emergency (ER) | payer BC, MEDICARE ==
[2020-11-04 19:10] VITALS: BP 171/109
[2020-11-04] MEDS ORDERED: ALBUTEROL 2.5 MG/3 ML NEBU IH ONE ×3 (19:27→20:41)
[2020-11-04] MEDS ORDERED: methylPREDNISolone Sod Succinate 125 MG/2 ML INJ IV ONE (19:38)
--- NOTE | 2020-11-04 19:43 | Emergency Department Report ---
ED General Adult HPI - General Chief complaint: Dyspnea/Respdistress Stated complaint: CHRISTIANO Time Seen by Provider: 11/04/20 19:34 Source: patient Mode of arrival: Ambulatory Limitations: No Limitations - History of Present Illness Initial comments: 65-year-old female patient with history of asthma, congestive heart failure, myocardial infarction status post AICD placement, and breast cancer status postmastectomy presents to the emergency department with complaints of cough, shortness of breath, and wheezing starting today. Patient used her albuterol inhaler prior to arrival with limited relief. No known sick contacts. No current steroid or antibiotic use. Patient states that she has required hospitalization for her asthma on previous occasions. States she has required mechanical ventilation on prior admission. No known sick contacts. Patient also endorses increased lower extremity edema and orthopnea. Denies fever, chills, hemoptysis, chest pain, syncope, lower extremity pain, nausea, vomiting, diaphoresis. Denies all other complaints at this time. - Related Data Home Medications Medication Instructions Recorded Confirmed Last Taken Aspirin [Aspirin Enteric Coated] 81 mg PO DAILY 11/20/13 07/05/19 01/30/19 Ropinirole HCl [Requip] 2 mg PO HS 05/31/17 07/05/19 01/30/19 Alendronate Sodium 35 mg PO QWEEK 10/24/18 07/05/19 01/30/19 Calcium Carbonate/Vitamin D3 1 each PO DAILY 10/24/18 07/05/19 01/30/19 [Os-Kane 500-Vit D3 200 Caplet] Valsartan/Hydrochlorothiazide 1 tab PO QDAY 10/24/18 07/05/19 01/30/19 [Diovan Hct 320-25 mg] Pantoprazole [Protonix TAB] 40 mg PO QDAY 02/01/19 07/05/19 01/30/19 Aspirin BABY CHEW TAB 81 mg PO QDAY 07/05/19 07/05/19 Unknown AtorvaSTATin 10 mg PO QHS 07/05/19 07/05/19 Unknown Isosorbide Dinitrate [Isordil] 20 mg PO TID 07/05/19 07/05/19 Unknown Previous Rx's Medication Instructions Recorded Last Taken Type Budesonide/Formoterol Fumarate 2 gm IH BID #1 hfa.aer.ad 05/14/19 07/22/19 Rx [Symbicort 160-4.5 Mcg Inhaler] Apixaban [Eliquis] 5 mg PO Q12HR #60 tablet 07/07/19 Unknown Rx Albuterol Sulfate [Proair 90 mcg IH Q4H #1 aer.pw.bas 11/04/20 Unknown Rx Digihaler] predniSONE [Deltasone] 20 mg PO QDAY #5 tab 11/04/20 Unknown Rx Allergies Allergy/AdvReac Type Severity Reaction Status Date / Time erythromycin base Allergy Anaphylaxis Verified 05/31/17 17:24 [Erythromycin Base] levofloxacin [From Levaquin] Allergy Swelling Verified 11/30/18 15:20 montelukast sodium Allergy Itching Verified 05/31/17 17:24 [From Singulair] ED Review of Systems ROS: Stated complaint: CHRISTIANO Other details as noted in HPI Other: GENERAL: Negative for fever, chills, weight change, anorexia, fatigue. ENT: Negative for ear pain, difficulty hearing, sore throat, nasal congestion, epistaxis. CARDIOVASCULAR: Positive for lower extremity swelling. PULMONARY: Positive for cough, wheezing, shortness of breath, orthopnea. GASTROINTESTINAL: Negative for abdominal pain, nausea, vomiting, diarrhea, constipation. MUSCULOSKELETAL: Negative for joint pain, joint swelling, myalgias, back pain, neck pain. NEUROLOGICAL: Negative for headache, seizure, syncope, paresthesias, weakness. INTEGUMENTARY: Negative for erythema, rash, diaphoresis, laceration, ecchymosis. HEMATOLOGICAL: Negative for hemoptysis, hematemesis, hematochezia, hematuria. PSYCHIATRIC: Negative for hallucinations, suicidal ideation, homicidal ideation, anxiety, depression. ED Past Medical Hx - Past Medical History Previous Medical History?: Yes Hx Hypertension: Yes Hx Heart Attack/AMI: Yes () Hx Congestive Heart Failure: Yes (5 YRS AGO) Hx Diabetes: No Hx Deep Vein Thrombosis: Yes Hx GERD: Yes Hx Liver Disease: No Hx Renal Disease: No Hx Sickle Cell Disease: No Hx Arthritis: Yes Hx Seizures: Yes ( CHILD ONLY) Hx Kidney Stones: Yes Hx Asthma: Yes (inhaled steroids) Hx COPD: Yes (will use home inhalers in preop) Hx HIV: No Additional medical history: diverticulitis restless leg - Surgical History Past Surgical History?: Yes Hx Coronary Stent: No Hx Pacemaker: Yes (last interrogated 1 month ago, per patient) Hx Internal Defibrillator: Yes (placed 2/2 cardiomyopathy wtih low EF in 2008; EF improved) Hx Cholecystectomy: Yes Hx Breast Surgery: Yes (SARAI BREAST RECONSTRUCTION) Additional Surgical History: defibrillator. blood clot removal - Social History Smoking Status: Current Every Day Smoker Substance Use Type: None - Medications Home Medications: Home Medications Medication Instructions Recorded Confirmed Last Taken Type Aspirin [Aspirin Enteric Coated] 81 mg PO DAILY 11/20/13 07/05/19 01/30/19 History Ropinirole HCl [Requip] 2 mg PO HS 05/31/17 07/05/19 01/30/19 History Alendronate Sodium 35 mg PO QWEEK 10/24/18 07/05/19 01/30/19 History Calcium Carbonate/Vitamin D3 1 each PO DAILY 10/24/18 07/05/19 01/30/19 History [Os-Kane 500-Vit D3 200 Caplet] Valsartan/Hydrochlorothiazide 1 tab PO QDAY 10/24/18 07/05/19 01/30/19 History [Diovan Hct 320-25 mg] Budesonide/Formoterol Fumarate 2 gm IH BID #1 hfa.aer.ad 11/22/18 07/05/19 01/30/19 Rx [Symbicort 160-4.5 Mcg Inhaler] Pantoprazole [Protonix TAB] 40 mg PO QDAY 02/01/19 07/05/19 01/30/19 History Aspirin BABY CHEW TAB 81 mg PO QDAY 07/05/19 07/05/19 Unknown History AtorvaSTATin 10 mg PO QHS 07/05/19 07/05/19 Unknown History Isosorbide Dinitrate [Isordil] 20 mg PO TID 07/05/19 07/05/19 Unknown History Apixaban [Eliquis] 5 mg PO Q12HR #60 tablet 07/07/19 Unknown Rx Albuterol Sulfate [Proair 90 mcg IH Q4H #1 aer.pw.bas 11/04/20 Unknown Rx Digihaler] predniSONE [Deltasone] 20 mg PO QDAY #5 tab 11/04/20 Unknown Rx ED Physical Exam - General Limitations: No Limitations - Other Other exam information: General: Awake and alert. No acute distress. Head: Atraumatic, normocephalic. Eyes: EOMI. Pupils are equal and round. Normal sclera and conjunctiva. ENT: Oral mucosa is moist. Normal pharyngeal exam. Neck: Supple. No lymphadenopathy. Pulmonary: No respiratory distress. Diffuse moderate expiratory wheezing bilaterally. No rhonchi or stridor. Cardiac: Regular rate and rhythm. Pulses are palpable and equal bilaterally. No lower extremity cyanosis. Bilateral nonpitting lower extremity edema. Skin: Warm and dry. No rashes. Abdomen: Soft, non-tender, non-protuberant. No guarding, rigidity, or rebound. Bowel sounds are normal. No organomegaly or masses noted. Back: Normal alignment. No CVA tenderness. Extremities: Symmetrical. Full range of motion intact. Neurological: Alert and oriented, appropriately interactive, no focal deficits. Psych: Cooperative. Appropriate mood and affect. Speech is evenly metered. Thoughts are logically construed. ED Course Vital Signs 11/04/20 11/04/20 11/04/20 19:09 19:29 20:57 Temperature 98.2 F Pulse Rate 96 H Pulse Rate [ 86 66 Bilateral] Respiratory 22 Rate Respiratory 20 20 Rate [Bilateral ] Blood Pressure 171/109 O2 Sat by Pulse 96 Oximetry 11/04/20 23:00 Temperature Pulse Rate 67 Pulse Rate [ Bilateral] Respiratory 17 Rate Respiratory Rate [Bilateral ] Blood Pressure O2 Sat by Pulse 97 Oximetry ED Medical Decision Making - Lab Data Result diagrams: 11/04/20 19:46 11/04/20 19:46 - Medical Decision Making Differential diagnosis including but not limited to: asthma exacerbation, CHF exacerbation, acute coronary syndrome, cardiac arrhythmia, pericarditis, pericardial fusion/cardiac tamponade, pleural effusion, myocarditis, viral upper respiratory infection On re-evaluation, patient is stable and symptoms have improved. Repeat cardiopulmonary exam demonstrates significant improvement in patient's wheezing. Labs are unremarkable. Chest x-ray without acute process. Patient states she feels much better and is ready to go home. No hypoxia, no respiratory distress. She is ambulatory without assistance and tolerating PO without difficulty. No oxygen desaturation with ambulation, 94%-95%. History and exam findings consistent with acute asthma exacerbation. Patient will be discharged home with albuterol inhaler and glucocorticoids. Emphasized the importance of limiting exposure to environmental/occupational triggers, which may worsen her symptoms. Patient expressed understanding and is agreeable to plan of care. Strict return precautions provided. Of note, patient's blood pressure was elevated in the emergency department. She has a well-documented history of hypertension and states that she has not yet taken her nighttime antihypertensive medication. She is compliant with her medication and states she will take her blood pressure medicine as scheduled upon returning home. Repeat exam is unremarkable and benign. History, exam, diagnostic testing, and current condition do not suggest worrisome pathology to warrant further testing, continued ED treatment, admission, or surgical evaluation at this point. Given the low probability of a significant medical illness, it would be more likely to result in harm than benefit to perform further testing at this stage. Discussed findings, presumptive diagnosis, need for follow-up and specific signs/symptoms that should prompt immediate return to the emergency department. Instructions were explained in detail to the patient in addition to giving written discharge information. Patient expressed understanding and was given the opportunity to ask questions, all of which were satisfactorily answered prior to discharge home. Critical care attestation.: If time is entered above; I have spent that time in minutes in the direct care of this critically ill patient, excluding procedure time. ED Disposition Clinical Impression: Asthma exacerbation Qualifiers: Asthma severity: unspecified severity Asthma persistence: unspecified Qualified Code(s): J45.901 - Unspecified asthma with (acute) exacerbation Disposition: DC-01 TO HOME OR SELFCARE Is pt being admited?: No Does the pt Need Aspirin: No Condition: Stable Instructions: Asthma, Adult Additional Instructions: Use Albuterol as directed. Take Prednisone with food as directed. Continue all other medications as previously prescribed. Rest. Gradually advance physical activity slowly as tolerated. Avoid environmental/occupational exposures which may worsen your asthma. Follow-up with your primary care provider this week. Call tomorrow to schedule an appointment. Return to the emergency department immediately for new or worsening symptoms. Specifically, return to the emergency department immediately for fever, shortness of breath, wheezing, worsening lower extremity swelling, chest pain, or any other concerns. Prescriptions: predniSONE [Deltasone] 20 mg PO QDAY #5 tab Albuterol Sulfate [Proair Digihaler] 90 mcg IH Q4H #1 aer.pw.bas Referrals: AIDA TALLEY MD [Staff Physician] - 3-5 Days Forms: Work/School Release Form(ED) Time of Disposition: 22:48
[2020-11-04 20:15] LABS: Basophils # (Auto) 0.1 K/mm3 (0.0-0.1); Basophils % (Auto) 1.2 % (0.0-1.8); Eosinophils # (Auto) 0.2 K/mm3 (0.0-0.4); Eosinophils % (Auto) 4.7 % (0.0-4.3); Hematocrit 43.5 % (30.3-42.9); Hemoglobin 14.2 gm/dl (10.1-14.3); Lymphocytes # (Auto) 2.1 K/mm3 (1.2-5.4); Lymphocytes % (Auto) 45.9 % (13.4-35.0); Mean Corpuscular HGB Conc 33 % (30-34); Mean Corpuscular Volume 88 fl (79-97); Monocytes # (Auto) 0.5 K/mm3 (0.0-0.8); Monocytes % (Auto) 10.2 % (0.0-7.3); Platelet Count 142 K/mm3 (140-440); Red Blood Count 4.95 M/mm3 (3.65-5.03); Red Cell Distribution Width 14.5 % (13.2-15.2)
[2020-11-04 20:21] LABS: Alanine Aminotransferase 12 units/L (7-56); Albumin 3.9 g/dL (3.9-5); BUN/Creatinine Ratio 11; Blood Urea Nitrogen 12 mg/dL (7-17); Calcium 9.3 mg/dL (8.4-10.2); Hemolysis Index 6
--- NOTE | 2020-11-04 20:31 | XRay Report ---
CHEST 1 VIEW 11/04/2020 7:40 PM INDICATION / CLINICAL INFORMATION: SOB; hx asthma/CHF. COMPARISON: Chest x-ray 07/05/2019 FINDINGS: SUPPORT DEVICES: Left subclavian pacemaker/ICD leads. HEART / MEDIASTINUM: No significant abnormality. LUNGS / PLEURA: No significant pulmonary or pleural abnormality. No pneumothorax. ADDITIONAL FINDINGS: No significant additional findings. IMPRESSION: 1. No acute findings. Signer Name: Kenneth Palacio MD Signed: 11/04/2020 8:26 PM Workstation Name: [id number]
[2020-11-04] MEDS ORDERED: methylPREDNISolone Sod Succinate 125 MG/2 ML INJ IM ONE (20:32)
[2020-11-04] MEDS ORDERED: IPRATROPIUM 0.02% NEBU 2.5 ML IH ONE (20:41)
[2020-11-04] MEDS ORDERED: FUROSEMIDE 20 MG TAB PO ONE (20:43)
== END 2020-11-04 23:00 | disposition home or self-care (01) ==
LOC: ED 19:06
DX: J45.901 Unspecified asthma with (acute) exacerbation (principal); I25.2 Old myocardial infarction; I10 Essential (primary) hypertension; K21.9 Gastro-esophageal reflux disease without esophagitis; E11.9 Type 2 diabetes mellitus without complications; G40.909 Epilepsy, unspecified, not intractable, without status epilepticus; M19.90 Unspecified osteoarthritis, unspecified site; F17.200 Nicotine dependence, unspecified, uncomplicated; Z98.890 Other specified postprocedural states; Z79.82 Long term (current) use of aspirin; Z79.899 Other long term (current) drug therapy; Z88.8 Allergy status to other drugs, medicaments and biological substances
CPT/HCPCS: 36415; 71045; 80053; 83735; 83880; 84484; 85025; 94640; 96372; 99284; J2930; 94644

== ENCOUNTER 2020-11-20 19:04 | Emergency (ER) | payer BC, MEDICARE ==
[2020-11-20] MEDS ORDERED: ALBUTEROL 2.5 MG/3 ML NEBU IH ONE (19:08)
[2020-11-20] MEDS ORDERED: methylPREDNISolone Sod Succinate 125 MG/2 ML INJ IM ONE (19:08)
[2020-11-20] MEDS ORDERED: IPRATROPIUM 0.02% NEBU 2.5 ML IH ONE (19:08)
[2020-11-20 19:41] VITALS: BP 154/103
--- NOTE | 2020-11-20 19:43 | Emergency Department Report ---
<GLADIS MCNULTY III - Last Filed: 11/20/20 20:38> ED Asthma HPI - General Chief Complaint: Dyspnea/Respdistress Stated Complaint: CHRISTIANO - Related Data Home Medications Medication Instructions Recorded Confirmed Last Taken Aspirin [Aspirin Enteric Coated] 81 mg PO DAILY 11/20/13 07/05/19 01/30/19 Ropinirole HCl [Requip] 2 mg PO HS 05/31/17 07/05/19 01/30/19 Alendronate Sodium 35 mg PO QWEEK 10/24/18 07/05/19 01/30/19 Calcium Carbonate/Vitamin D3 1 each PO DAILY 10/24/18 07/05/19 01/30/19 [Os-Kane 500-Vit D3 200 Caplet] Valsartan/Hydrochlorothiazide 1 tab PO QDAY 10/24/18 07/05/19 01/30/19 [Diovan Hct 320-25 mg] Pantoprazole [Protonix TAB] 40 mg PO QDAY 02/01/19 07/05/19 01/30/19 Aspirin BABY CHEW TAB 81 mg PO QDAY 07/05/19 07/05/19 Unknown AtorvaSTATin 10 mg PO QHS 07/05/19 07/05/19 Unknown Isosorbide Dinitrate [Isordil] 20 mg PO TID 07/05/19 07/05/19 Unknown Previous Rx's Medication Instructions Recorded Last Taken Type Budesonide/Formoterol Fumarate 2 gm IH BID #1 hfa.aer.ad 11/22/18 01/30/19 Rx [Symbicort 160-4.5 Mcg Inhaler] Apixaban [Eliquis] 5 mg PO Q12HR #60 tablet 07/07/19 Unknown Rx Albuterol Sulfate [Proair 90 mcg IH Q4H #1 aer.pw.bas 11/04/20 Unknown Rx Digihaler] predniSONE [Deltasone] 20 mg PO QDAY #5 tab 11/04/20 Unknown Rx ALBUTEROL NEB's [Proventil 0.083% 2.5 mg IH TID PRN 30 Days #1 box 11/20/20 Unknown Rx NEBS] Prednisone [predniSONE 10 mg 10 mg PO .TAPER #1 tab.ds.pk 11/20/20 Unknown Rx (6-Day Pack, 21 Tabs)] Allergies Allergy/AdvReac Type Severity Reaction Status Date / Time erythromycin base Allergy Anaphylaxis Verified 05/31/17 17:24 [Erythromycin Base] levofloxacin [From Levaquin] Allergy Swelling Verified 11/30/18 15:20 montelukast sodium Allergy Itching Verified 05/31/17 17:24 [From Singulair] ED Past Medical Hx - Medications Home Medications: Home Medications Medication Instructions Recorded Confirmed Last Taken Type Aspirin [Aspirin Enteric Coated] 81 mg PO DAILY 11/20/13 07/05/19 01/30/19 History Ropinirole HCl [Requip] 2 mg PO HS 05/31/17 07/05/19 01/30/19 History Alendronate Sodium 35 mg PO QWEEK 10/24/18 07/05/19 01/30/19 History Calcium Carbonate/Vitamin D3 1 each PO DAILY 10/24/18 07/05/19 01/30/19 History [Os-Kane 500-Vit D3 200 Caplet] Valsartan/Hydrochlorothiazide 1 tab PO QDAY 10/24/18 07/05/19 01/30/19 History [Diovan Hct 320-25 mg] Budesonide/Formoterol Fumarate 2 gm IH BID #1 hfa.aer.ad 11/22/18 07/05/19 01/30/19 Rx [Symbicort 160-4.5 Mcg Inhaler] Pantoprazole [Protonix TAB] 40 mg PO QDAY 02/01/19 07/05/19 01/30/19 History Aspirin BABY CHEW TAB 81 mg PO QDAY 07/05/19 07/05/19 Unknown History AtorvaSTATin 10 mg PO QHS 07/05/19 07/05/19 Unknown History Isosorbide Dinitrate [Isordil] 20 mg PO TID 07/05/19 07/05/19 Unknown History Apixaban [Eliquis] 5 mg PO Q12HR #60 tablet 07/07/19 Unknown Rx Albuterol Sulfate [Proair 90 mcg IH Q4H #1 aer.pw.bas 11/04/20 Unknown Rx Digihaler] predniSONE [Deltasone] 20 mg PO QDAY #5 tab 11/04/20 Unknown Rx ALBUTEROL NEB's [Proventil 0.083% 2.5 mg IH TID PRN 30 Days #1 box 11/20/20 Unknown Rx NEBS] Prednisone [predniSONE 10 mg 10 mg PO .TAPER #1 tab.ds.pk 11/20/20 Unknown Rx (6-Day Pack, 21 Tabs)] ED Course - Reevaluation(s) Reevaluation #1: I reviewed the findings and management of this patient in real-time and I have personally seen and examined this patient and participated in the decision making for this patient with the midlevel. Patient is a 65-year-old female with a known history of asthma presents emergency room with asthma exacerbation and status asthmaticus and wheezing. Patient is currently receiving a DuoNeb. I examined the patient. Patient's lung sounds have wheezing throughout. Patient is not in respiratory distress. Patient CV exam is a normal S1-S2 no murmurs noted. Patient will be given Solu-Medrol. 11/20/20 20:26 Reevaluation #2: Patient states she is feeling much better. Patient's lung sounds are clear. Patient will be discharged home. I discussed all results and clinical findings with patient. I discussed plan of care with patient. Patient agrees with plan of care. Patient is stable for discharge. Patient will be discharged home. Patient given discharge instructions. Patient voiced understanding of discharge instructions. 11/20/20 21:27 ED Disposition Clinical Impression: Asthma exacerbation attacks Qualifiers: Asthma severity: severe Asthma persistence: unspecified Qualified Code(s): J45.901 - Unspecified asthma with (acute) exacerbation Disposition: DC- TO HOME OR SELFCARE Condition: Stable Instructions: Asthma Attack Prevention, Adult Additional Instructions: Complete prednisone as prescribed. Continue use of your inhalers and nebulizer treatments. Follow-up with your primary care provider. Prescriptions: Prednisone [predniSONE 10 mg (6-Day Pack, 21 Tabs)] 10 mg PO .TAPER #1 tab.ds.pk ALBUTEROL NEB's [Proventil 0.083% NEBS] 2.5 mg IH TID PRN 30 Days #1 box PRN Reason: Wheezing Referrals: PRIMARY CARE, [Primary Care Provider] - 3-5 Days Forms: Work/School Release Form(ED) <MEDINA HERNANDEZ - Last Filed: 11/21/20 19:55> ED Asthma HPI - General PUI?: No Source: patient - History of Present Illness Initial Comments: 65-year-old -[place] female that is known to this provider presents to the emergency room with shortness of breath and wheezing. Patient has a history of uncontrolled asthma and has a history of being intubated and hospitalized. Patient reports her chest is tight. She reports she is compliant on her medications. MD Complaint: "asthma attack", wheezing -: This evening Asthma History: history of prior ED visit, previously intubated Severity: severe, similar to prior Context: none known Associated Symptoms: dry cough - Related Data Current Asthma Therapy: inhaled bronchodilator ED Review of Systems ROS: Stated complaint: CHRISTIANO Other details as noted in HPI Comment: All other systems reviewed and negative ED Past Medical Hx - Past Medical History Hx Hypertension: Yes Hx Heart Attack/AMI: Yes () Hx Congestive Heart Failure: Yes (5 YRS AGO) Hx Diabetes: No Hx Deep Vein Thrombosis: Yes Hx GERD: Yes Hx Liver Disease: No Hx Renal Disease: No Hx Sickle Cell Disease: No Hx Arthritis: Yes Hx Seizures: Yes ( CHILD ONLY) Hx Kidney Stones: Yes Hx Asthma: Yes (inhaled steroids) Hx COPD: Yes (will use home inhalers in preop) Hx HIV: No Additional medical history: diverticulitis restless leg - Surgical History Hx Coronary Stent: No Hx Pacemaker: Yes (last interrogated 1 month ago, per patient) Hx Internal Defibrillator: Yes (placed 2/2 cardiomyopathy wtih low EF in 2008; EF improved) Hx Cholecystectomy: Yes Hx Breast Surgery: Yes (SARAI BREAST RECONSTRUCTION) Additional Surgical History: defibrillator. blood clot removal - Social History Smoking Status: Current Every Day Smoker Substance Use Type: None ED Physical Exam - General General appearance: alert, in distress - Head Head exam: Present: atraumatic, normocephalic - Eye Eye exam: Present: normal appearance - ENT ENT exam: Present: normal exam, mucous membranes moist, normal external ear exam - Neck Neck exam: Present: normal inspection - Respiratory Respiratory exam: Present: respiratory distress, wheezes, accessory muscle use - Cardiovascular Cardiovascular Exam: Present: regular rate, normal rhythm. Absent: systolic murmur, diastolic murmur, rubs, gallop - Back Exam Back exam: Present: normal inspection, full ROM ED Course Vital Signs 11/20/20 11/20/20 11/20/20 19:39 20:08 21:45 Temperature 97.8 F Pulse Rate 82 63 64 Respiratory 30 H 18 17 Rate Blood Pressure 154/103 [Left] O2 Sat by Pulse 97 100 100 Oximetry - Reevaluation(s) Reevaluation #3: 11/20/20 21:30 Patient respiratory status has improved. There is no longer wheezing. Patient is no longer using accessory muscles. ED Medical Decision Making - Medical Decision Making 65-year-old -[place] female that is known to this provider presents to the emergency room with shortness of breath and wheezing. Patient has a history of uncontrolled asthma and has a history of being intubated and hospitalized. Patient reports her chest is tight. She reports she is compliant on her medications. Albuterol 10 mg inhalation, 1 mg of Atrovent inhalation. Solu-Medrol 125 mg IV. Patient improved after treatment. Consulted Dr. Mcnulty to evaluate patient. Patient to be discharged on prednisone taper. Refill on albuterol nebulizer solution. Follow-up with primary care provider. Critical care attestation.: If time is entered above; I have spent that time in minutes in the direct care of this critically ill patient, excluding procedure time. ED Disposition Is pt being admited?: No Does the pt Need Aspirin: No
== END 2020-11-20 21:45 | disposition home or self-care (01) ==
LOC: ED 19:04
DX: J45.901 Unspecified asthma with (acute) exacerbation (principal); I11.0 Hypertensive heart disease with heart failure; I50.9 Heart failure, unspecified; I25.2 Old myocardial infarction; K21.9 Gastro-esophageal reflux disease without esophagitis; M19.91 Primary osteoarthritis, unspecified site; R56.9 Unspecified convulsions; Z90.49 Acquired absence of other specified parts of digestive tract; Z98.890 Other specified postprocedural states; F17.200 Nicotine dependence, unspecified, uncomplicated; Z88.1 Allergy status to other antibiotic agents; Z88.8 Allergy status to other drugs, medicaments and biological substances
CPT/HCPCS: 94640; 96372; 99282; J2930

== ENCOUNTER 2021-04-08 10:56 | Outpatient (CLI) | payer BC, MEDICARE ==
--- NOTE | 2021-04-08 12:48 | XRay Report ---
CHEST 2 VIEWS INDICATION / CLINICAL INFORMATION: Shortness of breath, department clerk placed 03/31/2021.. COMPARISON: 11/04/2020, 07/05/2019. FINDINGS: SUPPORT DEVICES: 3-lead cardiac pacemaker is again noted with artifact overlying left chest. There is slightly different orientation of the power pack with respect to the proximal leads, compatible with recent reported change. HEART / MEDIASTINUM: Stable. LUNGS / PLEURA: No significant pulmonary or pleural abnormality. No pneumothorax. ADDITIONAL FINDINGS: No significant additional findings. IMPRESSION: No evidence of acute cardiopulmonary process. A triple lead cardiac pacemaker overlies the left chest. Signer Name: Asim Anne MD Signed: 04/08/2021 12:43 PM Workstation Name: [id number]
== END 2021-04-08 10:57 | disposition home or self-care (01) ==
LOC: XRAY 10:56
PROVIDERS: ATTEND Internal Medicine Cardiovascular Disease
DX: I42.0 Dilated cardiomyopathy (principal); Z95.2 Presence of prosthetic heart valve
CPT/HCPCS: 71046

== ENCOUNTER 2021-07-30 19:11 | Emergency (ER) | payer BC, MEDICARE ==
[2021-07-30] MEDS ORDERED: IPRATROPIUM 0.02% NEBU 2.5 ML IH ONE ×2 (19:14→19:15)
[2021-07-30] MEDS ORDERED: dexAMETHasone 20 MG/5 ML VIAL IV ONE (19:15)
[2021-07-30] MEDS ORDERED: ALBUTEROL 2.5 MG/3 ML NEBU IH ONE ×2 (19:15)
[2021-07-30] MEDS ORDERED: MAGNESIUM SULFATE 2 GM/50 ML BAG IV ONE (19:36)
--- NOTE | 2021-07-30 20:22 | XRay Report ---
XR chest 1V ap INDICATION / CLINICAL INFORMATION: SOB, wheezing COMPARISON: 04/08/2021 FINDINGS: SUPPORT DEVICES: transvenous left AICD HEART / MEDIASTINUM: No significant abnormality. LUNGS / PLEURA: Lungs are clear. Costophrenic sulci are sharp. No pneumothorax. ADDITIONAL FINDINGS: No significant additional findings. IMPRESSION: 1. No acute findings. Signer Name: Sulaiman Triana MD Signed: 07/30/2021 8:17 PM Workstation Name: [id number]
--- NOTE | 2021-07-30 20:52 | Emergency Department Report ---
ED Asthma HPI - General Stated Complaint: ASTHMA Time Seen by Provider: 07/30/21 19:15 Source: patient Mode of arrival: Ambulatory Limitations: No Limitations - History of Present Illness Initial Comments: Patient is a 66-year-old female presents emergency room complaints of an asthma exacerbation that began this morning. She states that she has been using her treatments at home with no relief. She has associated cough with clear mucus production. She denies any fever, vomiting, diarrhea. She has associated shortness of breath, wheezing, chest tightness. She states that she has been intubated in the past. Allergy to erythromycin, Levaquin, Singulair. - Related Data Home Medications Medication Instructions Recorded Confirmed Last Taken Aspirin [Aspirin Enteric Coated] 81 mg PO DAILY 11/20/13 07/05/19 01/30/19 Ropinirole HCl [Requip] 2 mg PO HS 05/31/17 07/05/19 01/30/19 Alendronate Sodium 35 mg PO QWEEK 10/24/18 07/05/19 01/30/19 Calcium Carbonate/Vitamin D3 1 each PO DAILY 10/24/18 07/05/19 01/30/19 [Os-Kane 500-Vit D3 200 Caplet] Valsartan/Hydrochlorothiazide 1 tab PO QDAY 10/24/18 07/05/19 01/30/19 [Diovan Hct 320-25 mg] Pantoprazole [Protonix TAB] 40 mg PO QDAY 02/01/19 07/05/19 01/30/19 Aspirin BABY CHEW TAB 81 mg PO QDAY 07/05/19 07/05/19 Unknown AtorvaSTATin 10 mg PO QHS 07/05/19 07/05/19 Unknown Isosorbide Dinitrate [Isordil] 20 mg PO TID 07/05/19 07/05/19 Unknown Previous Rx's Medication Instructions Recorded Last Taken Type Budesonide/Formoterol Fumarate 2 gm IH BID #1 hfa.aer.ad 11/22/18 01/30/19 Rx [Symbicort 160-4.5 Mcg Inhaler] Apixaban [Eliquis] 5 mg PO Q12HR #60 tablet 07/07/19 Unknown Rx Albuterol Sulfate [Proair 90 mcg IH Q4H #1 aer.pw.bas 11/04/20 Unknown Rx Digihaler] predniSONE [Deltasone] 20 mg PO QDAY #5 tab 11/04/20 Unknown Rx ALBUTEROL NEB's [Proventil 0.083% 2.5 mg IH TID PRN 30 Days #1 box 11/20/20 Unknown Rx NEBS] Prednisone [predniSONE 10 mg 10 mg PO .TAPER #1 tab.ds.pk 11/20/20 Unknown Rx (6-Day Pack, 21 Tabs)] predniSONE [Deltasone] 40 mg PO QDAY 5 Days #10 tab 07/30/21 Unknown Rx Allergies Allergy/AdvReac Type Severity Reaction Status Date / Time erythromycin base Allergy Anaphylaxis Verified 05/31/17 17:24 [Erythromycin Base] levofloxacin [From Levaquin] Allergy Swelling Verified 11/30/18 15:20 montelukast sodium Allergy Itching Verified 05/31/17 17:24 [From Singulair] ED Review of Systems ROS: Stated complaint: ASTHMA Other details as noted in HPI Comment: All other systems reviewed and negative ED Past Medical Hx - Past Medical History Hx Hypertension: Yes Hx Heart Attack/AMI: Yes () Hx Congestive Heart Failure: Yes (5 YRS AGO) Hx Diabetes: No Hx Deep Vein Thrombosis: Yes Hx GERD: Yes Hx Liver Disease: No Hx Renal Disease: No Hx Sickle Cell Disease: No Hx Arthritis: Yes Hx Seizures: Yes ( CHILD ONLY) Hx Kidney Stones: Yes Hx Asthma: Yes (inhaled steroids) Hx COPD: Yes (will use home inhalers in preop) Hx HIV: No Additional medical history: diverticulitis restless leg - Surgical History Hx Coronary Stent: No Hx Pacemaker: Yes (last interrogated 1 month ago, per patient) Hx Internal Defibrillator: Yes (placed 2/2 cardiomyopathy wtih low EF in 2008; EF improved) Hx Cholecystectomy: Yes Hx Breast Surgery: Yes (SARAI BREAST RECONSTRUCTION) Additional Surgical History: defibrillator. blood clot removal - Social History Smoking Status: Current Every Day Smoker Substance Use Type: None - Medications Home Medications: Home Medications Medication Instructions Recorded Confirmed Last Taken Type Aspirin [Aspirin Enteric Coated] 81 mg PO DAILY 11/20/13 07/05/19 01/30/19 History Ropinirole HCl [Requip] 2 mg PO HS 05/31/17 07/05/19 01/30/19 History Alendronate Sodium 35 mg PO QWEEK 10/24/18 07/05/19 01/30/19 History Calcium Carbonate/Vitamin D3 1 each PO DAILY 10/24/18 07/05/19 01/30/19 History [Os-Kane 500-Vit D3 200 Caplet] Valsartan/Hydrochlorothiazide 1 tab PO QDAY 10/24/18 07/05/19 01/30/19 History [Diovan Hct 320-25 mg] Budesonide/Formoterol Fumarate 2 gm IH BID #1 hfa.aer.ad 11/22/18 07/05/19 01/30/19 Rx [Symbicort 160-4.5 Mcg Inhaler] Pantoprazole [Protonix TAB] 40 mg PO QDAY 02/01/19 07/05/19 01/30/19 History Aspirin BABY CHEW TAB 81 mg PO QDAY 07/05/19 07/05/19 Unknown History AtorvaSTATin 10 mg PO QHS 07/05/19 07/05/19 Unknown History Isosorbide Dinitrate [Isordil] 20 mg PO TID 07/05/19 07/05/19 Unknown History Apixaban [Eliquis] 5 mg PO Q12HR #60 tablet 07/07/19 Unknown Rx Albuterol Sulfate [Proair 90 mcg IH Q4H #1 aer.pw.bas 11/04/20 Unknown Rx Digihaler] predniSONE [Deltasone] 20 mg PO QDAY #5 tab 11/04/20 Unknown Rx ALBUTEROL NEB's [Proventil 0.083% 2.5 mg IH TID PRN 30 Days #1 box 11/20/20 Unknown Rx NEBS] Prednisone [predniSONE 10 mg 10 mg PO .TAPER #1 tab.ds.pk 11/20/20 Unknown Rx (6-Day Pack, 21 Tabs)] predniSONE [Deltasone] 40 mg PO QDAY 5 Days #10 tab 07/30/21 Unknown Rx ED Physical Exam - General General appearance: alert - Head Head exam: Present: atraumatic, normocephalic - Eye Eye exam: Present: normal appearance - ENT ENT exam: Present: mucous membranes moist - Respiratory Respiratory exam: Present: respiratory distress ( moderate), wheezes, decreased breath sounds, prolonged expiratory, other (audible wheezing without auscultation). Absent: rales, rhonchi, stridor, chest wall tenderness, accessory muscle use - Cardiovascular Cardiovascular Exam: Present: regular rate, normal rhythm - Neurological Exam Neurological exam: Present: alert, oriented X3 - Psychiatric Psychiatric exam: Present: normal affect, normal mood - Skin Skin exam: Present: warm, dry, intact ED Course Vital Signs 07/30/21 07/30/21 07/30/21 19:30 20:30 21:16 Temperature 97.8 F Pulse Rate 76 66 68 Respiratory 20 18 17 Rate Blood Pressure 120/63 [Left] O2 Sat by Pulse 99 98 99 Oximetry 07/30/21 23:00 Temperature Pulse Rate 77 Respiratory 17 Rate Blood Pressure [Left] O2 Sat by Pulse 98 Oximetry ED Medical Decision Making - Lab Data Vital Signs 07/30/21 07/30/21 07/30/21 19:30 20:30 21:16 Temperature 97.8 F Pulse Rate 76 66 68 Respiratory 20 18 17 Rate Blood Pressure 120/63 [Left] O2 Sat by Pulse 99 98 99 Oximetry 07/30/21 23:00 Temperature Pulse Rate 77 Respiratory 17 Rate Blood Pressure [Left] O2 Sat by Pulse 98 Oximetry - Radiology Data Radiology results: report reviewed Ordering Physician: ELLIOT FARRELL Date of Service: 07/30/21 Procedure(s): XR chest 1V ap Accession Number(s): [id number] cc: ELLIOT FARRELL Fluoro Time In Minutes: XR chest 1V ap INDICATION / CLINICAL INFORMATION: SOB, wheezing COMPARISON: 04/08/2021 FINDINGS: SUPPORT DEVICES: transvenous left AICD HEART / MEDIASTINUM: No significant abnormality. LUNGS / PLEURA: Lungs are clear. Costophrenic sulci are sharp. No pneumothorax. ADDITIONAL FINDINGS: No significant additional findings. IMPRESSION: 1. No acute findings. Signer Name: Sulaiman Triana MD Signed: 07/30/2021 8:17 PM Workstation Name: [id number] Transcribed By: CS Dictated By: Sulaiman Triana MD Electronically Authenticated By: Sulaiman Triana MD Signed Date/Time: 07/30/212016 DD/ 16 TD/TT: - Medical Decision Making Patient is a 66-year-old female presents emergency room complaints of an asthma exacerbation that began this morning. She states that she has been using her treatments at home with no relief. She has associated cough with clear mucus production. She denies any fever, vomiting, diarrhea. She has associated shortness of breath, wheezing, chest tightness. She states that she has been intubated in the past. Allergy to erythromycin, Levaquin, Singulair. On exam patient has moderate respiratory distress, wheezing bilaterally, prolonged expiratory phase, no accessory muscle use, no rales, no stridor. Chest x-ray with no acute process. Patient given continuous neb treatment, IV magnesium, IV dexamethasone and on reexamination wheezing has significantly improved. Patient states that she is feeling much better. She no longer has audible wheezing without auscultation. Patient states that she has plenty of nebulizer solution and inhalers at home. Patient will be placed on 5 days of steroids. Advised patient please take medication as prescribed. Please do your nebulizer treatments every 4 hours as needed for wheezing and shortness of breath until your symptoms improve. Follow-up with your primary care doctor. Return to emergency room immediately for any new or worsening symptoms. Critical care attestation.: If time is entered above; I have spent that time in minutes in the direct care of this critically ill patient, excluding procedure time. ED Disposition Clinical Impression: Asthma exacerbation Qualifiers: Asthma severity: unspecified severity Asthma persistence: unspecified Qualified Code(s): J45.901 - Unspecified asthma with (acute) exacerbation Disposition: 01 HOME / SELF CARE / HOMELESS Is pt being admited?: No Does the pt Need Aspirin: No Condition: Stable Instructions: Asthma, Adult Additional Instructions: please take medication as prescribed. Please do your nebulizer treatments every 4 hours as needed for wheezing and shortness of breath until your symptoms improve. Follow-up with your primary care doctor. Return to emergency room immediately for any new or worsening symptoms. Prescriptions: predniSONE [Deltasone] 40 mg PO QDAY 5 Days #10 tab Referrals: your, primary care doctor [Other] - 3-5 Days Time of Disposition: 21:04 Print Language: LITHUANIAN
[2021-07-30 21:21] VITALS: BP 120/63
== END 2021-07-30 23:00 | disposition home or self-care (01) ==
LOC: ED 19:11
DX: J45.901 Unspecified asthma with (acute) exacerbation (principal); I11.0 Hypertensive heart disease with heart failure; I50.9 Heart failure, unspecified; K21.9 Gastro-esophageal reflux disease without esophagitis; J45.909 Unspecified asthma, uncomplicated; F17.200 Nicotine dependence, unspecified, uncomplicated
CPT/HCPCS: 71045; 96365; 96375; 99283; J1100; J3475

== ENCOUNTER 2021-08-12 19:46 | Emergency (ER) | payer BC, MEDICARE ==
[2021-08-12] MEDS ORDERED: ALBUTEROL 2.5 MG/3 ML NEBU IH ONE (20:20)
[2021-08-12] MEDS ORDERED: IPRATROPIUM 0.02% NEBU 2.5 ML IH ONE (20:20)
--- NOTE | 2021-08-13 00:28 | Emergency Department Report ---
ED Asthma HPI - General Chief Complaint: Dyspnea/Respdistress Stated Complaint: CHRISTIANO PUI?: No Time Seen by Provider: 08/12/21 20:02 Source: patient, EMS Mode of arrival: Stretcher Limitations: No Limitations - History of Present Illness Initial Comments: Chief complaint: Asthma attack HPI: This is a 66-year-old female with history of severe persistent asthma with history of intubation x1, hypertension, breast cancer in remission, kidney stone, cardiomyopathy who presents with shortness of breath wheezing. Sudden onset of shortness of breath while in the kitchen. She was evaluated in the emergency department on July 30. She took her last dose of prednisone yesterday. Patient received IV Solu-Medrol and IV magnesium via EMS She denies fever, cough, chest pain. Pulmonology Dr. Minh LOMAX Complaint: "asthma attack", shortness of breath, wheezing -: Sudden, This afternoon Asthma History: history of frequent attac, previously intubated, followed by specialist Severity: moderate Associated Symptoms: none Treatments Prior to Arrival: inhaled bronchodilator, other (IV steroid, IV magnesium) - Related Data Home Medications Medication Instructions Recorded Confirmed Last Taken Aspirin [Aspirin Enteric Coated] 81 mg PO DAILY 11/20/13 07/05/19 01/30/19 Ropinirole HCl [Requip] 2 mg PO HS 05/31/17 07/05/19 01/30/19 Alendronate Sodium 35 mg PO QWEEK 10/24/18 07/05/19 01/30/19 Calcium Carbonate/Vitamin D3 1 each PO DAILY 10/24/18 07/05/19 01/30/19 [Os-Knae 500-Vit D3 200 Caplet] Valsartan/Hydrochlorothiazide 1 tab PO QDAY 10/24/18 07/05/19 01/30/19 [Diovan Hct 320-25 mg] Pantoprazole [Protonix TAB] 40 mg PO QDAY 02/01/19 07/05/19 01/30/19 Aspirin BABY CHEW TAB 81 mg PO QDAY 07/05/19 07/05/19 Unknown AtorvaSTATin 10 mg PO QHS 07/05/19 07/05/19 Unknown Isosorbide Dinitrate [Isordil] 20 mg PO TID 07/05/19 07/05/19 Unknown Previous Rx's Medication Instructions Recorded Last Taken Type Budesonide/Formoterol Fumarate 2 gm IH BID #1 hfa.aer.ad 11/22/18 01/30/19 Rx [Symbicort 160-4.5 Mcg Inhaler] Apixaban [Eliquis] 5 mg PO Q12HR #60 tablet 07/07/19 Unknown Rx Albuterol Sulfate [Proair 90 mcg IH Q4H #1 aer.pw.bas 11/04/20 Unknown Rx Digihaler] predniSONE [Deltasone] 20 mg PO QDAY #5 tab 11/04/20 Unknown Rx ALBUTEROL NEB's [Proventil 0.083% 2.5 mg IH TID PRN 30 Days #1 box 11/20/20 Unknown Rx NEBS] Prednisone [predniSONE 10 mg 10 mg PO .TAPER #1 tab.ds.pk 11/20/20 Unknown Rx (6-Day Pack, 21 Tabs)] predniSONE [Deltasone] 40 mg PO QDAY 5 Days #10 tab 07/30/21 Unknown Rx Prednisone [predniSONE 10 mg 10 mg PO .TAPER #1 08/13/21 Unknown Rx (6-Day Pack, 21 Tabs)] Allergies Allergy/AdvReac Type Severity Reaction Status Date / Time erythromycin base Allergy Anaphylaxis Verified 05/31/17 17:24 [Erythromycin Base] levofloxacin [From Levaquin] Allergy Swelling Verified 11/30/18 15:20 montelukast sodium Allergy Itching Verified 05/31/17 17:24 [From Singulair] ED Review of Systems ROS: Stated complaint: CHRISTIANO Other details as noted in HPI Comment: All other systems reviewed and negative Constitutional: denies: chills, fever, malaise Respiratory: shortness of breath, wheezing Cardiovascular: denies: chest pain Gastrointestinal: denies: abdominal pain, nausea, vomiting ED Past Medical Hx - Past Medical History Previous Medical History?: Yes Hx Hypertension: Yes Hx Heart Attack/AMI: Yes () Hx Congestive Heart Failure: Yes (5 YRS AGO) Hx Diabetes: No Hx Deep Vein Thrombosis: Yes Hx GERD: Yes Hx Liver Disease: No Hx Renal Disease: No Hx Sickle Cell Disease: No Hx Arthritis: Yes Hx Seizures: Yes ( CHILD ONLY) Hx Kidney Stones: Yes Hx Asthma: Yes (inhaled steroids) Hx COPD: Yes (will use home inhalers in preop) Hx HIV: No Additional medical history: diverticulitis restless leg - Surgical History Past Surgical History?: Yes Hx Coronary Stent: No Hx Pacemaker: Yes (last interrogated 1 month ago, per patient) Hx Internal Defibrillator: Yes (placed 2/2 cardiomyopathy wtih low EF in 2008; EF improved) Hx Cholecystectomy: Yes Hx Breast Surgery: Yes (SARAI BREAST RECONSTRUCTION) Additional Surgical History: defibrillator. blood clot removal - Social History Smoking Status: Current Every Day Smoker Substance Use Type: None - Medications Home Medications: Home Medications Medication Instructions Recorded Confirmed Last Taken Type Aspirin [Aspirin Enteric Coated] 81 mg PO DAILY 11/20/13 07/05/19 01/30/19 History Ropinirole HCl [Requip] 2 mg PO HS 05/31/17 07/05/19 01/30/19 History Alendronate Sodium 35 mg PO QWEEK 10/24/18 07/05/19 01/30/19 History Calcium Carbonate/Vitamin D3 1 each PO DAILY 10/24/18 07/05/19 01/30/19 History [Os-Kane 500-Vit D3 200 Caplet] Valsartan/Hydrochlorothiazide 1 tab PO QDAY 10/24/18 07/05/19 01/30/19 History [Diovan Hct 320-25 mg] Budesonide/Formoterol Fumarate 2 gm IH BID #1 hfa.aer.ad 11/22/18 07/05/19 01/30/19 Rx [Symbicort 160-4.5 Mcg Inhaler] Pantoprazole [Protonix TAB] 40 mg PO QDAY 02/01/19 07/05/19 01/30/19 History Aspirin BABY CHEW TAB 81 mg PO QDAY 07/05/19 07/05/19 Unknown History AtorvaSTATin 10 mg PO QHS 07/05/19 07/05/19 Unknown History Isosorbide Dinitrate [Isordil] 20 mg PO TID 07/05/19 07/05/19 Unknown History Apixaban [Eliquis] 5 mg PO Q12HR #60 tablet 07/07/19 Unknown Rx Albuterol Sulfate [Proair 90 mcg IH Q4H #1 aer.pw.bas 11/04/20 Unknown Rx Digihaler] predniSONE [Deltasone] 20 mg PO QDAY #5 tab 11/04/20 Unknown Rx ALBUTEROL NEB's [Proventil 0.083% 2.5 mg IH TID PRN 30 Days #1 box 11/20/20 Unknown Rx NEBS] Prednisone [predniSONE 10 mg 10 mg PO .TAPER #1 tab.ds.pk 11/20/20 Unknown Rx (6-Day Pack, 21 Tabs)] predniSONE [Deltasone] 40 mg PO QDAY 5 Days #10 tab 07/30/21 Unknown Rx Prednisone [predniSONE 10 mg 10 mg PO .TAPER #1 08/13/21 Unknown Rx (6-Day Pack, 21 Tabs)] ED Physical Exam - General Limitations: No Limitations General appearance: alert, in no apparent distress, other (Speaking full sentences) - Head Head exam: Present: atraumatic, normocephalic - Eye Eye exam: Present: normal appearance - ENT ENT exam: Present: mucous membranes moist - Neck Neck exam: Present: normal inspection - Respiratory Respiratory exam: Present: normal lung sounds bilaterally. Absent: respiratory distress, wheezes, rales, rhonchi - Cardiovascular Cardiovascular Exam: Present: regular rate, normal rhythm, normal heart sounds. Absent: systolic murmur, diastolic murmur, rubs, gallop - GI/Abdominal GI/Abdominal exam: Present: soft, normal bowel sounds. Absent: distended, tenderness, guarding, rebound - Extremities Exam Extremities exam: Present: normal inspection - Back Exam Back exam: Present: normal inspection - Neurological Exam Neurological exam: Present: alert, oriented X3 - Psychiatric Psychiatric exam: Present: normal affect, normal mood - Skin Skin exam: Present: warm, dry, intact, normal color. Absent: rash ED Course Vital Signs 08/12/21 08/12/21 08/12/21 19:46 20:09 20:11 Temperature 98.9 F Pulse Rate 81 92 H Pulse Rate [ Bilateral] Respiratory 18 16 Rate Respiratory Rate [Bilateral ] Blood Pressure Blood Pressure 122/75 [Right] O2 Sat by Pulse 100 100 Oximetry 08/12/21 08/12/21 08/12/21 20:16 20:24 20:30 Temperature Pulse Rate 87 88 Pulse Rate [ 88 Bilateral] Respiratory 18 18 Rate Respiratory 18 Rate [Bilateral ] Blood Pressure 117/65 119/58 Blood Pressure [Right] O2 Sat by Pulse 97 100 Oximetry 08/12/21 08/12/21 20:46 21:00 Temperature Pulse Rate 80 84 Pulse Rate [ Bilateral] Respiratory 13 17 Rate Respiratory Rate [Bilateral ] Blood Pressure 103/62 117/64 Blood Pressure [Right] O2 Sat by Pulse 100 100 Oximetry ED Medical Decision Making - Medical Decision Making Acute asthma exacerbation: Symptoms markedly improved with treatment given via EMS which included albuterol, magnesium, Solu-Medrol. Patient received albuterol 10 mg, Atrovent 1 mg via nebulizer. She is discharged home with prescription for prednisone taper. Critical care attestation.: If time is entered above; I have spent that time in minutes in the direct care of this critically ill patient, excluding procedure time. ED Disposition Clinical Impression: Asthma exacerbation Disposition: 01 HOME / SELF CARE / HOMELESS Is pt being admited?: No Does the pt Need Aspirin: No Condition: Stable Instructions: Asthma Attack Prescriptions: Prednisone [predniSONE 10 mg (6-Day Pack, 21 Tabs)] 10 mg PO .TAPER #1 Referrals: CHAD LARIOS MD [Primary Care Provider] - 3-5 Days
[2021-08-13 03:27] VITALS: BP 138/87
== END 2021-08-13 03:05 | disposition home or self-care (01) ==
LOC: ED 19:46
DX: J45.901 Unspecified asthma with (acute) exacerbation (principal); F17.200 Nicotine dependence, unspecified, uncomplicated; I10 Essential (primary) hypertension; Z90.49 Acquired absence of other specified parts of digestive tract; Z88.1 Allergy status to other antibiotic agents; Z88.8 Allergy status to other drugs, medicaments and biological substances
CPT/HCPCS: 94644; 99283

== ENCOUNTER 2021-09-04 08:06 | Outpatient (CLI) | payer BC, OTHER ==
[2021-09-04 09:22] LABS: Hematocrit 39.3 % (30.3-42.9); Hemoglobin 12.8 gm/dl (10.1-14.3); Mean Corpuscular HGB Conc 33 % (30-34); Mean Corpuscular Volume 88 fl (79-97); Platelet Count 159 K/mm3 (140-440); Red Blood Count 4.45 M/mm3 (3.65-5.03); Red Cell Distribution Width 15.8 % (13.2-15.2)
[2021-09-04 09:25] LABS: Alanine Aminotransferase 22 units/L (7-56); Albumin 3.9 g/dL (3.9-5); BUN/Creatinine Ratio 15; Blood Urea Nitrogen 15 mg/dL (7-17); Calcium 9.6 mg/dL (8.4-10.2); HDL Cholesterol 60 mg/dL (40-59); Hemolysis Index 4; LDL Cholesterol,Direct 113 mg/dL (50-130)
== END 2021-09-04 08:07 | disposition home or self-care (01) ==
LOC: LAB 08:06
PROVIDERS: ATTEND Internal Medicine
DX: J44.9 Chronic obstructive pulmonary disease, unspecified (principal); J96.02 Acute respiratory failure with hypercapnia; G25.81 Restless legs syndrome; I10 Essential (primary) hypertension; G47.33 Obstructive sleep apnea (adult) (pediatric); M81.0 Age-related osteoporosis without current pathological fracture; Z85.3 Personal history of malignant neoplasm of breast; Z86.16 Personal history of COVID-19; Z68.38 Body mass index [BMI] 38.0-38.9, adult
CPT/HCPCS: 36415; 36600; 80053; 80061; 82550; 82728; 82785; 82805; 83615; 84436; 84443; 84484; 85027; 85379; 86140

== ENCOUNTER 2021-09-22 19:14 | Emergency (ER) | payer BC, MEDICARE ==
[2021-09-22] MEDS ORDERED: ALBUTEROL 2.5 MG/3 ML NEBU IH ONE ×3 (19:20→23:47)
[2021-09-22] MEDS ORDERED: IPRATROPIUM 0.02% NEBU 2.5 ML IH ONE ×2 (19:21→19:32)
[2021-09-22] MEDS ORDERED: methylPREDNISolone Sod Succinate 125 MG/2 ML INJ IV ONE (20:06)
[2021-09-22] MEDS ORDERED: MAGNESIUM SULFATE 2 GM/50 ML BAG IV ONE (20:06)
--- NOTE | 2021-09-22 20:35 | XRay Report ---
CHEST 1 VIEW INDICATION: sob, wheeze. COMPARISON: 07/30/2021 FINDINGS: Support devices: Cardiac leads are unchanged. Heart: Normal. Lungs/Pleura: No acute pulmonary or pleural findings. IMPRESSION: 1. No acute findings. Signer Name: Tano Washburn MD Signed: 09/22/2021 8:30 PM Workstation Name: [id number]
[2021-09-23 00:34] LABS: Basophils % (Auto) 0.3 % (0.0-1.8); Eosinophils % (Auto) 0.1 % (0.0-4.3); Hematocrit 40.4 % (30.3-42.9); Hemoglobin 12.8 gm/dl (10.1-14.3); Lymphocytes # (Auto) 0.8 K/mm3 (1.2-5.4); Lymphocytes % (Auto) 7.8 % (13.4-35.0); Mean Corpuscular HGB Conc 32 % (30-34); Mean Corpuscular Volume 88 fl (79-97); Monocytes # (Auto) 0.2 K/mm3 (0.0-0.8); Monocytes % (Auto) 1.9 % (0.0-7.3); Platelet Count 170 K/mm3 (140-440); Red Blood Count 4.58 M/mm3 (3.65-5.03); Red Cell Distribution Width 15.5 % (13.2-15.2)
[2021-09-23 00:53] LABS: BUN/Creatinine Ratio 14; Blood Urea Nitrogen 13 mg/dL (7-17); Calcium 9.2 mg/dL (8.4-10.2); Hemolysis Index 7
--- NOTE | 2021-09-23 01:12 | Emergency Department Report ---
ED Shortness of Breath HPI - General Chief Complaint: Dyspnea/Respdistress Stated Complaint: ASTHMA Time Seen by Provider: 09/22/21 19:55 Source: patient, family, old records reviewed Mode of arrival: Ambulatory Limitations: No Limitations - History of Present Illness Initial Comments: 66-year-old female with history of severe persistent asthma with history of intubation x1, hypertension, breast cancer in remission, kidney stone, cardiomyopathy who presents with shortness of breath wheezing. Patient reports intermittent shortness of breath unrelieved by home treatments since yesterday. She is not currently on steroids. Chest tightness secondary to asthma reported. No calf tenderness or worsening leg edema with - Related Data Home Medications Medication Instructions Recorded Confirmed Last Taken Aspirin [Aspirin Enteric Coated] 81 mg PO DAILY 11/20/13 07/05/19 01/30/19 Ropinirole HCl [Requip] 2 mg PO HS 05/31/17 07/05/19 01/30/19 Alendronate Sodium 35 mg PO QWEEK 10/24/18 07/05/19 01/30/19 Calcium Carbonate/Vitamin D3 1 each PO DAILY 10/24/18 07/05/19 01/30/19 [Os-Kane 500-Vit D3 200 Caplet] Valsartan/Hydrochlorothiazide 1 tab PO QDAY 10/24/18 07/05/19 01/30/19 [Diovan Hct 320-25 mg] Pantoprazole [Protonix TAB] 40 mg PO QDAY 02/01/19 07/05/19 01/30/19 Aspirin BABY CHEW TAB 81 mg PO QDAY 07/05/19 07/05/19 Unknown AtorvaSTATin 10 mg PO QHS 07/05/19 07/05/19 Unknown Isosorbide Dinitrate [Isordil] 20 mg PO TID 07/05/19 07/05/19 Unknown Previous Rx's Medication Instructions Recorded Last Taken Type Budesonide/Formoterol Fumarate 2 gm IH BID #1 hfa.aer.ad 11/22/18 01/30/19 Rx [Symbicort 160-4.5 Mcg Inhaler] Apixaban [Eliquis] 5 mg PO Q12HR #60 tablet 07/07/19 Unknown Rx Albuterol Sulfate [Proair 90 mcg IH Q4H #1 aer.pw.bas 11/04/20 Unknown Rx Digihaler] predniSONE [Deltasone] 20 mg PO QDAY #5 tab 11/04/20 Unknown Rx ALBUTEROL NEB's [Proventil 0.083% 2.5 mg IH TID PRN 30 Days #1 box 11/20/20 Unknown Rx NEBS] predniSONE [Deltasone] 40 mg PO QDAY 5 Days #10 tab 07/30/21 Unknown Rx Prednisone [predniSONE 10 mg 10 mg PO .TAPER #1 08/13/21 Unknown Rx (6-Day Pack, 21 Tabs)] Prednisone [predniSONE 10 mg 10 mg PO .TAPER #1 tab.ds.pk 09/23/21 Unknown Rx (6-Day Pack, 21 Tabs)] Allergies Allergy/AdvReac Type Severity Reaction Status Date / Time erythromycin base Allergy Anaphylaxis Verified 05/31/17 17:24 [Erythromycin Base] levofloxacin [From Levaquin] Allergy Swelling Verified 11/30/18 15:20 montelukast sodium Allergy Itching Verified 05/31/17 17:24 [From Singulair] ED Review of Systems ROS: Stated complaint: ASTHMA Other details as noted in HPI Comment: All other systems reviewed and negative ED Past Medical Hx - Past Medical History Hx Hypertension: Yes Hx Heart Attack/AMI: Yes () Hx Congestive Heart Failure: Yes (5 YRS AGO) Hx Diabetes: No Hx Deep Vein Thrombosis: Yes Hx GERD: Yes Hx Liver Disease: No Hx Renal Disease: No Hx Sickle Cell Disease: No Hx Arthritis: Yes Hx Seizures: Yes ( CHILD ONLY) Hx Kidney Stones: Yes Hx Asthma: Yes (inhaled steroids) Hx COPD: Yes (will use home inhalers in preop) Hx HIV: No Additional medical history: diverticulitis restless leg - Surgical History Hx Coronary Stent: No Hx Pacemaker: Yes (last interrogated 1 month ago, per patient) Hx Internal Defibrillator: Yes (placed 2/2 cardiomyopathy wtih low EF in 2008; EF improved) Hx Cholecystectomy: Yes Hx Breast Surgery: Yes (SARAI BREAST RECONSTRUCTION) Additional Surgical History: defibrillator. blood clot removal - Social History Smoking Status: Current Every Day Smoker Substance Use Type: None - Medications Home Medications: Home Medications Medication Instructions Recorded Confirmed Last Taken Type Aspirin [Aspirin Enteric Coated] 81 mg PO DAILY 11/20/13 07/05/19 01/30/19 History Ropinirole HCl [Requip] 2 mg PO HS 11/07/05/19 01/30/19 History Alendronate Sodium 35 mg PO QWEEK 10/24/18 07/05/19 01/30/19 History Calcium Carbonate/Vitamin D3 1 each PO DAILY 10/24/18 07/05/19 01/30/19 History [Os-Kane 500-Vit D3 200 Caplet] Valsartan/Hydrochlorothiazide 1 tab PO QDAY 10/24/18 07/05/19 01/30/19 History [Diovan Hct 320-25 mg] Budesonide/Formoterol Fumarate 2 gm IH BID #1 hfa.aer.ad 11/22/18 07/05/19 01/30/19 Rx [Symbicort 160-4.5 Mcg Inhaler] Pantoprazole [Protonix TAB] 40 mg PO QDAY 02/01/19 07/05/19 01/30/19 History Aspirin BABY CHEW TAB 81 mg PO QDAY 07/05/19 07/05/19 Unknown History AtorvaSTATin 10 mg PO QHS 07/05/19 07/05/19 Unknown History Isosorbide Dinitrate [Isordil] 20 mg PO TID 07/05/19 07/05/19 Unknown History Apixaban [Eliquis] 5 mg PO Q12HR #60 tablet 07/07/19 Unknown Rx Albuterol Sulfate [Proair 90 mcg IH Q4H #1 aer.pw.bas 11/04/20 Unknown Rx Digihaler] predniSONE [Deltasone] 20 mg PO QDAY #5 tab 11/04/20 Unknown Rx ALBUTEROL NEB's [Proventil 0.083% 2.5 mg IH TID PRN 30 Days #1 box 11/20/20 Unknown Rx NEBS] predniSONE [Deltasone] 40 mg PO QDAY 5 Days #10 tab 07/30/21 Unknown Rx Prednisone [predniSONE 10 mg 10 mg PO .TAPER #1 08/13/21 Unknown Rx (6-Day Pack, 21 Tabs)] Prednisone [predniSONE 10 mg 10 mg PO .TAPER #1 tab.ds.pk 09/23/21 Unknown Rx (6-Day Pack, 21 Tabs)] ED Physical Exam - General Limitations: No Limitations - Other Other exam information: General: No acute distress Head: Atraumatic Eyes: normal appearance ENT: Moist mucous membranes Neck: Normal appearance, no midline tenderness Chest: Significant wheezing, tachypnea, sensory muscle use CV: Regular rate and rhythm Abdomen: Soft, normal bowel sounds, nontender, nondistended, no rebound or guarding Back: Normal inspection Extremity: Normal inspection, full range of motion, no calf tenderness or leg edema Neuro: Alert O x 3, no facial asymmetry, speech clear, no gross motor sensory deficit Psych: Appropriate behavior Skin: No rash ED Course Vital Signs 09/22/21 09/22/21 09/23/21 19:35 21:19 00:14 Temperature 99.1 F Pulse Rate 81 Pulse Rate [ 86 84 Bilateral] Respiratory 18 Rate Respiratory 26 H 26 H Rate [Bilateral ] Blood Pressure 133/79 [Right] O2 Sat by Pulse 977 H Oximetry ED Medical Decision Making - Lab Data Result diagrams: 09/23/21 00:19 09/23/21 00:19 Lab Results 09/23/21 09/23/21 Range/Units 00:19 00:19 WBC 10.3 (4.5-11.0) K/mm3 RBC 4.58 (3.65-5.03) M/mm3 Hgb 12.8 (10.1-14.3) gm/dl Hct 40.4 (30.3-42.9) % MCV 88 (79-97) fl MCH 28 (28-32) pg MCHC 32 (30-34) % RDW 15.5 H (13.2-15.2) % Plt Count 170 (140-440) K/mm3 Lymph % (Auto) 7.8 L (13.4-35.0) % [place] % (Auto) 1.9 (0.0-7.3) % Eos % (Auto) 0.1 (0.0-4.3) % Baso % (Auto) 0.3 (0.0-1.8) % Lymph # (Auto) 0.8 L (1.2-5.4) K/mm3 [place] # (Auto) 0.2 (0.0-0.8) K/mm3 Eos # (Auto) 0.0 (0.0-0.4) K/mm3 Baso # (Auto) 0.0 (0.0-0.1) K/mm3 Seg Neutrophils % 89.9 H (40.0-70.0) % Seg Neutrophils # 9.3 H (1.8-7.7) K/mm3 Sodium 139 (137-145) mmol/L Potassium 4.7 (3.6-5.0) mmol/L Chloride 104.0 (98-107) mmol/L Carbon Dioxide 23 (22-30) mmol/L Anion Gap 17 mmol/L BUN 13 (7-17) mg/dL Creatinine 0.9 (0.6-1.2) mg/dL Estimated GFR > 60 ml/min BUN/Creatinine Ratio 14 % Glucose 151 H (65-100) mg/dL Calcium 9.2 (8.4-10.2) mg/dL - Radiology Data Radiology results: report reviewed CHEST 1 VIEW INDICATION: sob, wheeze. COMPARISON: 07/30/2021 FINDINGS: Support devices: Cardiac leads are unchanged. Heart: Normal. Lungs/Pleura: No acute pulmonary or pleural findings. IMPRESSION: 1. No acute findings. - Medical Decision Making Patient initially felt good after 1 round of continuous nebs but became significantly dyspneic with wheezing with ambulation and required additional neb treatment. She also received Solu-Medrol and magnesium. Chest x-ray labs are unremarkable. Patient reports feeling much better after second round of nebulizer treatment. I ambulated with patient in no distress noted. She feels she is good for discharge and does not require admission at this time Critical Care Time: No Critical care attestation.: If time is entered above; I have spent that time in minutes in the direct care of this critically ill patient, excluding procedure time. ED Disposition Clinical Impression: Acute asthma exacerbation Disposition: 01 HOME / SELF CARE / HOMELESS Is pt being admited?: No Does the pt Need Aspirin: No Condition: Stable Instructions: Asthma, Adult Additional Instructions: Take the medication as prescribed. Follow-up with your doctor or doctor/clinic provided. Return if symptoms worsen as indicated by your discharge instructions. Prescriptions: Prednisone [predniSONE 10 mg (6-Day Pack, 21 Tabs)] 10 mg PO .TAPER #1 tab.ds.pk Referrals: AIDA TALLEY MD [Primary Care Provider] - 3-5 Days Time of Disposition: 01:18
[2021-09-23 01:51] VITALS: BP 134/61
== END 2021-09-23 01:51 | disposition home or self-care (01) ==
LOC: ED 19:14
DX: J45.901 Unspecified asthma with (acute) exacerbation (principal); F17.200 Nicotine dependence, unspecified, uncomplicated; I10 Essential (primary) hypertension; Z88.1 Allergy status to other antibiotic agents; Z88.8 Allergy status to other drugs, medicaments and biological substances
CPT/HCPCS: 36415; 71045; 80048; 85025; 94644; 96365; 96375; 99284; J2930; J3475

== ENCOUNTER 2021-11-03 19:10 | Emergency (ER) | payer BC, MEDICARE ==
--- NOTE | 2021-11-03 19:16 | Event Note ---
ED Screening Note Date of service: 11/03/21 Time: 19:15 ED Screening Note: 66-year-old female presenting with a chief complaint of shortness of breath. Patient has history of COPD and states she was wheezing this morning before she came to work and her symptoms continue to worsen throughout the day. The patient states she also believes her AICD fired last night while she was walking in her garage. Patient denies any other complaint This initial assessment/diagnostic orders/clinical plan/treatment(s) is/are subject to change based on patients health status, clinical progression and re- assessment by fellow clinical providers in the ED. Further treatment and workup at subsequent clinical providers discretion. Patient/guardian urged not to elope from the ED as their condition may be serious if not clinically assessed and managed. Initial orders include: Labs, chest x-ray, albuterol Atrovent, Solu-Medrol, magnesium sulfate
[2021-11-03] MEDS ORDERED: MAGNESIUM SULFATE 2 GM/50 ML BAG IV ONE (19:17)
[2021-11-03] MEDS ORDERED: methylPREDNISolone Sod Succinate 125 MG/2 ML INJ IV ONE (19:17)
[2021-11-03] MEDS ORDERED: ALBUTEROL 2.5 MG/3 ML NEBU IH ONE (19:17)
[2021-11-03] MEDS ORDERED: IPRATROPIUM 0.02% NEBU 2.5 ML IH ONE (19:17)
--- NOTE | 2021-11-03 19:58 | XRay Report ---
CHEST 1 VIEW 11/03/2021 6:42 PM INDICATION / CLINICAL INFORMATION: Shortness of breath. COMPARISON: 09/22/2021 FINDINGS: SUPPORT DEVICES: None. HEART / MEDIASTINUM: No significant abnormality. LUNGS / PLEURA: No significant pulmonary or pleural abnormality. No pneumothorax. ADDITIONAL FINDINGS: No significant additional findings. IMPRESSION: 1. No acute findings. Signer Name: Adriano Paulino DO Signed: 11/03/2021 7:54 PM Workstation Name: [id number]
[2021-11-03 20:26] LABS: Basophils # (Auto) 0.1 K/mm3 (0.0-0.1); Basophils % (Auto) 2.4 % (0.0-1.8); Eosinophils # (Auto) 0.2 K/mm3 (0.0-0.4); Eosinophils % (Auto) 3.2 % (0.0-4.3); Hemoglobin 13.1 gm/dl (10.1-14.3); Lymphocytes # (Auto) 1.6 K/mm3 (1.2-5.4); Lymphocytes % (Auto) 26.2 % (13.4-35.0); Mean Corpuscular HGB Conc 33 % (30-34); Mean Corpuscular Volume 88 fl (79-97); Monocytes # (Auto) 0.5 K/mm3 (0.0-0.8); Monocytes % (Auto) 8.3 % (0.0-7.3); Platelet Count 143 K/mm3 (140-440); Red Blood Count 4.56 M/mm3 (3.65-5.03); Red Cell Distribution Width 15.3 % (13.2-15.2)
[2021-11-03 20:53] LABS: Calcium 8.9 mg/dL (8.4-10.2)
--- NOTE | 2021-11-03 23:04 | Emergency Department Report ---
ED Asthma HPI - General Chief Complaint: Adult Asthma Stated Complaint: ASTHMA Time Seen by Provider: 11/03/21 19:34 Source: patient Mode of arrival: Ambulatory Limitations: No Limitations - History of Present Illness MD Complaint: "asthma attack" -: Gradual, hour(s) Asthma History: adult onset Severity: moderate Context: none known Associated Symptoms: productive cough - Related Data Home Medications Medication Instructions Recorded Confirmed Last Taken Aspirin [Aspirin Enteric Coated] 81 mg PO DAILY 11/20/13 07/05/19 01/30/19 Ropinirole HCl [Requip] 2 mg PO HS 05/31/17 07/05/19 01/30/19 Alendronate Sodium 35 mg PO QWEEK 10/24/18 07/05/19 01/30/19 Calcium Carbonate/Vitamin D3 1 each PO DAILY 10/24/18 07/05/19 01/30/19 [Os-Kane 500-Vit D3 200 Caplet] Valsartan/Hydrochlorothiazide 1 tab PO QDAY 10/24/18 07/05/19 01/30/19 [Diovan Hct 320-25 mg] Pantoprazole [Protonix TAB] 40 mg PO QDAY 02/01/19 07/05/19 01/30/19 Aspirin BABY CHEW TAB 81 mg PO QDAY 07/05/19 07/05/19 Unknown AtorvaSTATin 10 mg PO QHS 07/05/19 07/05/19 Unknown Isosorbide Dinitrate [Isordil] 20 mg PO TID 07/05/19 07/05/19 Unknown Previous Rx's Medication Instructions Recorded Last Taken Type Budesonide/Formoterol Fumarate 2 gm IH BID #1 hfa.aer.ad 11/22/18 01/30/19 Rx [Symbicort 160-4.5 Mcg Inhaler] Apixaban [Eliquis] 5 mg PO Q12HR #60 tablet 07/07/19 Unknown Rx Albuterol Sulfate [Proair 90 mcg IH Q4H #1 aer.pw.bas 11/04/20 Unknown Rx Digihaler] predniSONE [Deltasone] 20 mg PO QDAY #5 tab 11/04/20 Unknown Rx ALBUTEROL NEB's [Proventil 0.083% 2.5 mg IH TID PRN 30 Days #1 box 11/20/20 Unknown Rx NEBS] predniSONE [Deltasone] 40 mg PO QDAY 5 Days #10 tab 07/30/21 Unknown Rx Prednisone [predniSONE 10 mg 10 mg PO .TAPER #1 08/13/21 Unknown Rx (6-Day Pack, 21 Tabs)] Prednisone [predniSONE 10 mg 10 mg PO .TAPER #1 tab.ds.pk 09/23/21 Unknown Rx (6-Day Pack, 21 Tabs)] Allergies Allergy/AdvReac Type Severity Reaction Status Date / Time erythromycin base Allergy Anaphylaxis Verified 05/31/17 17:24 [Erythromycin Base] levofloxacin [From Levaquin] Allergy Swelling Verified 11/30/18 15:20 montelukast sodium Allergy Itching Verified 05/31/17 17:24 [From Singulair] ED Review of Systems ROS: Stated complaint: ASTHMA Other details as noted in HPI Constitutional: denies: chills, fever Eyes: denies: eye pain, eye discharge, vision change ENT: denies: ear pain, throat pain Respiratory: denies: cough, shortness of breath, wheezing Cardiovascular: denies: chest pain, palpitations Endocrine: no symptoms reported Gastrointestinal: denies: abdominal pain, nausea, diarrhea Genitourinary: denies: urgency, dysuria, discharge Musculoskeletal: denies: back pain, joint swelling, arthralgia Skin: denies: rash, lesions Neurological: denies: headache, weakness, paresthesias Psychiatric: denies: anxiety, depression Hematological/Lymphatic: denies: easy bleeding, easy bruising ED Past Medical Hx - Past Medical History Hx Hypertension: Yes Hx Heart Attack/AMI: Yes () Hx Congestive Heart Failure: Yes (5 YRS AGO) Hx Diabetes: No Hx Deep Vein Thrombosis: Yes Hx GERD: Yes Hx Liver Disease: No Hx Renal Disease: No Hx Sickle Cell Disease: No Hx Arthritis: Yes Hx Seizures: Yes ( CHILD ONLY) Hx Kidney Stones: Yes Hx Asthma: Yes (inhaled steroids) Hx COPD: Yes (will use home inhalers in preop) Hx HIV: No Additional medical history: diverticulitis restless leg - Surgical History Hx Coronary Stent: No Hx Pacemaker: Yes (last interrogated 1 month ago, per patient) Hx Internal Defibrillator: Yes (placed 2/2 cardiomyopathy wtih low EF in 2008; EF improved) Hx Cholecystectomy: Yes Hx Breast Surgery: Yes (SARAI BREAST RECONSTRUCTION) Additional Surgical History: defibrillator. blood clot removal - Social History Smoking Status: Current Every Day Smoker Substance Use Type: None - Medications Home Medications: Home Medications Medication Instructions Recorded Confirmed Last Taken Type Aspirin [Aspirin Enteric Coated] 81 mg PO DAILY 11/20/13 07/05/19 01/30/19 History Ropinirole HCl [Requip] 2 mg PO HS 05/31/17 07/05/19 01/30/19 History Alendronate Sodium 35 mg PO QWEEK 10/24/18 07/05/19 01/30/19 History Calcium Carbonate/Vitamin D3 1 each PO DAILY 10/24/18 07/05/19 01/30/19 History [Os-Kane 500-Vit D3 200 Caplet] Valsartan/Hydrochlorothiazide 1 tab PO QDAY 10/24/18 07/05/19 01/30/19 History [Diovan Hct 320-25 mg] Budesonide/Formoterol Fumarate 2 gm IH BID #1 hfa.aer.ad 11/22/18 07/05/19 01/30/19 Rx [Symbicort 160-4.5 Mcg Inhaler] Pantoprazole [Protonix TAB] 40 mg PO QDAY 02/01/19 07/05/19 01/30/19 History Aspirin BABY CHEW TAB 81 mg PO QDAY 07/05/19 07/05/19 Unknown History AtorvaSTATin 10 mg PO QHS 07/05/19 07/05/19 Unknown History Isosorbide Dinitrate [Isordil] 20 mg PO TID 07/05/19 07/05/19 Unknown History Apixaban [Eliquis] 5 mg PO Q12HR #60 tablet 07/07/19 Unknown Rx Albuterol Sulfate [Proair 90 mcg IH Q4H #1 aer.pw.bas 11/04/20 Unknown Rx Digihaler] predniSONE [Deltasone] 20 mg PO QDAY #5 tab 11/04/20 Unknown Rx ALBUTEROL NEB's [Proventil 0.083% 2.5 mg IH TID PRN 30 Days #1 box 11/20/20 U nknown Rx NEBS] predniSONE [Deltasone] 40 mg PO QDAY 5 Days #10 tab 07/30/21 Unknown Rx Prednisone [predniSONE 10 mg 10 mg PO .TAPER #1 08/13/21 Unknown Rx (6-Day Pack, 21 Tabs)] Prednisone [predniSONE 10 mg 10 mg PO .TAPER #1 tab.ds.pk 09/23/21 Unknown Rx (6-Day Pack, 21 Tabs)] ED Physical Exam - General Limitations: No Limitations General appearance: alert, in no apparent distress - Head Head exam: Present: atraumatic, normocephalic - Eye Eye exam: Present: normal appearance - ENT ENT exam: Present: mucous membranes moist - Neck Neck exam: Present: normal inspection - Respiratory Respiratory exam: Present: normal lung sounds bilaterally, wheezes. Absent: respiratory distress - Cardiovascular Cardiovascular Exam: Present: regular rate, normal rhythm. Absent: systolic murmur, diastolic murmur, rubs, gallop - GI/Abdominal GI/Abdominal exam: Present: soft, normal bowel sounds - Extremities Exam Extremities exam: Present: normal inspection - Back Exam Back exam: Present: normal inspection - Neurological Exam Neurological exam: Present: alert, oriented X3 - Psychiatric Psychiatric exam: Present: normal affect, normal mood - Skin Skin exam: Present: warm, dry, intact, normal color. Absent: rash ED Course Vital Signs 11/03/21 20:21 Pulse Rate [ 68 Anterior Bilateral Throughout] Respiratory 17 Rate [Anterior Bilateral Throughout] ED Medical Decision Making - Lab Data Result diagrams: 11/03/21 20:09 11/03/21 20:09 - EKG Data -: EKG Interpreted by Me - EKG Data Interpretation: other (ventricular paced rythm ) - Radiology Data Radiology results: report reviewed, image reviewed - Medical Decision Making work up unremarkable , rt given steriods feels better o2 sat 99 on RA no distress, spoke with rep for [employer], no events recorded Critical care attestation.: If time is entered above; I have spent that time in minutes in the direct care of this critically ill patient, excluding procedure time. ED Disposition Clinical Impression: Asthma exacerbation Disposition: HOME / SELF CARE / HOMELESS Is pt being admited?: No Does the pt Need Aspirin: No Condition: Stable Instructions: Asthma, Adult Referrals: AIDA TALLEY MD [Primary Care Provider] - 3-5 Days
[2021-11-03 23:32] VITALS: BP 139/70
--- NOTE | 2021-11-05 17:52 | Electrocardiograph Report ---
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
== END 2021-11-03 23:53 | disposition home or self-care (01) ==
LOC: ED 19:10
DX: J45.901 Unspecified asthma with (acute) exacerbation (principal); F17.200 Nicotine dependence, unspecified, uncomplicated; I10 Essential (primary) hypertension; Z90.49 Acquired absence of other specified parts of digestive tract
CPT/HCPCS: 36415; 71045; 80048; 83880; 84484; 85025; 93005; 94644; 96365; 96375; 99284; J2930; J3475

== ENCOUNTER 2021-11-26 19:39 | Emergency (ER) | payer BC, MEDICARE ==
[2021-11-26] MEDS ORDERED: ALBUTEROL 2.5 MG/3 ML NEBU IH ONE ×2 (20:03→22:35)
[2021-11-26] MEDS ORDERED: dexAMETHasone 4 MG/ML VIAL IM ONE (20:03)
[2021-11-26 20:40] LABS: Basophils # (Auto) 0.1 K/mm3 (0.0-0.1); Basophils % (Auto) 1.1 % (0.0-1.8); Eosinophils # (Auto) 0.2 K/mm3 (0.0-0.4); Eosinophils % (Auto) 2.6 % (0.0-4.3); Lymphocytes % (Auto) 14.9 % (13.4-35.0); Mean Corpuscular HGB Conc 33 % (30-34); Mean Corpuscular Volume 88 fl (79-97); Monocytes # (Auto) 0.5 K/mm3 (0.0-0.8); Monocytes % (Auto) 7.5 % (0.0-7.3); Platelet Count 155 K/mm3 (140-440); Red Cell Distribution Width 14.6 % (13.2-15.2)
[2021-11-26 20:55] LABS: INR 1.06 (0.87-1.13)
[2021-11-26 21:05] LABS: Alanine Aminotransferase 13 units/L (7-56); Albumin 1.9 g/dL (3.9-5); BUN/Creatinine Ratio 12; Blood Urea Nitrogen 12 mg/dL (7-17)
[2021-11-26 21:19] LABS: Calcium 10.2 mg/dL (8.4-10.2); Hemolysis Index 127
--- NOTE | 2021-11-26 22:30 | XRay Report ---
XR chest 1V ap INDICATION / CLINICAL INFORMATION: Weakness...resp distress. COMPARISON: 11/03/2021 FINDINGS: SUPPORT DEVICES: Stable, satisfactory device positioning. HEART /PULMONARY VASCULATURE: No significant abnormality. LUNGS / PLEURA: Mild patchy airspace opacities are present within the left midlung. Right lung is hank ar. No sizable pleural effusion. No pneumothorax. ADDITIONAL FINDINGS: No significant additional findings. IMPRESSION: Mild patchy airspace opacities in the left midlung, suspicious for pneumonia. Signer Name: Lane Martinez MD Signed: 11/26/2021 10:26 PM Workstation Name: [id number]
[2021-11-26] MEDS ORDERED: IPRATROPIUM 0.02% NEBU 2.5 ML IH ONE (22:35)
[2021-11-26 22:38] LABS: C-Reactive Protein 0.8 mg/dL (0.00-1.30)
--- NOTE | 2021-11-26 23:15 | Emergency Department Report ---
ED Shortness of Breath HPI - General Stated Complaint: ASTHMA Time Seen by Provider: 11/26/21 20:02 Source: patient, RN notes reviewed Limitations: No Limitations - History of Present Illness MD Complaint: shortness of breath -: Gradual, days(s) Consistency: intermittent Improves With: oxygen, bronchodilators Worsens With: exertion Known History Of: asthma Associated Symptoms: denies other symptoms - Related Data Home Medications Medication Instructions Recorded Confirmed Last Taken Aspirin [Aspirin Enteric Coated] 81 mg PO DAILY 11/20/13 07/05/19 01/30/19 Ropinirole HCl [Requip] 2 mg PO HS 05/31/17 07/05/19 01/30/19 Alendronate Sodium 35 mg PO QWEEK 10/24/18 07/05/19 01/30/19 Calcium Carbonate/Vitamin D3 1 each PO DAILY 10/24/18 07/05/19 01/30/19 [Os-Kane 500-Vit D3 200 Caplet] Valsartan/Hydrochlorothiazide 1 tab PO QDAY 10/24/18 07/05/19 01/30/19 [Diovan Hct 320-25 mg] Pantoprazole [Protonix TAB] 40 mg PO QDAY 02/01/19 07/05/19 01/30/19 Aspirin BABY CHEW TAB 81 mg PO QDAY 07/05/19 07/05/19 Unknown AtorvaSTATin 10 mg PO QHS 07/05/19 07/05/19 Unknown Isosorbide Dinitrate [Isordil] 20 mg PO TID 07/05/19 07/05/19 Unknown Previous Rx's Medication Instructions Recorded Last Taken Type Budesonide/Formoterol Fumarate 2 gm IH BID #1 hfa.aer.ad 11/22/18 01/30/19 Rx [Symbicort 160-4.5 Mcg Inhaler] Apixaban [Eliquis] 5 mg PO Q12HR #60 tablet 07/07/19 Unknown Rx Albuterol Sulfate [Proair 90 mcg IH Q4H #1 aer.pw.bas 11/04/20 Unknown Rx Digihaler] predniSONE [Deltasone] 20 mg PO QDAY #5 tab 11/04/20 Unknown Rx ALBUTEROL NEB's [Proventil 0.083% 2.5 mg IH TID PRN 30 Days #1 box 11/20/20 Unknown Rx NEBS] predniSONE [Deltasone] 40 mg PO QDAY 5 Days #10 tab 07/30/21 Unknown Rx Prednisone [predniSONE 10 mg 10 mg PO .TAPER #1 08/13/21 Unknown Rx (6-Day Pack, 21 Tabs)] Prednisone [predniSONE 10 mg 10 mg PO .TAPER #1 tab.ds.pk 09/23/21 Unknown Rx (6-Day Pack, 21 Tabs)] Albuterol Mdi (or & Nicu Only) 2 puff IH QID PRN #8.5 gram 11/03/21 Unknown Rx [ProAir HFA Inhaler] methylPREDNISolone [Medrol 4MG 4 mg PO DAILY #1 11/03/21 Unknown Rx DOSEPAK (21 tabs)] Allergies Allergy/AdvReac Type Severity Reaction Status Date / Time erythromycin base Allergy Anaphylaxis Verified 05/31/17 17:24 [Erythromycin Base] levofloxacin [From Levaquin] Allergy Swelling Verified 11/30/18 15:20 montelukast sodium Allergy Itching Verified 05/31/17 17:24 [From Singulair] ED Review of Systems ROS: Stated complaint: ASTHMA Other details as noted in HPI Constitutional: denies: chills, fever Eyes: denies: eye pain, eye discharge, vision change ENT: denies: ear pain, throat pain Respiratory: denies: cough, shortness of breath, wheezing Cardiovascular: denies: chest pain, palpitations Endocrine: no symptoms reported Gastrointestinal: denies: abdominal pain, nausea, diarrhea Genitourinary: denies: urgency, dysuria, discharge Musculoskeletal: denies: back pain, joint swelling, arthralgia Skin: denies: rash, lesions Neurological: denies: headache, weakness, paresthesias Psychiatric: denies: anxiety, depression Hematological/Lymphatic: denies: easy bleeding, easy bruising ED Past Medical Hx - Past Medical History Hx Hypertension: Yes Hx Heart Attack/AMI: Yes () Hx Congestive Heart Failure: Yes (5 YRS AGO) Hx Diabetes: No Hx Deep Vein Thrombosis: Yes Hx GERD: Yes Hx Liver Disease: No Hx Renal Disease: No Hx Sickle Cell Disease: No Hx Arthritis: Yes Hx Seizures: Yes ( CHILD ONLY) Hx Kidney Stones: Yes Hx Asthma: Yes (inhaled steroids) Hx COPD: Yes (will use home inhalers in preop) Hx HIV: No Additional medical history: diverticulitis restless leg - Surgical History Hx Coronary Stent: No Hx Pacemaker: Yes (last interrogated 1 month ago, per patient) Hx Internal Defibrillator: Yes (placed 2/2 cardiomyopathy wtih low EF in 2008; EF improved) Hx Cholecystectomy: Yes Hx Breast Surgery: Yes (SARAI BREAST RECONSTRUCTION) Additional Surgical History: defibrillator. blood clot removal - Social History Smoking Status: Current Every Day Smoker Substance Use Type: None - Medications Home Medications: Home Medications Medication Instructions Recorded Confirmed Last Taken Type Aspirin [Aspirin Enteric Coated] 81 mg PO DAILY 11/20/13 07/05/19 01/30/19 His tory Ropinirole HCl [Requip] 2 mg PO HS 05/31/17 07/05/19 01/30/19 History Alendronate Sodium 35 mg PO QWEEK 10/24/18 07/05/19 01/30/19 History Calcium Carbonate/Vitamin D3 1 each PO DAILY 10/24/18 07/05/19 01/30/19 History [Os-Kane 500-Vit D3 200 Caplet] Valsartan/Hydrochlorothiazide 1 tab PO QDAY 10/24/18 07/05/19 01/30/19 History [Diovan Hct 320-25 mg] Budesonide/Formoterol Fumarate 2 gm IH BID #1 hfa.aer.ad 11/22/18 07/05/19 01/30/19 Rx [Symbicort 160-4.5 Mcg Inhaler] Pantoprazole [Protonix TAB] 40 mg PO QDAY 02/01/19 07/05/19 01/30/19 History Aspirin BABY CHEW TAB 81 mg PO QDAY 07/05/19 07/05/19 Unknown History AtorvaSTATin 10 mg PO QHS 07/05/19 07/05/19 Unknown History Isosorbide Dinitrate [Isordil] 20 mg PO TID 07/05/19 07/05/19 Unknown History Apixaban [Eliquis] 5 mg PO Q12HR #60 tablet 07/07/19 Unknown Rx Albuterol Sulfate [Proair 90 mcg IH Q4H #1 aer.pw.bas 11/04/20 Unknown Rx Digihaler] predniSONE [Deltasone] 20 mg PO QDAY #5 tab 11/04/20 Unknown Rx ALBUTEROL NEB's [Proventil 0.083% 2.5 mg IH TID PRN 30 Days #1 box 11/20/20 Unknown Rx NEBS] predniSONE [Deltasone] 40 mg PO QDAY 5 Days #10 tab 07/30/21 Unknown Rx Prednisone [predniSONE 10 mg 10 mg PO .TAPER #1 08/13/21 Unknown Rx (6-Day Pack, 21 Tabs)] Prednisone [predniSONE 10 mg 10 mg PO .TAPER #1 tab.ds.pk 09/23/21 Unknown Rx (6-Day Pack, 21 Tabs)] Albuterol Mdi (or & Nicu Only) 2 puff IH QID PRN #8.5 gram 11/03/21 Unknown Rx [ProAir HFA Inhaler] methylPREDNISolone [Medrol 4MG 4 mg PO DAILY #1 11/03/21 Unknown Rx DOSEPAK (21 tabs)] ED Physical Exam - General General appearance: alert, in no apparent distress - Head Head exam: Present: atraumatic, normocephalic - Eye Eye exam: Present: normal appearance - ENT ENT exam: Present: mucous membranes moist - Neck Neck exam: Present: normal inspection - Respiratory Respiratory exam: Present: wheezes, rhonchi. Absent: respiratory distress - Cardiovascular Cardiovascular Exam: Present: regular rate, normal rhythm. Absent: systolic murmur, diastolic murmur, rubs, gallop - GI/Abdominal GI/Abdominal exam: Present: soft, normal bowel sounds - Extremities Exam Extremities exam: Present: normal inspection - Back Exam Back exam: Present: normal inspection - Neurological Exam Neurological exam: Present: alert, oriented X3 - Psychiatric Psychiatric exam: Present: normal affect, normal mood - Skin Skin exam: Present: warm, dry, intact, normal color. Absent: rash ED Course Vital Signs 11/26/21 11/26/21 20:22 22:53 Pulse Rate [ 100 H 102 H Bilateral] Respiratory 20 20 Rate [Bilateral ] ED Medical Decision Making - Lab Data Result diagrams: 11/26/21 20:15 11/26/21 20:15 - EKG Data -: EKG Interpreted by Me - EKG Data Interpretation: other (av PACED RYTHM ) - Radiology Data Radiology results: report reviewed, image reviewed - Medical Decision Making RT GIVEN STERIODS AND X RAY WAS CLEAR FEELS BETTER WST TO GO HOME Critical care attestation.: If time is entered above; I have spent that time in minutes in the direct care of this critically ill patient, excluding procedure time. ED Disposition Clinical Impression: SOB (shortness of breath), Asthma exacerbation Disposition: 01 HOME / SELF CARE / HOMELESS Is pt being admited?: No Does the pt Need Aspirin: No Condition: Stable Instructions: Asthma, Adult Referrals: AIDA TALLEY MD [Primary Care Provider] - 3-5 Days
--- NOTE | 2021-11-28 09:43 | Electrocardiograph Report ---
[facility] Test Date: 2021-11-26 Test Time: 21:16:52 Pat Name: CHAS BUTLER Department: Room: Gender: F Banking Manager: Jackie ELIZALDE : 1955 Requested By: DAGOBERTO CELESTE Order Number: [id number] Reading MD: Tiago Hsu Measurements Intervals [place] Rate: 106 P: 68 NM: 142 QRS: 239 QRSD: 135 T: 75 QT: 378 QTc: 502 Interpretive Statements Atrial-sensed ventricular-paced rhythm Compared to ECG 11/03/2021 19:50:04 No significant changes Electronically Signed On 11-28-2021 9:43:12 EDT by Tiago Hsu
== END 2021-11-26 23:52 | disposition home or self-care (01) ==
LOC: ED 19:39
DX: J45.901 Unspecified asthma with (acute) exacerbation (principal); I10 Essential (primary) hypertension; K21.9 Gastro-esophageal reflux disease without esophagitis; J44.9 Chronic obstructive pulmonary disease, unspecified; M19.90 Unspecified osteoarthritis, unspecified site; F17.200 Nicotine dependence, unspecified, uncomplicated; Z90.49 Acquired absence of other specified parts of digestive tract; Z79.899 Other long term (current) drug therapy; Z88.1 Allergy status to other antibiotic agents; Z88.8 Allergy status to other drugs, medicaments and biological substances
CPT/HCPCS: 36415; 71045; 80053; 82550; 83615; 83735; 83880; 84484; 85025; 85610; 86140; 93005; 94640; 96372; 99284; J1100; 94644

== ENCOUNTER 2022-01-05 20:52 | Emergency (ER) | payer BC, OTHER ==
[2022-01-05] MEDS ORDERED: ALBUTEROL 2.5 MG/3 ML NEBU IH ONE ×2 (21:16→23:08)
[2022-01-05] MEDS ORDERED: methylPREDNISolone Sod Succinate 125 MG/2 ML INJ IV ONE (21:16)
[2022-01-05] MEDS ORDERED: MAGNESIUM SULFATE 2 GM/50 ML BAG IV ONE (21:16)
[2022-01-05] MEDS ORDERED: IPRATROPIUM 0.02% NEBU 2.5 ML IH ONE (21:16)
--- NOTE | 2022-01-05 21:17 | Emergency Department Report ---
ED General Adult HPI - General Chief complaint: Adult Asthma Stated complaint: ASTHMA Time Seen by Provider: 01/05/22 21:12 Source: patient, RN notes reviewed, old records reviewed Mode of arrival: Ambulatory Limitations: No Limitations - History of Present Illness Initial comments: The patient was evaluated in the emergency department for symptoms described in the history of present illness. He/she was evaluated in the context of the global COVID-19 pandemic, which necessitated consideration that the patient might be at risk for infection with the virus that causes COVID-19. Institutional protocols and algorithms that pertain to the evaluation of patients at risk for COVID-19 are in a state of rapid change based on information released by regulatory bodies including the CDC and federal and state organizations. These policies and algorithms were followed during the patient's care in the emergency department. Please note that these policies, procedures and recommendations changed on a rapid basis. This is a 66-year-old female whom I evaluated in the past, with a past medical history of asthma, multiple ER evaluations, 1 lifetime intubation, reports hospitalizations for asthma, who presents to the ER today with a complaint of wheezing and shortness of breath. She denies physical pain. 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 She reports that her symptoms typically improved with albuterol and steroids. She denies travel, surgery, immobilization, physical pain, and leg pain or leg swelling. Her last attack wa s in November, and she discontinued smoking at that time. Her private galley worker is Dr. Yvette Linder The patient also reports that she is currently taking her aspirin and Eliquis on a consistent basis. She has not missed any of her doses -: Sudden Consistency: constant Improves with: medication Worsens with: movement Associated Symptoms: denies other symptoms - Related Data Home Medications Medication Instructions Recorded Confirmed Last Taken Aspirin [Aspirin Enteric Coated] 81 mg PO DAILY 11/20/13 07/05/19 01/30/19 Ropinirole HCl [Requip] 2 mg PO HS 05/31/17 07/05/19 01/30/19 Alendronate Sodium 35 mg PO QWEEK 10/24/18 07/05/19 01/30/19 Calcium Carbonate/Vitamin D3 1 each PO DAILY 10/24/18 07/05/19 01/30/19 [Os-Kane 500-Vit D3 200 Caplet] Valsartan/Hydrochlorothiazide 1 tab PO QDAY 10/24/18 07/05/19 01/30/19 [Diovan Hct 320-25 mg] Pantoprazole [Protonix TAB] 40 mg PO QDAY 02/01/19 07/05/19 01/30/19 Aspirin BABY CHEW TAB 81 mg PO QDAY 07/05/19 07/05/19 Unknown AtorvaSTATin 10 mg PO QHS 07/05/19 07/05/19 Unknown Isosorbide Dinitrate [Isordil] 20 mg PO TID 07/05/19 07/05/19 Unknown Previous Rx's Medication Instructions Recorded Last Taken Type Budesonide/Formoterol Fumarate 2 gm IH BID #1 hfa.aer.ad 11/22/18 01/30/19 Rx [Symbicort 160-4.5 Mcg Inhaler] Apixaban [Eliquis] 5 mg PO Q12HR #60 tablet 07/07/19 Unknown Rx Albuterol Sulfate [Proair 90 mcg IH Q4H #1 aer.pw.bas 11/04/20 Unknown Rx Digihaler] predniSONE [Deltasone] 20 mg PO QDAY #5 tab 11/04/20 Unknown Rx ALBUTEROL NEB's [Proventil 0.083% 2.5 mg IH TID PRN 30 Days #1 box 11/20/20 Unknown Rx NEBS] predniSONE [Deltasone] 40 mg PO QDAY 5 Days #10 tab 07/30/21 Unknown Rx Prednisone [predniSONE 10 mg 10 mg PO .TAPER #1 08/13/21 Unknown Rx (6-Day Pack, 21 Tabs)] Prednisone [predniSONE 10 mg 10 mg PO .TAPER #1 tab.ds.pk 09/23/21 Unknown Rx (6-Day Pack, 21 Tabs)] Albuterol Mdi (or & Nicu Only) 2 puff IH QID PRN #8.5 gram 11/03/21 Unknown Rx [ProAir HFA Inhaler] methylPREDNISolone [Medrol 4MG 4 mg PO DAILY #1 11/03/21 Unknown Rx DOSEPAK (21 tabs)] Brompheniramine/Pseudoephed/Dm 5 ml PO Q6HR PRN #120 syrup 11/26/21 Unknown Rx [Bromfed Dm Cough Syrup] methylPREDNISolone [Medrol 4MG 4 mg PO UNK #1 11/26/21 Unknown Rx DOSEPAK (21 tabs)] Albuterol Sulfate [Albuterol 0.63% 0.63 mg IH Q4HR PRN #2 ml 01/06/22 Unknown Rx NEBS] Albuterol Sulfate [Proair 90 mcg IH Q4HR PRN #2 aer.pow.ba 01/06/22 Unknown Rx Respiclick] Ipratropium (Nf) [Atrovent] 2 puff IH Q6HR PRN #1 inha 01/06/22 Unknown Rx Ipratropium [Atrovent NEB] 0.5 mg IH Q4HR #2 ml 01/06/22 Unknown Rx predniSONE [Deltasone] 40 mg PO QDAY #8 tab 01/06/22 Unknown Rx Allergies Allergy/AdvReac Type Severity Reaction Status Date / Time erythromycin base Allergy Anaphylaxis Verified 05/31/17 17:24 [Erythromycin Base] levofloxacin [From Levaquin] Allergy Swelling Verified 11/30/18 15:20 montelukast sodium Allergy Itching Verified 05/31/17 17:24 [From Singulair] ED Review of Systems ROS: Stated complaint: ASTHMA Other details as noted in HPI Constitutional: denies: fever Eyes: denies: eye discharge ENT: congestion Respiratory: shortness of breath, SOB with exertion, wheezing Cardiovascular: denies: chest pain Gastrointestinal: denies: abdominal pain Musculoskeletal: as per HPI Skin: as per HPI Neurological: as per HPI Psychiatric: as per HPI ED Past Medical Hx - Past Medical History Hx Hypertension: Yes Hx Heart Attack/AMI: Yes () Hx Congestive Heart Failure: Yes (5 YRS AGO) Hx Diabetes: No Hx Deep Vein Thrombosis: Yes Hx GERD: Yes Hx Liver Disease: No Hx Renal Disease: No Hx Sickle Cell Disease: No Hx Arthritis: Yes Hx Seizures: Yes ( CHILD ONLY) Hx Kidney Stones: Yes Hx Asthma: Yes (inhaled steroids) Hx COPD: Yes (will use home inhalers in preop) Hx HIV: No Additional medical history: diverticulitis restless leg - Surgical History Hx Coronary Stent: No Hx Pacemaker: Yes (last interrogated 1 month ago, per patient) Hx Internal Defibrillator: Yes (placed 2/2 cardiomyopathy wtih low EF in 2008; EF improved) Hx Cholecystectomy: Yes Hx Breast Surgery: Yes (SARAI BREAST RECONSTRUCTION) Additional Surgical History: defibrillator. blood clot removal - Social History Smoking Status: Current Every Day Smoker Substance Use Type: None - Medications Home Medications: Home Medications Medication Instructions Recorded Confirmed Last Taken Type Aspirin [Aspirin Enteric Coated] 81 mg PO DAILY 11/20/13 07/05/19 01/30/19 History Ropinirole HCl [Requip] 2 mg PO HS 05/31/17 07/05/19 01/30/19 History Alendronate Sodium 35 mg PO QWEEK 10/24/18 07/05/19 01/30/19 History Calcium Carbonate/Vitamin D3 1 each PO DAILY 10/24/18 07/05/19 01/30/19 History [Os-Kane 500-Vit D3 200 Caplet] Valsartan/Hydrochlorothiazide 1 tab PO QDAY 10/24/18 07/05/19 01/30/19 History [Diovan Hct 320-25 mg] Budesonide/Formoterol Fumarate 2 gm IH BID #1 hfa.aer.ad 11/22/18 07/05/19 01/30/19 Rx [Symbicort 160-4.5 Mcg Inhaler] Pantoprazole [Protonix TAB] 40 mg PO QDAY 02/01/19 07/05/19 01/30/19 History Aspirin BABY CHEW TAB 81 mg PO QDAY 07/05/19 07/05/19 Unknown History AtorvaSTATin 10 mg PO QHS 07/05/19 07/05/19 Unknown History Isosorbide Dinitrate [Isordil] 20 mg PO TID 07/05/19 07/05/19 Unknown History Apixaban [Eliquis] 5 mg PO Q12HR #60 tablet 07/07/19 Unknown Rx Albuterol Sulfate [Proair 90 mcg IH Q4H #1 aer.pw.bas 11/04/20 Unknown Rx Digihaler] predniSONE [Deltasone] 20 mg PO QDAY #5 tab 11/04/20 Unknown Rx ALBUTEROL NEB's [Proventil 0.083% 2.5 mg IH TID PRN 30 Days #1 box 11/20/20 Unknown Rx NEBS] predniSONE [Deltasone] 40 mg PO QDAY 5 Days #10 tab 07/30/21 Unknown Rx Prednisone [predniSONE 10 mg 10 mg PO .TAPER #1 08/13/21 Unknown Rx (6-Day Pack, 21 Tabs)] Prednisone [predniSONE 10 mg 10 mg PO .TAPER #1 tab.ds.pk 09/23/21 Unknown Rx (6-Day Pack, 21 Tabs)] Albuterol Mdi (or & Nicu Only) 2 puff IH QID PRN #8.5 gram 11/03/21 Unknown Rx [ProAir HFA Inhaler] methylPREDNISolone [Medrol 4MG 4 mg PO DAILY #1 11/03/21 Unknown Rx DOSEPAK (21 tabs)] Brompheniramine/Pseudoephed/Dm 5 ml PO Q6HR PRN #120 syrup 11/26/21 Unknown Rx [Bromfed Dm Cough Syrup] methylPREDNISolone [Medrol 4MG 4 mg PO UNK #1 11/26/21 Unknown Rx DOSEPAK (21 tabs)] Albuterol Sulfate [Albuterol 0.63% 0.63 mg IH Q4HR PRN #2 ml 01/06/22 Unknown Rx NEBS] Albuterol Sulfate [Proair 90 mcg IH Q4HR PRN #2 aer.pow.ba 01/06/22 Unknown Rx Respiclick] Ipratropium (Nf) [Atrovent] 2 puff IH Q6HR PRN #1 inha 01/06/22 Unknown Rx Ipratropium [Atrovent NEB] 0.5 mg IH Q4HR #2 ml 01/06/22 Unknown Rx predniSONE [Deltasone] 40 mg PO QDAY #8 tab 01/06/22 Unknown Rx ED Physical Exam - General Limitations: No Limitations General appearance: alert, anxious - Head Head exam: Present: atraumatic, normocephalic - Eye Eye exam: Present: normal appearance, EOMI. Absent: nystagmus - ENT ENT exam: Present: normal exam, normal orophraynx, mucous membranes moist, normal external ear exam - Neck Neck exam: Present: normal inspection, full ROM. Absent: meningismus - Respiratory Respiratory exam: Present: respiratory distress, wheezes, rhonchi - Cardiovascular Cardiovascular Exam: Present: regular rate, normal rhythm, normal heart sounds. Absent: bradycardia, tachycardia, irregular rhythm, systolic murmur, diastolic murmur, rubs, gallop - GI/Abdominal GI/Abdominal exam: Present: soft. Absent: distended, tenderness, guarding, rebound, rigid, pulsatile mass - Extremities Exam Extremities exam: Present: normal inspection, full ROM, pedal edema (1+ edema in the bilateral lower extremity), other (2+ pulses noted in the bilateral upper and lower extremities. There is no palpable cord. negative Homans sign. Muscular compartments are soft. The pelvis is stable.). Absent: calf tenderness - Back Exam Back exam: Present: normal inspection. Absent: tenderness, CVA tenderness (R), CVA tenderness (L), paraspinal tenderness, vertebral tenderness - Neurological Exam Neurological exam: Present: alert, other (No facial droop. Tongue midline. Extraocular movements intact bilaterally. Facial sensation intact to light touch in V1, V2, V3 distribution bilaterally. 5 and a 5 strength in 4 extremities. Sensation intact to light touch in 4 extremities.). Absent: motor sensory deficit - Psychiatric Psychiatric exam: Present: normal affect, normal mood - Skin Skin exam: Present: warm, dry, intact, normal color. Absent: rash ED Course Vital Signs 01/05/22 01/05/22 01/05/22 21:30 22:10 23:02 Temperature 98.2 F Pulse Rate 68 Pulse Rate [ 68 Bilateral Throughout] Respiratory 18 Rate Respiratory 20 Rate [Bilateral Throughout] Blood Pressure 106/69 [Right] O2 Sat by Pulse 100 Oximetry O2 Sat by Pulse 99 Oximetry [ Digit-Finger] 01/05/22 23:40 Temperature Pulse Rate Pulse Rate [ 69 Bilateral Throughout] Respiratory Rate Respiratory 20 Rate [Bilateral Throughout] Blood Pressure [Right] O2 Sat by Pulse Oximetry O2 Sat by Pulse Oximetry [ Digit-Finger] - Reevaluation(s) Reevaluation #1: 01/05/22 22:07 Differential diagnosis, include but not limited to: Reactive airway disease, bronchitis, asthma exacerbation, COPD exacerbation Assessment and plan: 66-year-old female, who is known to myself and to this department, whom I evaluated and treated in the past for reactive airways disease, presenting with typical reactive airways disease exacerbation. The patient denies travel, surgery, immobilization and physical pain. Start albuterol, Atrovent, steroids and magnesium. Placed on monitoring manager and pulse oximeter. I discussed the plan of care with the patient. She is agreeable to the plan of care. Reassess after completion of therapy. Patient also reports she is taking her aspirin and Eliquis and has not missed any of her doses. 01/05/22 22:10 06/28/22 01:24 Patient is reassessed multiple times while here in the department. After first round of therapy, felt markedly improved, but still had wheezing. Ordered additional 5 mg of albuterol, and reassess. Her wheezing is now resolved. She is in no acute distress. On final reassessment she is sleeping comfortably on her stretcher and in no acute distress. She endorses complete resolution of symptoms, and that she feels ready for discharge. She is reliable to follow-up with her outpatient galley worker. Return precautions are reviewed. All questions answered. - Pulse Oximetry Interpretation Digit-Finger Initial Pulse Oximetry Readin O2 Sat by Pulse Oximetry: 99 Actions Taken: none ED Medical Decision Making - Lab Data Vital Signs 01/05/22 01/05/22 21:27 21:30 Temperature 98.2 F Pulse Rate 68 Pulse Rate [ 73 Bilateral Throughout] Respiratory 18 Rate Respiratory 22 Rate [Bilateral Throughout] Blood Pressure 106/69 [Right] O2 Sat by Pulse 100 Oximetry Critical Care Time: Yes Critical care time in (mins) excluding proc time.: 35 Critical care attestation.: If time is entered above; I have spent that time in minutes in the direct care of this critically ill patient, excluding procedure time. ED Disposition Clinical Impression: Reactive airway disease with acute exacerbation Qualifiers: Asthma severity: moderate Disposition: 01 HOME / SELF CARE / HOMELESS Is pt being admited?: No Does the pt Need Aspirin: No Condition: Good Instructions: Acute Bronchitis (ED) Additional Instructions: Please take the medications as directed. Please follow-up with your primary care doctor or galley worker within the next 5 to 7 days. Please return to the emergency room right away with new pain, worsened pain, migration of pain, projectile vomiting, change in mental status, confusion, inability tolerate liquid feeds, new, worsened or different symptoms not present on the initial emergency room evaluation Referrals: ANUJA FRANCOIS MD [Staff Physician] - 3-5 Days
[2022-01-05 21:32] VITALS: BP 106/69
== END 2022-01-06 02:24 | disposition home or self-care (01) ==
LOC: ED 20:52
DX: J45.901 Unspecified asthma with (acute) exacerbation (principal); I11.0 Hypertensive heart disease with heart failure; I50.9 Heart failure, unspecified; I82.409 Acute embolism and thrombosis of unspecified deep veins of unspecified lower extremity; K21.9 Gastro-esophageal reflux disease without esophagitis; M19.90 Unspecified osteoarthritis, unspecified site; R56.9 Unspecified convulsions; Z87.442 Personal history of urinary calculi; J44.9 Chronic obstructive pulmonary disease, unspecified; Z98.890 Other specified postprocedural states; F17.290 Nicotine dependence, other tobacco product, uncomplicated; Z88.1 Allergy status to other antibiotic agents; Z88.8 Allergy status to other drugs, medicaments and biological substances
CPT/HCPCS: 94640; 94644; 96365; 96375; 99283; J2930; J3475

== ENCOUNTER 2022-01-07 19:14 | Emergency (ER) | payer BC, OTHER ==
--- NOTE | 2022-01-07 19:24 | Emergency Department Report ---
ED Shortness of Breath HPI - General Chief Complaint: Dyspnea/Respdistress Stated Complaint: SOB Source: patient Mode of arrival: Ambulatory Limitations: No Limitations - History of Present Illness Initial Comments: 66-year-old female past medical history hypertension, asthma, diabetes, CHF, DC in the past and seizures is an employee of [employer], while at work started to experiencing asthmatic symptoms including shortness of breath and wheezing. Patient denies chest pain. Patient reports no other acute symptoms. Patient has prescriptions from her prior ER visit on 06 January but currently does not have them with her while at work. Complaint: "asthma attack" - Related Data Home Medications Medication Instructions Recorded Confirmed Last Taken Aspirin [Aspirin Enteric Coated] 81 mg PO DAILY 11/20/13 07/05/19 01/30/19 Ropinirole HCl [Requip] 2 mg PO HS 05/31/17 07/05/19 01/30/19 Alendronate Sodium 35 mg PO QWEEK 10/24/18 07/05/19 01/30/19 Calcium Carbonate/Vitamin D3 1 each PO DAILY 10/24/18 07/05/19 01/30/19 [Os-Kane 500-Vit D3 200 Caplet] Valsartan/Hydrochlorothiazide 1 tab PO QDAY 10/24/18 07/05/19 01/30/19 [Diovan Hct 320-25 mg] Pantoprazole [Protonix TAB] 40 mg PO QDAY 02/01/19 07/05/19 01/30/19 Aspirin BABY CHEW TAB 81 mg PO QDAY 07/05/19 07/05/19 Unknown AtorvaSTATin 10 mg PO QHS 07/05/19 07/05/19 Unknown Isosorbide Dinitrate [Isordil] 20 mg PO TID 07/05/19 07/05/19 Unknown Previous Rx's Medication Instructions Recorded Last Taken Type Budesonide/Formoterol Fumarate 2 gm IH BID #1 hfa.aer.ad 11/22/18 01/30/19 Rx [Symbicort 160-4.5 Mcg Inhaler] Apixaban [Eliquis] 5 mg PO Q12HR #60 tablet 07/07/19 Unknown Rx Albuterol Sulfate [Proair 90 mcg IH Q4H #1 aer.pw.bas 11/04/20 Unknown Rx Digihaler] predniSONE [Deltasone] 20 mg PO QDAY #5 tab 11/04/20 Unknown Rx ALBUTEROL NEB's [Proventil 0.083% 2.5 mg IH TID PRN 30 Days #1 box 11/20/20 Unknown Rx NEBS] predniSONE [Deltasone] 40 mg PO QDAY 5 Days #10 tab 07/30/21 Unknown Rx Prednisone [predniSONE 10 mg 10 mg PO .TAPER #1 08/13/21 Unknown Rx (6-Day Pack, 21 Tabs)] Prednisone [predniSONE 10 mg 10 mg PO .TAPER #1 tab.ds.pk 09/23/21 Unknown Rx (6-Day Pack, 21 Tabs)] Albuterol Mdi (or & Nicu Only) 2 puff IH QID PRN #8.5 gram 11/03/21 Unknown Rx [ProAir HFA Inhaler] methylPREDNISolone [Medrol 4MG 4 mg PO DAILY #1 11/03/21 Unknown Rx DOSEPAK (21 tabs)] Brompheniramine/Pseudoephed/Dm 5 ml PO Q6HR PRN #120 syrup 11/26/21 Unknown Rx [Bromfed Dm Cough Syrup] methylPREDNISolone [Medrol 4MG 4 mg PO UNK #1 11/26/21 Unknown Rx DOSEPAK (21 tabs)] Albuterol Sulfate [Albuterol 0.63% 0.63 mg IH Q4HR PRN #2 ml 01/06/22 Unknown Rx NEBS] Albuterol Sulfate [Proair 90 mcg IH Q4HR PRN #2 aer.pow.ba 01/06/22 Unknown Rx Respiclick] Ipratropium (Nf) [Atrovent] 2 puff IH Q6HR PRN #1 inha 01/06/22 Unknown Rx Ipratropium [Atrovent NEB] 0.5 mg IH Q4HR #2 ml 01/06/22 Unknown Rx predniSONE [Deltasone] 40 mg PO QDAY #8 tab 01/06/22 Unknown Rx Allergies Allergy/AdvReac Type Severity Reaction Status Date / Time erythromycin base Allergy Anaphylaxis Verified 01/07/22 19:16 [Erythromycin Base] levofloxacin [From Levaquin] Allergy Swelling Verified 01/07/22 19:16 montelukast sodium Allergy Itching Verified 01/07/22 19:16 [From Singulair] ED Review of Systems ROS: Stated complaint: SOB Other details as noted in HPI Constitutional: denies: chills, fever Eyes: denies: eye pain, eye discharge, vision change ENT: denies: ear pain, throat pain Respiratory: shortness of breath, wheezing. denies: cough Cardiovascular: denies: chest pain, palpitations Endocrine: no symptoms reported Gastrointestinal: denies: abdominal pain, nausea, diarrhea Genitourinary: denies: urgency, dysuria, discharge Musculoskeletal: denies: back pain, joint swelling, arthralgia Skin: denies: rash, lesions Neurological: denies: headache, weakness, paresthesias Psychiatric: denies: anxiety, depression Hematological/Lymphatic: denies: easy bleeding, easy bruising ED Past Medical Hx - Past Medical History Previous Medical History?: Yes Hx Hypertension: Yes Hx Heart Attack/AMI: Yes () Hx Congestive Heart Failure: Yes (5 YRS AGO) Hx Diabetes: No Hx Deep Vein Thrombosis: Yes Hx GERD: Yes Hx Liver Disease: No Hx Renal Disease: No Hx Sickle Cell Disease: No Hx Arthritis: Yes Hx Seizures: Yes ( CHILD ONLY) Hx Kidney Stones: Yes Hx Asthma: Yes (inhaled steroids) Hx COPD: Yes (will use home inhalers in preop) Hx HIV: No Additional medical history: diverticulitis restless leg - Surgical History Hx Coronary Stent: No Hx Pacemaker: Yes (last interrogated 1 month ago, per patient) Hx Internal Defibrillator: Yes (placed 2/2 cardiomyopathy wtih low EF in 2008; EF improved) Hx Cholecystectomy: Yes Hx Breast Surgery: Yes (SARAI BREAST RECONSTRUCTION) Additional Surgical History: defibrillator. blood clot removal - Social History Smoking Status: Current Every Day Smoker Substance Use Type: None - Medications Home Medications: Home Medications Medication Instructions Recorded Confirmed Last Taken Type Aspirin [Aspirin Enteric Coated] 81 mg PO DAILY 11/20/13 07/05/19 01/30/19 History Ropinirole HCl [Requip] 2 mg PO HS 05/31/17 07/05/19 01/30/19 History Alendronate Sodium 35 mg PO QWEEK 10/24/18 07/05/19 01/30/19 History Calcium Carbonate/Vitamin D3 1 each PO DAILY 10/24/18 07/05/19 01/30/19 History [Os-Kane 500-Vit D3 200 Caplet] Valsartan/Hydrochlorothiazide 1 tab PO QDAY 10/24/18 07/05/19 01/30/19 History [Diovan Hct 320-25 mg] Budesonide/Formoterol Fumarate 2 gm IH BID #1 hfa.aer.ad 11/22/18 07/05/19 01/30/19 Rx [Symbicort 160-4.5 Mcg Inhaler] Pantoprazole [Protonix TAB] 40 mg PO QDAY 02/01/19 07/05/19 01/30/19 History Aspirin BABY CHEW TAB 81 mg PO QDAY 07/05/19 07/05/19 Unknown History AtorvaSTATin 10 mg PO QHS 07/05/19 07/05/19 Unknown History Isosorbide Dinitrate [Isordil] 20 mg PO TID 07/05/19 07/05/19 Unknown History Apixaban [Eliquis] 5 mg PO Q12HR #60 tablet 07/07/19 Unknown Rx Albuterol Sulfate [Proair 90 mcg IH Q4H #1 aer.pw.bas 11/04/20 Unknown Rx Digihaler] predniSONE [Deltasone] 20 mg PO QDAY #5 tab 11/04/20 Unknown Rx ALBUTEROL NEB's [Proventil 0.083% 2.5 mg IH TID PRN 30 Days #1 box 11/20/20 Unknown Rx NEBS] predniSONE [Deltasone] 40 mg PO QDAY 5 Days #10 tab 07/30/21 Unknown Rx Prednisone [predniSONE 10 mg 10 mg PO .TAPER #1 08/13/21 Unknown Rx (6-Day Pack, 21 Tabs)] Prednisone [predniSONE 10 mg 10 mg PO .TAPER #1 tab.ds.pk 09/23/21 Unknown Rx (6-Day Pack, 21 Tabs)] Albuterol Mdi (or & Nicu Only) 2 puff IH QID PRN #8.5 gram 11/03/21 Unknown Rx [ProAir HFA Inhaler] methylPREDNISolone [Medrol 4MG 4 mg PO DAILY #1 11/03/21 Unknown Rx DOSEPAK (21 tabs)] Brompheniramine/Pseudoephed/Dm 5 ml PO Q6HR PRN #120 syrup 11/26/21 Unknown Rx [Bromfed Dm Cough Syrup] methylPREDNISolone [Medrol 4MG 4 mg PO UNK #1 11/26/21 Unknown Rx DOSEPAK (21 tabs)] Albuterol Sulfate [Albuterol 0.63% 0.63 mg IH Q4HR PRN #2 ml 01/06/22 Unknown Rx NEBS] Albuterol Sulfate [Proair 90 mcg IH Q4HR PRN #2 aer.pow.ba 01/06/22 Unknown Rx Respiclick] Ipratropium (Nf) [Atrovent] 2 puff IH Q6HR PRN #1 inha 01/06/22 Unknown Rx Ipratropium [Atrovent NEB] 0.5 mg IH Q4HR #2 ml 01/06/22 Unknown Rx predniSONE [Deltasone] 40 mg PO QDAY #8 tab 01/06/22 Unknown Rx ED Physical Exam - General Limitations: No Limitations General appearance: alert, in no apparent distress - Head Head exam: Present: atraumatic, normocephalic - Eye Eye exam: Present: normal appearance - ENT ENT exam: Present: mucous membranes moist - Neck Neck exam: Present: normal inspection - Respiratory Respiratory exam: Present: wheezes. Absent: normal lung sounds bilaterally, respiratory distress, chest wall tenderness, accessory muscle use - Cardiovascular Cardiovascular Exam: Present: regular rate, normal rhythm. Absent: systolic murmur, diastolic murmur, rubs, gallop - GI/Abdominal GI/Abdominal exam: Present: soft, normal bowel sounds - Extremities Exam Extremities exam: Present: normal inspection - Back Exam Back exam: Present: normal inspection - Neurological Exam Neurological exam: Present: alert, oriented X3 - Psychiatric Psychiatric exam: Present: normal affect, normal mood - Skin Skin exam: Present: warm, dry, intact, normal color. Absent: rash ED Course - Reevaluation(s) Reevaluation #1: 01/07/22 20:46 Patient reports feeling better after receiving her continuous nebulizer of DuoNeb and her steroid injection. Patient will be discharged home and will continue to use her current prescription for her asthma treatment. ED Medical Decision Making - Medical Decision Making 66-year-old female reports to the ER due to asthma exacerbation as she arrived for her work shift today. [employer]. No chest pain is present. Patient reports feeling better after receiving her continuous nebulizer of DuoNeb and her steroid injection. Patient will be discharged home and will continue to use her current prescription for her asthma treatment.. Blood pressure 154/85 97% on room air Heart rate 69 Vitals were taken by provider at time of discharge. Respiratory rate 18 temperature 97.5 Patient agrees with plan of care and verbalizes understanding. Critical care attestation.: If time is entered above; I have spent that time in minutes in the direct care of this critically ill patient, excluding procedure time. ED Disposition Clinical Impression: Asthma exacerbation Qualifiers: Asthma severity: mild Asthma persistence: intermittent Qualified Code(s): J45.21 - Mild intermittent asthma with (acute) exacerbation Disposition: 01 HOME / SELF CARE / HOMELESS Is pt being admited?: No Does the pt Need Aspirin: No Condition: Stable Instructions: Asthma, Adult, Bronchospasm, Adult, Asthma, Adult, [id number], Asthma Attack Additional Instructions: If symptoms get worse please report back to the ER. Please follow-up with primary care provider for asthma management. Forms: Work/School Release Form(ED) Time of Disposition: 20:48 Print Language: HUNGARIAN
[2022-01-07] MEDS ORDERED: ALBUTEROL 2.5 MG/3 ML NEBU IH STA (19:28)
[2022-01-07] MEDS ORDERED: dexAMETHasone 4 MG/ML VIAL IM ONE (19:33)
[2022-01-07 21:11] VITALS: BP 154/85
== END 2022-01-07 21:23 | disposition home or self-care (01) ==
LOC: ED 19:14
DX: J45.901 Unspecified asthma with (acute) exacerbation (principal); I11.0 Hypertensive heart disease with heart failure; I50.9 Heart failure, unspecified; I82.409 Acute embolism and thrombosis of unspecified deep veins of unspecified lower extremity; K21.9 Gastro-esophageal reflux disease without esophagitis; M19.90 Unspecified osteoarthritis, unspecified site; R56.9 Unspecified convulsions; Z87.442 Personal history of urinary calculi; K57.92 Diverticulitis of intestine, part unspecified, without perforation or abscess without bleeding; Z98.890 Other specified postprocedural states; F17.290 Nicotine dependence, other tobacco product, uncomplicated; Z88.1 Allergy status to other antibiotic agents; Z88.8 Allergy status to other drugs, medicaments and biological substances
CPT/HCPCS: 94644; 96372; 99282; J1100

== ENCOUNTER 2022-01-17 11:00 | Outpatient (CLI) | payer BC, OTHER | END 2022-01-17 11:01 | disposition home or self-care (01) | LOC: SLR 11:00 | PROVIDERS: ATTEND Internal Medicine | DX: G47.30 Sleep apnea, unspecified (principal) | CPT/HCPCS: 95810 ==

== ENCOUNTER 2022-01-28 19:20 | Emergency (ER) | payer BC, OTHER ==
[2022-01-28 19:29] VITALS: BP 138/82
[2022-01-28] MEDS ORDERED: IPRATROPIUM 0.02% NEBU 2.5 ML IH ONE (19:43)
[2022-01-28] MEDS ORDERED: methylPREDNISolone Sod Succinate 125 MG/2 ML INJ IV ONE (19:43)
[2022-01-28] MEDS ORDERED: ALBUTEROL 2.5 MG/3 ML NEBU IH ONE (19:43)
[2022-01-28] MEDS ORDERED: MAGNESIUM SULFATE 2 GM/50 ML BAG IV ONE (19:44)
--- NOTE | 2022-01-28 20:24 | XRay Report ---
CHEST 1 VIEW 01/28/2022 7:16 PM INDICATION / CLINICAL INFORMATION: DYSPNEA, COUGH. COMPARISON: 11/26/2021 FINDINGS: SUPPORT DEVICES: AICD appears unchanged. The control unit obscures a portion of the left lower lung z one. HEART / MEDIASTINUM: No significant abnormality. LUNGS / PLEURA: No significant pulmonary or pleural abnormality. No pneumothorax. ADDITIONAL FINDINGS: No significant additional findings. IMPRESSION: 1. No acute findings. Signer Name: Abdullahi Hoff MD Signed: 01/28/2022 8:20 PM Workstation Name: [id number]
[2022-01-28 20:27] LABS: Basophils % (Auto) 0.8 % (0.0-1.8); Eosinophils # (Auto) 0.2 K/mm3 (0.0-0.4); Eosinophils % (Auto) 2.6 % (0.0-4.3); Hematocrit 41.4 % (30.3-42.9); Hemoglobin 13.1 gm/dl (10.1-14.3); Lymphocytes # (Auto) 1.1 K/mm3 (1.2-5.4); Lymphocytes % (Auto) 18.9 % (13.4-35.0); Mean Corpuscular HGB Conc 32 % (30-34); Mean Corpuscular Volume 88 fl (79-97); Monocytes # (Auto) 0.3 K/mm3 (0.0-0.8); Monocytes % (Auto) 5.9 % (0.0-7.3); Platelet Count 160 K/mm3 (140-440); Red Blood Count 4.69 M/mm3 (3.65-5.03); Red Cell Distribution Width 14.6 % (13.2-15.2)
[2022-01-28 20:51] LABS: Albumin 3.9 g/dL (3.9-5); Calcium 9.8 mg/dL (8.4-10.2)
--- NOTE | 2022-01-28 22:59 | Emergency Department Report ---
ED Shortness of Breath HPI - General Chief Complaint: Dyspnea/Respdistress Stated Complaint: CHRISTIANO/SOB Time Seen by Provider: 01/28/22 20:36 Source: patient Mode of arrival: Ambulatory Limitations: No Limitations - History of Present Illness Initial Comments: asthma attack started approx 15-20 min prior to signing in, pt has used inhaler x 3 with no relief, audible wheezing, pt has wheezing in bilateral lungs upper and lower MD Complaint: shortness of breath -: Gradual, days(s) Worsens With: exertion Known History Of: asthma Associated Symptoms: denies other symptoms - Related Data Home Oxygen Therapy: No Home Medications Medication Instructions Recorded Confirmed Last Taken Aspirin [Aspirin Enteric Coated] 81 mg PO DAILY 11/20/13 07/05/19 01/30/19 Ropinirole HCl [Requip] 2 mg PO HS 05/31/17 07/05/19 01/30/19 Alendronate Sodium 35 mg PO QWEEK 10/24/18 07/05/19 01/30/19 Calcium Carbonate/Vitamin D3 1 each PO DAILY 10/24/18 07/05/19 01/30/19 [Os-Kane 500-Vit D3 200 Caplet] Valsartan/Hydrochlorothiazide 1 tab PO QDAY 10/24/18 07/05/19 01/30/19 [Diovan Hct 320-25 mg] Pantoprazole [Protonix TAB] 40 mg PO QDAY 02/01/19 07/05/19 01/30/19 Aspirin BABY CHEW TAB 81 mg PO QDAY 07/05/19 07/05/19 Unknown AtorvaSTATin 10 mg PO QHS 07/05/19 07/05/19 Unknown Isosorbide Dinitrate [Isordil] 20 mg PO TID 07/05/19 07/05/19 Unknown Previous Rx's Medication Instructions Recorded Last Taken Type Budesonide/Formoterol Fumarate 2 gm IH BID #1 hfa.aer.ad 11/22/18 01/30/19 Rx [Symbicort 160-4.5 Mcg Inhaler] Apixaban [Eliquis] 5 mg PO Q12HR #60 tablet 07/07/19 Unknown Rx Albuterol Sulfate [Proair 90 mcg IH Q4H #1 aer.pw.bas 11/04/20 Unknown Rx Digihaler] predniSONE [Deltasone] 20 mg PO QDAY #5 tab 11/04/20 Unknown Rx ALBUTEROL NEB's [Proventil 0.083% 2.5 mg IH TID PRN 30 Days #1 box 11/20/20 Unknown Rx NEBS] predniSONE [Deltasone] 40 mg PO QDAY 5 Days #10 tab 07/30/21 Unknown Rx Prednisone [predniSONE 10 mg 10 mg PO .TAPER #1 08/13/21 Unknown Rx (6-Day Pack, 21 Tabs)] Prednisone [predniSONE 10 mg 10 mg PO .TAPER #1 tab.ds.pk 09/23/21 Unknown Rx (6-Day Pack, 21 Tabs)] Albuterol Mdi (or & Nicu Only) 2 puff IH QID PRN #8.5 gram 11/03/21 Unknown Rx [ProAir HFA Inhaler] methylPREDNISolone [Medrol 4MG 4 mg PO DAILY #1 11/03/21 Unknown Rx DOSEPAK (21 tabs)] Brompheniramine/Pseudoephed/Dm 5 ml PO Q6HR PRN #120 syrup 11/26/21 Unknown Rx [Bromfed Dm Cough Syrup] methylPREDNISolone [Medrol 4MG 4 mg PO UNK #1 11/26/21 Unknown Rx DOSEPAK (21 tabs)] Albuterol Sulfate [Albuterol 0.63% 0.63 mg IH Q4HR PRN #2 ml 01/06/22 Unknown Rx NEBS] Albuterol Sulfate [Proair 90 mcg IH Q4HR PRN #2 aer.pow.ba 01/06/22 Unknown Rx Respiclick] Ipratropium (Nf) [Atrovent] 2 puff IH Q6HR PRN #1 inha 01/06/22 Unknown Rx Ipratropium [Atrovent NEB] 0.5 mg IH Q4HR #2 ml 01/06/22 Unknown Rx predniSONE [Deltasone] 40 mg PO QDAY #8 tab 01/06/22 Unknown Rx Allergies Allergy/AdvReac Type Severity Reaction Status Date / Time erythromycin base Allergy Anaphylaxis Verified 01/07/22 19:16 [Erythromycin Base] levofloxacin [From Levaquin] Allergy Swelling Verified 01/07/22 19:16 montelukast sodium Allergy Itching Verified 01/07/22 19:16 [From Singulair] ED Review of Systems ROS: Stated complaint: CHRISTIANO/SOB Other details as noted in HPI Constitutional: denies: chills, fever Eyes: denies: eye pain, eye discharge, vision change ENT: denies: ear pain, throat pain Respiratory: denies: cough, shortness of breath, wheezing Cardiovascular: denies: chest pain, palpitations Endocrine: no symptoms reported Gastrointestinal: denies: abdominal pain, nausea, diarrhea Genitourinary: denies: urgency, dysuria, discharge Musculoskeletal: denies: back pain, joint swelling, arthralgia Skin: denies: rash, lesions Neurological: denies: headache, weakness, paresthesias Psychiatric: denies: anxiety, depression Hematological/Lymphatic: denies: easy bleeding, easy bruising ED Past Medical Hx - Past Medical History Previous Medical History?: Yes Hx Hypertension: Yes Hx Heart Attack/AMI: Yes () Hx Congestive Heart Failure: Yes (5 YRS AGO) Hx Diabetes: No Hx Deep Vein Thrombosis: Yes Hx GERD: Yes Hx Liver Disease: No Hx Renal Disease: No Hx Sickle Cell Disease: No Hx Arthritis: Yes Hx Seizures: Yes ( CHILD ONLY) Hx Kidney Stones: Yes Hx Asthma: Yes (inhaled steroids) Hx COPD: Yes (will use home inhalers in preop) Hx HIV: No Additional medical history: diverticulitis restless leg - Surgical History Past Surgical History?: Yes Hx Coronary Stent: No Hx Pacemaker: Yes (last interrogated 1 month ago, per patient) Hx Internal Defibrillator: Yes (placed 2/2 cardiomyopathy wtih low EF in 2008; EF improved) Hx Cholecystectomy: Yes Hx Breast Surgery: Yes (SARAI BREAST RECONSTRUCTION) Additional Surgical History: defibrillator. blood clot removal - Social History Smoking Status: Never Smoker - Medications Home Medications: Home Medications Medication Instructions Recorded Confirmed Last Taken Type Aspirin [Aspirin Enteric Coated] 81 mg PO DAILY 11/20/13 07/05/19 01/30/19 History Ropinirole HCl [Requip] 2 mg PO HS 05/31/17 07/05/19 01/30/19 History Alendronate Sodium 35 mg PO QWEEK 10/24/18 07/05/19 01/30/19 History Calcium Carbonate/Vitamin D3 1 each PO DAILY 10/24/18 07/05/19 01/30/19 History [Os-Kane 500-Vit D3 200 Caplet] Valsartan/Hydrochlorothiazide 1 tab PO QDAY 10/24/18 07/05/19 01/30/19 History [Diovan Hct 320-25 mg] Budesonide/Formoterol Fumarate 2 gm IH BID #1 hfa.aer.ad 11/22/18 07/05/19 01/30/19 Rx [Symbicort 160-4.5 Mcg Inhaler] Pantoprazole [Protonix TAB] 40 mg PO QDAY 02/01/19 07/05/19 01/30/19 History Aspirin BABY CHEW TAB 81 mg PO QDAY 07/05/19 07/05/19 Unknown History AtorvaSTATin 10 mg PO QHS 07/05/19 07/05/19 Unknown History Isosorbide Dinitrate [Isordil] 20 mg PO TID 07/05/19 07/05/19 Unknown History Apixaban [Eliquis] 5 mg PO Q12HR #60 tablet 07/07/19 Unknown Rx Albuterol Sulfate [Proair 90 mcg IH Q4H #1 aer.pw.bas 11/04/20 Unknown Rx Digihaler] predniSONE [Deltasone] 20 mg PO QDAY #5 tab 11/04/20 Unknown Rx ALBUTEROL NEB's [Proventil 0.083% 2.5 mg IH TID PRN 30 Days #1 box 11/20/20 Unknown Rx NEBS] predniSONE [Deltasone] 40 mg PO QDAY 5 Days #10 tab 07/30/21 Unknown Rx Prednisone [predniSONE 10 mg 10 mg PO .TAPER #1 08/13/21 Unknown Rx (6-Day Pack, 21 Tabs)] Prednisone [predniSONE 10 mg 10 mg PO .TAPER #1 tab.ds.pk 09/23/21 Unknown Rx (6-Day Pack, 21 Tabs)] Albuterol Mdi (or & Nicu Only) 2 puff IH QID PRN #8.5 gram 11/03/21 Unknown Rx [ProAir HFA Inhaler] methylPREDNISolone [Medrol 4MG 4 mg PO DAILY #1 11/03/21 Unknown Rx DOSEPAK (21 tabs)] Brompheniramine/Pseudoephed/Dm 5 ml PO Q6HR PRN #120 syrup 11/26/21 Unknown Rx [Bromfed Dm Cough Syrup] methylPREDNISolone [Medrol 4MG 4 mg PO UNK #1 11/26/21 Unknown Rx DOSEPAK (21 tabs)] Albuterol Sulfate [Albuterol 0.63% 0.63 mg IH Q4HR PRN #2 ml 01/06/22 Unknown Rx NEBS] Albuterol Sulfate [Proair 90 mcg IH Q4HR PRN #2 aer.pow.ba 01/06/22 Unknown Rx Respiclick] Ipratropium (Nf) [Atrovent] 2 puff IH Q6HR PRN #1 inha 01/06/22 Unknown Rx Ipratropium [Atrovent NEB] 0.5 mg IH Q4HR #2 ml 01/06/22 Unknown Rx predniSONE [Deltasone] 40 mg PO QDAY #8 tab 01/06/22 Unknown Rx ED Physical Exam - General Limitations: No Limitations General appearance: alert, in no apparent distress - Head Head exam: Present: atraumatic, normocephalic - Eye Eye exam: Present: normal appearance - ENT ENT exam: Present: mucous membranes moist - Neck Neck exam: Present: normal inspection - Respiratory Respiratory exam: Present: normal lung sounds bilaterally, wheezes. Absent: respiratory distress - Cardiovascular Cardiovascular Exam: Present: regular rate, normal rhythm. Absent: systolic murmur, diastolic murmur, rubs, gallop - GI/Abdominal GI/Abdominal exam: Present: soft, normal bowel sounds - Extremities Exam Extremities exam: Present: normal inspection - Back Exam Back exam: Present: normal inspection - Neurological Exam Neurological exam: Present: alert, oriented X3 - Psychiatric Psychiatric exam: Present: normal affect, normal mood - Skin Skin exam: Present: warm, dry, intact, normal color. Absent: rash ED Course Vital Signs 01/28/22 01/28/22 19:24 21:03 Temperature 98.2 F Pulse Rate 96 H Pulse Rate [ 91 H Bilateral Throughout] Respiratory 26 H Rate Respiratory 24 Rate [Bilateral Throughout] Blood Pressure 138/82 O2 Sat by Pulse 93 Oximetry ED Medical Decision Making - Lab Data Result diagrams: 01/28/22 20:06 01/28/22 20:06 Critical care attestation.: If time is entered above; I have spent that time in minutes in the direct care of this critically ill patient, excluding procedure time. ED Disposition Clinical Impression: SOB (shortness of breath), Asthma exacerbation Disposition: 01 HOME / SELF CARE / HOMELESS Is pt being admited?: No Does the pt Need Aspirin: No Condition: Stable Instructions: Asthma, Adult Referrals: AIDA TALLEY MD [Primary Care Provider] - 3-5 Days
== END 2022-01-28 23:20 | disposition home or self-care (01) ==
LOC: ED 19:20
DX: J45.901 Unspecified asthma with (acute) exacerbation (principal); J44.9 Chronic obstructive pulmonary disease, unspecified; I11.0 Hypertensive heart disease with heart failure; I50.9 Heart failure, unspecified; K21.9 Gastro-esophageal reflux disease without esophagitis; M19.90 Unspecified osteoarthritis, unspecified site; Z87.442 Personal history of urinary calculi; Z88.1 Allergy status to other antibiotic agents; Z88.8 Allergy status to other drugs, medicaments and biological substances; Z79.899 Other long term (current) drug therapy; Z79.82 Long term (current) use of aspirin; Z79.01 Long term (current) use of anticoagulants; Z98.890 Other specified postprocedural states
CPT/HCPCS: 36415; 71045; 80053; 83880; 84484; 85025; 94644; 96365; 96375; 99284; J2930; J3475